=== PATIENT | female | born 2000 | race Caucasian/White ===

== ENCOUNTER 2022-09-08 14:34 | Outpatient (REF) | payer MEDICAID, SELFPAY ==
[2022-09-10 11:24] LABS: COVID-19 RT-PCR UVMMC Result Negative (Negative)
== END 2022-09-08 14:35 | disposition home or self-care (01) ==
LOC: LBN 14:34
PROVIDERS: PCP Physician Assistant Medical; Visit Provider Physician Assistant Medical
DX: Z20.822 Contact with and (suspected) exposure to COVID-19 (principal); B34.9 Viral infection, unspecified
CPT/HCPCS: U0003

== ENCOUNTER 2024-01-27 22:04 | Emergency (ER) | payer SELFPAY ==
[2024-01-27 22:20] VITALS: BP 118/60; PULSE 68; RESP 16; TEMP 36.6; O2SAT 98
[2024-01-27] MEDS: Fluorescein STRIPS 100/BOX 1 MG OP (22:34)
[2024-01-27] MEDS: Tetracaine 0.5% 4 ML BTL OP (22:34)
[2024-01-27] MEDS: Balanced Salt Solution 15 ML BTL OP (22:34)
--- NOTE | 2024-01-27 22:41 | ED.GENADUL_ITS ---
Discharge Plan Disposition Patient Disposition: Home Condition: Stable Discharge Details Clinical Impression: Acute conjunctivitis, right eye Primary Care Provider: None,None ED Provider: Sasha Stoner Home Meds and New Rx's Prescriptions: No Action naproxen sodium 550 MG tablet 550 mg PO Q12H PRN Discharge Instructions Instructions: Conjunctivitis (ED) Additional Instructions: Use the erythromycin ointment three times daily x 5-7 days. Wash your hands before touching your eye. You may use a warm clean wet wash rag as a compress. Try not to rub your eye or scratch it or itch it. Use the erythromycin ointment as directed. Follow up with primary care provider in 3-5 days. Return to ED sooner if any worsening or concerns. Please see [facility] care for follow-up if no better in the next 3 to 5 days. Referrals: [facility] [Outside] - Return if symptoms worsen Juan Jose Simental PA [NURSE PRACTITIONER] - 5 days HPI General Mode of arrival: ambulatory . Date/Time Provider Initiated Documentation: 01/27/24 22:06 . Limitations to Documentation: no limitations . Information obtained by: patient, RN notes reviewed and old records reviewed . HPI Narrative: 23 year old female presents to the ER with foreign body sensation to right eye which began last pm. She reports that she felt a bug fly into her eye and was trying to get it out with her fingers now her eye is red and irritated. She did have some swelling noted to the inner canthus of her right eye. No obvious corneal abrasion or foreign body visualized with Washburn lamp exam and fluorescein. EOMs are intact. She does report that she has had some drainage. No purulent discharge noted on my exam. Related Data Home Medications Medication Instructions Recorded Confirmed naproxen sodium 550 mg tablet 550 mg PO Q12H PRN 06/10/15 Allergies Allergy/AdvReac Type Severity Reaction Status Date / Time No Known Allergies Allergy Unverified 07/08/15 09:01 General Stated Complaint: EyeProblem BRENDON: 4 Review of Systems All systems reviewed & are unremarkable except as noted in HPI and below Eyes Eyes: Reports irritation and Reports itchy eyes Allergic/Immunologic Allergic/Immunologic: Reports itchy eyes Exam Eyes Periorbital: periorbital findings normal Conjunctivae: conjunctival abnormality right conjunctival injection diffuse Cornea: corneas abnormal on the right fluorescein used; Negative for abrasion, without opacification, no contact lens present, without diffuse punctate uptake, with no foreign body noted and without ulcerations Pupils: PERRL EOM: EOM intact bilaterally Course Vital Signs Vital signs: Vital Signs Temperature 36.6 C 01/27/24 22:20 Pulse 68 01/27/24 22:20 Respiratory Rate 16 01/27/24 22:20 Blood Pressure 118/60 01/27/24 22:20 Pulse Oximetry 98 01/27/24 22:20 Temperature 36.6 C 01/27/24 22:20 Temperature Source Tympanic 01/27/24 22:20 Pulse 68 01/27/24 22:20 Respiratory Rate 16 01/27/24 22:20 Blood Pressure 118/60 01/27/24 22:20 Pulse Oximetry 98 01/27/24 22:20 Pain Level 3 01/27/24 22:20 Medical Decision Making 23 year old female presents to the ER with foreign body sensation to right eye which began last pm. She reports that she felt a bug fly into her eye and was trying to get it out with her fingers now her eye is red and irritated. She did have some swelling noted to the inner canthus of her right eye. No obvious corneal abrasion or foreign body visualized with Washburn lamp exam and fluorescein. EOMs are intact. She does report that she has had some drainage. No purulent discharge noted on my exam. Washburn lamp performed with fluorescein saline and tetracaine. Patient tolerated with some difficulty. No corneal abrasion noted, she does have diffuse injection and some swelling noted to her inner canthus. Will treat with erythromycin ointment 3 times daily for the next 5 to 7 days to treat for empirical conjunctivitis.. Quality:SDOH Health Related Social Needs: No Data to Display PFSH All Active Problems (Updated 01/27/24 @ 22:47 by Sasha Stoner NP) Acute conjunctivitis, right eye (Acute) Surgical History ear tubes Tonsillectomy Social History Smoking risk assessment performed?: No Drug use: Never Substance use type: does not use Housing: apartment Do you feel safe at home: Yes Do you feel safe in your relationship?: Yes
[2024-01-27] MEDS: Erythromycin Ophth Oint 3.5 GM TUBE OD (22:49)
[2024-01-27 22:54] VITALS: BP 118/60; PULSE 68; RESP 16; TEMP 36.6
== END 2024-01-27 22:55 | disposition home or self-care (01) ==
LOC: ER 23:03
PROVIDERS: Emergency Provider Registered Nurse Emergency
DX: H10.31 Unspecified acute conjunctivitis, right eye (principal)
CPT/HCPCS: 99283

== ENCOUNTER 2024-03-31 10:41 | Emergency (ER) | payer SELFPAY ==
[2024-03-31 10:46] VITALS: BP 125/80; PULSE 100; RESP 18; TEMP 36.6; O2SAT 97
[2024-03-31 10:52] VITALS: BP 125/80; PULSE 100; RESP 18; TEMP 36.6; O2SAT 97
--- NOTE | 2024-03-31 11:06 | W.ED.GENAD ---
Discharge Plan Disposition Patient Disposition: Home Discharge Details Clinical Impression: Acute right otitis media Primary Care Provider: Unknown,Unknown ED Provider: Aaron Juares Home Meds and New Rx's Prescriptions: New amoxicillin 500 mg tablet 500 mg PO BID Qty: 14 0RF Discharge Instructions Instructions: Ear Infection ED Additional Instructions: You were seen in the emergency department for your right ear pain. You are found to have an ear infection. Please take these antibiotics as directed. Please return to the emergency thoracic discussed for any worsening ear pain any fevers nausea or vomiting. Discharge Data Discharge Date/Time-TO BE ENTERED AT DEPARTURE: 03/31/24 11:34 HPI General Date/Time Provider Initiated Documentation: 03/31/24 11:06. HPI Narrative: MDM This is an overall very well-appearing mildly tachycardic but normothermic 23-year-old female with right acute otitis media for which she will receive amoxicillin and empiric trial of expectant outpatient management. No conjunctivitis and no indication for amoxicillin clavulanic acid. No pain out of proportion to suggest necrotizing soft tissue infection. No mastoid tenderness to suggest mastoiditis. No signs of otitis externa to suggest benefit from earwax and ototic drops. Good range of motion in neck so I am not suspicious for retropharyngeal abscess. Nontoxic-appearing so doubt bacterial tracheitis. Handling secretions so doubt epiglottitis. No significant posterior oropharynx erythema to suggest strep pharyngitis so I did not swab for strep. Given no fevers my suspicion was low for COVID so I did not swab. Patient and I discussed return to the ED for any nausea vomiting fevers or chills or worsening ear pain. Patient's heart rate on repeat was 90. Patient has been seen in the past by ENT. I have asked health president of the [place] Ade[place] to have the patient seen in follow-up by the otolaryngology team. HPI Patient reports that she has had right ear pain since yesterday. She believes that it is infected. She has been swimming. No falls. She has a sore throat as well. With swallowing. Denies nausea or vomiting chest pain shortness of breath. Arrives with her fianc?. No dysuria. No frequency. Exam General: Well-appearing in no acute distress speaking in complete sentences. Head: Normocephalic, atraumatic. Eye: Extraocular eye movements intact. No conjunctival injection. No scleral icterus. Ear, nose, mouth, throat: Right acute bulging erythematous TM. No signs of otitis externa. No mastoid tenderness bilaterally. Left TM clear. No posterior oropharynx erythema. Neck: Trachea midline. Good range of motion in neck. Cardiovascular: Well-perfused distal extremities. Regular rate and rhythm Respiratory: Nonlabored respiration. Clear lungs bilaterally. Gastrointestinal: Nondistended abdomen. Musculoskeletal: No edema. Moving all 4 extremities spontaneously. Skin: Normal for age and race, grossly normal temperature and turgor. No acute rash. Neurologic: Alert and appropriate, no apparent acute deficits. Psychiatric: Mood and manner are appropriate. Grooming and personal hygiene are appropriate. Related Data Home Medications Medication Instructions Recorded Confirmed amoxicillin 500 mg tablet 500 mg PO BID #14 tabs 03/31/24 Previous Rx's Medication Instructions Recorded amoxicillin 500 mg tablet 500 mg PO BID #14 tabs 03/31/24 Allergies Allergy/AdvReac Type Severity Reaction Status Date / Time No Known Allergies Allergy Unverified 03/31/24 10:51 General Stated Complaint: EarProblem BRENDON: 4 Course Vital Signs Vital signs: Vital Signs Temperature 36.6 C 03/31/24 10:46 Pulse 100 H 03/31/24 10:46 Respiratory Rate 18 03/31/24 10:46 Blood Pressure 125/80 03/31/24 10:46 Pulse Oximetry 97 03/31/24 10:46 Temperature 36.6 C 03/31/24 10:52 Temperature Source Temporal Artery Scan 03/31/24 10:52 Pulse 100 H 03/31/24 10:52 Respiratory Rate 18 03/31/24 10:52 Respiratory Effort Normal, Non-Labored 03/31/24 10:52 Blood Pressure 125/80 03/31/24 10:52 Blood Pressure Position Sitting 03/31/24 10:52 Pulse Oximetry 97 03/31/24 10:52 Oxygen Delivery Method Room Air 03/31/24 10:52 Oxygen Flow Rate 0 03/31/24 10:52 Pain Level 6 03/31/24 10:52 Medical Decision Making Quality:SDOH Health Related Social Needs: No Data to Display PFSH All Active Problems (Updated 03/31/24 @ 11:23 by Aaron Juares MD) Acute right otitis media (Acute) Surgical History ear tubes Tonsillectomy Social History Smoking/Tobacco Use Status: Current every day Tobacco Type: e-cigarettes Smoking risk assessment performed?: Yes Alcohol Intake: current Alcohol Intake frequency: a few times a week Alcohol type: beer Drug use: Never Substance use type: does not use Housing: apartment Do you feel safe at home: Yes Do you feel safe in your relationship?: Yes PAWSS Have you Been Recently Intoxicated or Drunk Within the Last 30 days?: No Have you Ever Experienced Previous Episodes of Alcohol Withdrawal?: No Have you ever Experienced Withdrawal Seizures?: No Have you ever Experienced Delirium Tremens(DT)s?: No Have you ever undergone Alcohol Rehabilitation Treatment (i.e, inpt ot outpatient treatment programs)?: No Have you ever Experienced Blackouts?: No Have you ever Combined Alcohol with other Downers within the last 90 days?: No Have you ever Combined Alcohol with any other Substance of Abuse during the last 90 days?: No Positive Blood Alcohol level on Presentation? [PCS.BAL]: No Evidence of Increased Autonomic Activity (i.e. HR>120, tremor, sweating, agitation, nausea)?: No Result: 0
[2024-03-31 11:27] VITALS: BP 114/62; PULSE 90; RESP 18; O2SAT 97
[2024-03-31 11:32] VITALS: BP 114/62; PULSE 90; RESP 18; O2SAT 97
--- NOTE | 2024-03-31 14:47 | NUR.NOTE ---
REferral emailed to [facility] for right acute otitis to be seen within the week. Nursing Note:
== END 2024-03-31 11:34 | disposition home or self-care (01) ==
LOC: ER 11:44
PROVIDERS: Emergency Provider Emergency Medicine
DX: H92.01 Otalgia, right ear (principal); H66.91 Otitis media, unspecified, right ear
CPT/HCPCS: 99283

== ENCOUNTER 2024-08-25 01:03 | Emergency (ER) | payer SELFPAY ==
--- OUTSIDE RECORDS SUMMARY | 2024-08-25 01:07 | XMS_ITS | Encounter Summary ---
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 [place] [address] Encounter for removal of ureteral stent; Obstruction of right ureteropelvic junction (UPJ) Social History Tobacco Use Types Packs/Day Years Used Date Smoking Tobacco: Never Smokeless Tobacco: Never Comments:no one in the house hold smokes Alcohol Use Standard Drinks/Week Comments No 0 (1 standard drink = 0.6 oz pur e alcohol) Sex and Gender Information Value Date Recorded Sex Assigned at Not on file Gender Identity Not on file Sexual Orientation Not on file documented as of this encounter Patient Instructions * Patient Instructions* Leydi Moya RN - 12/23/2019 2:00 PM EDT Instructions following Cystoscopy Activity: As tolerated by your comfort level. Fluids: You should increase your water today. Avoid coffee, tea and cola. You do not need to [id number] ounces of water today. Urination: You will likely have a small amount of blood in your urine for the next several days. This is normal; however, if you are passing large amounts of blood clots or are unable to void please call our office at before 5PM or [phone] after hours. Please call if: * you have copious blood in your urine * fevers greater than 101.3 F * you are unable to void The number for questions is before 5 PM weekdays and [phone] after 5 PM and weekends. Follow-up: Follow up in [address] Gray with a renal ultrasound documented in this encounter Progress Notes * Naun Gray MD - 12/23/2019 2:00 PM EDT PEDIATRIC UROLOGY PROCEDURE NOTE Won Morales Date 12/23/2019 Surgeon: Naun Gray MD, Attending Generator Assembler: Leydi Moya RN Anesthesia: Topical Lidocaine jelly Preop Dx: H/O Right UPJ obstruction, S/P right robotic assisted laparoscopic pyeloplasty Postop Dx: H/O right UPJ obstruction, S/P right robotic assisted laparoscopic pyeloplasty Procedure: Cystoscopy with right double J ureteral stent removal Drains; None EBL: None Brief History: Won is a 19 y.o. female who had a right ureteral stent placed on 10/22/19 duringa right robotic assisted laparoscopic pyeloplasty. I discussed with her mother and she understood the absolute necessity that the stent be removed endoscopically. They accept the inherent risk of urethral and bladder damage with the need for surgical repair. They accept the possibility that the stent can not be removed due to encrustation and that multiple procedures may be needed to remove the stent. We discussed the inherent risk of bleeding and infection. We had written consent to proceed. Operative report: After an adequate level of general anesthesia, Alvin was placed in the dorsal lithotomy position. We then prepped the genitalia with Betadine and draped sterile. We placed a flexible cystoscope into the bladder and identified the right ureteral stent. There was mild urothelial edema but otherwise the bladder was normal. There was no encrustation on the distal end of the stent.We grasped the stent and removed it easily from the bladder. The bladder was irrigated and drained.Intraurethral Lidocaine was used. The legs were taken out of lithotomy position Complications: None. NAUN GRAY MD documented in this encounter Plan of Treatment Scheduled Orders Name Type Priority Associated Diagnoses Orde r Schedule Cysto, Stent Removal, clinic PROCEDURE Routine Encounter for removal of ureteral stent Ordered: 12/23/2019 POCT urine dipstick Point of Care Testing Routine Encounter for removal of ureteral stent Obstruction of right ureteropelvic junction (UPJ) Ordered: 12/23/2019 documented as of this encounter Procedures Procedure Name Priority Date/Time Associated Diagnosis Comments HC URINE CULTURE Routine 12/23/2019 2:00 PM EDT Encounter for removal of ureteral stent documented in this encounter Results * US Retroperitoneal Complete (09/02/2020 11:15 AM EST) Anatomical Region Laterality Modality Abdomen Ultrasound 09/02/2020 10:5 7 AM EST Impressions 09/02/2020 12:08 PM EST 1. ??Interval decrease in degree of right renal collecting system dilatation compared to preoperative ultrasound and CT following known interval pyeloplasty, residual dilatation, moderate to severe in degree, predominantly involving the central right kidney. Similar diffuse mild cortical thinning of the right kidney. 2. ??Morphologically normal left kidney. 3. ??Normal contour of the partially distended bladder. Thank you for letting us participate in the care of this patient. For questions regarding this report, please contact the number below. Prostate Exam Reason^ hydronephrosis ? Tamela Hamlin, Staff Physician Electronically Signed Final Report ?? 09/02/2020 12:07 pm Narrative 09/02/2020 12:08 PM EST Renal ? (Signed Final 09/02/2020 12:07 pm) PATIENT INFO: ID #: ? [id number] ?: ??[birth year] (20 yrs)(F) Name: ? WON Loli ? Visit Date: 09/02/2020 10:57 am ? GOEHRING PERFORMED BY: Performed By: ? Adeola Kennedy RDMS Attending: ?Tamela Hamlin MD Referred By: ?NAUN GRAY Location: ? [facility] SERVICE(S) PROVIDED: ??URETRO - Retroperitoneal Complete - [id number] ? [id number] INDICATIONS: ?? hydronephrosis, removal of ureteral stent, ??obstruction of right UPJ s/p pyeloplasty COMPARISON: Diuretic renal scintigraphy 10/04/19 Outside institution RUQ abdominal ultrasound 07/09/[address] abdomen/pelvis 07/23/19 RIGHT KIDNEY: Size (cm) ?L: ??10.5 Cortical Thickness: ?Mild cortical thinning Cortical Echogenicity: ?? Normal Hydronephrosis: ?Moderate-severe centrally Ureter: ?Not visualized Comment: ?AP pelvis renal diameter approximately 1.6 cm LEFT KIDNEY: Size (cm) ?L: ??11.8 Cortical Thickness: ?Normal Cortical Echogenicity: ?? Normal Hydronephrosis: ?No sonographic evidence URINARY BLADDER: Pre-void (cm) ? L: ??3.3 ? AP: ??2.3 ? TV: ??5.1 Vol (ml): ?20.3 Comment: ?Partially distended, normal contour. Procedure Note Tamela Hamlin MD - 09/02/2020 Renal (Signed Final 09/02/2020 12:07 pm) PATIENT INFO: ID #: [id number] : [birth year] (20 yrs)(F) Name: WON Ennis Visit Date: 09/02/2020 10:57 am GOEHRING PERFORMED BY: Performed By: Adeola Kennedy RDMS Attending: Tamela Hamlin MD Referred By: NAUN GRAY Location: [facility] SERVICE(S) PROVIDED: URETRO - Retroperitoneal Complete - [id number] INDICATIONS: hydronephrosis, removal of ureteral stent, obstruction of right UPJ s/p pyeloplasty COMPARISON: Diuretic renal scintigraphy 10/04/19 Outside institution RUQ abdominal ultrasound 07/09/[address] abdomen/pelvis 07/23/19 RIGHT KIDNEY: Size (cm) L: 10.5 Cortical Thickness: Mild cortical thinning Cortical Echogenicity: Normal Hydronephrosis: Moderate-severe centrally Ureter: Not visualized Comment: AP pelvis renal diameter approximately 1.6 cm LEFT KIDNEY: Size (cm) L: 11.8 Cortical Thickness: Normal Cortical Echogenicity: Normal Hydronephrosis: No sonographic evidence URINARY BLADDER: Pre-void (cm) L: 3.3 AP: 2.3 TV: 5.1 Vol (ml): 20.3 Comment: Partially distended, normal contour. IMPRESSION 1. Interval decrease in degree of right renal collecting system dilatation compared to preoperative ultrasound and CT following known interval pyeloplasty, residual dilatation, moderate to severe in degree, predominantly involving the central right kidney. Similar diffuse mild cortical thinning of the right kidney. 2. Morphologically normal left kidney. 3. Normal contour of the partially distended bladder. Thank you for letting us participate in the care of this patient. For questions regarding this report, please contact the number below. Prostate Exam Reason^ hydronephrosis Tamela Hamlin, Staff Physician Electronically Signed Final Report 09/02/2020 12:07 pm Naun Gray MD IM US GEN ORDERABLE S * Urine culture Clean Catch Urine (12/23/2019 2:00 PM EDT) Urine Culture No growth (Less than 1,000 cfu/ml). [facility] Urine specimen obtained by clean catch procedure (specimen) 12/23/2019 2:00 PM EDT 12/23/2019 4:14 PM EDT Narrative Resulting Agency Comment Spec In Lab Naun Gray MD MICROBIOLOGY - GENER AL ORDERABLES Performing Organization Address City/State/[facility] Co de Phone Number [facility] [place] [address] documented in this encounter Visit Diagnoses Diagnosis Encounter for removal of ureteral stent Obstruction of right ureteropelvic junction (UPJ) Encounter for removal of ureteral stent Obstruction of right ureteropelvic junction (UPJ) documented in this encounter Care Teams Dust Mill Operator Relationship Specialty Start Date End Date Naun Alvarez MD [address] [place] [phone] PCP - General Family Medicine 11/09/16 05/25/23 documented as of this encounter
--- OUTSIDE RECORDS SUMMARY | 2024-08-25 01:07 | XMS_ITS | Encounter Summary ---
Author Organization Formerly [facility] Address [facility] [address] Care Team Providers Care Gas Appliance Servicer Name Role Phone Naun Alvarez MD Primary Care Provider [phone] Encounter Details Date Type Department Care Team (Latest Contact Info) Description 10/04/2019 1:00 PM EST Office [place] [address] Naun Gray MD [facility] [place] [address] Hydronephrosis with ureteropelvic junction (UPJ) obstruction Social History Tobacco Use Types Packs/Day Years [...] on file documented as of this encounter Last Filed Vital Signs Vital Sign Reading Time Taken Comments Blood Pressure 122/70 10/04/2019 12:46 PM EST Pulse - - Temperature - - Respiratory Rate - - Oxygen Saturation - - Inhaled Oxygen Concentration - - Weight 68.7 kg (151 lb 6.4 oz) 10/04/19 20 12:46 PM EST Height 155.6 cm (5' 1.25) 10/04/2019 1 2:46 PM EST Body Mass Index 28.37 10/04/2019 12:46 PM EST Body Mass Index Percentile 93.17% 10/04 12:46 PM EST Growth Chart: [facility] (Girls, 2- 20 Years) documented in this encounter Patient Instructions * Patient Instructions* Naun Gray MD - 10/04/2019 1:00 PM EST Schedule a robotic assisted right laparoscopic dismembered pyeloplasty. NAUN GRAY MD documented in this encounter Progress Notes * Naun Gary MD - 10/04/2019 1:00 PM EST PEDIATRIC UROLOGY OUTPATIENT SPECIALTY CONSULTATION Place of Service: [facility] Visit Summary: Diagnosis: Right UPJ obstruction. Treatment/Plan: Right robotic dismembered pyeloplasty. Reason for Visit: I am seeing Won at the request of Naun Alvarez MD for the evaluation of her chronic abdominal pain. I have reviewed the available records, interviewed her mother grandfather, and examined Won in the presence of them today. History of Present Illness: Won is a 19 y.o. 2 m.o. female who presents for evaluation of her chronic abdominal and left side back pain. Won presents today for follow-up of her newly discovered hydronephrotic right kidney and her history of chronic abdominal pain and left-sided flank pain. A recent CT scan [facility] revealed a dilated right renal pelvis, but no UPJ stone orstone present in the ureter. She is never had a urinary tract infection, pyelonephritis. She is noton control. On questioning her mother Won does suffer from constipation. No Known Allergies Current Outpatient Medications on File Prior to Visit Medication Sig Dispense Refill ??? tretinoin (RETIN-A) 0.025 % Cream Apply topically to face at bedtime as tolerated. Start 3x/week working up to nightly as tolerated. 45 g 3 ??? doxycycline monohydrate (MONODOX) 100 mg Capsule Take 1 capsule by mouth 2 times daily. 60 capsule 3 Current Facility-Administered Medications on File Prior to Visit Medication Dose Route Frequency Provider Last Rate Last Dose ??? [COMPLETED] technetium (Tc-99m) emertiatide (MAG3) injection 10 mCi 10 mCi Intravenous Once PRNSMichael gonzalez MD 10 mCi at 10/04/19 0956 ??? furosemide (LASIX) injection 40 mg 40 mg Intravenous Once Michael Zee MD Patient Active Problem List Diagnosis Code ??? Chronic otitis media with effusion H65.499 ??? Otorrhea H92.10 ??? Hearing loss H91.90 ??? Eustachian tube dysfunction H69.80 ??? Conductive hearing loss H90.2 Review of Systems: General: No fever/chills/headaches Eyes/Vision Normal. No glasses/discharge/aniridia Neurological: Normal. No head injury/seizures/hydrocephalus Endocrine: Negative. No diabetes/dehydration/growth disturbance GI: Normal. No constipation/diarrhea/vomiting/abd pain Cardiac: Normal. No murmur/CHD Integumentary: Normal. No rash/eczema Musculoskeletal: Normal. No joint pain/swelling/deformity ENT: Normal. No AOM/sinus congestion/strep throat Respiratory: Normal. No asthma/RSV/Pneumonia Hematologic Normal. No anemia/bruising/bleeding disorder Psych Normal. No ADHD/ADD/Behavior disorder Hepatobiliary: Normal. No Jaundice/Hepatitis Renal Normal. No UTI/Renal failure/Hematuria Past Medical History: Status post bilateral myringotomy tubes. Born at 40 weeks GA. Family History: Non contributory for congenital genitourinary abnormalities. Social History: Lives at home with her mother and step-father. Has several other sibling(s). Physical Exam: 68.67 Kg. General: Healthy female in NAD. Well nourished Head: Normocephalic/Atraumatic. No lesions. Eyes: PERRLA. Conjunctiva and sclera clear. No discharge Nose/Throat: Passages clear. Mucous membranes pink no lesions Teeth/oral: Normal dentition for age and oral cavity Neck: Supple/soft. No masses. Thyroid not enlarged. Trachea midline. Chest: Symmetrical. No pectus excavatum. Lungs: Clear to auscultation bilaterally Heart: RRR No murmurs. S1 and S2 normal Abdomen: Soft. No masses palpable. Liver/spleen/kidneys non-tender. No OM No evidence of abdominal or inguinal hernia. No CVAT. Genitalia: not examined. Extremities: Full ROM. No deformity/edema Lymph nodes: Not enlarged. Nontender Back: No curvature. Shoulders/scapula/iliacs symmetrical Spine: Straight. Skin: Clear and warm. No significant lesions Neurological: Alert. No gross motor/sensory deficit. Normal gait and balance. Pertinent Radiology Studies Reviewed by me with Won flores (both films and report): MAG3 Lasix renogram (10/04/2019): Right kidney T1/2 greater than 30 minutes, split renal function right 63%, left 38%. CT scan Abd/pelvis (07/23/2019): Dilated right renal pelvis, but no UPJ stone or stone present in the ureter. Renal bladder ultrasound (07/09/2020): Massively dilated right renal pelvis, grade 4 hydronephrosis. Pertinent Laboratory Studies Reviewed by me: Results for WON HUNG ( ) Ref. Range 10/04/2019 13:34 WBC Latest Ref Range: 4.5 - 13.0 x10(3)/mcL 9.4 RBC Latest Ref Range: 4.10 - 5.10 x10(6)/mcL 4.99 Hemoglobin Latest Ref Range: 12.0 - 16.0 gm/dL 14.1 Hematocrit Latest Ref Range: 36.0 - 46.0 % 44.2 MCV Latest Ref Range: 76.0 - 98.0 fL 88.6 MCH Latest Ref Range: 25.0 - 35.0 pg 28.3 MCHC Latest Ref Range: 32.0 - 36.5 gm/dL 31.9 (L) RDWSD Latest Ref Range: 37.0 - 46.0 fL 39.8 RDWCV Latest Ref Range: 0.0 - 14.5 % 12.3 Platelets Latest Ref Range: 145 - 370 x10(3)/mcL 489 (H) MPV Latest Ref Range: 7.6 - 12.9 fL 8.7 nRBC % Auto Latest Units: % 0.0 nRBC Abs Auto Latest Ref Range: 0.000 - 0.000 x10(3)/mcL 0.000 Neutr Abs (ANC) Latest Ref Range: 1.50 - 8.00 x10(3)/mcL 5.28 Results for WON HUNG ( ) Ref. Range 10/04/2019 13:34 Sodium Latest Ref Range: 135 - 145 mmol/L 142 Potassium Latest Ref Range: 3.5 - 5.0 mmol/L 3.7 Chloride Latest Ref Range: 98 - 107 mmol/L 100 CO2 Latest Ref Range: 22 - 31 mmol/L 29 Anion Gap Latest Ref Range: 5 - 15 mmol/L 13 BUN Latest Ref Range: 10 - 20 mg/dL 12 Creatinine Latest Ref Range: 0.50 - 0.89 mg/dL 0.87 eGFR Latest Ref Range: >=60 mL/min/1.73 m?? See note eGFR Latest Ref Range: >=60 mL/min/1.73 m?? See note Glucose Lvl Latest Ref Range: 65 - 199 mg/dL 94 Calcium Latest Ref Range: 8.5 - 10.5 mg/dL 9.5 Results for WON HUNG ( ) Ref. Range 10/04/2019 13:10 Color UA Latest Ref Range: Yellow Yellow Appearance UA Latest Ref Range: Clear Clear Spec [place] UA Latest Ref Range: 1.002 - 1.030 1.008 pH UA Latest Ref Range: 5.0 - 8.0 7.0 Protein UA Latest Ref Range: Negative mg/dL Negative Glucose UA Latest Ref Range: Negative mg/dL Negative Ketones UA Latest Ref Range: Negative mg/dL Negative Bilirubin UA Latest Ref Range: Negative mg/dL Negative Urobilinogen UA Latest Ref Range: Normal mg/dL Normal Blood UA Latest Ref Range: Negative mg/dL Negative Leukocytes UA Latest Ref Range: Negative mcL Negative Nitrite UA Latest Ref Range: Negative Negative Assessment: Won is a 19 y.o. 2 m.o. 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 I have explained the diagnosis to his family and Mandy. I have recommended she undergo a right robotic assisted laparoscopic pyeloplasty. The potential risk of bleeding infection recurrent UPJ obstruction, urinary leak and injury to adjacent adjacent structures were discussed. Informed consent was obtained from Mrs. Hung. Plan of Management: Schedule robotic assisted right laparoscopic dismembered pyeloplasty. Will needa cystoscopy stent removal 6 weeks postop. NAUN GRAY MD documented in this encounter Plan of Treatment Not on file documented as of this encounter Procedures Procedure Name Priority Date/Time Associated Diagnosis Comments LAPAROSCOPY,PYELOPL ASTY,ROBOTIC ASSIST Routine 10/08/2019 5:35 PM EST Hydronephrosis with ureteropelvic junction (UPJ) obstruction CYSTO, REMOVAL\STENT\FOREI GN BODY\CALCULUS\SIMPL E Routine 10/08/2019 5:35 PM EST Hydronephrosis with ureteropelvic junction (UPJ) obstruction CYSTO,RETROGRADE,UR ETEROPYELOGRAPHY Routine 10/08/2019 5:35 PM EST Hydronephrosis with ureteropelvic junction (UPJ) obstruction HEMOGRAM Routine 10/04/2019 1:34 PM EST Hydronephrosis with ureteropelvic junction (UPJ) obstruction DIFFERENTIAL, AUTOMATED Routine 10/04/2019 1:34 PM EST Hydronephrosis with ureteropelvic junction (UPJ) obstruction HC CBC,PLT & AUTO DIFF Routine 10/04/2019 1:34 PM EST Hydronephrosis with ureteropelvic junction (UPJ) obstruction BASIC METABOLIC PANEL Routine 10/04/2019 1:34 PM EST Hydronephrosis with ureteropelvic junction (UPJ) obstruction URINALYSIS WITH REFLEX CULTURE Routine 10/04/2019 1:10 PM EST Hydronephrosis with ureteropelvic junction (UPJ) obstruction POCT URINE DIPSTICK Routine 10/04/2019 1 :12 AM EST Hydronephrosis with ureteropelvic junction (UPJ) obstruction documented in this encounter Results * Differential, Automated (10/04/2019 1:34 PM EST) Neutrophil % 56.0 % [facility] Neutrophil Absolute 5.28 1.50 - 8.00 x10(3)/[facility] Lymph % 35.9 % [facility] Lymphocytes Abs 3.4 1.2 - 5.2 x10(3)/[facility] Monocyte % 6.7 % [facility] Monocyte Abs 0.6 0.2 - 1.0 x10(3)/[facility] Eos % 0.5 % [facility] Eosinophils Abs 0.0 0.0 - 0.4 x10(3)/[facility] Basophil % 0.7 % [facility] Baso Absolute 0.1 0.0 - 0.1 x10(3)/[facility] Immature Gran % 0.20 % [facility] Comment: Immature granulocytes(IG's)percentage and absolute count will include metamyelocytes, myelocytes, and promyelocytes. Blood smears from CBCs yielding IG's will be scanned manually for concordance. If this scan disagrees with the automated IG or if promyelocytes are noted, a manual differential will be performed. Immature Gran Absolute 0.02 0.00 - 0.04 x10(3)/[facility] Blood specimen (specimen) 10/04/2019 1:34 PM EST 10/04/2019 1:41 PM EST Narrative Resulting Agency Comment Spec In Lab Naun Gray MD HEMATOLOGY ORDERABLE S [facility] [place] [address] * (ABNORMAL) Hemogram (10/04/2019 1:34 PM EST) White Blood Cell 9.4 4.5 - 13.0 x10(3)/mc L [facility] Red Blood Cell 4.99 4.10 - 5.10 x10(6)/mc L [facility] Hemoglobin 14.1 12.0 - 16.0 gm/dL [facility] Hematocrit 44.2 36.0 - 46.0 % [facility] Mean Cell Volume 88.6 76.0 - 98.0 fL [facility] Mean Cell Hemoglobin 28.3 25.0 - 35.0 pg [facility] Mean Cell Hemoglobin Concentration 31.9(L) 32.0 - 36.5 gm/dL [facility] Platelet 489(H) 145 - 370 x10(3)/mc L [facility] RDW Standard Deviation 39.8 37.0 - 46.0 fL [facility] RDW coefficient of variation 12.3 0.0 - 14.5 % [facility] Mean Platelet Volume 8.7 7.6 - 12.9 fL [facility] NRBC% auto 0.0 % [facility] NRBC Absolute 0.000 0.000 - 0.000 x10(3)/mc L [facility] Blood specimen (specimen) 10/04/2019 1:34 PM EST 10/04/2019 1:41 PM EST Narrative Resulting Agency Comment Spec In Lab Naun Gray MD HEMATOLOGY ORDERABLE S Performing Organization Address City/State[facility] Co de Phone Number [facility] [place] [address] * Basic Metabolic Panel (non-fasting) (10/04/2019 1:34 PM EST) Glucose 94 65 - 199 mg/dL [facility] Comment:Diabetes: >=200 mg/d L plus symptoms Blood Urea Nitrogen 12 10 - 20 mg/dL [facility] Creatinine 0.87 0.50 - 0.89 mg/dL [facility] Sodium 142 135 - 145 mmol/L [facility] Potassium 3.7 3.5 - 5.0 mmol/L [facility] Comment: Please note: ??Patients with WBC >100,000 may have falsely elevated Potassium levels. ??For accurate Potassium quantification in these patients send serum separator tube (gold top) for subsequent determinations. ??Contact the Clinical Chemistry Laboratory if there are any questions. Chloride 100 98 - 107 mmol/L [facility] Carbon Dioxide 29 22 - 31 mmol/L [facility] Anion Gap 13 5 - 15 mmol/L [facility] Calcium 9.5 8.5 - 10.5 mg/dL [facility] Est Glomerular Filtration Rate See note >=60 mL/min/1. 73 m?? [facility] Comment: The eGFR for patients less than 18 years of age should be calculated using the Sesay formula. GFR = (0.413 x Height in cm)/serum creatinine. The eGFR was calculated using the CKD-EPI equation. As with all creatinine based estimates of kidney function, eGFR values calculated with the CKD-EPI equation are not accurate in patients with acute kidney failure, extremes of body mass or the acutely ill. [email or web address] eGFR See note >=60 mL/min/1. 73 m?? [facility] Comment: The eGFR for patients less than 18 years of age should be calculated using the Sesay formula. GFR = (0.413 x Height in cm)/serum creatinine. The eGFR was calculated using the CKD-EPI equation. As with all creatinine based estimates of kidney function, eGFR values calculated with the CKD-EPI equation are not accurate in patients with acute kidney failure, extremes of body mass or the acutely ill. [email or web address] Blood specimen (specimen) 10/04/2019 1:34 PM EST 10/04/2019 1:41 PM EST Narrative Resulting Agency Comment Spec In Lab Naun Gray MD CHEMISTRY ORDERABLES [facility] [place] [address] * Urinalysis with reflex Culture (10/04/2019 1:10 PM EST) Glucose, Urine Dipstick Negative Negative mg/dL [facility] Protein, Urine Dipstick Negative Negative mg/dL [facility] Bilirubin, Urine Dipstick Negative Negative mg/dL [facility] Comment: Clinical correlation required for positive Urine Bilirubin results as false positive may occur with some drugs and drug related products. If a false positive is suspected a serum total bilirubin should be considered if clinically indicated. Urobilinogen, Urine Dipstick Normal Normal mg/dL [facility] pH, Urn (dipstick) 7.0 5.0 - 8.0 [facility] Blood, Urine Dipstick Negative Negative mg/dL [facility] Ketone, Urine Dipstick Negative Negative mg/dL [facility] Nitrite, Urine Dipstick Negative Negative [facility] Leukocytes, Urine Dipstick Negative Negative [facility] Appearance, Urine Dipstick Clear Clear [facility] Specific [place] Urine Automated 1.008 1.002 - 1.030 [facility] Color, Urine Dipstick Yellow Yellow [facility] Reflex to Culture No [facility] Urine specimen (specimen) 10/04/2019 1:10 PM EST 10/04/2019 1:21 PM EST Narrative Resulting Agency Comment Spec In Lab Naun Gray MD URINE ORDERABLES Performing Organization Address City/State/[facility] Co de Phone Number [facility] [place] [phone] * (ABNORMAL) POCT urine dipstick (10/04/2019 1:12 AM EST) POC Sp [place] 1.000(A) 1.002 - 1.030 POC pH, UA 6 5.0 - 8.5 POC Leuk, UA neg Negative - Negative POC Nitrite, UA neg Negative - Negative POC Protein, UA neg Negative - Negative mg/dL POC Glucose, UA norm Normal - Normal mg/dL POC Ketone, UA neg Negative - Negative POC Urobil, UA norm 0.2 - 1.0 mg/dL POC Bili, UA neg Negative - Negative POC Blood, UA neg Negative - Negative david/uL 10/04/2019 1:12 AM EST Naun Gray MD POINT OF CARE TEST O RDERABLES documented in this encounter Visit Diagnoses Diagnosis Hydronephrosis with ureteropelvic junction (UPJ) obstruction documented in this encounter Care Teams Gas Appliance Servicer Relationship Specialty Start Date End Date Naun Alvarez MD [address] [place] [phone] PCP - General Family Medicine 11/09/16 05/25/23 documented as of this encounter
--- OUTSIDE RECORDS SUMMARY | 2024-08-25 01:07 | XMS_ITS | Encounter Summary ---
Author Organization [facility] [place] [address] Care Team Providers Care Bi Report Developer Name Role Phone Dillon Alvarez MD Primary Care Provider [phone] Reason for Referral * Diagnostic Test (Routine) - Closed Specialty Diagnoses / Procedures Referred By Contac t Referred To Contact Radiology Diagnoses Chronic abdominal pain Hydronephrosis with ureteropelvic junction (UPJ) obstruction Procedures NM Renal Scan Dillon Fernandez MD [facility] [place] [address] [place] [address] Referral ID Status Reason Start Date Expiration Date V isits Requested Visits Authorized [id number] Closed Specialty Service Requested 09/05/2019 09/04/2020 1 1 Reason for Visit * Diagnostic Test (Routine) - Closed Specialty Diagnoses / Procedures Referred By Contac t Referred To Contact Radiology Diagnoses Chronic abdominal pain Hydronephrosis with ureteropelvic junction (UPJ) obstruction Procedures NM Renal Scan Diuretic Dillon Gray MD [facility] [place] [address] [place] [address] Referral ID Status Reason Start Date Expiration Date V isits Requested Visits Authorized [id number] Closed Specialty Service Requested 09/05/2019 09/04/2020 1 1 Encounter Details Date Type Department Care Team (Latest Contact Info) Description 10/04/2019 9:38 AM EST - 10/04/2019 11:59 PM EST Hospital Encounter [place] [address] Dillon Gray MD [facility] [place] [address] Chronic abdominal pain; Hydronephrosis with ureteropelvic junction (UPJ) obstruction Discharge Disposition: Home Social History Tobacco Use Types Packs/Day Years [...] on file documented as of this encounter Medications at Time of Discharge Medication Sig Dispensed Refills Start Date End Date tretinoin (RETIN-A) 0.025 % CreamIndications:Acne vulgaris Apply topically to face at bedtime as tolerated. Start 3x/week working up to nightly as tolerated. 45 g 3 05/16/2017 doxycycline monohydrate (MONODOX) 100 mg CapsuleIndications:Acne vulgaris Take 1 capsule by mouth 2 times daily. 60 capsule 3 05/16/2017 documented as of this encounter Plan of Treatment Not on file documented as of this encounter Procedures Procedure Name Priority Date/Time Associated Diagnosis Comments NM RENAL SCAN DIURETIC(MAG3) Routine 10/04/2019 11:16 AM EST Chronic abdominal pain Hydronephrosis with ureteropelvic junction (UPJ) obstruction documented in this encounter Results * NM Renal Scan Diuretic (10/04/2019 11:16 AM EST) Anatomical Region Laterality Modality Nuclear Medicine Impressions 10/04/2019 1:48 PM EST 1. Moderate to high-grade right UPJ obstruction. 2. Differential function is 63% from the left kidney and 37% from the right kidney. Thank you for letting us participate in the care of this patient. For questions regarding this report, please contact the number below. ? Narrative 10/04/2019 1:48 PM EST EXAMINATION: NM RENAL SCAN DIURETIC CLINICAL HISTORY: Right hydronephrosis. Chronic abdominal pain. TECHNIQUE: Technetium-99m MAG3 was administered intravenously in a dose of 10 mCi. Images of the kidneys were obtained in the posterior projection at 2 second intervals for 1 minute and then 1 minute intervals for 30 minutes. Furosemide was administered intravenously in a dose of 40 mg and imaging continued for an additional 30 minutes. COMPARISON: None FINDINGS: Left Kidney: Normal perfusion, extraction, excretion, and clearance prior to furosemide. Right Kidney: Right kidney appears slightly smaller than left kidney. Normal perfusion, extraction, excretion, and markedly clearance from a dilated appearing right pelvicalyceal system prior to furosemide. Post-Furosemide: Moderate to severely delayed clearance of activity from the right pelvicalyceal system with a T half clearance of greater than 30 minutes. Differential Function: Left kidney 63%, Right kidney 37% Procedure Note Michael Zee MD - 10/04/2019 EXAMINATION: NM RENAL SCAN DIURETIC CLINICAL HISTORY: Right hydronephrosis. Chronic abdominal pain. TECHNIQUE: Technetium-99m MAG3 was administered intravenously in a dose of10 mCi. Images of the kidneys were obtained in the posterior projection at 2second intervals for 1 minute and then 1 minute intervals for 30 minutes. Furosemide was administered intravenously in a dose of 40 mg and imaging continued for an additional 30 minutes. COMPARISON: None FINDINGS: Left Kidney: Normal perfusion, extraction, excretion, and clearance priorto furosemide. Right Kidney: Right kidney appears slightly smaller than left kidney.Normal perfusion, extraction, excretion, and markedly clearance from a dilated appearing right pelvicalyceal system prior to furosemide. Post-Furosemide: Moderate to severely delayed clearance of activity fromthe right pelvicalyceal system with a T half clearance of greater than 30minutes. Differential Function: Left kidney 63%, Right kidney 37% IMPRESSION 1. Moderate to high-grade right UPJ obstruction. 2. Differential function is 63% from the left kidney and 37% from theright kidney. Thank you for letting us participate in the care of this patient. Forquestions regarding this report, please contact the number below. Dillon Gray MD [facility] [place] ORDERABLES documented in this encounter Visit Diagnoses Diagnosis Chronic abdominal pain Abdominal pain, unspecified site Hydronephrosis with ureteropelvic junction (UPJ) obstruction documented in this encounter Administered Medications Inactive Administered Medications - up to 3 most recent administrations Medication Order MAR Action Action Date Dose Rate Site technetium (Tc-99m) emertiatide (MAG3) injection 10 mCi 10 mCi, Intravenous, ONCE PRN, 1 dose, Starting on Mon10/04/19 at 0956, Until Mon10/04/19 at 0956, Per Protocol, Routine Given 10/04/2019 9:56 AM EST 10 mCi Right Arm documented in this encounter Care Teams Bi Report Developer Relationship Specialty Start Date End Date Dillon Alvarez MD [address] [place] [phone] PCP - General Family Medicine 11/09/16 05/25/23 documented as of this encounter
--- OUTSIDE RECORDS SUMMARY | 2024-08-25 01:07 | XMS_ITS | Encounter Summary ---
Author Organization [facility] [place] [address] Care Team Providers Care Production Proofreader Name Role Phone Dillon Alvarez MD Primary Care Provider [phone] Reason for Visit * Reason Comments Medication Refill Encounter Details Date Type Department Care Team (Late st Contact Info) Description 11/20/2019 Refill Pediatrics at [facility] [place] [place] [address] Skylar Carrington PA [facility] [place] [address] Social History Tobacco Use Types Packs/Day Years [...] on file documented as of this encounter Plan of Treatment Not on file documented as of this encounter Visit Diagnoses Not on filedocumented in this encounter Care Teams Production Proofreader Relationship Specialty Start Date End Date Dillon Alvarez MD [address] [place] [phone] PCP - General Family Medicine 11/09/16 05/25/23 documented as of this encounter
--- OUTSIDE RECORDS SUMMARY | 2024-08-25 01:07 | XMS_ITS | Encounter Summary ---
Author Organization [facility] Address [facility] [place] [address] Care Team Providers Care Instruction Librarian Name Role Phone Naun Alvarez MD Primary Care Provider [phone] Encounter Details Date Type Department Care Team (Late st Contact Info) Description 09/02/2020 1:00 PM EST Office [place] [address] Naun Gray MD [facility] [place] [address] UPJ (ureteropelvic junction) obstruction Social History Tobacco Use Types Packs/Day [...] Sign Reading Time Taken Comments Blood Pressure 130/82 09/02/2020 11:38 AM EST Pulse 108 09/02/2020 11:38 AM EST Temperature - - Respiratory Rate - - Oxygen Saturation - - Inhaled Oxygen Concentration - - Weight 73.8 kg (162 lb 12.8 oz) 020 11:38 AM EST Height 156 cm (5' 1.4) 09/02/2020 11:3 8 AM EST Body Mass Index 30.36 09/02/2020 11:38 AM EST Body Mass Index Percentile 94.97% 09/02 11:38 AM EST Growth Chart: [facility] (Girls, 2- 20 Years) documented in this encounter Patient Instructions * Patient Instructions* Naun Gray MD - 09/02/2020 1:00 PM EST Needs a RBUS, POC UA and BP check in 2 years. NAUN GRAY MD documented in this encounter Progress Notes * Naun Gray MD - 09/02/2020 1:00 PM EST Pediatric Urology Progress Note Diagnosis: S/P right robotic pyeloplasty on 10/22/19.. S: Feeling well, no fever or signs of UTI. No episodes of renal colic since her pyelpplasty. No Known Allergies Current Outpatient Medications on File Prior to Visit Medication Sig Dispense Refill ??? sulfamethoxazole-trimethoprim (Bactrim;Septra) 400-80 mg Tablet Take 1 tablet by mouth daily. Take until stent removal. (Patient not taking: Reported on 09/02/2020) 10 tablet 0 ??? ibuprofen (Advil;Motrin) 200 mg Tablet Take 2 tablets by mouth every 6 hours as needed for Pain. (Patient not taking: Reported on 09/02/2020) 60 tablet 0 ??? acetaminophen (Tylenol) 325 mg Tablet Take 2 tablets by mouth every 4 hours as needed for Pain.(Patient not taking: Reported on 09/02/2020) 60 tablet 0 ??? docusate sodium (Colace) 100 mg Capsule Take 1 capsule by mouth 2 times daily as needed for Constipation. (Patient not taking: Reported on 09/02/2020) 30 capsule 0 ??? tretinoin (RETIN-A) 0.025 % Cream Apply topically to face at bedtime as tolerated. Start 3x/week working up to nightly as tolerated. (Patient not taking: Reported on 09/02/2020) 45 g 3 ??? doxycycline monohydrate (MONODOX) 100 mg Capsule Take 1 capsule by mouth 2 times daily. (Patient not taking: Reported on 09/02/2020) 60 capsule 3 No current facility-administered medications on file prior to visit. No change in her PMHx, FMHx or Social hX since her last visit. O: BP 130/82 Pulse 108 Ht 156 cm (5' 1.4) Wt 73.8 kg (162 lb 12.8 oz) BMI 30.36 kg/m?? Portsites are well healed and no signs of hernias. RBUS(09/02/20): Improved right hydronephrosis. A: Stable postop course, no signs of worsening hydronephrosis of recurrent episode of renal colic.. P: FU in 2 years with RBUS, POC UA and BP check. NAUN GRAY MD documented in this encounter Plan of Treatment Not on file documented as of this encounter Visit Diagnoses Diagnosis UPJ (ureteropelvic junction) obstruction Other ureteric obstruction documented in this encounter Care Teams Instruction Librarian Relationship Specialty Start Date End Date Naun Alvarez MD [address] [place] [phone] PCP - General Family Medicine 11/09/16 05/25/23 documented as of this encounter
--- OUTSIDE RECORDS SUMMARY | 2024-08-25 01:07 | XMS_ITS | Encounter Summary ---
Author Organization [facility] Address [facility] [place] [address] Care Team Providers Care Warp Coiler Name Role Phone Dillon Alvarez MD Primary Care Provider [phone] Encounter Details Date Type Department Care Team (Late st Contact Info) Description 09/02/2022 Orders Only [place] [address] Dillon Gray MD [facility] [address] [place] [address] UPJ (ureteropelvic junction) obstruction Social History Tobacco [...] obstruction documented in this encounter Care Teams Warp Coiler Relationship Specialty Start Date End Date Dillon Alvarez MD [address] [place] [phone] PCP - General Family Medicine 11/09/16 05/25/23 documented as of this encounter
--- OUTSIDE RECORDS SUMMARY | 2024-08-25 01:07 | XMS_ITS | Referral Summary ---
Author Organization [facility] Address [address] [place] [address] Care Team Providers Care Credit Collection Specialist Name Role Phone Sampson Yang MD Primary Care Provider Willy allen Social History Tobacco Use Types Packs/Day Years Used Date Smoking Tobacco: Never Assessed Comments Unknown Sex and Gender Information Value Date Recorded Sex Assigned at Not on file Legal Sex Female 18:34 EST Gender Identity Not on file Sexual Orientation Not on file Plan of Treatment Not on file Care Teams Credit Collection Specialist Relationship Specialty Start Date End Date Sampson Yang MD PCP - General 08/06/15
--- OUTSIDE RECORDS SUMMARY | 2024-08-25 01:07 | XMS_ITS | Encounter Summary ---
Author Organization [facility] Address [address] [place] [id number] Care Team Providers Care Commercial Truck Driver Name Role Phone Sampson Yang MD Primary Care Provider Willy allen Encounter Details Date Type Department Care Team (Late st Contact Info) Description 09/09/2022 Lab Requisition [facility] Pathology & Laboratory Medicine - [address] [address] Outr Resulting Lab, Provider Social History Tobacco Use Types Packs/Day Years [...] Procedure Name Priority Date/Time Associated Diagnosis Comments ZZCOVID-19 TEST [facility] PCR Today 09/08/2022 10:15 EST COVID-19 TESTING Routine 09/08/2022 10:1 5 EST documented in this encounter Results * COVID-19 TEST [facility] PCR (09/08/2022 10:15 EST) Swab 09/08/2022 10:1 5 EST 09/09/2022 19:54 EST us Provider Outr Resulting Lab MICROBIOLOGY - GENER AL ORDERABLES Final Result [facility] [address] [place] [address] * COVID-19 TESTING (09/08/2022 10:15 EST) COVID-19 rt-PCR Result Negative Negative 09/10/2022 11:19 EST [facility] Comment: This test has not been FDA cleared or approved. This test has been authorized by FDA under an EUA for use by authorized laboratories. This test has been authorized only for detection of nucleic acid from 2019-nCoV, not for any other viruses or pathogens. This test is only authorized for the duration of the declaration that circumstances exist justifying the authorization of emergency use of in vitro diagnostic tests for detection and/or diagnosis of 2019-nCoV under section 564(b)(1) of Act, 21 U.S.C ?? 360bbb-3(b) (1), unless the authorization is terminated or revoked sooner. Negative results do not preclude 2019-nCoV infection and should not be used as the sole basis for treatment or other patient management decisions. Negative results must be combined with clinical observations, patient history, and epidemiological information. Testing was performed using the meir SARS-CoV-2 assay ([employer] on the Meir 6800 System Performing Lab Meir [address] [facility] Lab 09/10/2022 11:19 EST [facility] Swab 09/08/2022 10:1 5 EST 09/09/2022 19:54 EST us Provider Outr Resulting Lab MICROBIOLOGY - GENER AL ORDERABLES Final Result [facility] [address] [place] [address] documented in this encounter Visit Diagnoses Not on filedocumented in this encounter Care Teams Commercial Truck Driver Relationship Specialty Start Date End Date Sampson Yang MD PCP - General 08/06/15 documented as of this encounter
--- OUTSIDE RECORDS SUMMARY | 2024-08-25 01:07 | XMS_ITS | Encounter Summary ---
Author Organization Formerly [facility] [address] Care Team Providers Care Roller Shop Supervisor Name Role Phone Naun Alvarez MD Primary Care Provider [phone] Reason for Visit * Auth/Cert Specialty Diagnoses / Procedures Referred By Shahid t Referred To Contact Diagnoses Right UPJO. Procedures PRO LAP, PYELOPLASTY PRO CYSTOURETHROSCOPY, URETER CATHETER PRO CYSTOSCOPY, REMV CALCULUS, SIMPLE LAPAROSCOPY, PYELOPLASTY, ROBOTIC ASSIST (WRVU 23.37) CYSTO, RETROGRADE, URETEROPYELOGRAPHY (WRVU 2.37) CYSTO, REMOVAL OF STENT, FOREIGN BODY OR CALCULUS, SIMPLE (WRVU 2.81) Referral ID Status Reason Start Date Expiration Date Visits Re quested Visits Authorized [id number] 1 1 Encounter Details Date Type Department Care Team (Late st Contact Info) Description 10/22/2019 11:58 AM EST - 10/22/2019 7:56 PM EST Surgery [place] [address] Naun Gray MD [facility] DR P[place]IATRIC [place] [address] ROBOTIC ASSIST PYELOPLASTY (WRVU 23.37) Social History Tobacco Use Types Packs/Day Years [...] Sign Reading Time Taken Comments Blood Pressure 105/59 10/22/2019 7:15 PM EST Pulse 78 10/22/2019 7:15 PM EST Temperature 37.5 ??C (99.5 ??F) 10/22/2019 7:00 PM ES T Respiratory Rate 15 10/22/2019 7:15 PM EST Oxygen Saturation 96% 10/22/2019 7:15 PM EST Inhaled Oxygen Concentration - - Weight 69 kg (152 lb 1.9 oz) 10/22/2019 10:54 AM EST Height 155.6 cm (5' 1.26) 10/22/2019 10:[address] Body Mass Index 28.5 10/22/2019 10:54 AM EST Body Mass Index Percentile 93.33% 10/22/2019 10: 54 AM EST Growth Chart: [facility] (Girls, 2- 20 Years) documented in this encounter Discharge Summaries * Naun Gray MD - 10/24/2019 10:49 AM EST UROLOGY SERVICE Inpatient - Discharge Summary Patient Name: Raisa Morales Patient Age: 19 y.o. : 2000 Attending Physician: Naun Gray MD Date of Admission: 10/22/2019 Date of Discharge: 10/24/2019 Diagnosis: Active Hospital Problems Diagnosis ??? Obstruction of right ureteropelvic junction (UPJ) Resolved Hospital Problems No resolved problems to display. Operations/Major Procedures: Operations: 10/22/2019 Surgeon(s) and Role: * Naun Gray MD - Primary * Wenceslao Caballero MD - Resident * Adrianna Ríos MD - Resident: Procedure(s): LAPAROSCOPY, PYELOPLASTY, ROBOTIC ASSIST (WRVU 23.37) CYSTO, RETROGRADE, URETEROPYELOGRAPHY (WRVU 2.37) CYSTO, REMOVAL OF STENT, FOREIGN BODY OR CALCULUS, SIMPLE (WRVU 2.81) MODIFIER ROBOT,TJI XI HPI (from Dr. Gray's note 10/04/2019): Raisa??is a 19 ??y.o. 2 ??m.o.??female??who presents for evaluation of her chronic abdominal andleft side back pain.?Raisa presents today for follow- up of her newly discovered hydronephrotic right kidney and her history of chronic abdominal pain and left-sided flank pain.?A recent CT scan ??[facility] revealed a dilated right renal pelvis, but no UPJ stone or stone present in the ureter. ??She is never had a urinary tract infection, pyelonephritis. ??She is not on birthcontrol. ??On questioning her mother Raisa does suffer from constipation. ?? Pertinent imaging:?? MAG3 Lasix renogram (10/04/2019): Right kidney T1/2??greater than 30 minutes, split renal function left 63%, right 38%. ?? CT scan Abd/pelvis??(07/23/2019): Dilated right renal pelvis, but no UPJ stone or stone present in the ureter. ?? Renal bladder ultrasound (07/09/2020):??Massively dilated right renal pelvis, grade 4 hydronephrosis. ?? No recent fevers, illnesses or new medications. No major changes to medical history since last clinic visit on 10/04/[address] Gray. ?? Gen: NAD CV: RRR P: CTAB, normal inspiratory effort Abd: soft, non-tender ?? All risks, benefits and alternatives have been reviewed with patient and her mother and father which are here with her, will proceed with right robotic dismembered pyeloplasty. Hospital Course: Raisa Morales was admitted to [facility] on 10/22/2019 through the Same Day Surgery program after undergoing the procedure noted above. The intra-operative findings were: Right retrograde with filling defect at UPJ. Right high ureteral insertion, dismembered repair performed, right ureteral stent placed. 5 ports placed. After adequate recovery from anesthesia in the PACU, the patient was transferred to the floor for recovery. Her padgett catheter was removed on POD1. She was voiding with PVR of up to 250 ml so Flomax was started on POD2. PVRs improved on POD2. Raisa Morales's pain was adequately controlled, she was maintaining adequate oxygen saturation on room air, and was hemodynamically stable. She was tolerating a diet without abdominal complaints and voiding adequately. WBC and Hgb were stable. She was ambulating independently. Raisa Morales was evaluated by the Urology team and deemed medically stable for discharge on 10/24/2019 with plans for stent removal in 6 weeks. Updated Allergies/ADRs: No Known Allergies Pending Lab Data at Discharge: Surgical pathology pending Condition at Discharge: Stable Important Studies and Lab Data: Labs: Recent Labs 10/23/19 014 WBC 12.6 HGB 12.9 HCT 39.5 PLATELET 389* Recent Labs 10/23/198 NA 142 K 3.8 CL 106 CO2 24 BUN 8* CREATININE 0.72 CALCIUM 8.9 Studies: No imaging other than intraoperative fluoroscopy this admission. Discharge Examination: Last value Range last 12 hrs Temperature Temp: 36.6 ??C (97.9 ??F) Temp: [36.6 ??C (97.9 ??F)-36.9 ??C (98.4 ??F)] Heart Rate Heart Rate: 78 Heart Rate: -- Blood Pressure BP: 118/79 BP: (118-130)/(75-79) Respiratory Rate Resp: 17 Resp: [15-17] SpO2 SpO2: 97 % SpO2: [96 %-97 %] I/Os: I/O last 3 completed shifts: In: 4039 [P.O.:2480; I.V.:1439; Other:120] Out: 2590 [Urine:2590] No intake/output data recorded. Physical Exam: Gen: NAD CV: RRR Pulm: CTAB Abd: soft, appropriately tender in right flank and RLQ, nondistended Incisions: dressings c/d/i Ext: warm, well perfused, no edema Discharge to: Home Discharge Conditions/Prognosis: Stable Discharge Medications: The following medications have been prescribed for you. If you notice any adverse reactions to your medications, please contact your primary care physician immediately or go tothe nearest Emergency Department. Your Medications New Medications Dose Details acetaminophen 325 mg Tab Commonly known as: Tylenol Take 2 tablets by mouth every 4 hours as needed for Pain. 650 mg Quantity: 60 tablet Refills: 0 docusate sodium 100 mg Cap Commonly known as: Colace Take 1 capsule by mouth 2 times daily as needed for Constipation. 100 mg Quantity: 30 capsule Refills: 0 ibuprofen 200 mg Tab Commonly known as: Advil;Motrin Take 2 tablets by mouth every 6 hours as needed for Pain. 400 mg Quantity: 60 tablet Refills: 0 sulfamethoxazole-trimethoprim 400-80 mg Tab Commonly known as: Bactrim;Septra Take 1 tablet by mouth daily. 1 tablet Quantity: 50 tablet Refills: 0 tamsulosin 0.4 mg Cap Commonly known as: Flomax Take 1 capsule by mouth daily for 60 days. 0.4 mg Quantity: 30 capsule Refills: 1 Continued medications, unchanged Dose Details doxycycline monohydrate 100 mg Cap Commonly known as: Monodox Take 1 capsule by mouth 2 times daily. 100 mg Quantity: 60 capsule Refills: 3 tretinoin 0.025 % Crea Commonly known as: RETIN-A Apply topically to face at bedtime as tolerated. Start 3x/week working up to nightly as tolerated. Quantity: 45 g Refills: 3 Follow-up Care & Plans: For questions, orders or appointments related to your continuing care after your discharge, you or your provider should contact the physician that managed that part of your care. Urology Clinic: [phone] PCP: Naun Alvarez MD, . Please follow-up with your PCP in 1-2 weeks or sooner as needed. Scheduled Appointments: The following appointments have been scheduled on your behalf: Instructions Given to Patient at Discharge: Patient Instructions DISCHARGE INSTRUCTIONS CALL YOUR PHYSICIAN IF: ?? You have a fever greater than 101 degrees F within one month of your surgery. ?? You have diarrhea or vomiting for more than 24 hours, or stop having bowel movements or passing gas. ?? You have worsening pain, not controlled with your pain medication. ?? You develop redness, swelling, or new drainage from your wound. ?? You have any other acute change in your health status. MEDICATIONS You may take acetaminophen (Tylenol) and NSAIDs (I.e. ibuprofen, advil) for pain control. You have been prescribed an antibiotic (Bactrim) to prevent infection. You will take this medication once daily until your ureteral stent is removed. Your stent will be removed approximately 6 weeks after discharge. Please complete the entire course as prescribed. You have been prescribed Flomax (tamsulosin). Take this daily as long as your stent is in place. DRIVING RESTRICTIONS Do not operate a vehicle if you are too sore from surgery to enter or exit your vehicle comfortably, or if you are too sore to easily check your blind spot. No driving while using prescription pain medications. ACTIVITIES No heavy lifting. You may lift what is comfortable to lift with one arm. Nothing greater than 10 pounds (e.g., a full gallon jug) until re-evaluated by your physician. Discuss return to work or school with your physician. Take several slow, short walks each day for the first two weeks, and gradually increase your distance. Exercise will assist in your recovery. DIET Eat a well-balanced diet. Fresh fruits, vegetables and fiber-containing foods are recommended. Thiswill assist in wound healing. WOUND CARE You can shower as usual and wash the incisions gently. Pat the incision dry with a clean, dry towel. Do not soak the wound (avoid spas, pools, and bathtubs) until it is fully healed. Do not use creams, oils, or ointments on the wound. Keep the wound open to air if it is not draining. Do not remove sutures or dottie. COMFORT Some incision soreness can be expected. Take your pain medication as needed and prescribed. Slowly decrease your use of pain medication as pain lessens. Stent Discomfort: Most patients experience some degree of discomfort related to this procedure. Common symptoms include flank pain (increased during urination), frequency and urgency of urination, burning or pain in the bladder or urethral with urination, pelvic discomfort, and blood in the urine. Your symptoms may be exacerbated by activity. To manage your symptoms, try the following: - Drink at least 2 liters of water per day or enough to make urine clear or pale yellow - Take ibuprofen (Motrin, Advil, or generic), up to 600-800mg every 8 hours - Take acetaminophen (Tylenol), up to 650mg every 4 hours (regular strength) or 1000mg every 6 hours (extra strength) - Take tamsulosin daily. - Take stool softeners and fiber as needed to avoid constipation; constipation often exacerbates urinary symptoms CONTACT INFORMATION To contact your provider or change your appointment, please call pediatric urology in [place] at or in [place] at from 8:00am to 5:00pm Monday through Monday. On the weekends or after 5:00pm, you should call [facility] at and ask to speak to the Urology Resident director construction services FOLLOW-UP APPOINTMENT A follow up appointment has been requested with Dr. Gray for 6 weeks for cystoscopy and ureteral stent removal. General Instructions None Call your doctor if: Please call your doctor immediately or go to an Emergency Department if you notice worsening pain not controlled by pain medications, uncontrolled headache, vision changes, chest pain, difficulty breathing, persistent nausea and vomiting, new redness or swelling in any extremities, new onset weakness or changes in sensation, or for any fevers greater than 101.3 F. Your care was managed by the Urologic Surgery Team at [facility]. If you have any questions or concerns, please feel free to contact us. Provider Contact Information: Urology Clinic: [phone] [facility] (after business hours): CC: Naun Alvarez MD Signed: JAYLIN DAVIS 10/24/2019 Urology Attending: I saw and evaluated the patient. I agree with the findings and the plan of care as documented in PA. Carrington's, note. Naun Gray MD, FACS documented in this encounter Discharge Instructions * Patient Instructions* Skylar Carrington PA - 10/22/2019 6:05 PM EST DISCHARGE INSTRUCTIONS CALL YOUR PHYSICIAN IF: ?? You have a fever greater than 101 degrees F within one month of your surgery. ?? You have diarrhea or vomiting for more than 24 hours, or stop having bowel movements or passing gas. ?? You have worsening pain, not controlled with your pain medication. ?? You develop redness, swelling, or new drainage from your wound. ?? You have any other acute change in your health status. MEDICATIONS You may take acetaminophen (Tylenol) and NSAIDs (I.e. ibuprofen, advil) for pain control. You have been prescribed an antibiotic (Bactrim) to prevent infection. You will take this medication once daily until your ureteral stent is removed. Your stent will be removed approximately 6 weeks after discharge. Please complete the entire course as prescribed. You have been prescribed Flomax (tamsulosin). Take this daily as long as your stent is in place. DRIVING RESTRICTIONS Do not operate a vehicle if you are too sore from surgery to enter or exit your vehicle comfortably, or if you are too sore to easily check your blind spot. No driving while using prescription pain medications. ACTIVITIES No heavy lifting. You may lift what is comfortable to lift with one arm. Nothing greater than 10 pounds (e.g., a full gallon jug) until re-evaluated by your physician. Discuss return to work or school with your physician. Take several slow, short walks each day for the first two weeks, and gradually increase your distance. Exercise will assist in your recovery. DIET Eat a well-balanced diet. Fresh fruits, vegetables and fiber-containing foods are recommended. Thiswill assist in wound healing. WOUND CARE You can shower as usual and wash the incisions gently. Pat the incision dry with a clean, dry towel. Do not soak the wound (avoid spas, pools, and bathtubs) until it is fully healed. Do not use creams, oils, or ointments on the wound. Keep the wound open to air if it is not draining. Do not remove sutures or dottie. COMFORT Some incision soreness can be expected. Take your pain medication as needed and prescribed. Slowly decrease your use of pain medication as pain lessens. Stent Discomfort: Most patients experience some degree of discomfort related to this procedure. Common symptoms include flank pain (increased during urination), frequency and urgency of urination, burning or pain in the bladder or urethral with urination, pelvic discomfort, and blood in the urine. Your symptoms may be exacerbated by activity. To manage your symptoms, try the following: - Drink at least 2 liters of water per day or enough to make urine clear or pale yellow - Take ibuprofen (Motrin, Advil, or generic), up to 600-800mg every 8 hours - Take acetaminophen (Tylenol), up to 650mg every 4 hours (regular strength) or 1000mg every 6 hours (extra strength) - Take tamsulosin daily. - Take stool softeners and fiber as needed to avoid constipation; constipation often exacerbates urinary symptoms CONTACT INFORMATION To contact your provider or change your appointment, please call pediatric urology in [place] at or in [place] at from 8:00am to 5:00pm Monday through Monday. On the weekends or after 5:00pm, you should call [facility] at and ask to speak to the Urology Resident director construction services FOLLOW-UP APPOINTMENT A follow up appointment has been requested with Dr. Gray for 6 weeks for cystoscopy and ureteral stent removal. documented in this encounter Medications at Time of Discharge Medication Sig Dispensed Refills Start Date End Date ibuprofen (Advil;Motrin) 200 mg Tablet Take 2 tablets by mouth every 6 hours as needed for Pain. 60 tablet 10/24/2019 acetaminophen (Tylenol) 325 mg Tablet Take 2 tablets by mouth every 4 hours as needed for Pain. 60 tablet 10/23/2019 docusate sodium (Colace) 100 mg Capsule Take 1 capsule by mouth 2 times daily as needed for Constipation. 30 capsule 10/23/2019 tretinoin (RETIN-A) 0.025 % CreamIndications:Acne vulgaris Apply topically to face at bedtime as tolerated. Start 3x/week working up to nightly as tolerated. 45 g 3 05/16/2017 doxycycline monohydrate (MONODOX) 100 mg CapsuleIndications:Acn e vulgaris Take 1 capsule by mouth 2 times daily. 60 capsule 3 05/16/2017 tamsulosin (Flomax) 0.4 mg Capsule Take 1 capsule by mouth daily for 60 days. 30 capsule 1 10/23/2019 12/22/2019 sulfamethoxazole-trime thoprim (Bactrim;Septra) 400-80 mg Tablet Take 1 tablet by mouth daily. 50 tablet 10/23/2019 11/21/2019 documented as of this encounter Progress Notes * Gilma Pearson RN - 10/24/2019 12:02 PM EST Pt tolerating regular diet well, no reports of nausea, pt passing flatus. PIV's removed prior to d/c. Insured patient had paper prescriptions prior to discharge. Pt and family gathered own home belonings. AVS provided to and reviewed with pt and guardian prior to discharge, pt and guardian verbalized understanding, all questions answered. Pt discharged home around 1200, accompanied off floor by [facility] staff. * Naun Gray MD - 10/23/2019 9:31 AM EST Urology Inpatient Progress Note ID: Raisa Morales is a 19 y.o. female with hx of Right UPJ obstruction s/p right RAL pyeloplasty POD #1 Events over the last 24 hrs: Patient slow to mobilize Complains of pain Tolerating PO but taking very limited food Padgett removed, PVR >250 in pm Objective: Temp: [36.5 ??C (97.7 ??F)-37.2 ??C (99 ??F)] Heart Rate: -- Resp: [15-17] BP: (100-130)/(62-79) SpO2: [94 %-97 %] Heart Rate from SpO2: [59 bpm-95 bpm] I/O last 3 completed shifts: In: 4039 [P.O.:2480; I.V.:1439; Other:120] Out: 2590 [Urine:2590] Physical Exam Gen- NAD, resting comfortably CV-- RRR Resp- CTAB Abd- soft, TTP in RLQ and flank, nondistended Incisions - bandaids c/d/i Ext- warm and well perfused, no edema Labs Recent Labs 10/23/19 0148 WBC 12.6 HGB 12.9 HCT 39.5 PLATELET 389* NA 142 K 3.8 CL 106 CO2 24 BUN 8* CREATININE 0.72 Assessment/Management/Plan: Raisa Morales is a 19 y.o. female who presented with hx of Right UPJ obstruction s/p right RAL pyeloplasty POD #1. Patient is not adequately emptying bladder. Will try to optimize pain control without narcotics if possible. Encourage ambulation. Stop anti-cholinergics. Neuro: PO Tylenol, ibuprofen. Stopped oxycodone. CV: currently stable Resp: stable on room air, encourage IS GI: Colace. Zofran prn. : continue monitoring UOP, Padgett removed today. Continue to monitor PVRs FEN: replace lytes prn, HLIV, regular diet Endo: TALYA Heme: Hgb 12.9 ID: afebrile, Bactrim SS for ppx while stent in place Prophylaxis: SCDs, encourage ambulation Dispo: stable on floor status, will discuss discharge planning with rn care manager. Code status: Full code JAYLIN Moser Urology Attending: I saw and evaluated the patient. I agree with the findings and the plan of care as documented in JAYLIN. Charissa's, note. Naun Gray MD, FACS * Theodore Hodge MD - 10/22/2019 10:59 PM EST UROLOGY POST-OP NOTE Raisa Morales is a 19 y.o. female s/p Procedure(s) (LRB): LAPAROSCOPY, PYELOPLASTY, ROBOTIC ASSIST (WRVU 23.37) (Right) CYSTO, RETROGRADE, URETEROPYELOGRAPHY (WRVU 2.37) (Right) CYSTO, REMOVAL OF STENT, FOREIGN BODY OR CALCULUS, SIMPLE (WRVU 2.81) (Right) MODIFIER ROBOT,DAVINCI XI (N/A) ?? Subjective Pain well-controlled. Denies nausea/vomiting, chest pain, SOB. Objective Temp: [36.4 ??C (97.5 ??F)-37.5 ??C (99.5 ??F)] Heart Rate: [60-100] Resp: [15-27] BP: (100-124)/(56-81) SpO2: [95 %-100 %] Heart Rate from SpO2: [69 bpm-81 bpm] I/O this shift: In: - Out: 500 [Urine:500] Physical Exam GEN: NAD. Resting comfortably. CV: RRR, normal S1 S2 sounds. CHEST: CTAB. ABD: Soft, nontender to light palpation, non-distended. EXTR: Moving spontaneously, warm. SCDs in place. Assessment/Plan Raisa Morales is a 19 y.o. female s/p robotic assisted pyeloplasty. Stable post-op. - Pain well-controlled on current regimen. - Hemodynamically stable. - UOP adequate, continue to monitor. - SCDs in place. - Continue post-op plan per primary team. Theodore Hodge MD * Yu Jensen RN - 10/22/2019 6:24 PM EST Patient admitted to PACU. Hand off received from Danielito Lemus CRNA. care assumed. Assessments as documented. Monitors on, alarms audible and individualized to patient. 1914 PACU D/C criteria met. Hand off to ANGELITO Perez 2 dwight CAMPBELL documented in this encounter H&P Notes * Naun Gray MD - 10/22/2019 11:28 AM EST Patient Name: Raisa Morales Patient Age: 19 y.o. Birthdate: 2000 Admit date: 10/22/2019 Attending Physician: Naun Gray MD Patient reports with family for scheduled right pyeloplasty. HPI copied for reference: Raisa is a 19 y.o. 2 m.o. female who presents for evaluation of her chronic abdominal and left side back pain. Raisa presents today for follow-up of her newly discovered hydronephrotic right kidney and her history of chronic abdominal pain and left-sided flank pain. A recent CT scan [facility] revealed a dilated right renal pelvis, but no UPJ stone or stone present in the ureter. She is never had a urinary tract infection, pyelonephritis. She is not on control. On questioning her mother Raisa does suffer from constipation. Pertinent imaging:?? MAG3 Lasix renogram (10/04/2019): Right kidney T1/2 greater than 30 minutes, split renal function left 63%, right 38%. ?? CT scan Abd/pelvis (07/23/2019): Dilated right renal pelvis, but no UPJ stone or stone present in the ureter. ?? Renal bladder ultrasound (07/09/2020): Massively dilated right renal pelvis, grade 4 hydronephrosis. No recent fevers, illnesses or new medications. No major changes to medical history since last clinic visit on 10/04/[address] Gray. Gen: NAD CV: RRR P: CTAB, normal inspiratory effort Abd: soft, non-tender All risks, benefits and alternatives have been reviewed with patient and her mother and father which are here with her, will proceed with right robotic dismembered pyeloplasty. Consent has been signed. Site is marked on right abdomen, 2gm cefazolin ordered. Wenceslao Caballero MD Pediatric Urology Attending: I saw and evaluated the patient. I agree with the findings and the plan of care as documented in Dr. Caballero's note. A right retrograde pyelography will proceed her right RALPyeloplasty to determine the level of obstruction. Naun Gray MD, FACS documented in this encounter Miscellaneous Notes * Plan of Care - Nael Caicedo RN - 10/24/2019 3:11 AM EST Problem: Patient Care Overview Goal: Plan of Care Review Outcome: Ongoing (Interventions Implemented as Appropriate) 10/23/19 1942 10/24/19 0305 Coping/Psychosocial Plan Of Care Reviewed With patient;mother;father -- Plan of Care Review Progress -- progress toward functional goals as expected OUTCOME EVALUATION NOTE: OUTCOME SUMMARY: Patient A&Ox4, VSS, resting between care. Minimal pain, controlled with scheduled tylenol. Denies nausea. Adequate UOP with moderate PVRs. No BM this shift. Ambulating to the bathroom with SBA. Patient looking forward to possible discharge in the morning. Will continue to monitor. PLAN MOVING FORWARD: Discharge planning INDIVIDUALIZED FALL PREVENTION INTERVENTIONS: High fall risk Patient-specific fall risk factors per assessment: [current deficits]: Recent surgery, acute pain, PIV, Assistance [level of assistance required for transfers and ambulation]: SBA Supervision [direct monitoring required during toileting and ADLs]: Eyes on Surveillance [continuous indirect monitoring]: Bed/chair alarm, masimo, hourly rounding, room near unit station, NKE at bedside, yellow fall band on, environmental modifications (clutter-free environment, tubing secured, bed low, lighting adjusted, nonskid socks when OOB, bed wheels locked, call light with in reach, upper side rails x2, ID bands on) Patient-specific fall prevention interventions for sensory deficits provided, if applicable: [X] N/A CPG GOAL OUTCOME EVALUATION: Goal: Interdisciplinary Rounds/Family Conf Outcome: Ongoing (Interventions Implemented as Appropriate) 10/24/19 0305 Interdisciplinary Rounds/Family Conf Participants nursing;patient;family;physician Goal: Individualization & Mutuality Outcome: Ongoing (Interventions Implemented as Appropriate) 10/23/19 022 Mutuality/Individual Preferences What Questions/Concerns Do You/Child Have About You/Your Child's Health or Care? no What Information Would Help Us to Give Your Child/Family More Personalized Care? no Goal: Fall Prevention-Safe Patient Handling Outcome: Ongoing (Interventions Implemented as Appropriate) 10/22/19209910/23/191941 Restraint Interventions Safety Promotion/Fall Prevention -- activity supervised;fall prevention program maintained;muscle strengthening facilitated;safety round/check completed;nonskid shoes/slippers when out of bed Positioning Body Position -- independent Daily Care Interventions Self-Care Promotion -- independence encouraged;BADL personal objects within reach;BADL personal routines maintained Álvarez Fall Scale History of Falls -- 0-->no Physical Alterations/Impairment -- 0-->no Functional Status -- 0-->none Equipment -- 2-->yes Cognitive/Psychological -- 0-->oriented to own ability Medications that Alter Equilibrium -- 0-->no Álvarez Pediatric Fall Scale Score -- 2 Activity Activity Type -- activity adjusted per tolerance Activity Assistance Provided (has not been OOB) -- Goal: Infection Control Outcome: Ongoing (Interventions Implemented as Appropriate) 10/23/191941 Safety Interventions Isolation Precautions standard precautions maintained Infection Prevention barrier precautions utilized;environmental surveillance performed;single patient room provided;rest/sleep promoted Coping Strategies Supportive Measures active listening utilized;decision-making supported;goal setting facilitated;positive reinforcement provided;problem solving facilitated;relaxation techniques promoted;self-care encouraged;self-reflection promoted;verbalization of feelings encouraged;self-responsibility promoted Goal: Discharge Needs Assessment Outcome: Ongoing (Interventions Implemented as Appropriate) 10/24/19 0305 Discharge Needs Assessment Concerns To Be Addressed denies needs/concerns at this time Readmission Within The Last 30 Days no previous admission in last 30 days Equipment Needed After Discharge none Discharge Disposition still a patient Current Health Anticipated Changes Related to Illness none Activity/Self Care Review of Systems Equipment Currently Used at Home none Living Environment Transportation Available family or friend will provide;car * Plan of Care - Barber Aranda RN - 10/23/2019 6:32 PM EST Problem: Patient Care Overview Goal: Plan of Care Review Outcome: Ongoing (Interventions Implemented as Appropriate) 10/23/19225 Coping/Psychosocial Plan Of Care Reviewed With patient;mother OUTCOME EVALUATION NOTE: OUTCOME SUMMARY: Patient rested between care. Pain managed with PRN and scheduled medication. Padgett removed. Patientvoiding adequate amounts with moderate PVR's. Able to ambulate in hallway well. Tolerating diet. Otherwise, uneventful shift. All needs met. PLAN MOVING FORWARD: Continue current plan, encourage mobilization, encourage PO intake, monitor for pain and nausea, monitor UOP, monitor PVR, INDIVIDUALIZED FALL PREVENTION INTERVENTIONS: High fall risk, Patient-specific fall risk factors per assessment: [current deficits]: IV catheter, SCD's, 2 or more medical diagnosis, unsteady with mobiliization, Assistance [level of assistance required for transfers and ambulation]: SBA, Supervision [direct monitoring required during toileting and ADLs]: Eyes on, Surveillance [continuous indirect monitoring]: Purposeful rounding, bed alarm, chair alarm, NKE at bedside, bed in low position, nonskid shoes when OOB, personal items within reach, family to remain at bedside, Patient-specific fall prevention interventions for sensory deficits provided, if applicable: [X] No CPG GOAL OUTCOME EVALUATION: Goal: Individualization & Mutuality Outcome: Ongoing (Interventions Implemented as Appropriate) 10/23/19222 Mutuality/Individual Preferences What Questions/Concerns Do You/Child Have About You/Your Child's Health or Care? no What Information Would Help Us to Give Your Child/Family More Personalized Care? no Goal: Fall Prevention-Safe Patient Handling Outcome: Ongoing (Interventions Implemented as Appropriate) 10/22/19 2100 10/22/19211710/23/19 0959 Restraint Interventions Safety Promotion/Fall Prevention -- -- activity supervised;fall prevention program maintained;nonskid shoes/slippers when out of bed;safety round/check completed Positioning Body Position -- -- independent Álvarez Fall Scale History of Falls -- 0-->no -- Physical Alterations/Impairment -- 0-->no -- Functional Status -- 0-->none -- Equipment -- 0-->no -- Cognitive/Psychological -- 0-->oriented to own ability -- Medications that Alter Equilibrium -- 0-->no -- Álvarez Pediatric Fall Scale Score -- 0 -- Activity Activity Type activity adjusted per tolerance -- -- Activity Assistance Provided (has not been OOB) -- -- Goal: Infection Control Outcome: Ongoing (Interventions Implemented as Appropriate) 10/23/19 0959 Safety Interventions Isolation Precautions standard precautions maintained Infection Prevention environmental surveillance performed;personal protective equipment utilized;rest/sleep promoted;single patient room provided Coping Strategies Supportive Measures active listening utilized;counseling provided;decision- making supported;goal setting facilitated;positive reinforcement provided;problem solving facilitated;relaxation techniques promoted;self-care encouraged;verbalization of feelings encouraged * Initial Assessments - Candi Franz MSW - 10/23/2019 12:00 PM EST Office of Care Management Pediatric Assessment Medical record reviewed. Plan of care and patient status discussed with direct care RN and/or Care Team in multidisciplinary rounds. Screen[age] y.o. female here for Present on Admission: ??? Obstruction of right ureteropelvic junction (UPJ) Patient has not been admitted to a hospital within the last 30 days. This is a planned admission. Patient has the following agency supports at home which will need to be resumed at discharge: None Patient receiving hospital care under Observation status. Admission order reviewed. Primary Insurance on file: MEDICAID [place] Secondary Insurance on file: N/A Primary care provider on file: Naun Alvarez MD [phone] Medical Decision Maker: Mother Code Status: Full Code Patient???s Functional Status: Stable Living Situation: Per chart review, patient lives at home with her mother and step-father and siblings [address] [place] [address] Supports: Patient is supported by her mother and grandfather during this admission. Assessment: Patient with no apparent RNCM/SW needs at this time. No housing, transportation, insurance, or resource concerns identified at this time. Supports in place to achieve a safe post-hospitaltransition. No identified barriers to accessing necessary care and/or follow-up after discharge. Plan: Patient to d/c to home via private vehicle when medically ready. archives technician/Drier will continue to follow patient???s progress and remain available if situation changes for coordination of care, psychosocial support and/or discharge planning. NICHOLAS Zaidi Pager [phone] Extension [phone] * Plan of Care - Washington Fish RN - 10/23/2019 3:03 AM EST Problem: Patient Care Overview Goal: Plan of Care Review Outcome: Ongoing (Interventions Implemented as Appropriate) 10/23/196 Coping/Psychosocial Plan Of Care Reviewed With patient;mother OUTCOME EVALUATION NOTE: OUTCOME SUMMARY: Pt arrived to floor from PACA approx 2100, alert and oriented, pain level 4/10 generalized abdomin.5 Lap sites with bandaids, no drainage, no redness, no swelling. Padgett draining tea colored urine. Pt given 5 mg oxycodone with good effect. Abx given as ordered, maintenance fluids running, pt tolerating clear liquid diet. Pt reported she was hungry, ate a pudding and some crackers, tolerated well, no nausea or vomiting. Bowels sounds hypo active. Mom at the bedside, spending the night, attentive to patient. PLAN MOVING FORWARD: Ambulate Continue to advance diet INDIVIDUALIZED FALL PREVENTION INTERVENTIONS: Patient-specific fall risk factors per assessment: POD 1, narcotic pain meds on board Assistance: 1-2 assist, Supervision: Hands on Surveillance: Bed locked in low position, call floyd within reach, purposeful hourly rounding, clutter free environment, bed/chair alarm on, family at bedside Patient-specific fall prevention interventions for sensory deficits provided: na CPG GOAL OUTCOME EVALUATION: Continue care plan as documented. * Op Note - Naun Gray MD - 10/22/2019 8:01 PM EST [facility] [place] Patient Name: Raisa Morales : [id number] MR#: [id number] Case Date: 10/22/2019 Surgeon: Surgeon(s) and Role: * Naun Gray MD - Primary * Wenceslao Caballero MD - Resident * Adrianna Ríos MD - Resident Preoperative diagnosis: Right UPJO. Postoperative diagnosis: Right UPJO. Procedure(s) (LRB): LAPAROSCOPY, PYELOPLASTY, ROBOTIC ASSIST (WRVU 23.37) (Right) CYSTO, RETROGRADE, URETEROPYELOGRAPHY (WRVU 2.37) (Right) CYSTO, REMOVAL OF STENT, FOREIGN BODY OR CALCULUS, SIMPLE (WRVU 2.81) (Right) MODIFIER ROBOT,DAVINCI XI (N/A) Anesthesia: General Estimated Blood Loss: 10 mL Specimens removed during surgery: Order Name Source Comment Collection Info Order Time SPECIMEN TO PATHOLOGY OR 11 ; 8-3111 Right UPJO. Right UPJ excision No 10/22/2019 4:24 PM Time specimen removed from patient: 4:24 PM Number of tissue samples (in container) 1 Biospecimen to store? No Drains: * 26 cm x 6 Fr. * Surgical Closure: Sutures. Disposition: awakened from anesthesia, extubated and taken to the recovery room in a stable condition, having suffered no apparent untoward event. Condition: doing well without problems (Please see the Surgical Encounter Summary for any Implant and Specimen details pertinent to this patient.) HPI/Surgical Indications: Raisa is a 19 y.o. female with history of right hydronephrosis discovered on MATT then CT scan of the Abd/pelvi after she present to the [facility] ED for abdominal pain. She then had a MAG3 renal scan demonstrating delayed drainage with T 1/2 of > 30 minutes. Today she will undergo the correction of her right UPJ obstruction. Procedure Description: The patient was identified and greeted in the preoperative holding area. Shewas marked and consent was verified. She was taken to the operating room and placed supine on the table. General anesthesia was achieved with mask induction. Peripheral IV access was obtained. She was then moved to a frog-leg position and prepped and draped for the cystoscopy portion of the procedure. Timeout was performed. The 22F cystoscope was inserted and advanced. The bladder was normal withthe right ureteral orifice in orthotopic position. A urine specimen was sent for culture. The rightorifice was cannulated with a 5 Fr. Lockwood catheter. Omnipaque contrast was instilled and the retro grade pyelogram performed. The ureter was normal until the UPJ where the ureter appeared stenotic with a high insertion. There was severe hydronephrosis beyond this point. The Lockwood was advanced and the ureter was measured at 26 cm to the level of obstruction. The 5 Fr Lockwood was left in place and attached to a 16 fr. Padgett catheter with silk sutures. The patient was moved to a left lateral decubitus position on a asencio bag, axillary roll, then padded and secured to the table. She was re-prepped and draped. 2-0 Silk holding sutures were placed in the abdominal wall on eitherside of the umbilicus. A 8 mm incision was made down the midline of the umbilicus using a knife. The fascia was opened sharply and grasped. It was opened further to accommodate the trocar passed using the Miranda technique.. The 5 mm lens was advanced into the abdomen and pneumoperitoneum was established. Two additional 8mm robotic ports were placed at the upper midline and in the right lower quadrant. An 5 mm assitant port was placed in the left upper quadrant. The final 11 mm trocar was placedin the left lower quadrant about 9 cmm away from the umbilical trocar. The robot was docked. With aBipolar graspers grasper in the left hand and a hot scissors in the right hand, the White line of Toldt of the ascending colon was incised overlying the area of the right kidney which revealed the dilated renal pelvis and a high inserted UPJ. The renal pelvis was mobilized and the proximal ureter exposed by incising the overlying peritoneum. No vessels were taken. The proximal end of the ureteralstent was readily visible in the proximal ureter. This was removed once the position of the ureter was verified. The ureter was exposed and retracted anteriorly. The tissue overlying the renal pelviswas opened and swept off to clear the renal pelvis entirely. A scissors was used to sharply take down tissue off the ureter. A 4-0 Monocryl holding suture was placed longitudinally in the medial aspect of the ureter. A straight needle was used to pass a 2-0 Nylon suture through the anterior abdominal wall. This was placed through the medial aspect of the renal pelvis as a stabilizing suture, and then back out through the anterior abdominal wall. This was secured with a snap externally. The renal pelvis was divided sharply just above the UPJ using a scissors. The tissue appeared healthy. The ureter was spatulated using eSpace robotic scissors laterally. This tissue also appeared healthy. A 4-0 Monocryl was placed in the apex of the spatulated ureter and the inferior aspect of the renal pelvic opening. This was tied down and run up the anterior/back wall of the ureter and anterior aspect of the renal pelvic opening. An additional 4-0 Monocryl was placed at the apex. A 26 cm by 6 Fr. Double J stent was placed antegrade over the 0.038 glidewire that had been passed into the abdomen through a 14 gauge angiocatheter. When the anastomosis was nearly complete, some distal ureteral tissue was sharply excised. When the suture was tied down, gravity was used to fill the bladder with urine and the renal pelvis was seen to visibly distend. There was no leak. The peritoneum defect wasclosed with running 4-0 Monocryl. The instruments were removed and the robot undocked. The ports were removed. All of the 8 mm or larger port sites were closed with the Carte-Morales device with 2.0Vicryl sutures. The periumbilical fascia was closed with a 2-0 Vicryl. The skin was closed with runn ing subcuticular 4-0 Monocryl and the wounds were dressed with Dermabond and Bandaids. The drapes were taken down. The instruments were removed and the final time out was performed and this was complete. The operative area in the patient's body was clean and the iodine prep was washed off. There were no complications. The patient was extubated and transported to the post operative care unit in a satisfactory condition. Infection Bundle used? No Attestation: Case Date: 10/22/2019 I was present and I participated during the entire procedure. NAUN GRAY MD 10/22/2019 * Brief Op Note - Naun Gray MD - 10/22/2019 5:58 PM EST Brief Operative Note Patient Name: Raisa Morales : [id number] MR#: [id number] Case Date: 10/22/2019 Surgeon: Surgeon(s) and Role: * Naun Gray MD - Primary * Wenceslao Caballero MD - Resident * Adrianna Ríos MD - Resident Preoperative diagnosis: Right UPJO. Postoperative diagnosis: Right UPJO. Procedure(s) (LRB): LAPAROSCOPY, PYELOPLASTY, ROBOTIC ASSIST (WRVU 23.37) (Right) CYSTO, RETROGRADE, URETEROPYELOGRAPHY (WRVU 2.37) (Right) CYSTO, REMOVAL OF STENT, FOREIGN BODY OR CALCULUS, SIMPLE (WRVU 2.81) (Right) MODIFIER ROBOT,DAVINCI XI (N/A) Anesthesia: General Findings: Right retrograde with filling defect at UPJ. Right high ureteral insertion, dismembered repair performed, right 26 x 6 Fr. ureteral stent placed. 5 ports placed. Complications: None Estimated Blood Loss: 10cc Specimens removed during surgery: Order Name Source Comment Collection Info Order Time SPECIMEN TO PATHOLOGY OR 11 ; 33111 Right UPJO. Right UPJ excision No 10/22/2019 4:24 PM Time specimen removed from patient: 4:24 PM Number of tissue samples (in container) 1 Biospecimen to store? No Fluids: Intraprocedure Crystalloid Total Anesthesia Output Urine Output 200 mL Lactated Ringers Volume (mL) 700 mL lactated ringers infusion Volume (mL) 700 mL PRBCs: none (See Anesthesia Record/Report for Other Blood Products) Urine Output: 200 mL Drains: Right side double J ureteral stent; Padgett catheter Disposition: awakened from anesthesia, extubated and taken to the recovery room in a stable condition, having suffered no apparent untoward event. Condition: doing well without problems (Please see the Surgical Encounter Summary for any Implant and Specimen details pertinent to this patient.) Infection Bundle used? N/A Plan: - cystoscopy stent removal 6 weeks postop. NAUN GRAY MD documented in this encounter Plan of Treatment Not on file documented as of this encounter Procedures Procedure Name Priority Date/Time Associated Diagnosis Comments BMP W/FASTING GLUCOSE Routine 10/23/2019 1:48 AM EST HEMOGRAM Routine 10/23/2019 1:48 AM EST DIFFERENTIAL, AUTOMATED Routine 10/23/2019 1:48 AM EST HC CBC,PLT & AUTO DIFF Routine 10/23/2019 1:48 AM EST XR ABDOMEN 1 VIEW STAT 10/22/2019 7:0 0 PM EST SURGICAL PATHOLOGY REPORT Routine 10/22/2019 4:24 PM EST SPECIMEN TO PATHOLOGY Routine 10/22/2019 4:24 PM EST XR FLUORO NO RAD <1HR - OR USE Routine 10/22/2019 2:20 PM EST HC URINE CULTURE Routine 10/22/2019 2:12 PM EST MODIFIER ROBOT,DAVINCI XI Yes 10/22/2019 1:28 PM EST Hydronephrosis with ureteropelvic junction (UPJ) obstruction Cystoscopy, Remv Calculus, Simple ([id number]) Yes 10/22/2019 1:28 PM EST Hydronephrosis with ureteropelvic junction (UPJ) obstruction Cystourethroscopy, Ureter Catheter ([id number]) Yes 10/22/2019 1:28 PM EST Hydronephrosis with ureteropelvic junction (UPJ) obstruction Lap, Pyeloplasty ([id number]) Yes 10/22/2019 1:28 PM EST Hydronephrosis with ureteropelvic junction (UPJ) obstruction documented in this encounter Results * (ABNORMAL) Differential, Automated (10/23/2019 1:48 AM EST) Neutrophil % 79.6 % [facility] Neutrophil Absolute 10.02(H) 1.50 - 8.00 x10(3)/[facility] Lymph % 13.6 % [facility] Lymphocytes Abs 1.7 1.2 - 5.2 x10(3)/[facility] Monocyte % 6.4 % [facility] Monocyte Abs 0.8 0.2 - 1.0 x10(3)/[facility] Eos % 0.0 % [facility] Eosinophils Abs 0.0 0.0 - 0.4 x10(3)/[facility] Basophil % 0.2 % [facility] Baso Absolute 0.0 0.0 - 0.1 x10(3)/[facility] Immature Gran % 0.20 % [facility] Comment: Immature granulocytes(IG's)percentage and absolute count will include metamyelocytes, myelocytes, and promyelocytes. Blood smears from CBCs yielding IG's will be scanned manually for concordance. If this scan disagrees with the automated IG or if promyelocytes are noted, a manual differential will be performed. Immature Gran Absolute 0.03 0.00 - 0.04 x10(3)/[facility] Blood specimen (specimen) 10/23/2019 1:48 AM EST 10/23/2019 1:56 AM EST Narrative Resulting Agency Comment Spec In Lab Wenceslao Caballero MD HEMATOLOGY ORDERABLE S [facility] [place] [address] * (ABNORMAL) Hemogram (10/23/2019 1:48 AM EST) White Blood Cell 12.6 4.5 - 13.0 x10(3)/[facility] Red Blood Cell 4.51 4.10 - 5.10 x10(6)/[facility] Hemoglobin 12.9 12.0 - 16.0 gm/dL [facility] Hematocrit 39.5 36.0 - 46.0 % [facility] Mean Cell Volume 87.6 76.0 - 98.0 fL [facility] Mean Cell Hemoglobin 28.6 25.0 - 35.0 pg [facility] Mean Cell Hemoglobin Concentration 32.7 32.0 - 36.5 gm/dL [facility] Platelet 389(H) 145 - 370 x10(3)/mc L [facility] RDW Standard Deviation 38.9 37.0 - 46.0 fL [facility] RDW coefficient of variation 12.1 0.0 - 14.5 % [facility] Mean Platelet Volume 8.9 7.6 - 12.9 [facility] NRBC% auto 0.0 % [facility] NRBC Absolute 0.000 0.000 - 0.000 x10(3)/mc L [facility] Blood specimen (specimen) 10/23/2019 1:48 AM EST 10/23/2019 1:56 AM EST Narrative Resulting Agency Comment Spec In Lab Wenceslao Caballero MD HEMATOLOGY ORDERABLE S [facility] [place] [id number] * (ABNORMAL) BMP w/fasting Glucose (10/23/2019 1:48 AM EST) Glucose Fasting 124(H) 65 - 99 mg/dL [facility] Comment: ?Fasting* Glucose Interpretive Criteria Normal ?65-99 mg/dL Impaired Fasting glucose ?100-125 mg/dL Consistent with Diabetes Mellitus ? >or= 126 mg/dL *Fasting is defined as no caloric intake for at least 8 hours In the absence of unequivocal hyperglycemia a plasma glucose value of >or= 126 mg/dL should be repeated on a subsequent day. Diagnosis and Classification of Diabetes Mellitus, Position Statement from the [place] [employer]. ??Diabetes Care, Volume 33, Supplement 1, Sep 2009 Blood Urea Nitrogen 8(L) 10 - 20 mg/dL [facility] Creatinine 0.72 0.50 - 0.89 mg/dL [facility] Sodium 142 135 - 145 mmol/L [facility] Potassium 3.8 3.5 - 5.0 mmol/L [facility] Comment: Please note: ??Patients with WBC >100,000 may have falsely elevated Potassium levels. ??For accurate Potassium quantification in these patients send serum separator tube (gold top) for subsequent determinations. ??Contact the Clinical Chemistry Laboratory if there are any questions. Chloride 106 98 - 107 mmol/L [facility] Carbon Dioxide 24 22 - 31 mmol/L [facility] Anion Gap 12 5 - 15 mmol/L [facility] Calcium 8.9 8.5 - 10.5 mg/dL [facility] Est Glomerular Filtration Rate See note >=60 mL/min/1. 73 m?? [facility] Comment: The eGFR for patients [...] of body mass or the acutely ill. [email or web address]-[email or web address] eGFR See note >=60 mL/min/1. 73 m?? [facility] Comment: The eGFR for patients [...] of body mass or the acutely ill. [email or web address]-[email or web address] Blood specimen (specimen) 10/23/2019 1:48 AM EST 10/23/2019 1:56 AM EST Narrative Resulting Agency Comment Spec In Lab Naun Gray MD CHEMISTRY ORDERABLES [facility] [place] [address] * XR Abdomen 1 view (Generic) (10/22/2019 7:00 PM EST) Anatomical Region Laterality Modality Abdomen N/A Digital Radiogra phy Impressions 10/22/2019 7:17 PM EST 1. ??Nonobstructive bowel gas pattern. 2. ??Double J stent projecting over the presumed RIGHT renal pelvis and extending to the region of the bladder. Preliminary report signed by: Norbert Martinez at 10/22/2019 7:13 PM I have personally reviewed the image(s) and the resident's interpretation and agree with the findings, Reina Hoover at 10/22/2019 7:17 PM Thank you for letting us participate in the care of this patient. For questions regarding this report, please contact the number below. ? Narrative 10/22/2019 7:17 PM EST EXAMINATION: XR ABDOMEN 1 VIEW (GENERIC) CLINICAL HISTORY: s/p right pyeloplasty, assess stent position TECHNIQUE: Supine views of the abdomen and pelvis COMPARISON: None FINDINGS: No dilated large or small bowel loops. No wall thickening or pneumatosis. No large intra-abdominal mass effect. A right double-J stent projects over the course of the right ureter with superior aspect projecting over the presumed renal pelvis and inferior aspect projecting over the bladder. No osseous abnormality or abnormal abdominal calcifications. Procedure Note Reina Hoover MD - 10/22/2019 EXAMINATION: XR ABDOMEN 1 VIEW (GENERIC) CLINICAL HISTORY: s/p right pyeloplasty, assess stent position TECHNIQUE: Supine views of the abdomen and pelvis COMPARISON: None FINDINGS: No dilated large or small bowel loops. No wall thickening or pneumatosis.No large intra-abdominal mass effect. A right double-J stent projects over the course of the right ureter with superior aspect projecting over the presumed renal pelvis and inferioraspect projecting over the bladder. No osseous abnormality or abnormal abdominal calcifications. IMPRESSION 1. Nonobstructive bowel gas pattern. 2. Double J stent projecting over the presumed RIGHT renal pelvis andextending to the region of the bladder. Preliminary report signed by: Norbert Martinez at 10/22/2019 7:13 PM I have personally reviewed the image(s) and the resident's interpretationand agree with the findings, Reina Hoover at 10/22/2019 7:17 PM Thank you for letting us participate in the care of this patient. Forquestions regarding this report, please contact the number below. Naun Gray MD IMG DX ORDERABLES * Surgical Pathology Report (10/22/2019 4:24 PM EST) Final Diagnosis [id number] ? Location: [facility]; P212; A The signing pathologist has (i) examined the relevant preparation(s) for the specimen(s) and (ii) rendered or confirmed the diagnosis(es). . ?Surgical Pathology DIAGNOSIS A - Right uretero-pelvic junction, excision: ?Benign urothelial mucosa with prominent fibromuscular tissue. Electronically signed by: ??Chrissy MARTINS, Roe Ennis Verified: ??10/29/2019 ?Pathologist Performed at: ??-[facility] [place] [facility]. of [place], [place], [place] CLINICAL INFORMATION Specimen Submitted: A - Right ureter Clinical History and Diagnosis: Right UPJO SPECIMEN PROCESSING A - Labeled/Fixative: Right UPJ, fresh. Quantity/Size: Single, 1 x 0.7 x 0.3 cm, 1 g. Tissue Description: [place] soft tissue with a transparent stitch on one side. Sections/Processi ng: Entirely submitted in 1 cassettes as follows: ?A1: ??Stitch side is submitted en face ??aemr 10/29/2019 3:01 PM EST [facility] URETERIC STRUCTURE / Unknown 10/22/2019 4:24 PM EST 10/22/2019 4:24 PM EST Naun Gray MD PATHOLOGY/CYTOLOGY O BRENDAN Performing Organization Address [facility] de Phone Number [facility] [place] [address] * Specimen to Pathology (10/22/2019 4:24 PM EST) AP Specimen 10/22/2019 4:24 PM EST 10/22/2019 4:24 PM EST Narrative [facility] - 10/22/2019 4:24 PM EST Specimen requisition ordered. ??Separate Pathology report to follow Naun Gray MD PATHOLOGY/CYTOLOGY O BRENDAN Performing Organization Address [facility] Co de Phone Number [facility] [place] [address] * XR Fluoro No Rad <1Hr - OR Use (10/22/2019 2:20 PM EST) Narrative RAD - 10/22/2019 3:21 PM EST This exam is auto-finalizing. No interpretation was done. Naun Gray MD IMG FLUORO ORDERABLE S Performing Organization Address [facility] Co de Phone Number [place], [place] * Urine culture Urine (10/22/2019 2:12 PM EST) Urine Culture No growth (Less than 1,000 cfu/ml). [facility] Urine specimen (specimen) 10/22/2019 2:12 PM EST 10/22/2019 3:57 PM EST Comment:BLADDER URINE Narrative Resulting Agency Comment Spec In Lab Naun Gray MD MICROBIOLOGY - GENER AL ORDERABLES [facility] [place] [address] documented in this encounter Visit Diagnoses Diagnosis Obstruction of right ureteropelvic junction (UPJ) Hydronephrosis with ureteropelvic junction (UPJ) obstruction documented in this encounter Admitting Diagnoses Diagnosis Obstruction of right ureteropelvic junction (UPJ) documented in this encounter Administered Medications Inactive Administered Medications - up to 3 most recent administrations Medication Order MAR Action Action Date Dose Rate Site acetaminophen (Tylenol) tablet 1,000 mg 1,000 mg, Oral, ONCE, 1 dose, On Mon10/22/19 at 1115, Maximum dose of acetaminophen is 4000 mg from all sources in 24 hours., Day of Surgery (Day of Procedure), Routine Given 10/22/2019 11:14 AM EST 1,000 mg acetaminophen (Tylenol) tablet 650 mg 650 mg (9.42 mg/kg/dose), Oral, EVERY 4 HOURS, First dose on Mon10/22/19 at 1900, Until Discontinued, Administer for temperature greater than or equal to 38.2 degrees celsius. Maximum daily dose of acetaminophen from all sources not to exceed 4,000 mg., Routine Given 10/24/2019 10:25 AM EST 650 mg Given 10/24/2019 7:01 AM EST 650 mg Given 10/23/2019 11:26 PM EST 650 mg BUpivacaine (PF) (MARCAINE) 0.25 % (2.5 mg/mL) injection ONCE PRN, Starting on Mon10/22/19 at 1533, Until Natali 10/24/19 at 1417, Intra-Operative (Intra-Procedure), Routine Given 10/22/2019 3:33 PM EST 20 mLs 19- Surgical Site ceFAZolin (ANCEF) 1g in dextrose 5% 50mL 1 g (0.0145 g/kg), Intravenous, EVERY 8 HOURS SCHEDULED, 2 doses, First dose on Mon10/22/19 at 2200, Last dose on Mon10/23/19 at 0600, Administer over 30 Minutes, Indication for (Active or Suspected): Prophylaxis New Bag 10/23/2019 6:29 AM EST 1 g 100 mL/hr New Bag 10/22/2019 9:40 PM EST 1 g 100 mL/hr docusate sodium (Colace) capsule 100 mg 100 mg (1.45 mg/kg/dose), Oral, 2 TIMES DAILY, First dose on Mon10/22/19 at 2130, Until Discontinued, Routine Given 10/24/2019 10:01 AM EST 100 mg Given 10/23/2019 8:52 PM EST 100 mg Given 10/23/2019 9:59 AM EST 100 mg fentaNYL (PF) 50mcg/mL injection 25 mcg (0.362 mcg/kg), Intravenous, EVERY 5 MIN PRN, 4 doses, Starting on Mon10/22/19 at 1727, Until Mon10/22/19 at 1921, Pain, for breakthrough pain, Hold for respiratory rate less than 12. Maximum dose = 100 mcg per hour., PACU Recovery, Routine Given 10/22/2019 6:55 PM EST 25 mcg Given 10/22/2019 6:49 PM EST 25 mcg ibuprofen (Advil;Motrin) tablet 400 mg 400 mg (5.8 mg/kg/dose), Oral, EVERY 8 HOURS PRN, Starting on Mon10/23/19 at 1209, Until Mon10/23/19 at 1725, Pain, Administer orally with milk or food to minimize GI irritation, Routine Given 10/23/2019 12:43 PM EST 400 mg iohexol (OMNIPAQUE) 300 mg/mL solution ONCE PRN, Starting on Mon10/22/19 at 1533, Until Natali 10/24/19 at 1417, Intra-Operative (Intra-Procedure), Routine Given 10/22/2019 3:33 PM EST 1 vial 19- Surgical Site ketorolac (TORADOL) injection 15 mg 15 mg (0.217 mg/kg/dose), Intravenous, EVERY 6 HOURS PRN, Starting on Mon10/23/19 at 1900, Until Mon10/24/19 at 1417, Pain, Routine Given 10/23/2019 6:58 PM EST 15 mg lactated ringers infusion 1,000 mL, at 100 mL/hr, Intravenous, CONTINUOUS, Starting on Mon10/22/19 at 1115, Until Mon10/22/19 at 1921, Day of Surgery (Day of Procedure) New Bag 10/22/2019 1:28 PM EST New Bag 10/22/2019 11:14 AM EST 1,000 mLs 100 mL/hr lidocaine (XYLOCAINE) 10 mg/mL (1 %) injection 3 mg 3 mg (0.3 mL), Subcutaneous, ONCE PRN, 1 dose, Starting on Mon10/22/19 at 1058, Until Mon10/22/19 at 1114, for discomfort with PIV insertion, Day of Surgery (Day of Procedure), Routine Given 10/22/2019 11:14 AM EST 3 mg ondansetron (ZOFRAN) injection 4-8 mg 4-8 mg (0.058-0.1159 mg/kg/dose), Intravenous, EVERY 8 HOURS PRN, Starting on Mon10/22/19 at 2103, Until Mon10/24/19 at 1417, Nausea, Start with 4mg and if ineffective in 30 minutes, give an additional 4mg If multiple antiemetics are ordered, give ondansetron first. ondansetron (Zofran) tablet 4-8 mg 4-8 mg (0.058-0.1159 mg/kg/dose), Oral, EVERY 8 HOURS PRN, Starting on Mon10/22/19 at 2103, Until Mon10/24/19 at 1417, Nausea, Vomiting, If multiple antiemetics are ordered, use ondansetron first. PO Preferred. If patient unable to take PO, may give IV if ordered. Start with 4mg and if ineffective in 45 minutes, give an additional 4mg. If unable to take PO, may give IV., Routine oxyCODONE (Roxicodone) tablet 5-10 mg 5-10 mg (0.0725-0.1449 mg/kg/dose), Oral, EVERY 4 HOURS PRN, Starting on Mon10/22/19 at 1840, Until Mon10/23/19 at 1258, Pain, moderate pain (4-6), Initial dose 5mg. If pain control not adequate in 60 minutes, give additional 5mg, Routine Given 10/22/2019 11:09 PM EST 5 mg Given 10/22/2019 7:01 PM EST 5 mg sodium chloride 0.9 % (flush) flush 5 mL 5 mL, Intravenous, 2 TIMES DAILY, First dose on Mon10/22/19 at 2130, Until Discontinued, Routine Given 10/24/2019 10:02 AM EST 5 mLs Given 10/23/2019 8:52 PM EST 5 mLs Given 10/23/2019 10:00 AM EST 5 mLs sodium chloride 0.9% infusion 1,000 mL, at 100 mL/hr, Intravenous, CONTINUOUS, Starting on Mon10/22/19 at 1900, Until Mon10/23/19 at 0728 New Bag 10/23/2019 6:07 AM EST 1,000 mLs 100 m L/hr New Bag 10/22/2019 7:25 PM EST 1,000 mLs 100 mL/hr sulfamethoxazole-trimethoprim (Bactrim;Septra) 400-80 mg per tablet 1 tablet 1 tablet (80 mg), Oral, DAILY, 42 doses, First dose on Mon10/23/19 at 0900, Last dose on Mon12/03/19 at 0900, Routine, Indication for (Active or Suspected): Prophylaxis Given 10/24/2019 10:01 AM EST 1 tablet Given 10/23/2019 9:59 AM EST 1 tablet tamsulosin (Flomax) capsule 0.4 mg 0.4 mg (0.0058 mg/kg/dose), Oral, DAILY, First dose on Mon10/24/19 at 0900, Until Discontinued, DO NOT CRUSH OR OPEN, Routine Given 10/24/2019 10:01 AM EST 0.4 mg documented in this encounter Active and Recently Administered Medications Times are shown in EST. Scheduled Medication Order 10/22/2019 10/23/2019 10/24/2019 acetaminophen (Tylenol) tablet 1,000 mg (COMPLETED) 1,000 mg, Oral, ONCE, 1 dose, On Mon10/22/19 at 1115, Maximum dose of acetaminophen is 4000 mg from all sources in 24 hours., Day of Surgery (Day of Procedure), Routine 1114 (Given - Provider: Zarina Robledo, ANGELITO) acetaminophen (Tylenol) tablet 650 mg 650 mg (9.42 mg/kg/dose), Oral, EVERY 4 HOURS, First dose on Mon10/22/19 at 1900, Until Discontinued, Administer for temperature greater than or equal to 38.2 degrees celsius. Maximum daily dose of acetaminophen from all sources not to exceed 4,000 mg., Routine 1935 (Given - Provider: Yu Jensen RN)2226 (Given - Provider: Washington Fish, ANGELITO) 0354 (Given - Provider: Washington Fish, ANGELITO)0628 (Given - Provider: Washington Fish RN)1210 (Given - Provider: Barber Aranda, RN)1550 (Given - Provider: Barber Aranda, RN)1857 (Given - Provider: Barber Aranda, RN)2326 (Given - Provider: Nael Caicedo RN) 0300 (Not Given - Provider: Nael Caicedo RN - Reason: Patient/family refused)0701 (Given - Provider: Nael Caicedo, ANGELITO)1025 (Given - Provider: Gilma Pearson RN) ceFAZolin (ANCEF) 1g in dextrose 5% 50mL (COMPLETED) 1 g (0.0145 g/kg), Intravenous, EVERY 8 HOURS SCHEDULED, 2 doses, First dose on Mon10/22/19 at 2200, Last dose on Mon10/23/19 at 0600, Administer over 30 Minutes, Indication for (Active or Suspected): Prophylaxis 2140 (New Bag - Provider: Washington Fish, ANGELITO)2210 (Stopped - Provider: Washington Fish, ANGELITO) 0629 (New Bag - Provider: Washington Fish RN)0659 (Stopped - Provider: Barber Aranda RN) ceFAZolin (ANCEF) 2g in dextrose 5% 100 mL (COMPLETED) 2 g, Intravenous, MECHANICAL MANUFACTURING ENGINEER TO O.R., 1 dose, On Mon10/22/19 at 1015, Administer over 30 Minutes, Indication for (Active or Suspected): Prophylaxis 1348 (Given - Provider: Danielito Lemus Jr., CRNA)1648 (Given - Provider: Danielito Lemus Jr., CRNA) docusate sodium (Colace) capsule 100 mg 100 mg (1.45 mg/kg/dose), Oral, 2 TIMES DAILY, First dose on Mon10/22/19 at 2130, Until Discontinued, Routine 2139 (Given - Provider: Washington Fish RN) 0959 (Given - Provider: Barber Aranda RN)2051 (Given - Provider: Nael Caicedo RN) 100 (Given - Provider: Gilma Pearson RN) sodium chloride 0.9 % (flush) flush 5 mL 5 mL, Intravenous, 2 TIMES DAILY, First dose on Mon10/22/19 at 2130, Until Discontinued, Routine 2139 (Given - Provider: Washington Fish RN) 1000 (Given - Provider: Barber Aranda RN)2051 (Given - Provider: Nael Caicedo RN) 1002 (Given - Provider: Gilma Pearson RN) sulfamethoxazole-trimeth oprim (Bactrim;Septra) 400-80 mg per tablet 1 tablet 1 tablet (80 mg), Oral, DAILY, 42 doses, First dose on Mon10/23/19 at 0900, Last dose on Mon12/03/19 at 0900, Routine, Indication for (Active or Suspected): Prophylaxis 0959 (Given - Provider: Barber Aranda RN) 1001 (Given - Provider: Gilma Pearson, ANGELITO) tamsulosin (Flomax) capsule 0.4 mg 0.4 mg (0.0058 mg/kg/dose), Oral, DAILY, First dose on Mon10/24/19 at 0900, Until Discontinued, DO NOT CRUSH OR OPEN, Routine 1001 (Given - Provider: Gilma Pearson RN) Continuous Medication Order 10/22/2019 10/23/2019 10/24/2019 lactated ringers infusion (CANCELED) 1,000 mL, at 100 mL/hr, Intravenous, CONTINUOUS, Starting on Mon10/22/19 at 1115, Until Mon10/22/19 at 1921, Day of Surgery (Day of Procedure) 1114 (New Bag - Provider: Zarina Robledo RN)1328 (New Bag - Provider: Danielito Lemus Jr., CRNA)1631 (Anesthesia Volume Adjustment - Provider: Danielito Lemus Jr., CRNA) sodium chloride 0.9% infusion (CANCELED) 1,000 mL, at 100 mL/hr, Intravenous, CONTINUOUS, Starting on Mon10/22/19 at 1900, Until Mon10/23/19 at 0728 1925 (New Bag - Provider: Yu Jensen RN) 0607 (New Bag - Provider: Washington Fish, ANGELITO)1004 (Stopped - Provider: Barber Aranda RN) PRN Medication Order 10/22/2019 10/23/2019 10/24/2019 BUpivacaine (PF) (MARCAINE) 0.25 % (2.5 mg/mL) injection (CANCELED) ONCE PRN, Starting on Mon10/22/19 at 1533, Until Natali 10/24/19 at 1417, Intra-Operative (Intra-Procedure), Routine 1533 (Given - Provider: Naun Gray MD) fentaNYL (PF) 50mcg/mL injection (CANCELED) 25 mcg (0.362 mcg/kg), Intravenous, EVERY 5 MIN PRN, 4 doses, Starting on Mon10/22/19 at 1727, Until Mon10/22/19 at 1921, Pain, for breakthrough pain, Hold for respiratory rate less than 12. Maximum dose = 100 mcg per hour., PACU Recovery, Routine 1849 (Given - Provider: Yu Jensen RN)1855 (Given - Provider: Yu Jensen RN) HYDROmorphone (DILAUDID) injection 0.2 mg 0.2 mg (0.0029 mg/kg/dose), Intravenous, EVERY 4 HOURS PRN, Starting on Mon10/22/19 at 2024, Until Natali 10/24/19 at 1417, Pain, for pain not controlled by oral agents, Routine ibuprofen (Advil;Motrin) tablet 400 mg (CANCELED) 400 mg (5.8 mg/kg/dose), Oral, EVERY 8 HOURS PRN, Starting on Mon10/23/19 at 1209, Until Mon10/23/19 at 1725, Pain, Administer orally with milk or food to minimize GI irritation, Routine 1243 (Given - Provider: Cassy Ramachandran, ANGELITO) iohexol (OMNIPAQUE) 300 mg/mL solution (CANCELED) ONCE PRN, Starting on Mon10/22/19 at 1533, Until Natali 10/24/19 at 1417, Intra-Operative (Intra-Procedure), Routine 1533 (Given - Provider: Naun Gray MD - Comment: Mixed with sterile water, used as needed.) ketorolac (TORADOL) injection 15 mg 15 mg (0.217 mg/kg/dose), Intravenous, EVERY 6 HOURS PRN, Starting on Mon10/23/19 at 1900, Until Natali 10/24/19 at 1417, Pain, Routine 1858 (Given - Provider: Barber Aranda RN) lidocaine (XYLOCAINE) 10 mg/mL (1 %) injection 3 mg (COMPLETED) 3 mg (0.3 mL), Subcutaneous, ONCE PRN, 1 dose, Starting on Mon10/22/19 at 1058, Until Mon10/22/19 at 1114, for discomfort with PIV insertion, Day of Surgery (Day of Procedure), Routine 1114 (Given - Provider: Zarina Robledo RN) lidocaine (XYLOCAINE) 10 mg/mL (1 %) injection 3 mg 3 mg (0.0435 mg/kg/dose = 0.3 mL), Subcutaneous, ONCE PRN, 1 dose, Starting on Mon10/22/19 at 2103, Until Mon10/24/19 at 1417, for discomfort with PIV insertion, Routine melatonin tablet 3 mg 3 mg (0.0435 mg/kg/dose), Oral, NIGHTLY PRN, Starting on Mon10/22/19 at 2103, Until Natali 10/24/19 at 1417, Sleep, Routine ondansetron (ZOFRAN) injection 4-8 mg(Linked Group 1) 4-8 mg (0.058-0.1159 mg/kg/dose), Intravenous, EVERY 8 HOURS PRN, Starting on Mon10/22/19 at 2103, Until Mon10/24/19 at 1417, Nausea, Start with 4mg and if ineffective in 30 minutes, give an additional 4mg If multiple antiemetics are ordered, give ondansetron first. ondansetron (Zofran) tablet 4-8 mg(Linked Group 1) 4-8 mg (0.058-0.1159 mg/kg/dose), Oral, EVERY 8 HOURS PRN, Starting on Mon10/22/19 at 2103, Until Natali 10/24/19 at 1417, Nausea, Vomiting, If multiple antiemetics are ordered, use ondansetron first. PO Preferred. If patient unable to take PO, may give IV if ordered. Start with 4mg and if ineffective in 45 minutes, give an additional 4mg. If unable to take PO, may give IV., Routine oxyCODONE (Roxicodone) tablet 5-10 mg (CANCELED)(Linked Group 2) 5-10 mg (0.0725-0.1449 mg/kg/dose), Oral, EVERY 4 HOURS PRN, Starting on Mon10/22/19 at 1840, Until Mon10/23/19 at 1258, Pain, moderate pain (4-6), Initial dose 5mg. If pain control not adequate in 60 minutes, give additional 5mg, Routine 190 (Given - Provider: Yu Jensen RN)2309 (Given - Provider: Washington Fish RN) sodium chloride 0.9 % (flush) flush 1-20 mL 1-20 mL, Intravenous, EVERY 1 MIN PRN, Starting on Mon10/22/19 at 2103, Until Natali 10/24/19 at 1417, flush, Flush pertains to all indwelling lines. Flush per protocol found in the job aid using the link provided on this medication record., Routine Linked Groups Order Group 1: ondansetron (Zofran) tablet 4-8 mgJump to med 4-8 mg (0.058-0.1159 mg/kg/dose), Oral, EVERY 8 HOURS PRN, Starting on Mon10/22/19 at 2103, Until Natali 10/24/19 at 1417, Nausea, Vomiting, If multiple antiemetics are ordered, use ondansetron first. PO Preferred. If patient unable to take PO, may give IV if ordered. Start with 4mg and if ineffective in 45 minutes, give an additional 4mg. If unable to take PO, may give IV., Routine Or ondansetron (ZOFRAN) injection 4-8 mgJump to med 4-8 mg (0.058-0.1159 mg/kg/dose), Intravenous, EVERY 8 HOURS PRN, Starting on Mon10/22/19 at 2103, Until Natali 10/24/19 at 1417, Nausea, Start with 4mg and if ineffective in 30 minutes, give an additional 4mg If multiple antiemetics are ordered, give ondansetron first. Group 2: oxyCODONE (Roxicodone) tablet 5-10 mg (CANCELED)Jump to med 5-10 mg (0.0725-0.1449 mg/kg/dose), Oral, EVERY 4 HOURS PRN, Starting on Mon10/22/19 at 1840, Until Mon10/23/19 at 1258, Pain, moderate pain (4-6), Initial dose 5mg. If pain control not adequate in 60 minutes, give additional 5mg, Routine Or oxyCODONE (Roxicodone) tablet 10-15 mg (CANCELED) 10-15 mg (0.145-0.217 mg/kg/dose), Oral, EVERY 4 HOURS PRN, Starting on Mon10/22/19 at 1840, Until 10/23/19 at 1258, Pain, severe pain (7-10), Initial dose 10mg. If pain control not adequate in 60 minutes, give additional 5mg, Routine documented in this encounter Care Teams Roller Shop Supervisor Relationship Specialty Start Date End Date Naun Alvarez MD [address] [place] [address] [phone] PCP - General Family Medicine 11/09/16 05/25/23 documented as of this encounter
--- OUTSIDE RECORDS SUMMARY | 2024-08-25 01:07 | XMS_ITS | Encounter Summary ---
Author Organization [facility] Address [facility] [place] [address] Care Team Providers Care Pyrotechnic Mixer Name Role Phone Naun Alvarez MD Primary Care Provider Encounter Details Date Type Department Care Team (Latest Contact Info) Description 09/02/2020 10:46 AM EST - 09/02/2020 11:59 PM [facility] Hospital [place] [address] Naun Gray MD [facility] [place] [address] Encounter for removal of ureteral stent; Obstruction of right ureteropelvic junction (UPJ) Discharge Disposition: Home Social History Tobacco Use [...] Sig Dispensed Refills Start Date End Date sulfamethoxazole-trimet hoprim (Bactrim;Septra) 400-80 mg Tablet Take 1 tablet by mouth daily. Take until stent removal. 10 tablet 11/21/2019 ibuprofen (Advil;Motrin) 200 mg Tablet Take 2 [...] Procedure Name Priority Date/Time Associated Diagnosis Comments US RETROPERITONEAL COMPLETE Routine 09/02/2020 11:15 AM EST Encounter for removal of ureteral stent Obstruction of right ureteropelvic junction (UPJ) documented in this encounter Results * US [...] 12:07 pm) PATIENT INFO: ID #: ? [id number] ?: ??[birth year] (20 yrs)(F) Name: ? WON Loli ? Visit Date: 09/02/2020 10:57 am ? GOEHRING PERFORMED BY: Performed By: ? Adeola Kennedy RDMS Attending: ?Tamela Hamlin MD Referred By: ?NAUN GRAY Location: ? [place] SERVICE(S) PROVIDED: ??URETRO - Retroperitoneal Complete - [id number] ? [id number] INDICATIONS: ?? hydronephrosis, removal of ureteral stent, [...] 09/02/2020 12:07 pm) PATIENT INFO: ID #: [id number] : [birth year] (20 yrs)(F) Name: WON Ennis Visit Date: 09/02/2020 10:57 am GOEHRING PERFORMED BY: Performed By: Adeola Kennedy RDMS Attending: Tamela Hamlin MD Referred By: NAUN GRAY Location: [place] SERVICE(S) PROVIDED: URETRO - Retroperitoneal Complete - [id number] INDICATIONS: hydronephrosis, removal of ureteral stent, obstruction [...] Report 09/02/2020 12:07 pm Naun Gray MD [facility] GEN ORDERABLE S documented in this encounter Visit Diagnoses Diagnosis Encounter for removal of ureteral stent Obstruction of right ureteropelvic junction (UPJ) documented in this encounter Care Teams Pyrotechnic Mixer Relationship Specialty Start Date End Date Naun Alvarez MD [address] [place] [phone] PCP - General Family Medicine 11/09/16 05/25/23 documented as of this encounter
--- OUTSIDE RECORDS SUMMARY | 2024-08-25 01:07 | XMS_ITS | Encounter Summary ---
Author Organization [facility]ly [facility] [place] [address] Care Team Providers Care Business Unit Leader Name Role Phone Dillon Alvarez MD Primary Care Provider [phone] Reason for Visit * Auth/Cert Specialty Diagnoses / Procedures Referred By Shahid patel Referred To Contact Diagnoses Right UPJO. Procedures PRO LAP, PYELOPLASTY PRO CYSTOURETHROSCOPY, URETER CATHETER PRO CYSTOSCOPY, REMV CALCULUS, SIMPLE LAPAROSCOPY, PYELOPLASTY, ROBOTIC ASSIST (WRVU 23.37) CYSTO, RETROGRADE, URETEROPYELOGRAPHY (WRVU 2.37) CYSTO, REMOVAL OF STENT, FOREIGN BODY OR CALCULUS, SIMPLE (WRVU 2.81) Referral ID Status Reason Start Date Expiration Date Visits Re quested Visits Authorized [id number] 1 1 Encounter Details Date Type Department Care Team (Late st Contact Info) Description 10/22/2019 1:28 PM EST Anesthesia Event [place] [id number] Cordell Bueno MD [facility] [place] [address] Danielito Lemus Jr. [facility] [place] [address] Anesthesia Record Procedure Summary Procedure Name Responsible Anesthesiologist Anesthesia Start Time Anesthesia Stop Time ROBOTIC ASSIST PYELOPLASTY (WRVU 23.37) (Right: Abdomen) Cordell Bueno MD 10/22/19 1328 10/22/19 1812 Events Date Time Event Comment 10/22/2019 1110 1328 AN Verify 1328 Start 1328 An Start Data 1339 An Induction 1340 An Intubation 1343 Anesthesia Ready 1429 Quick Note Out of lithotom y, into left lateral decubitus 1440 Break/Relief In I assumed ca re for Break Relief before which we: 1. Identified the patient 2. Identified the responsible provider(s) 3. Reviewed the pertinent medical history 4. Discussed the surgical plan and course 5. Reviewed intra-op anesthesia management and issues during anesthesia 6. Set expectations for the relief (and/or post-procedure) period 7. Allowed opportunity for questions and acknowledgement of understanding Macey Starkey CRNA 1451 Procedure Start 1451 Quick Note Local injected per surgeon. 1455 Break/Relief Out 1800 Extubation/LMA Out 1812 an stop data 181 Recovery or ICU Handoff Geraldine ent care was transferred to the destination unit staff after review of the patient's medical history, current anesthetic/surgical status and plan, according to the Provider Handoff Checklist. 1811 Stop Pt met extubati on criteria. Placed # 9 OPA. Suctioned OP. Extubated to 6L SFM. No resp distress. Transported to pacu. Report given to RN. VSS, denies nausea/pain. Meds Name Total Midazolam 2 mg fentaNYL 250 mcg IV Lidocaine 60 mg Propofol 240 mg Rocuronium 80 mg PHENYLephrine 160 mcg Ondansetron 4 mg Dexamethasone 4 mg Neostigmine 3.5 mg Glycopyrrolate 0.4 mg ceFAZolin (ANCEF) 2g in dextrose 5% 100 mL 4 g Dexmedetomidine 16 mcg Propofol INF 461.61 mg HYDROmorphone 0.4 mg PHENYLephrine INF 3,950 mcg lactated ringers infusion 700 mL Lactated Ringers 700 mL * Agents Name O2 Air N2O Sevoflurane (et) * Blood No blood administrations on file. Lines, Drains, and Airways Type Details Placement Removal Ureteral Catheter 10/22/19; 1559; righ t ureter 10/22/19 1559 by Dary Knott RN Incision 04/29/13; ear; LDA n ot present upon assessment; 10/22/19; 1526 04/29/13 0000 by Chrissie Carpio RN 10/22/19 1526 by Dary Knott RN Incision 10/23/13; ear; LDA n ot present upon assessment; 10/22/19; 1526 07/17/13 0000 by Deepali Ramirez RN 10/22/19 1526 by Dary Knott RN Incision 07/17/13; other (see comments) (Oral/throat); LDA not present upon assessment; 10/22/19; 1526 07/17/13 0000 by Deepali Ramirez RN 10/22/19 1526 by Dary Knott RN (RETIRED) Peripheral IV Line - Single Lumen 10/22/19; 1113; metacarpal vein (top of hand), right; obzj-lux-bakplu catheter system; 22 gauge; Meena RN; distraction, intradermal injection, tolerated well; 0; 06/30/21 (LDA Cleanup utility RA#[id number]); 1649 (LDA Cleanup utility RA#2611) 10/22/19 1113 by Zarina Robledo RN 06/30/21 1650 by Washington Goncalves ETT Mask Ventilation: Ea sy (1); ETT Type: Cuffed, Oral; ETT Size: 7 mm; Mac Blade: 3; Notes: Asleep, Pre-O2; Attempts: 1; Laryngoscopy Grade: 1; ETT Placement Verified By: Auscultation, Capnometry; Secured at Teeth: 21 cm; Inserted by: marcia; Removal Date: 10/22/19; Removal Time: 1800 10/22/19 1339 by Danielito Lemus Jr., CRNA 10/22/19 1800 by Danielito Lemus Jr., SANDY (RETIRED) Peripheral IV Line - Single Lumen 10/22/19; 1343; metacarpal vein (top of hand), left; tzcf-wkh-jhaumk catheter system; 18 gauge; 06/30/21 (LDA Cleanup utility RA#2611); 1649 (LDA Cleanup utility RA#2611) 10/22/19 1343 by Danielito Lemus Jr., SUSPENDER MAKER 06/30/21 1650 by Washington Goncalves Urethral Catheter 10/22/19; 1410; Genitourinary surgery, Surgery longer than 2 hours, Physician order; indwelling double lumen catheter; latex; 16; inserted at this facility; 1; 10; 10; drainage bag to dependent drainage; urethral catheter removed, tubing intact, per protocol/policy; 10/23/19; 1008 10/22/19 1410 by Dary Knott RN 10/23/19 1008 by Barber Aranda RN Ureteral Catheter 10/22/19; 1410; left ureter; drainage bag to dependent drainage; ureteral catheter removed, catheter intact; 10/22/19; 1543 10/22/19 1410 by Dary Knott RN 10/22/19 1543 by Dary Knott RN Incision 10/22/19; 1500; abdo men; laparoscopic punctures (specify); multiple trocars placed; 05/23/22 (LDA cleanup utility RA#[id number]); 1715 (LDA cleanup utility RA#2746) 10/22/19 1500 by Dary Knott RN 05/23/22 1715 by Mary Jo Kingsley documented in this encounter Social History Tobacco Use Types Packs/Day Years [...] on file documented as of this encounter OR Notes * Anesthesia Postprocedure Evaluation - Cordell Bueno MD - 10/23/2019 1:21 AM EST Department of Anesthesiology Post-procedure Note Patient: Raisa Morales Procedure Summary Date: 10/22/19 Room / Location: [facility] OR [address] [place] [address] MAIN OR Anesthesia Start: 1328 Anesthesia Stop: 1811 Procedures: LAPAROSCOPY, PYELOPLASTY, ROBOTIC ASSIST (WRVU 23.37) (Right Abdomen) CYSTO, RETROGRADE, URETEROPYELOGRAPHY (WRVU 2.37) (Right Ureter) CYSTO, REMOVAL OF STENT, FOREIGN BODY OR CALCULUS, SIMPLE (WRVU 2.81) (Right Bladder) MODIFIER ROBOT,MICHAEL XI (N/A ) Diagnosis: Hydronephrosis with ureteropelvic junction (UPJ) obstruction (Right UPJO.) Surgeon: Dillon Gray MD Responsible Provider: Cordell Bueno MD Anesthesia Type: general ASA Status: 2 All Anesthesia Providers: Anesthesiologist: Cordell Bueno MD; Carlos Robins MD; Angie Quinones MD SUSPENDER MAKER: Danielito Lemus Jr., CRNA Vitals Value Taken Time BP 100/56 10/22/2019 8:00 PM Temp 37.5 ??C (99.5 ??F) 10/22/2019 7:00 PM Pulse 60 10/22/2019 8:00 PM Resp 16 10/22/2019 8:00 PM SpO2 97 % 10/22/2019 8:35 PM Pain Level 5 10/22/2019 7:15 PM Vitals shown include unvalidated device data. Patient Location: PACU/[facility] Level of Consciousness: Conscious but Sleepy Pain Management: Satisfactory Analgesia PONV: None Cardiovascular Status: Hemodynamically Stable Respiratory Status: Stable Respiratory Status Postoperative Fluid Status: Intravascular EUvolemia Possible Anesthetic Complications: NONE apparent at time of evaluation Final Primary Anesthesia Type: General (The anesthetic type performed was the same as planned.) Comments: * Anesthesia Preprocedure Evaluation - Angie Quinones MD - 10/22/2019 11:07 AM EST Pre-Anesthesia Evaluation for: Raisa Morales a 19 y.o. female. Procedure(s): LAPAROSCOPY, PYELOPLASTY, ROBOTIC ASSIST (WRVU 23.37) CYSTO, RETROGRADE, URETEROPYELOGRAPHY (WRVU 2.37) CYSTO, REMOVAL OF STENT, FOREIGN BODY OR CALCULUS, SIMPLE (WRVU 2.81) MODIFIER ROBOT,MICHAEL XI Patient Active Problem List Diagnosis ??? Conductive hearing loss ??? Eustachian tube dysfunction The patient was first seen in pediatric otolaryngology clinic on 04/23/2013 for evaluation of fluidin her ears and a hole in her ear drum. Raisa started having ear infections as an and would get monthly ear infections. Mom noticed that she had speech impediments (slurring) and seemed to have difficulty hearing. She had an audiology evaluation which was abnormal, per mom. Bilateral ear tubes first placed by Dr. Olmedo in 2003.Mom noticed that she did have some hearing improvement and recalls that a hearing test was performed but does not remember results. She has had many fewer infections since those tubes were placed. They fell out two years later and then were replaced, with tonsillectomy and adenoidectomy because ofsnoring and because Dr. Olmeod thought the ear infections were related to the tonsils. After the ear tubes were replaced, mom and Raisa do not remember additional ear infections, but do recall fluid in the ears and bilateral drainage. No bloody drainage The drainage was not controlled with ofloxacin drops. Mom is worried about Raisa's hearing. Raisa says what frequently and seems to have occasional difficulty listening to mom. Teachers have called mom to let her know that they think Raisa is ignoring them in class. Raisa has noticed during the spring time that she has trouble hearing them. She notices she hears better with her left ear. She uses her left ear when talking on the telephone. No concerns about her speech. She has no known allergies, with occasional rhinorrhea. The patient underwent removal of ear retained T tubes on 04/29/2013. Intraop findings include retained T tubes and left middle ear effusion. On postop on 06/17/2013, the patient had left ear pain intermittently. The patient complained about not being able to hear well from her left ear. She was found to have CHL. She underwent replacement of ear tubes and revision adenoidectomy on 07/17/2013. Intraop findings include August modified T tubes, L mucoid SCOTTIE, 2+ adenoid regrowth. Postop visit on 10/08/2013 revealed functional T tubes and normal hearing. Follow up on 06/09/2014 revealed that the patient had a couple weeks of drainage. She did not use ear drops. She had earaches on both sides. She had her hearing tested at school and said that she cannot hear. She has had cold symptoms with herear drainage and pain. She was noted to have L T tube otorrhea and functional R T tube. Follow up on 08/18/2014 revealed functional T tubes and mild CHL. Follow up on 12/10/2014 revealed L tube otorrhea and R possibly clogged tube with HF mild CHL. ??? Chronic otitis media with effusion ??? Otorrhea ??? Hearing loss No past medical history on file. Past Surgical History: Procedure Laterality Date ??? PRO CREATE EARDRUM OPENING, GEN ANESTH N/A 07/17/2013 MYRINGOTOMY, INSERTION OF TUBE CASIE performed by Sylvia Ramirez MD at [facility] MAIN OR ? ? PRO REMOVAL ADENOIDS, SECOND, <12 Y/O N/A 07/17/2013 ADENOIDECTOMY, SECONDARY, UNDER AGE 12 performed by Sylvia Ramirez MD at [facility] MAIN OR ??? PRO VENT TUBE REMVL REQ GEN ANESTHESIA 04/29/2013 MYRINGOTOMY, REMOVAL P. E. TUBE performed by Sylvia Ramirez MD at [facility] Social History Tobacco Use ??? Smoking status: Never Smoker ??? Smokeless tobacco: Never Used ??? Tobacco comment: no one in the household smokes Substance Use Topics ??? Alcohol use: No Social History Substance and Sexual Activity Drug Use Not on file No Known Allergies Medications: MAR and/or home medications have been reviewed. Physical Exam: Most Recent Vitals: 10/22/19 1054 BP: 129/75 Pulse: 97 Resp: 16 Temp: 37.2 ??C (99 ??F) SpO2: 100% Body mass index is 28.5 kg/m??. Height: 155.6 cm (5' 1.26) Weight - Scale: 69 kg (152 lb 1.9 oz) Airway Assessment: Mallampati: II TM distance: >3 FB Neck ROM: full Cardiovascular Assessment: cardiovascular exam normal Pulmonary Assessment: pulmonary exam normal Dental Assessment: - normal exam Misc Assessment: Patient is wearing No contact(s). IV access: Peripheral line Anesthesia Plan: ASA 2 general, with a(n) intravenous induction Otherwise healthy 19 year old female presents for reimplantation of ureter Recently diagnosed with hydronephrosis NPO confirmed with patient No medications on a regular basis History of hearing loss with ear tube in the past No problems with previous anesthetics Denies smoking, asthma, cardiac issues, hepatitis, GERD, ELI, thyroid disease Plan [facility] Region - Other Informed Consent: Anesthetic plan and risks discussed with patient. Plan discussed with SUSPENDER MAKER. PAT Clinic Note documented in this encounter Plan of Treatment Not on file documented as of this encounter Visit Diagnoses Not on filedocumented in this encounter Administered Medications Inactive Administered Medications - up to 3 most recent administrations Medication Order MAR Action Action Date Dose Rate Site ceFAZolin (ANCEF) 2g in dextrose 5% 100 mL 2 g, Intravenous, MANAGER POWER TO O.R., 1 dose, On Mon10/22/19 at 1015, Administer over 30 Minutes, Indication for (Active or Suspected): Prophylaxis Given 10/22/2019 4:48 PM EST 2 g Given 10/22/2019 1:48 PM EST 2 g dexamethasone (DECADRON) injection PRN, Starting on Mon10/22/19 at 1339, Until Mon10/22/19 at 181, Anesthesia Intra-op, Routine Given 10/22/2019 1:39 PM EST 4 mg dexmedetomidine (PRECEDEX) injection PRN, Starting on Mon10/22/19 at 1732, Until Mon10/22/19 at 1812, Anesthesia Intra-op, Routine Given 10/22/2019 5:50 PM EST 8 mcg Given 10/22/2019 5:37 PM EST 4 mcg Given 10/22/2019 5:32 PM EST 4 mcg fentaNYL 50 mcg/mL multi-dose injection Administer over 10 Minutes, PRN, Starting on Mon10/22/19 at 1340, Until Mon10/22/19 at 1812, Anesthesia Intra-op, Routine Given 10/22/2019 3:19 PM EST 50 mcg Given 10/22/2019 3:01 PM EST 50 mcg Given 10/22/2019 2:56 PM EST 50 mcg glycopyrrolate (ROBINUL) multi-dose injection PRN, Starting on Mon10/22/19 at 1733, Until Mon10/22/19 at 1812, Anesthesia Intra-op, Routine Given 10/22/2019 5:33 PM EST 0.4 mg HYDROmorphone (DILAUDID) injection PRN, Starting on Mon10/22/19 at 1713, Until Mon10/22/19 at 1812, Anesthesia Intra-op, Routine Given 10/22/2019 5:13 PM EST 0.4 mg lactated ringers infusion 1,000 mL, at 100 mL/hr, Intravenous, CONTINUOUS, Starting on Mon10/22/19 at 1115, Until Mon10/22/19 at 1921, Day of Surgery (Day of Procedure) New Bag 10/22/2019 1:28 PM EST New Bag 10/22/2019 11:14 AM EST 1,000 mLs 100 mL/hr lactated ringers infusion CONTINUOUS PRN, Starting on Mon10/22/19 at 1343, Until Mon10/22/19 at 1812, Anesthesia Intra-op New Bag 10/22/2019 1:43 PM EST lidocaine (PF) (XYLOCAINE) 100 mg/5 mL (2 %) injection PRN, Starting on Mon10/22/19 at 1339, Until Mon10/22/19 at 1812, Anesthesia Intra-op, Routine Given 10/22/2019 1:39 PM EST 60 mg midazolam (PF) (VERSED) multi-dose injection PRN, Starting on Mon10/22/19 at 1328, Until Mon10/22/19 at 1812, Anesthesia Intra-op, Routine Given 10/22/2019 1:31 PM EST 1 mg Given 10/22/2019 1:28 PM EST 1 mg neostigmine (BLOXIVERZ) injection PRN, Starting on Mon10/22/19 at 1733, Until Mon10/22/19 at 1812, Anesthesia Intra-op, Routine Given 10/22/2019 5:33 PM EST 3.5 mg ondansetron (ZOFRAN) injection PRN, Starting on Mon10/22/19 at 1724, Until Mon10/22/19 at 1812, Anesthesia Intra-op, Routine Given 10/22/2019 5:24 PM EST 4 mg PHENYLephrine (VLAD-SYNEPHRINE) 20 mg in sodium chloride 250 mL (standard ADULT & Pedi greater than 20kg) infusion CONTINUOUS PRN, Starting on Mon10/22/19 at 1415, Until Mon10/22/19 at 1812, Anesthesia Intra-op, Routine Rate/Dose Change 10/22/2019 4:08 PM EST 30 mcg/min 22.5 mL/hr Restarted 10/22/2019 4:01 PM EST 20 mcg/min 15 mL/hr New Bag 10/22/2019 2:15 PM EST 30 mcg/min 22.5 mL/hr PHENYLephrine in NS (PF) (VLAD-SYNEPHRINE) 0.8 mg/10 mL (80 mcg/mL) multi-dose injection Syrg PRN, Starting on Mon10/22/19 at 1353, Until Mon10/22/19 at 1812, Anesthesia Intra-op, Routine Given 10/22/2019 1:53 PM EST 160 mcg propofol (DIPRIVAN) 10 mg/mL bolus injection (Anesthesia) PRN, Starting on Mon10/22/19 at 1339, Until Mon10/22/19 at 1812, Anesthesia Intra-op Given 10/22/2019 1:41 PM EST 40 mg Given 10/22/2019 1:39 PM EST 200 mg propofol (DIPRIVAN) infusion CONTINUOUS PRN, Starting on Mon10/22/19 at 1348, Until Mon10/22/19 at 181, Anesthesia Intra-op, Routine New Bag 10/22/2019 1:48 PM EST 30 mcg/kg/min 12.4 mL/hr rocuronium (ZEMURON) multi-dose injection PRN, Starting on Mon10/22/19 at 1339, Until Mon10/22/19 at 181, Anesthesia Intra-op, Routine Given 10/22/2019 4:45 PM EST 10 mg Given 10/22/2019 3:10 PM EST 20 mg Given 10/22/2019 1:39 PM EST 50 mg documented in this encounter Care Teams Business Unit Leader Relationship Specialty Start Date End Date Dillon Alvarez MD [address] [place] [phone] PCP - General Family Medicine 11/09/16 05/25/23 documented as of this encounter
--- OUTSIDE RECORDS SUMMARY | 2024-08-25 01:07 | XMS_ITS | Clinical Summary ---
Author Organization [facility] Address [address] [place] [id number] Care Team Providers Care Jig Filler Name Role Phone Sampson Yang MD Primary Care Provider Willy allen Social History Tobacco Use Types Packs/Day Years Used Date Smoking Tobacco: Never Assessed Comments Unknown Sex and Gender Information Value Date Recorded Sex Assigned at Not on file Legal Sex Female 18:34 EST Gender Identity Not on file Sexual Orientation Not on file Plan of Treatment Health Maintenance Due Date Last Done Comments Hepatitis C Screen 2002 Hepatitis B Vaccine (1 of 3 - 19+ 3-dose series) 07/16 COVID-19 Vaccine (2023- season) 2024 Care Teams Jig Filler Relationship Specialty Start Date End Date Sampson Yang MD PCP - General 08/06/15
--- OUTSIDE RECORDS SUMMARY | 2024-08-25 01:07 | XMS_ITS | Encounter Summary ---
Author Organization [facility] [place] [address] Care Team Providers Care Community Relations Representative Name Role Phone Naun Alvarez MD Primary Care Provider [phone] Reason for Visit * Auth/Cert Specialty Diagnoses [...] Expiration Date Visits Re quested Visits Authorized [id number] 1 1 Encounter Details Date Type Department Care Team (Latest Contact Info) Description 10/22/2019 10:21 AM EST - 10/24/2019 12:[address] [facility] Hospital [place] [address] Naun Gray MD [facility] [address] [place] [address] Discharge Disposition: Home Social History Tobacco Use [...] Sign Reading Time Taken Comments Blood Pressure 118/79 10/24/2019 7:39 AM EST Pulse 78 10/22/2019 8:51 PM EST Temperature 36.6 ??C (97.9 ??F) 10/24/2019 7:39 AM ES T Respiratory Rate 17 10/24/2019 7:39 AM EST Oxygen Saturation 97% 10/24/2019 7:39 AM EST Inhaled Oxygen Concentration - - Weight 69 kg (152 lb 1.9 oz) 10/22/2019 10:54 AM EST Height 155.6 cm (5' 1.26) 10/22/2019 10:[address] Body Mass Index 28.5 10/22/2019 10:54 AM EST Body Mass Index Percentile 93.33% 10/22/2019 10: 54 AM EST Growth Chart: [facility] (Girls, 2- 20 Years) documented in this [...] and left-sided flank pain.?A recent CT scan ??[facility] revealed a dilated right renal pelvis, [...] Hospital Course: Raisa Morales was admitted to [facility] on 10/22/2019 through the Same Day Surgery [...] 12.9 HCT 39.5 PLATELET 389* Recent Labs 10/23/19147 NA 142 K 3.8 CL 106 CO2 [...] that part of your care. Urology Clinic: [phone] PCP: Naun Alvarez MD, . Please follow-up [...] your appointment, please call pediatric urology in [place] at or in [place] at from 8:00am to 5:00pm Monday through Monday. On the weekends or after 5:00pm, you should call [facility] at and ask to speak to the Urology Resident iron carrier FOLLOW-UP APPOINTMENT A follow up appointment has [...] managed by the Urologic Surgery Team at [facility]. If you have any questions or concerns, please feel free to contact us. Provider Contact Information: Urology Clinic: [phone] [facility] (after business hours): CC: Naun Alvarez MD [...] your appointment, please call pediatric urology in [place] at or in [place] at from 8:00am to 5:00pm Monday through Monday. On the weekends or after 5:00pm, you should call [facility] at and ask to speak to the Urology Resident iron carrier FOLLOW-UP APPOINTMENT A follow up appointment has [...] floor status, will discuss discharge planning with child care center administrator. Code status: Full code JAYLIN Moser Urology [...] left-sided flank pain. A recent CT scan [facility] revealed a dilated right renal pelvis, [...] Ongoing (Interventions Implemented as Appropriate) 10/22/19 2100 10/22/198 10/23/19 0959 Restraint Interventions Safety Promotion/Fall Prevention -- [...] care provider on file: Naun Alvarez MD [phone] Medical Decision Maker: Mother Code Status: Full Code Patient???s Functional Status: Stable Living Situation: Per chart review, patient lives at home with her mother and step-father and siblings [address] [place] [address] Supports: Patient is supported by her mother [...] home via private vehicle when medically ready. dock attendant/[employer] Installation Helper will continue to follow patient???s progress and remain available if situation changes for coordination of care, psychosocial support and/or discharge planning. NICHOLAS Zaidi Pager [phone] Extension [phone] * Plan of Care - Washington Fish RN - 10/23/2019 3:03 AM EST Problem: Patient Care Overview Goal: Plan of Care Review Outcome: Ongoing (Interventions Implemented as Appropriate) 10/23/19 0226 Coping/Psychosocial Plan Of Care Reviewed With patient;mother [...] Gray MD - 10/22/2019 8:[address] [facility] Operative Note Patient Name: Raisa Morales : [id number] MR#: [id number] Case Date: 10/22/2019 Surgeon: Surgeon(s) and Role: [...] Time SPECIMEN TO PATHOLOGY OR 11 ; 1-3111 Right UPJO. Right UPJ excision No 10/22/2019 [...] the Abd/pelvi after she present to the [facility] ED for abdominal pain. She then had [...] rightorifice was cannulated with a 5 Fr. Sun catheter. Omnipaque contrast was instilled and the retro grade pyelogram performed. The ureter was normal until the UPJ where the ureter appeared stenotic with a high insertion. There was severe hydronephrosis beyond this point. The Sun was advanced and the ureter was measured at 26 cm to the level of obstruction. The 5 Fr Sun was left in place and attached to [...] appeared healthy. The ureter was spatulated using [employer] robotic scissors laterally. This tissue also appeared [...] Operative Note Patient Name: Raisa Morales : [id number] MR#: [id number] Case Date: 10/22/2019 Surgeon: Surgeon(s) and Role: * Naun Gray MD - Primary * Wenceslao Caballero MD - Resident * Adrianna Ríos MD - Resident Preoperative diagnosis: Right UPJO. Postoperative diagnosis: Right UPJO. Procedure(s) (LRB): LAPAROSCOPY, PYELOPLASTY, ROBOTIC ASSIST (WRVU 23.37) (Right) CYSTO, RETROGRADE, URETEROPYELOGRAPHY (WRVU 2.37) (Right) CYSTO, REMOVAL OF STENT, FOREIGN BODY OR CALCULUS, SIMPLE (WRVU 2.81) (Right) MODIFIER ROBOT,TJI XI (N/A) Anesthesia: General Findings: Right retrograde with filling defect at UPJ. Right high ureteral insertion, dismembered repair performed, right 26 x 6 Fr. ureteral stent placed. 5 ports placed. Complications: None Estimated Blood Loss: 10cc Specimens removed during surgery: Order Name Source Comment Collection Info Order Time SPECIMEN TO PATHOLOGY OR 11 ; 5-3111 Right UPJO. Right UPJ excision No 10/22/2019 [...] junction (UPJ) obstruction Cystoscopy, Remv Calculus, Simple (54876) Yes 10/22/2019 1:28 PM EST Hydronephrosis with ureteropelvic junction (UPJ) obstruction Cystourethroscopy, Ureter Catheter ([id number]) Yes 10/22/2019 1:28 PM EST Hydronephrosis with ureteropelvic junction (UPJ) obstruction Lap, Pyeloplasty ([id number]) Yes 10/22/2019 1:28 PM EST Hydronephrosis with ureteropelvic junction (UPJ) obstruction documented in this encounter Results * (ABNORMAL) Differential, Automated (10/23/2019 1:48 AM EST) Neutrophil % 79.6 % [facility] Neutrophil Absolute 10.02(H) 1.50 - 8.00 x10(3)/[facility] Lymph % 13.6 % [facility] Lymphocytes Abs 1.7 1.2 - 5.2 x10(3)/[facility] Monocyte % 6.4 % [facility] Monocyte Abs 0.8 0.2 - 1.0 x10(3)/[facility] Eos % 0.0 % [facility] Eosinophils Abs 0.0 0.0 - 0.4 x10(3)/[facility] Basophil % 0.2 % [facility] Baso Absolute 0.0 0.0 - 0.1 x10(3)/[facility] Immature Gran % 0.20 % [facility] Comment: Immature granulocytes(IG's)percentage and absolute count will include metamyelocytes, myelocytes, and promyelocytes. Blood smears from CBCs yielding IG's will be scanned manually for concordance. If this scan disagrees with the automated IG or if promyelocytes are noted, a manual differential will be performed. Immature Gran Absolute 0.03 0.00 - 0.04 x10(3)/[facility] Blood specimen (specimen) 10/23/2019 1:48 AM EST 10/23/2019 1:56 AM EST Narrative Resulting Agency Comment Spec In Lab Wenceslao Caballero MD HEMATOLOGY ORDERABLE S [facility] [place] [address] * (ABNORMAL) Hemogram (10/23/2019 1:48 AM EST) White Blood Cell 12.6 4.5 - 13.0 x10(3)/[facility] Red Blood Cell 4.51 4.10 - 5.10 x10(6)/[facility] Hemoglobin 12.9 12.0 - 16.0 gm/dL [facility] Hematocrit 39.5 36.0 - 46.0 % [facility] Mean Cell Volume 87.6 76.0 - 98.0 fL [facility] Mean Cell Hemoglobin 28.6 25.0 - 35.0 pg [facility] Mean Cell Hemoglobin Concentration 32.7 32.0 - 36.5 gm/dL [facility] Platelet 389(H) 145 - 370 x10(3)/mc L [facility] RDW Standard Deviation 38.9 37.0 - 46.0 fL [facility] RDW coefficient of variation 12.1 0.0 - 14.5 % [facility] Mean Platelet Volume 8.9 7.6 - 12.9 fL [facility] NRBC% auto 0.0 % [facility] NRBC Absolute 0.000 0.000 - 0.000 x10(3)/mc L [facility] Blood specimen (specimen) 10/23/2019 1:48 AM EST 10/23/2019 1:56 AM EST Narrative Resulting Agency Comment Spec In Lab Wenceslao Caballero MD HEMATOLOGY ORDERABLE S [facility] [place] [address] * (ABNORMAL) BMP w/fasting Glucose (10/23/2019 1:48 AM EST) Glucose Fasting 124(H) 65 - 99 mg/dL [facility] Comment: ?Fasting* Glucose Interpretive Criteria Normal [...] of Diabetes Mellitus, Position Statement from the [place] [employer]. ??Diabetes Care, Volume 33, Supplement 1, Sep 2009 Blood Urea Nitrogen 8(L) 10 - 20 mg/dL [facility] Creatinine 0.72 0.50 - 0.89 mg/dL [facility] Sodium 142 135 - 145 mmol/L [facility] Potassium 3.8 3.5 - 5.0 mmol/L [facility] Comment: Please note: ??Patients with WBC >100,000 may have falsely elevated Potassium levels. ??For accurate Potassium quantification in these patients send serum separator tube (gold top) for subsequent determinations. ??Contact the Clinical Chemistry Laboratory if there are any questions. Chloride 106 98 - 107 mmol/L [facility] Carbon Dioxide 24 22 - 31 mmol/L [facility] Anion Gap 12 5 - 15 mmol/L [facility] Calcium 8.9 8.5 - 10.5 mg/dL [facility] Est Glomerular Filtration Rate See note >=60 mL/min/1. 73 m?? [facility] Comment: The eGFR for patients less [...] of body mass or the acutely ill. http://SIPX/[facility] eGFR See note >=60 mL/min/1. 73 m?? [facility] Comment: The eGFR for patients less [...] of body mass or the acutely ill. http://[facility]IPX/[facility] Blood specimen (specimen) 10/23/2019 1:48 AM EST 10/23/2019 1:56 AM EST Narrative Resulting Agency Comment Spec In Lab Naun Gray MD CHEMISTRY ORDERABLES [facility] [place] [address] * XR Abdomen 1 view (Generic) (10/22/2019 [...] report, please contact the number below. ? Electronically signed by: Reina Hoover [facility] ([phone]), at 10/22/2019 7:17 PM Narrative 10/22/2019 7:17 PM EST EXAMINATION: XR [...] abnormality or abnormal abdominal calcifications. Procedure Note Reian Hoover MD - 10/22/2019 EXAMINATION: XR ABDOMEN [...] this report, please contact the number below. Electronically signed by: Reina Hoover [facility]([phone]), at 10/22/2019 7:17 PM Naun Gray MD IMG DX ORDERABLES * Surgical Pathology Report (10/22/2019 4:24 PM EST) Final Diagnosis [id number] ? Location: 2WST; P212; A The signing pathologist has (i) examined the relevant preparation(s) for the specimen(s) and (ii) rendered or confirmed the diagnosis(es). . ?Surgical Pathology DIAGNOSIS A - Right uretero-pelvic junction, excision: ?Benign urothelial mucosa with prominent fibromuscular tissue. Electronically signed by: ??Chrissy MARTINS, Roe Ennis Verified: ??10/29/2019 ?Pathologist Performed at: ??-[facility] Dept. of Pathology, [place], [place] CLINICAL INFORMATION Specimen Submitted: A - Right ureter Clinical History and Diagnosis: Right UPJO SPECIMEN PROCESSING A - Labeled/Fixative: Right UPJ, fresh. Quantity/Size: Single, 1 x 0.7 x 0.3 cm, 1 g. Tissue Description: [place] soft tissue with a transparent stitch on one side. Sections/Processi ng: Entirely submitted in 1 cassettes as follows: ?A1: ??Stitch side is submitted en face ??aemr 10/29/2019 3:01 PM EST [facility] URETERIC STRUCTURE / Unknown 10/22/2019 4:24 PM EST 10/22/2019 4:24 PM EST Naun Gray MD PATHOLOGY/CYTOLOGY O BRENDAN Performing Organization Address [facility] de Phone Number [facility] [place] [address] * Specimen to Pathology (10/22/2019 4:24 PM EST) AP Specimen 10/22/2019 4:24 PM EST 10/22/2019 4:24 PM EST Narrative [facility] - 10/22/2019 4:24 PM EST Specimen requisition ordered. ??Separate Pathology report to follow Naun Gray MD PATHOLOGY/CYTOLOGY O BRENDAN Performing Organization Address [facility] Co de Phone Number [facility] [place] [address] * XR Fluoro No Rad <1Hr - OR Use (10/22/2019 2:20 PM EST) Narrative RAD - 10/22/2019 3:21 PM EST This exam is auto-finalizing. No interpretation was done. Naun Gray MD IMG FLUORO ORDERABLE S Performing Organization Address [facility] Co de Phone Number [facility] [place], [place] * Urine culture Urine (10/22/2019 2:12 PM EST) Urine Culture No growth (Less than 1,000 cfu/ml). [facility] Urine specimen (specimen) 10/22/2019 2:12 PM EST 10/22/2019 3:57 PM EST Comment:BLADDER URINE Narrative Resulting Agency Comment Spec In Lab Naun Gray MD MICROBIOLOGY - GENER AL ORDERABLES [facility] [place] [address] documented in this encounter Visit Diagnoses Diagnosis Obstruction of right ureteropelvic junction (UPJ) documented in this encounter Admitting Diagnoses Diagnosis [...] Given 10/23/2019 11:26 PM EST 650 mg ceFAZolin (ANCEF) 1g in dextrose 5% 50mL 1 g (0.0145 g/kg), Intravenous, EVERY 8 HOURS SCHEDULED, 2 doses, First dose on Mon10/22/19 at 2200, Last dose on Mon10/23/19 at 0600, Administer over 30 Minutes, Indication for (Active or Suspected): Prophylaxis New Bag 10/23/2019 6:29 AM EST 1 g 100 mL/ hr New Bag 10/22/2019 9:40 PM EST 1 [...] Given 10/23/2019 12:43 PM EST 400 mg ketorolac (TORADOL) injection 15 mg 15 mg (0.217 mg/kg/dose), Intravenous, EVERY 6 HOURS PRN, Starting on Mon10/23/19 at 1900, Until Natali 10/24/19 at 1417, Pain, Routine Given 10/23/2019 6:58 [...] 1114 (Given - Provider: Zarina Robledo RN) acetaminophen (Tylenol) tablet 650 mg 650 mg (9.42 mg/kg/dose), Oral, EVERY 4 HOURS, First dose on Mon10/22/19 at 1900, Until Discontinued, Administer for temperature greater than or equal to 38.2 degrees celsius. Maximum daily dose of acetaminophen from all sources not to exceed 4,000 mg., Routine 1935 (Given - Provider: Yu Jensen RN)2226 (Given - Provider: Washington Fish RN) 0354 (Given - Provider: Washington Fish RN)0628 (Given - Provider: Washington Fish RN)1210 (Given - Provider: Barber Aranda RN)1550 (Given - Provider: Barber Aranda RN)1857 (Given - Provider: Barber Aranda RN)2326 (Given - Provider: Nael Caicedo, ANGELITO) 0300 (Not Given - Provider: Nael Caicedo RN - Reason: Patient/family refused)0701 (Given - Provider: Nael Caicedo RN)1025 (Given - Provider: Gilma Pearson RN) ceFAZolin (ANCEF) 1g in dextrose 5% 50mL (COMPLETED) 1 g (0.0145 g/kg), Intravenous, EVERY 8 HOURS SCHEDULED, 2 doses, First dose on Mon10/22/19 at 2200, Last dose on Mon10/23/19 at 0600, Administer over 30 Minutes, Indication for (Active or Suspected): Prophylaxis 214 (New Bag - Provider: Washington Fish RN)2210 (Stopped - Provider: Washington Fish RN) 0629 (New Bag - Provider: Washington Fish RN)0659 (Stopped - Provider: Barber Aranda RN) ceFAZolin (ANCEF) 2g in dextrose 5% 100 mL (COMPLETED) 2 g, Intravenous, HAND SANDER TO O.R., 1 dose, On Mon10/22/19 at [...] RN) 0959 (Given - Provider: Barber Aranda RN)205 (Given - Provider: Nael Caicedo RN) 1001 (Given - Provider: Gilma Pearson RN) sodium chloride 0.9 % (flush) flush 5 mL 5 mL, Intravenous, 2 TIMES DAILY, First dose on Mon10/22/19 at 2130, Until Discontinued, Routine 2139 (Given - Provider: Washington Fish, RN) 1000 (Given - Provider: Barber Aranda, RN)2051 (Given - Provider: Nael Caicedo RN) 1002 (Given - Provider: Gilma Pearson, ANGELITO) sulfamethoxazole-trimeth oprim (Bactrim;Septra) 400-80 mg per tablet 1 tablet 1 tablet (80 mg), Oral, DAILY, 42 doses, First dose on Mon10/23/19 at 0900, Last dose on Mon12/03/19 at 0900, Routine, Indication for (Active or Suspected): Prophylaxis 958 (Given - Provider: Barber Aranda RN) 1001 [...] RN) 0607 (New Bag - Provider: Washington Fish RN)1004 (Stopped - Provider: Barber Aranda RN) PRN Medication Order 10/22/2019 10/23/2019 10/24/2019 BUpivacaine (PF) (MARCAINE) 0.25 % (2.5 mg/mL) injection (CANCELED) ONCE PRN, Starting on Mon10/22/19 at 1533, Until Mon10/24/19 at 1417, Intra-Operative (Intra-Procedure), Routine 1533 (Given - Provider: Naun Gray MD) fentaNYL (PF) 50mcg/mL injection (CANCELED) 25 mcg (0.362 mcg/kg), Intravenous, EVERY 5 MIN PRN, 4 doses, Starting on Mon10/22/19 at 1727, Until Mon10/22/19 at 1921, Pain, for breakthrough pain, Hold for respiratory rate less than 12. Maximum dose = 100 mcg per hour., PACU Recovery, Routine 184 (Given - Provider: Yu Jensen RN)1855 (Given - Provider: Yu Jensen RN) HYDROmorphone (DILAUDID) injection 0.2 mg 0.2 mg (0.0029 mg/kg/dose), Intravenous, EVERY 4 HOURS PRN, Starting on Mon10/22/19 at 2024, Until Mon10/24/19 at 1417, Pain, for pain not controlled by oral agents, Routine ibuprofen (Advil;Motrin) tablet 400 mg (CANCELED) 400 mg (5.8 mg/kg/dose), Oral, EVERY 8 HOURS PRN, Starting on Mon10/23/19 at 1209, Until Mon10/23/19 at 1725, Pain, Administer orally with milk or food to minimize GI irritation, Routine 1243 (Given - Provider: Cassy Ramachandran RN) iohexol (OMNIPAQUE) 300 mg/mL solution (CANCELED) ONCE PRN, Starting on Mon10/22/19 at 1533, Until Mon10/24/19 at 1417, Intra-Operative (Intra-Procedure), Routine 1533 (Given - Provider: Naun Gray MD - Comment: Mixed with sterile water, used as needed.) ketorolac (TORADOL) injection 15 mg 15 mg (0.217 mg/kg/dose), Intravenous, EVERY 6 HOURS PRN, Starting on Mon10/23/19 at 1900, Until Natali 10/24/19 at 1417, Pain, Routine 1858 (Given - Provider: Barber Aranda, ANGELITO) lidocaine (XYLOCAINE) 10 mg/mL (1 %) injection [...] dose, Starting on Mon10/22/19 at 2103, Until Natali 10/24/19 at 1417, for discomfort with PIV insertion, [...] in 60 minutes, give additional 5mg, Routine 1901 (Given - Provider: Yu Jensen, ANGELITO)2309 (Given - Provider: Washington Fish RN) sodium [...] at 1840, Until Mon10/23/19 at 1258, Pain, severe pain (7-10), Initial dose 10mg. If pain control not adequate in 60 minutes, give additional 5mg, Routine documented in this encounter Care Teams Community Relations Representative Relationship Specialty Start Date End Date Naun Alvarez MD [address] [place] [address] [phone] PCP - General Family Medicine 11/09/16 05/25/23 documented as of this encounter
--- OUTSIDE RECORDS SUMMARY | 2024-08-25 01:07 | XMS_ITS | Clinical Summary ---
Author Organization [facility] [place] [address] Care Team Providers Care Extract Puller Name Role Phone Unknown Primary Care Provider Unavailabl e Allergies No known active allergies Medications Medication Sig Dispensed Refills Start Date End Date Status tretinoin (RETIN-A) 0.025 % CreamIndications:Ac ne vulgaris Apply topically to face at bedtime as tolerated. Start 3x/week working up to nightly as tolerated. 45 g 3 05/16/2017 Active Additional Information Patient not taking.Reported on 09/02/2020 doxycycline monohydrate (MONODOX) 100 mg CapsuleIndications: Acne vulgaris Take 1 capsule by mouth 2 times daily. 60 capsule 3 05/16/2017 Active Additional Information Patient not taking.Reported on 09/02/2020 acetaminophen (Tylenol) 325 mg Tablet Take 2 tablets by mouth every 4 hours as needed for Pain. 60 tablet 10/23/2019 Active Additional Information Patient not taking.Reported on 09/02/2020 docusate sodium (Colace) 100 mg Capsule Take 1 capsule by mouth 2 times daily as needed for Constipation. 30 capsule 10/23/2019 Active Additional Information Patient not taking.Reported on 09/02/2020 ibuprofen (Advil;Motrin) 200 mg Tablet Take 2 tablets by mouth every 6 hours as needed for Pain. 60 tablet 10/24/2019 Active Additional Information Patient not taking.Reported on 09/02/2020 sulfamethoxazole-tr imethoprim (Bactrim;Septra) 400-80 mg Tablet Take 1 tablet by mouth daily. Take until stent removal. 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 Raisa started having ear infections as an infant and would get monthly ear infections. Mom noticed that she had speech impediments (slurring) and seemed to have difficulty hearing. She had an audiology evaluation which was abnormal, per mom. Bilateral ear tubes first placed by Dr. Olmedo in 2003. Mom noticed that she did have some hearing improvement and recalls that a hearing test was performed but does not remember results. She has had many fewer infections since those tubes were placed. They fell out two years later and then were replaced, with tonsillectomy and adenoidectomy because of snoring and because Dr. Olmedo thought the ear infections were related to [...] hear. She has had cold symptoms with her ear drainage and pain. She was noted to have L T tube otorrhea and functional R T tube. Follow up on 08/18/2014 revealed functional T tubes and mild CHL. Follow up on 12/10/2014 revealed L tube otorrhea and R possibly clogged tube with HF mild CHL. Chronic otitis media with effusion 04/23/2013 Otorrhea 04/23/2013 Overview (10/08/2013): Hearing loss 04/23/2013 Family History Medical History Relation Comments Anxiety Disorder Maternal Grandfather Asthma Maternal Grandfather aunt tooo Cerebrovascular Accident Maternal Grandfather Depression Maternal Grandfather Hypertension Maternal Grandfather Prostate Cancer Maternal Grandfather Hypertension Maternal Grandmother Depression Mother Hypertension Mother Hypertension Other aunt Relation Status Comments Maternal Grandfather Maternal Grandmother Mother Other Social History Tobacco Use Types Packs/Day Years Used Date Smoking Tobacco: Never Smokeless Tobacco: Never Comments:no one in the house hold smokes Alcohol Use Standard Drinks/Week Comments No 0 (1 standard drink = 0.6 oz pur e alcohol) Sex and Gender Information Value Date Recorded Sex Assigned at Not on file Gender Identity Not on file Sexual Orientation Not on file Last Filed Vital Signs Vital Sign Reading Time Taken Comments Blood Pressure 130/82 09/02/2020 11:38 AM EST Pulse 108 09/02/2020 11:38 AM EST Temperature 36.6 ??C (97.9 ??F) 10/24/2019 7:39 AM ES T Respiratory Rate 17 10/24/2019 7:39 AM EST Oxygen Saturation 97% 10/24/2019 7:39 AM EST Inhaled Oxygen Concentration - - Weight 73.8 kg (162 lb 12.8 oz) 020 11:38 AM EST Height 156 cm (5' 1.4) 09/02/2020 11:3 8 AM EST Body Mass Index 30.36 09/02/2020 11:38 AM EST Plan of Treatment Health Maintenance Due Date Last Done Comments Chlamydia Screening 2017 HPV vaccine (1 - 3-dose series) 2017 HIV screen 2020 Hepatitis C Screening 2020 Hepatitis B vaccine (0-59 yrs) (1) 2021 Tetanus/Diphtheria/Pertussis Vaccines (1 - Tdap) 07/16 PAP Smear 2023 Covid-19 Vaccine (1 - 2023- season) 2024 Influenza (Flu) vaccine (1 o f 1 - Influenza standard series) 05/26/2024 Lipid Screening Discontinued 01/11/2017 Medical Devices Implanted Type Area Restaurant Manager Device Identifier Shelf Expiration Date Model / Serial / Lot Tube,Vent,T,U ltrasil,Modif ied ([id number]) - [id number] Implanted:Qty : 2 on 07/17/2013 by Lazara Mcleod MD at [facility] IMPLANTS N/A: Ear DO NOT USE Olympus Allie - Surgical Pro - [id number] 03/17/2023 [id number] / / [id number] Explanted Type Area Restaurant Manager Device Identifier Shelf Expiration Date Model / Serial / Lot Stent,Contour ,[id number] ([id number]) - [id number] Implanted:Qty : 1 on 10/22/2019 by Dillon Gray MD at [facility] Explanted:Qty : 1 on 12/23/2019 by Dillon Gray MD IMPLANTS Right: [employer] 04/10/2022 [id number] / / [id number] Procedures Procedure Name Priority Date/Time Associated Diagnosis Comments LIPID PANEL (REFLEX DIRECT LDL) Routine 01/11/2017 9:47 AM EDT High risk medication use from Last 3 Months or Most Recently Relevant to Health Maintenance Results * (ABNORMAL) Lipid Panel (01/11/2017 9:47 AM EDT) Cholesterol, Total 251(H) <=239 mg/dL [facility] Triglyceride 173 <=199 mg/dL [facility] HDL Cholesterol 59 >=40 mg/dL [facility] LDL Cholesterol 157 <=190 mg/dL [facility] Cholesterol/HDL Ratio 4.[address] [facility] Lipid Interpretation See Note [facility] Comment: Lipid management should be guided by a patient? s ASCVD risk, goals and preferences. ACC/AHA Guidelines recommend high intensity statin if clinical ASCVD or LDL greater than or equal to 190 mg/dL. http://circ.ahajournals.org/content/early/.cir.2183019290.90525.7a Adults aged 40-75 with LDL 70-189 mg/dL should have their 10 year ASCVD risk estimated with the ACC/AHA ASCVD risk rn concurrent review http://tools.acc.org/GTEZF-Fibf-Ltkkynsgu/ Statin should be discussed if risk greater than or equal to 7.5% in non-diabetics. With diabetes, moderate intensity statin is recommended if risk less than 7.5%, high intensity if risk greater than or equal to 7.5%. Annual lipid monitoring on statins is not necessary. Evaluate secondary causes of Triglycerides greater than 500 mg/dL or LDL greater than 190 mg/dL: See table 6 of ACC/AHA Guideline. Lifestyle modification is a critical component of ASCVD risk reduction. Blood specimen (specimen) 01/11/2017 9:47 AM EDT 01/11/2017 1:01 PM EDT Narrative Resulting Agency Comment Spec In Lab Maryanne Leo MD CHEMISTRY ORDERABLES [facility] [place] [address] from Last 3 Months or Most Recently Relevant to Health Maintenance Advance Directives * Full Code (Latest Code Status on File) Date Activated Date Inactivated Comments 10/22/2019 5:58 PM 10/24/2019 2:17 PM Question Answer Comments Does patient have capacity to make decision: No Code Status decision being made per: Parents wis hes Care Teams Extract Puller Relationship Specialty Start Date End Date Unknown None PCP - General 05/26/23
--- OUTSIDE RECORDS SUMMARY | 2024-08-25 01:08 | XMS_ITS | Encounter Summary ---
Author Organization [facility] [place] [address] Care Team Providers Care Fast Food Shift Lead Name Role Phone Dillon Alvarez MD Primary Care Provider [phone] Encounter Details Date Type Department Care Team (Late st Contact Info) Description 01/12/2017 Telephone Dermatology at [facility] [address] [place] [address] Barber Villanueva MD [facility] [address] [address] Social History Tobacco Use Types Packs/Day Years Used Date Smoking Tobacco: Never Comments:no one in the house hold smokes Alcohol Use Standard Drinks/Week Comments No 0 (1 standard drink = 0.6 oz pur e alcohol) Sex and Gender Information Value Date Recorded Sex Assigned at Not on file Gender Identity Not on file Sexual Orientation Not on file documented as of this encounter Miscellaneous Notes * Telephone Encounter - Barber Villanueva - 01/20/2017 4:30 PM EDT Attempted to call Ms. Morales at 4:30 PM on 01/20/17. No answer. Left message stating that I was following-up on the test so that we can start treatment with isotretinoin. Will await response. Barber Villanueva MD Resident in Dermatology [facility] * Telephone Encounter - Nicole Ghosh LPN - 01/18/2017 4:25 PM EDT Reached out to the [facility] for the results of the urine test Raisa was to do today per her mom Shaina. The lab states they have no results since the patient never arrivedto have the test done. * Telephone Encounter - Nicole Ghosh LPN - 01/17/2017 8:59 AM EDT Shaina mom of Raisa RTC. This entry writer spoke to her and let her know she needs to do another Urine test for . Shaina said she will bring Raisa tomorrow morning and have it done at the [facility]. Lab slip sent via fax the # is . I explained this needs to be done in order for this office to confirm her in the Enabled Employmentedge. This office will confirm as soon as results area back and Shaina needs to be called so Raisa can do her part and then she will be able to medicinal plant picker her script so long as it's within the time frame window. Shaina verbalized understanding. * Telephone Encounter - Nicole Ghosh LPN - 01/16/2017 9:14 AM EDT Reached out to Raisa Merritt's mother this morning to have her RTC to discuss another urine test and we need to send in an order for her to get it done. She will not be able to do her part until we confirm her in IPledge. Waiting on a RTC. * Telephone Encounter - Nicole Ghosh LPN - 01/12/2017 4:07 PM EDT Message below from Dr. Villanueva. This entry writer attempted to contact Raisa's mother Shaina to update her with the information about not being able to confirm her in IPledge because she was not over the 30 day wait time. She can have a urine sample done at the local certified lab and have the results faxed to this office. She will not be able to do her part in I Pledge until we can confirm her. Message was left for a return call. I tried calling and left a message. It would be great if you could try as well (today or tomorrow).My preference would be for her to go to a lab on Monday (or later). Barber Temple * Telephone Encounter - Barber Villanueva - 01/12/2017 1:39 PM EDT Attempted to call Raisa about her isotretinoin prescription. No answer. Left message for her to call back. Unfortunately, due to the constraints of the [employer] program rules, her test was 4 days too early (required to be >/= 31 days since prior test), and therefore cannot be used. We will need to repeat her test on or after 01/15. She could have the test done at [facility] or [facility] (the closest CLIA-certified labs). Test should be done at her convenience, with results faxed to [facility]. Barber Villanueva MD, PGY-3 Resident in Dermatology [facility] 01/12/17 1:45 PM documented in this encounter Plan of Treatment Not on file documented as of this encounter Visit Diagnoses Not on filedocumented in this encounter Care Teams Fast Food Shift Lead Relationship Specialty Start Date End Date Dillon Alvarez MD [address] [place] [phone] PCP - General Family Medicine 11/09/16 05/25/23 documented as of this encounter
--- OUTSIDE RECORDS SUMMARY | 2024-08-25 01:08 | XMS_ITS | Encounter Summary ---
Author Organization [facility] Address [facility] [place] [address] Care Team Providers Care Ends Down Checker Name Role Phone Dillon Alvarez MD Primary Care Provider [phone] Reason for Visit * Reason Comments Acne Follow up Encounter Details Date Type Department Care Team (Late st Contact Info) Description 05/16/2017 1:15 PM EDT Office Visit Dermatology at [facility] [address] [place] [address] Barber Villanueva MD [facility] DR HAI[address] [place] [address] Acne vulgaris Social History Tobacco Use Types Packs/Day Years [...] this encounter Patient Instructions * Patient Instructions* Barber Villanueva - 05/16/2017 1:15 PM EDT Benzoyl peroxide in a 2-5% concentration is the best face wash to use. This is available over the counter at most pharmacies, or you can purchase it online. Some good brands include Panoxyl 4% wash, Topix 5% wash, and Neutrogena Clear Pore Cleanser/Mask 3.5% (available on [employer]). Benzoyl peroxide reduces bacteria and also prevents the development of antibiotic resistance. Keep in mind that this product may bleach pillowcases and towels, so it's safest to use white linens. Also, be advised that benzoyl peroxide is an eye irritant. Strategies for Decreasing Irritation While Starting a Topical Retinoid Topical retinoids are vitamin A derivatives and include products such as tretinoin (generic), adapalene (generic), Retin-A, Differin, and Tazorac. These medications will increase your sensitivity to the sun and should not be used if you are or trying to become . 1. Dose is a pea-sized amount (or single pump if using Retin-A Micro Pump) for the entire face (avoiding eye area and lips). Keep medication amount constant throughout treatment. 2. Apply medication 30-45 minutes after washing your face at night. 3. Goal is nightly treatment. To reduce irritation while your skin gets used to this medication, start at 3x/week (Monday, Monday, Monday) and increase frequency as you are able. documented in this encounter Progress Notes * Barber Villanueva - 05/16/2017 1:15 PM EDT Images from the original note were not included. DERMATOLOGY - ESTABLISHED PATIENT FOLLOW-UP Date of service: 05/16/2017 Raisa Morales : 2000, 16 y.o. CC: Acne HPI: Raisa Morales is a 16 y.o. female last seen by myself on 02/15/2017. Raisa is here with her grandfather (Erick) for acne follow up, reports that she never started theisotretinoin. She was hesitant about all the labs that were required and she felt like she wasn't making any progress. She noticed some flaring of her acne recently. Pt would like to go back to oral antibiotic and tretinoin face wash, she feels that worked best for her. Relevant Skin History: - Skin cancer (including type): none - Psoriasis: none - Eczema/Atopy: none - Acne: s/p 4-weeks of doxycycline. ? Family History No history of melanoma or non melanoma skin cancer ? Social History: Occupation: student grade 8 Marital status: single Current Outpatient Prescriptions on File Prior to Visit Medication Sig Dispense Refill ??? [DISCONTINUED] ISOtretinoin (ACCUTANE) 20 mg Capsule Take 1 capsule by mouth 2 times daily. I Naderdgmatt # [id number] (Patient not taking: Reported on 05/16/2017) 60 capsule 0 No current facility-administered medications on file prior to visit. No Known Allergies Review of Systems: - General: Feels well. - Skin: No other skin concerns. Examination: - Constitutional: Patient was alert, well-appearing and in no noticeable distress. - Skin: A focal skin exam of the face, neck, and shoulders was performed. Diagnosis/Skin findings/Assessment/Plan: 1. Acne vulgaris - face: scattered inflammatory papules with numerous open and closed comedones. Mild ice-pick scarring of cheeks. - Patient would benefit from isotretinoin; however, she would rather not take this medication. Recommendations: Aguilar-oxyl use in he shower for back and shoulders, 3-7 times a week. - RX:Doxycycline: 100 mg BID daily. will refill today. - RX: Tretinoin- 0.025% at bedtime as tolerated. Start 3x/week working up to nightly as tolerated. RTC: 3 months for acne follow up. Patient instructed to call with any questions or concerns. Note initiated by Alysia Barnes CMA. I am documenting this encounter acting as the scribe for and in the presence of Barber Villanueva MD. I performed the above scribed service and agree with the accuracy of the documentation in this encounter. Reviewed and signed by Barber Villanueva MD Resident in Dermatology [facility] Patient seen in conjunction with staff wood fence installer: Cedric Monk MD Section of Dermatology [facility] * Cedric Monk MD - 05/16/2017 1:15 PM EDT I directly supervised Dr. Barber Villanueva during this office visit. Dr. Villanueva presented the history and physical exam to me. I then saw and examined this patient with Dr. Villanueva. We reviewed the history and pertinent details and I confirmed the physical findings. I agree with the details of the history and physical exam as documented in Dr. Villanueva's note. CEDRIC MONK MD Staff Physician documented in this encounter Plan of Treatment Not on file documented as of this encounter Visit Diagnoses Diagnosis Acne vulgaris Other acne documented in this encounter Care Teams Ends Down Checker Relationship Specialty Start Date End Date Dillon Alvarez MD [address] [place] [phone] PCP - General Family Medicine 11/09/16 05/25/23 documented as of this encounter
--- OUTSIDE RECORDS SUMMARY | 2024-08-25 01:08 | XMS_ITS | Encounter Summary ---
Author Organization [facility] [place] [address] Care Team Providers Care Teaching Fellow Name Role Phone Dillon Alvarez MD Primary Care Provider [phone] Reason for Visit * Reason Comments Acne Encounter Details Date Type Department Care Team (Late st Contact Info) Description 02/15/2017 9:00 AM EDT Office Visit Dermatology at [facility] [address] [place] [address] [facility] [address] [place] [address] High risk medication use; Acne vulgaris Social History Tobacco Use Types [...] on file documented as of this encounter Progress Notes * Barber Villanueva - 02/15/2017 9:00 AM EDT Images from the original note were not included. DERMATOLOGY - ESTABLISHED PATIENT FOLLOW-UP Date of service: 02/15/2017 Raisa Morales : 2000, 16 y.o. CC: Acne HPI: Raisa Morales is a 16 y.o. female last seen by myself on 01/11/2017. - Raisa reports that she stopped the doxycycline. She noticed some flaring of her acne. She is currently not on isotretinoin because she was unable to get the test at the outside lab (explanation not given). Here today for repeat test and to start accutane. Relevant Skin History: - Skin cancer (including type): none - Psoriasis: none - Eczema/Atopy: none - Acne: s/p 4-weeks of doxycycline. Plan for isotretinoin ? Family History No history of melanoma or non melanoma skin cancer ? Social History: Occupation: student grade 8 Marital status: single No current outpatient prescriptions on file. Current Outpatient Prescriptions: ??? ISOtretinoin (ACCUTANE) 20 mg Capsule, Take 1 capsule by mouth 2 times daily. I Pledge # [id number] (Patient not taking: Reported on 02/15/2017), Disp: 60 capsule, Rfl: 0 No Known Allergies Review of Systems: - General: Feels well. - Skin: No other skin concerns. Examination: - Constitutional: Patient was alert, well-appearing and in no noticeable distress. - Skin: A focal skin exam of the face was performed. Recent Results (from the past 24 hour(s)) urine, qualitative Result Value Ref Range SG Urine 1.030 1.002 - 1.030 Beta HCG Qual Negative Diagnosis/Skin findings/Assessment/Plan: 1. Acne vulgaris - face: scattered inflammatory papules with numerous open comedones - Reviewed indications, contraindications, and treatment expectations for isotretinoin - Reviewed common side effects such as skin, eye, and lip dryness, mild nosebleeds, increased skin fragility. Absolute contraindication reviewed in depth. - Encouraged patient to use 's [place] and discussed the importance of sun protection, sunavoidance strategies, protective clothing, and sunscreen. - test done today - negative - I Pledge # [id number] - control method: Abstinence - Rx: Isotretinoin - 20 mg PO BID - Voicemail message left informing patient that her prescription has been sent to [facility]. She must answer the comprehension questions and shredder picker the prescription within 7 days. RTC: 1 month, sooner if needed. Instructed to call if problems arise. Note initiated by Jaimee G Barrego, PARANORMAL INVESTIGATOR. I am documenting this encounter acting as the scribe forand in the presence of Barber Villanueva MD. I am documenting this encounter acting as the scribe for and in the presence of Barber Villanueva MD: Cassidy New, Clinical Scribe I performed the above scribed service and agree with the accuracy of the documentation in this encounter. Reviewed and signed by Barber Villanueva MD Resident in Dermatology [facility] Staff meter reader inspector: Keyla Adams MD Section of Dermatology [facility] Level of Resident Supervision: Indirect Supervision (The supervising physician is not physically present, but is directly available for assistance in guiding the diagnosis and treatment plan). * Keyla Adams MD - 02/15/2017 9:00 AM EDT I was the supervising physician working with dermatology resident Dr. Barber Villanueva in the dermatologyclinic during this patient visit. The level of Resident supervision for this patient visit was indirect supervision with direct supervision immediately available. (definition: [facility] Policy Statement on Graduate Medical Education, Supervision of Graduate Medical Trainees) I was immediately available to Dr. Villanueva for questions and discussion regarding this visit. I have reviewed her encounter note details and level of service. KEYLA ADAMS MD Staff Physician documented in this encounter Plan of Treatment Not on file documented as of this encounter Procedures Procedure Name Priority Date/Time Associated Diagnosis Comments URINE, QUALITATIVE Routine 02/15/2017 9:43 AM EDT High risk medication use documented in this encounter Results * urine, qualitative (02/15/2017 9:43 AM EDT) Specific Prosser Urine Non-automated 1.030 1.002 - 1.030 [facility] Human Chorionic Gonadotropin Qualitative, Urine Negative [facility] Comment: If Specific Prosser is less than 1.010, a negative result is obtained, and is still suspected, a repeat on a first morning specimen is recommended. Urine specimen (specimen) 02/15/2017 9:43 AM EDT 02/15/2017 1:37 PM EDT Narrative Resulting Agency Comment Spec In Lab Keyla Adams MD URINE ORDERABLES Performing Organization Address City/State/[facility] Co de Phone Number [facility] [place] [address] documented in this encounter Visit Diagnoses Diagnosis High risk medication use Encounter for long-term (current) use of other medications Acne vulgaris Other acne documented in this encounter Care Teams Teaching Fellow Relationship Specialty Start Date End Date Dillon Alvarez MD [address] [place] [phone] PCP - General Family Medicine 11/09/16 05/25/23 documented as of this encounter
--- OUTSIDE RECORDS SUMMARY | 2024-08-25 01:08 | XMS_ITS | Encounter Summary ---
Author Organization [facility] [place] [address] Care Team Providers Care Jet Engine Mechanic Name Role Phone Nicki Paula MD Primary Care Provider [phone] Reason for Visit * Reason Comments Follow-up Encounter Details Date Type Department Care Team (Late st Contact Info) Description 12/10/2014 10:15 AM EDT [place] [address] Sylvia Ramirez MD [facility] [place] [address] History of tympanostomy tube placement Discharge Disposition: Home Social History Tobacco Use [...] Sign Reading Time Taken Comments Blood Pressure 95/57 12/10/2014 10:14 AM EDT Pulse 88 12/10/2014 10:14 AM EDT Temperature 36.9 ??C (98.4 ??F) 12/10/2014 10:14 AM E DT Respiratory Rate - - Oxygen Saturation - - Inhaled Oxygen Concentration - - Weight 51 kg (112 lb 6.4 oz) 12/10/2014 10:14 AM EDT Height 148.6 cm (4' 10.5) 12/10/2014 10:14 AM E DT Body Mass Index 23.09 12/10/2014 10:14 AM EDT Body Mass Index Percentile 89.29% 12/10/2014 10: 14 AM EDT Growth Chart: [facility] (Girls, 2- 20 Years) documented in this encounter Progress Notes * Sylvia Ramirez MD - 12/10/2014 10:54 AM EDT Pediatric Otolaryngology Follow-Up Note Date of Visit: 12/10/2014 Location of Visit: Otolaryngology Clinic, [facility] Patient: Raisa Morales ([id number]; 2000) Primary Care Provider: NICKI PAULA MD Referring Provider: Nicki Paula Reason for Visit: Raisa is a 14 y.o. female originally seen at the request of Nicki Paula for evaluation of ears. Interval History: Raisa is a 14 y.o. female who is accompanied to the clinic today by her mother. The patient was first seen in pediatric [...] remember results. She has had many fewer inf ections since those tubes were placed. They fell [...] have occasional difficulty listening to mom. Teachers havecalled mom to let her know that they think Raisa is ignoring them in class. Raisa has noticedduring the spring time that she has trouble hearing them. She notices she hears better with her left ear. She uses her left ear when talking on the telephone. No concerns about her speech. She has noknown allergies, with occasional rhinorrhea. The patient underwent removal of ear retained T tubes on 04/29/2013. Intraop findings include retained T tubes and left middle ear effusion. On postop on 06/17/2013, the patient had left ear pain intermittently. The patient complained about not being able to hear well from her left ear. She was found to have CHL. She underwent replacement of ear tubes andrevision adenoidectomy on 07/17/2013. Intraop findings include August modified T tubes, L mucoid SCOTTIE, 2+ adenoid regrowth. Postop visit on 10/08/2013 revealed functional T tubes and normal hearing. Follow up on 06/09/2014 revealed that the patient had a couple weeks of drainage. She did not use eardrops. She had earaches on both sides. She had her hearing tested at school and said that she cannot hear. She has had cold symptoms with her ear drainage and pain. She was noted to have L T tube otorrhea and functional R T tube. Follow up on 08/18/2014 revealed functional T tubes and mild CHL. In the interim, the patient has failed a hearing screening at school about a month ago on her left ear. The patient does not feel that she is having trouble hearing. Her mother is noticing that she is not responding as well. She is asking 'huh?' often. Teachers are noticing as well. She has been acting out at school. She has not had any ear drainage. She has had ear pain infrequently. She has nothad many URI symptoms. Medications: No outpatient prescriptions have been marked as taking for the 12/10/14 encounter (Follow-Up) with Sylvia Ramirez MD. Allergies: Review of patient's allergies indicates no known allergies. Past Medical, Family, and Social History: reviewed and unchanged from prior visit(s) Review of Systems: Pertinent positive findings discussed above. No other findings on review of constitutional, visual, cardiovascular, respiratory, gastrointestinal, genitourinary, musculosketelal, dermatologic, neurological, psychiatric, endocrine, hematologic or immunologic systems. Physical Examination: Vitals: Blood pressure 95/57, pulse 88, temperature 36.9 ??C (98.4 ??F), temperature source Oral, height 148.6 cm (4' 10.5), weight 50.984 kg (112 lb 6.4 oz). Body mass index is 23.09 kg/(m^2). Normal Abnormal/notable findings General Age-appropriate behavior, no acute distress. Interactive and cooperative. Not interested inconversing today Face Symmetric without dysmorphic features. Skin Dry and intact without rash, lesion, or birthmark. Acne on chin and ears Eyes Pupils are equal, round, and reactive to light. Extraocular movement is full and intact. Periocular structures and conjunctiva healthy without lesions. Ears Auricles symmetric bilaterally without lesions. External auditory canals without cerumen impaction or drainage. On the left and right, tympanic membranes intact with normal landmarks and mobility. Middle ears clear with no effusions. On the left and right, EAC with small amount of moist cerumen, TM with August modified T tubes in place and L appears patent with drainage, R with possible clog, middle ears with effusions. Nose Patent anteriorly; healthy pink mucosa without lesions. No purulent drainage, no significant inferior turbinate hypertrophy. Septum without significant deviation. Drainage mucous, inferior turbinate mildly inflamed Oral cavity Lips and gingiva pink, moist, without lesions. Gums/dentition healthy. Tongue and floorof mouth soft without lesions or masses. Hard palate without lesions. Oral pharynx Soft palate without lesions; uvula intact without evidence of submucus cleft palate. Oropharynx symmetric. Tonsillar fossa well-healed. Neck Soft, supple, normal range of motion. Trachea midline without deviation. Lymphatic No abnormal cervical lymphadenopathy. Neurologic/ Psych Normal speech and voice. Audiogram: 12/10/2014 hearing R SRT 10dB, L SRT 0 dB. B HF CHL. tymps flat AU with large ECV on L. Impression: Raisa is a 14 y.o. female with a history of eustachian tube dysfunction s/p BMT x3, T+Ax2, currently with T tubes in place but possibly clogged on R and with scant drainage on L. Plan: After reviewing the history and examining the patient, I recommend the followin. Start ofloxacin 5 drops to the both ears twice a day for 7 days. If patient develops ear drainage associated with fevers, foul smell, or ear discomfort, start ofloxacin 5 drops to the affected eartwice a day for 5 days. If symptoms persist, contact ENT or PCP for change in topical antibiotics or possible oral antibiotics. If drainage continues, contact ENT clinic to schedule a follow up appointment for cleaning and culturing of persistent fluid. 2. Preferential seating and listening accommodations at school. 3. Follow up in ENT/Audiology clinic in 6-12 months. Sylvia Ramirez MD, PhD Machinist Linotype, Pediatric Otolaryngology Otolaryngology-Head and Neck Surgery [place] [address] Office documented in this encounter Plan of Treatment Not on file documented as of this encounter Visit Diagnoses Diagnosis History of tympanostomy tube placement documented in this encounter Care Teams Jet Engine Mechanic Relationship Specialty Start Date End Date Nicki Paula MD [address] [place] [address] PCP - General 04/19/13 11/08/16 documented as of this encounter
--- OUTSIDE RECORDS SUMMARY | 2024-08-25 01:08 | XMS_ITS | Encounter Summary ---
Author Organization [facility] [place] [address] Care Team Providers Care Fur Remodeler Name Role Phone Dillon Alvarez MD Primary Care Provider [phone] Encounter Details Date Type Department Care Team (Late st Contact Info) Description 07/09/2019 Ancillary Procedure Radiology Library at [facility] [place] [id number] Dillon Alvarez MD [address] [place] [phone] Social History Tobacco Use Types Packs/Day Years [...] Procedure Name Priority Date/Time Associated Diagnosis Comments FILM LIBRARY STORAGE ONLY ULTRASOUND STUDY Routine 07/09/2019 12:00 AM EDT documented in this encounter Results * Film Library- Storage Only Ultrasound Study (07/09/2019 12:00 AM EDT) Narrative [facility] - 07/27/2019 11:22 PM EDT This exam is auto-finalizing. It's purpose is for storage only. Dillon Alvarez MD IMG FILM LIBRARY ORD ERABLES [facility] [place], [place] documented in this encounter Visit Diagnoses Not on filedocumented in this encounter Care Teams Fur Remodeler Relationship Specialty Start Date End Date Dillon Alvarez MD [address] [place] [phone] PCP - General Family Medicine 11/09/16 05/25/23 documented as of this encounter
--- OUTSIDE RECORDS SUMMARY | 2024-08-25 01:08 | XMS_ITS | Encounter Summary ---
Author Organization [facility] [place] [address] Care Team Providers Care Medieval English Literature Professor Name Role Phone Sampson Yang MD Primary Care Provider [phone] Encounter Details Date Type Department Care Team (Late st Contact Info) Description 04/24/2013 Telephone [place] [phone] Lucia Can Social History Tobacco Use Types Packs/Day Years Used Date Smoking Tobacco: Never Alcohol Use Standard Drinks/Week Comments No 0 (1 standard drink = 0.6 oz pur e alcohol) Sex and Gender Information Value Date Recorded Sex Assigned at Not on file Gender Identity Not on file Sexual Orientation Not on file documented as of this encounter Miscellaneous Notes * Telephone Encounter - Lucia Can - 04/24/2013 11:02 AM EDT Booked surgery with mother in clinic, confirmed surgery date of 04/29, follow up also made. documented in this encounter Plan of Treatment Not on file documented as of this encounter Visit Diagnoses Not on filedocumented in this encounter Care Teams Medieval English Literature Professor Relationship Specialty Start Date End Date Sampson Yang MD [address] [place] [place] [address] PCP - General 04/19/13 11/08/16 documented as of this encounter
--- OUTSIDE RECORDS SUMMARY | 2024-08-25 01:08 | XMS_ITS | Encounter Summary ---
Author Organization [facility] [place] [address] Care Team Providers Care Hemodialysis Rn Name Role Phone Sampson Yang MD Primary Care Provider [phone] Encounter Details Date Type Department Care Team (Late st Contact Info) Description 12/12/2014 External Results [place] [address] Bambi Freeman [facility] [place] [address] Social History Tobacco Use Types Packs/Day Years [...] Procedure Name Priority Date/Time Associated Diagnosis Comments AUDIOLOGY SCAN Routine 12/10/2014 documented in this encounter Results * Scan Doc: Audiology (12/10/2014) Bambi Freeman AUD MEDIA MGR SCAN EXT ORDR/RSLT documented in this encounter Visit Diagnoses Not on filedocumented in this encounter Care Teams Hemodialysis Rn Relationship Specialty Start Date End Date Sampson Yang MD [address] [place] [address] [place] [address] PCP - General 04/19/13 11/08/16 documented as of this encounter
--- OUTSIDE RECORDS SUMMARY | 2024-08-25 01:08 | XMS_ITS | Encounter Summary ---
Author Organization [facility] [place] [address] Care Team Providers Care Drivers' Cash Clerk Name Role Phone Sampson Yang MD Primary Care Provider [phone] Encounter Details Date Type Department Care Team (Late st Contact Info) Description 06/17/2013 External Results [place] [address] [address]in Wagoner [facility] [place] [address] Social History Tobacco Use Types Packs/Day Years [...] Date/Time Associated Diagnosis Comments AUDIOLOGY SCAN Routine 06/17/2013 documented in this encounter Results * Scan Doc: Audiology (06/17/2013) Shirin Wagoner AUD MEDIA MGR SCAN EX T ORDR/RSLT documented in this encounter Visit Diagnoses Not on filedocumented in this encounter Care Teams Drivers' Cash Clerk Relationship Specialty Start Date End Date Sampson Yang MD [address] [place] [address] [place] [address] PCP - General 04/19/13 11/08/16 documented as of this encounter
--- OUTSIDE RECORDS SUMMARY | 2024-08-25 01:08 | XMS_ITS | Encounter Summary ---
Author Organization [facility] Address [facility] [place] [address] Care Team Providers Care Computer Designer Name Role Phone Dillon Alvarez MD Primary Care Provider [phone] Reason for Visit * Reason Comments Acne * Consultation (Routine) - Closed Specialty Diagnoses / Procedures Referred By Contac t Referred To Contact Dermatology Diagnoses severe scarring acne over face and upper back not responsive to OTC treatment Dillon Alvarez MD [address] [place] [phone] [facility] Dermatology [address] [place] [address] Referral ID Status Reason Start Date Expiration Date V isits Requested Visits Authorized [id number] Closed [facility] 11/09/2016 11/09/2017 1 1 Encounter Details Date Type Department Care Team ([facility] Contact Info) Description 12/13/2016 2:30 PM EDT Office Visit Dermatology at [facility] [address] [place] [address] Barber Villanueva MD [facility] [address] [address] Acne vulgaris; High risk medication use Social History Tobacco Use Types Packs/Day Years [...] Instructions * Patient Instructions* Barber Villanueva - 12/13/2016 2:30 PM EDT Acne treatment plan - Tretinoin 0.025% at bedtime as tolerated. To decrease irritation, use 30-45 minutes after washingat night, using pea-sized amount mixed with moisturizer, start 3x/week working up to nightly as tolerated. - Doxycycline 100mg orally twice daily. Take with a full glass of water and not to lie down within 30 minutes of taking dose. Avoid taking medication with calcium, iron, MVI. Side effects include GI upset, esophagitis, photosensitivity, headaches, possibility of vaginal yeast infection, and contraindication. - Will start isotretinoin at follow-up visit in 1 month. documented in this encounter Progress Notes * Barber Villanueva - 12/13/2016 2:30 PM EDT Images from the original note were not included. DERMATOLOGY - NEW PATIENT NOTE Date of service: 12/13/2016 Raisa Morales : 2000, 16 y.o. CC: Chief Complaint Patient presents with ??? Acne HPI: Raisa Morales is referred by Dillon Alvarez with the following concerns: - Acne located on her face and back present for 1.5 years. Previous treatment include ,exzema, OTC cleansing pads. No identifiable triggers, but acne does come and go. No clear association with menses. Ongoing for 1.5 years. Back involved as well. Last FSE: None Relevant Skin History: - Skin cancer (including type): none - Psoriasis: none - Eczema/Atopy: none Family History No history of melanoma or non melanoma skin cancer Social History: Occupation: student grade 8 Marital status: single No current outpatient prescriptions on file. No Known Allergies Review of Systems: - General: Feels well. - Skin: No other skin concerns. Examination: - Constitutional: Patient was alert, well-appearing and in no noticeable distress. - Skin: Skin examination of the face, neck, back was normal with the exception of the findings listed below. Notable findings/Assessment/Plan: 1. Acne Vulgaris: Moderate comedoneal acne located on her face and upper back with scattered pustules and inflammatory papules. Mild superficial ice-pick scarring noted on cheeks. - Discussed treatment options, including topical medications, oral antibiotics, and isotretinoin. Risks and benefits of each approach reviewed. Patient expresses preference for whatever will get ridof her acne. Shared decision to proceed with isotretinoin. Accutane (isotretinoin) was discussed fully with the patient. It is very useful in the treatment of severe acne vulgaris. It acts by reducing sebum secretion, an effect that lasts for up to one year after cessation of therapy. The decreasein sebum results in a secondary decrease in P. acne proliferation. The drug also is anti-inflammatory and inhibits comedogenesis. Over 80 percent of patients experience a long-term stable remission after one course of treatment. Continued improvement may occur for several months after cessation of therapy; 4 to 5 months should elapse before considering retreatment. The vast majority of relapses (96 percent) occur within the first three years of stopping therapy; the highest relapse rates occur in patients with predominantlytruncal acne or in those receiving a total cumulative dose of less than 120 mg/kg. Accutane is a very effective drug to treat acne vulgaris but has many significant side effects. Chief among these are teratogenesis, hepatic injury, dyslipidemia, and severe drying of the mucous membranes leading to eye and lip irritation and possible epistaxis. Other rare side effects include arthr algias/myalgias, depression, suicidal attempts, violent behavior, pseudotumor cerebri, and decreased night vision. In patients with a genetic predisposition for inflammatory bowel disease, isotretinoin may unmask Crohn's or ulcerative colitis. Most of the adverse effects associated with isotretinoin can be managed without discontinuing the drug (eg, emollients for dry skin, nonsteroidal antiinflammatory drugs for myalgias or arthralgias, dietary manipulation for lipid abnormalities). Indications for stopping therapy include severe hypertr iglyceridemia (eg, above 800 mg/dL or 9 mmol/L) because of the risk of acute pancreatitis, and other marked abnormalities on laboratory testing. We explained the need for monthly f/u appointments with blood tests to monitor lipids and liver functions while receiving treatment. Female patients MUST use two simultaneous methods of family planning. Accutane is Category X for , meaning it will cause teratogenic malformations, and MUST be avoided while on this drug. Female patients MUST use two simultaneous methods of family planning. After discussion of these important issues, she indicates complete understanding of all of the above, and does wish to proceed with Accutane therapy. Her two forms of control will be abstinence and none Until this is approved and patient is able to start treatment, will treat with tretinoin and doxycycline. - Start RX Doxycycline 100mg orally twice daily. Instructed to take with a full glass of water Sideeffects and dosing of doxycycline reviewed, including but not limited to GI upset, esophagitis, photosensitivity, headache, and contraindication. - Start RX Tretinoin 0.025% at bedtime as tolerated. Start 3x/week working up to nightly as tolerated. - Urine test NEGATIVE today - Will start isotretinoin when patient returns in 4 weeks. Plan to check baseline labs at follow-upvisit. Standing orders placed for CMP, lipids, and serum test. RTC: 4 weeks Accutane start The following photos were obtained with patient consent: Note initiated by Nora Taveras LPN. I am documenting this encounter acting as the scribe for and in the presence of Barber Villanueva MD I performed the above scribed service and agree with the accuracy of the documentation in this encounter. Reviewed and signed by Barber Villanueva MD Resident in Dermatology [facility] Patient seen and evaluated with staff aquatics instructor: Everette Kaba MD Section of Dermatology [facility] * Everette Kaba MD - 12/13/2016 2:30 PM EDT I directly supervised Dr. Barber Villanueva during this office visit. Dr. Villanueva presented the history and physical exam to me. I then saw and examined this patient with Dr. Villanueva. We reviewed the history and pertinent details and I confirmed the physical findings. I agree with the details of the history and physical exam as documented in Dr. Villanueva's note. EVERETTE KABA MD Staff Physician * Nora Taveras LPN - 12/13/2016 2:30 PM EDT [phone] documented in this encounter Plan of Treatment Not on file documented as of this encounter Procedures Procedure Name Priority Date/Time Associated Diagnosis Comments POCT URINE Routine 12/13/2016 Acne vulgaris High risk medication use documented in this encounter Results * POCT urine (12/13/2016) POC Urine HCG Negative Negative - Negative POC Control Internal Controls Acceptable Everette Kaba MD POINT OF CARE TEST O RDERABLES documented in this encounter Visit Diagnoses Diagnosis Acne vulgaris Other acne High risk medication use Encounter for long-term (current) use of other medications documented in this encounter Care Teams Computer Designer Relationship Specialty Start Date End Date Dillon Alvarez MD [address] [place] [phone] PCP - General Family Medicine 11/09/16 05/25/23 documented as of this encounter
--- OUTSIDE RECORDS SUMMARY | 2024-08-25 01:08 | XMS_ITS | Encounter Summary ---
Author Organization [facility] [place] [address] Care Team Providers Care Pharmacy Informatics Specialist Name Role Phone Sampson Yang MD Primary Care Provider Encounter Details Date Type Department Care Team (Late st Contact Info) Description 08/18/2014 9:30 AM EST Follow-Up Audiology at [address] [phone] Shirin Wagoner AUD [facility] [place] [address] Conductive hearing loss, bilateral Discharge Disposition: Home Social History Tobacco Use [...] as of this encounter Progress Notes * Shirin Wagoner, LUKE - 08/18/2014 10:07 AM [place] [address] Raisa Morales , 14 y.o. 1 m.o. was seen on 08/18/2014 for an audiologic evaluation. Please refer to the scanned audiogram listed under SCANDOC for findings, impressions and recommendations. It may take up to 24 hours for the audiogram to be scanned. Enclosure: Audiogram Shirin Johnsonhan Au.D., [place] [address] documented in this encounter Plan of Treatment Not on file documented as of this encounter Visit Diagnoses Diagnosis Conductive hearing loss, bilateral documented in this encounter Care Teams Pharmacy Informatics Specialist Relationship Specialty Start Date End Date Sampson Yang MD [address] [place] [address] PCP - General 04/19/13 11/08/16 documented as of this encounter
--- OUTSIDE RECORDS SUMMARY | 2024-08-25 01:08 | XMS_ITS | Encounter Summary ---
Author Organization [facility] [place] [address] Care Team Providers Care Registered Nurse Teacher Name Role Phone Sampson Yang MD Primary Care Provider [phone] Encounter Details Date Type Department Care Team (Late st Contact Info) Description 10/27/2014 Telephone [place] [phone] Kathleen Bolton Social History Tobacco Use Types Packs/Day Years [...] encounter Miscellaneous Notes * Telephone Encounter - Kathleen Bolton - 10/27/2014 3:48 PM EST Sent January [address] reminder [address] out [address] Ramirez. documented in this encounter Plan of Treatment Not on file documented as of this encounter Visit Diagnoses Not on filedocumented in this encounter Care Teams Registered Nurse Teacher Relationship Specialty Start Date End Date Sampson Yang MD [address] [place] [address] PCP - General 04/19/13 11/08/16 documented as of this encounter
--- OUTSIDE RECORDS SUMMARY | 2024-08-25 01:08 | XMS_ITS | Encounter Summary ---
Author Organization [facility] [place] [address] Care Team Providers Care Winemaker Name Role Phone Sampson Yang MD Primary Care Provider [phone] Encounter Details Date Type Department Care Team (Late st Contact Info) Description 04/23/2013 External Results [place] [address] Shirin Wagoner [facility] [place] [address] Social History Tobacco Use Types Packs/Day Years [...] Date/Time Associated Diagnosis Comments AUDIOLOGY SCAN Routine 04/23/2013 documented in this encounter Results * Scan Doc: Audiology (04/23/2013) Shirin Wagoner AUD MEDIA MGR SCAN EX T ORDR/RSLT documented in this encounter Visit Diagnoses Not on filedocumented in this encounter Care Teams Winemaker Relationship Specialty Start Date End Date Sampson Yang MD [address] [place] [address] [place] [address] PCP - General 7/26/13 2/14/17 documented as of this encounter
--- OUTSIDE RECORDS SUMMARY | 2024-08-25 01:08 | XMS_ITS | Encounter Summary ---
Author Organization [facility] [place] [address] Care Team Providers Care Photo Producer Name Role Phone Nicki Paula MD Primary Care Provider [phone] Reason for Visit * Reason Comments Other 2nd opinion Encounter Details Date Type Department Care Team (Late st Contact Info) Description 04/23/2013 1:45 PM EDT Office [place] [address] Sylvia Ramirez MD [facility] [address] Hearing loss (Primary Dx); Otorrhea; Chronic otitis media with effusion Discharge Disposition: Home Social History Tobacco Use [...] Sign Reading Time Taken Comments Blood Pressure 99/56 04/23/2013 1:39 PM EDT Pulse 76 04/23/2013 1:39 PM EDT Temperature - - Respiratory Rate - - Oxygen Saturation - - Inhaled Oxygen Concentration - - Weight 36.9 kg (81 lb 4 oz) 04/23/2013 1:39 PM E DT Height 139.7 cm (4' 7) 04/23/2013 1:39 PM EDT Body Mass Index 18.88 04/23/2013 1:39 PM EDT Body Mass Index Percentile 71.28% 04/23/2013 1:3 9 PM EDT Growth Chart: CDC (Girls, 2- 20 Years) documented in this encounter Progress Notes * Taj Toney - 04/23/2013 12:52 PM EDT Pediatric Otolaryngology Consultation Note Date of Visit: 04/23/2013 Location of Visit: Otolaryngology Clinic, [facility] Patient: Raisa Morales ([id number]; 2000) Primary Care Provider: NICKI PAULA MD Referring Provider: Nicki Paula Reason for Visit: Raisa is seen at the request of Nicki Paula for evaluation and opinion on serous otitis media. History of Present Illness: Raisa is a 12 y.o. female who is accompanied to the clinic today by her mom, and presents with fluid in her ears and a hole in her ear drum. Raisa started having ear infections as an and would get monthly ear infections. Mom noticed that she had speech impediments (slurring) and seemed to have difficulty hearing. She had an audiology evaluation which was abnormal, per mom.Bilateral ear tubes first placed by Dr. Olmedo [...] were related to the tonsils. After the eartubes were replaced, mom and Raisa do not remember additional ear infections, but do recall fluid in the ears and bilateral drainage. No bloody drainage The drainage was not controlled with ofloxacin drops. She still snores occasionally, but not as much or as loudly as before the T&A with no observed apnea or snorting. She has not had sore throat since having her tonsillectomy and adenoid ectomy. Mom is worried about Raisa's hearing. Raisa says what frequently and seems to have occasional difficulty listening to mom. Teachers have called mom to let her know that they think Raisa isignoring then in class. Raisa has noticed during the spring time that she has trouble hearing them. She notices she hears better with her left ear. She uses her left ear when talking on the telephone. No concerns about her speech. Mom is concerned about the hole in her ear, the fluid in her ears and about her hearing. She falls asleep at 10 pm and sleeps until 8:30 or 9. During the school year she sleeps from 9 pm to 6 am. She does not feel tired during the day. She has no known allergies, with occasional rhinorrhea. Problem List: There is no problem list on file for this patient. Past Medical History: Has broken both arms in 2011, falling off of monkey bars at school. Past Surgical History: T-tubes placed 2002, replaced 2004, tonsillectomy and adenoidectomy 2004. history: Mom didn't know she was , so EGA not known, but she was born at 7 lbs, 9 oz.No complications for Raisa after . Prior Hospitalizations: None. Bleeding history: None. Medications: No outpatient prescriptions have been marked as taking for the 04/23/13 encounter (Office Visit) with Sylvia Ramirez MD. Allergies: Review of patient's allergies indicates no known allergies. Social History: Lives in [place] [address]*, with mom, dad, two brothers, two sisters, which is one hour away. Daycare/School: Will start fifth grade at [employer] in the fall. Secondhand smoke exposure: No. Pets: Two dogs, two cats, fish, chinchillas. Immunizations UTD. Family History: Biological dad unknown history. Mom's side: Depression in mom, MGF. HTN in mom, aunt, PGF, PGM. Stroke: PGF at 54 years old. Prostate cancer in PGF diagnosed in 60s. M aunt, PGF: asthma. Review of Systems: Pertinent positive findings discussed above. No other findings on review of constitutional, visual, cardiovascular, respiratory, gastrointestinal, genitourinary, musculoskeletal, dermatologic, neurological, psychiatric, endocrine, hematologic or immunologic systems. Physical Examination: Vitals: Blood pressure 99/56, pulse 76, height 139.7 cm (4' 7), weight 36.855 kg (81 lb 4 oz). Body mass index is 18.88 kg/(m^2). Normal Abnormal/Notable findings General Age-appropriate behavior, no acute distress. Interactive and cooperative. Face Symmetric without dysmorphic features. Skin Dry and intact without rash, lesion, or birthmark. Eyes Pupils are equal, round, and reactive to light. Periocular structures and conjunctiva healthy without lesions. Ears Auricles symmetric bilaterally without lesions. Cerumen obstructing view on both sides. On theright, the inferior tympanic membrane appears thickened. Drainage from right TM with tympanostomy tube in place. On the left, moist cerumen drainage in canal. Tympanostomy tube in place on left side,obscured about moist cerumen and drainage. Nose Patent anteriorly; healthy pink mucosa without lesions. No purulent drainage, no significant inferior turbinate hypertrophy. Septum without significant deviation. Oral cavity Lips and gingiva pink, moist, without lesions. Gums/dentition healthy. Tongue and floorof mouth soft without lesions or masses. Hard palate without lesions. Oral pharynx Soft palate without lesions; uvula intact without evidence of submucus cleft palate. Oropharynx symmetric. tonsils not present Neck Soft, supple, normal range of motion. Trachea midline without deviation. Lymphatic No abnormal cervical lymphadenopathy. Lung Clear to auscultation bilaterally, symmetric breath sounds, without wheezes. Breathing comfortably without stridor or grunting, flaring or retractions. Heart Regular rate and rhythm without murmur. Abdomen Soft, non-tender, non-distended, normal bowel sounds. Extremities Warm, well-perfused, mobile, normal strength. No cyanosis or edema. Neurologic/ Psych Normal speech and voice. Normal mood and affect. Procedures: Cerumen removed from both EACs. Audiogram: Mild conductive hearing hearing loss bilaterally at 4 kHz (30 dB right, 35 dB left) and 8 kHz (35 dB right, 45 dB left). Mild 250 Hz conductive hearing loss on right (35 dB). Impression: Raisa is a 12 y.o. female with a history of bilateral myringotomy and T-tube placement, and T&A presenting with bilateral serous otitis media with drainage, mild bilateral high-frequency conductive hearing loss with mild right 250 Hz conductive hearing loss. It would beneficial to remove the tymapnostomy tubes which have been in since 2004 and to consider replacing them, which may ameliorate fluid accumulation behind her tympanic membranes and conductive healing loss. Recommendations: After reviewing the history and examining the patient, I recommend the following: # Remove bilateral tympanostomy tubes and consider replacement of bilateral tympanostomy tubes.Risks, benefits and alternatives of procedure explained. Mom signed consent form for procedure. # Ciprodex ear drops (5 drops, twice a day, in both ears, for one week).prescribed. Taj Toney MS-4 Pediatric Otolaryngology Attending Physician Addendum I saw and examined this patient and have reviewed the history and physical examination with the medical student, Dr. Toney. I agree with the assessment and plan documented above unless otherwise specified in my addendum. 1. Start ciprodex 5 drops to both ears twice a day for 7 days. If symptoms persist, contact ENT or PCP for change in topical antibiotics or possible oral antibiotics. If drainage continues, contact ENT clinic to schedule a follow up appointment for cleaning and culturing of persistent fluid. 2. Removal of retained bilateral ear tubes and possible bilateral myringotomy with tube placement. The nature of the procedure as well as the risks, benefits, and alternatives to the procedure were discussed with the parent(s) and patient. The procedure is done in the operating room under general anesthesia with its own attendant risks including . The risks of the procedure include, but are not limited to, bleeding, infection, ear drainage, perforation of the ear drum, hearing loss, premature extrusion or clogging of the tube, and need for replacement of the tube or additional surgery. 3. Ear tube handout was given to the patient and family and their questions were answered to their satisfaction. Informed consent was obtained at today's visit. 4. Schedule patient for surgery in the OSC or SDP at their earliest convenience. 5. Post-operative visit in the ENT and audiology clinic in 4-6 weeks after surgery. Sylvia Ramirez MD, PhD Pediatric Otolaryngology [facility] documented in this encounter Plan of Treatment Not on file documented as of this encounter Procedures Procedure Name Priority Date/Time Associated Diagnosis Comments MYRINGOTOMY, REMOVAL P. E. TUBE Routine 04/23/2013 3:29 PM EDT documented in this encounter Visit Diagnoses Diagnosis Hearing loss- Primary Unspecified hearing loss Otorrhea Otorrhea, unspecified Chronic otitis media with effusion Other and unspecified chronic nonsuppurative otitis media documented in this encounter Care Teams Photo Producer Relationship Specialty Start Date End Date Nicki Paula MD [address] [place] [address] PCP - General 04/19/13 11/08/16 documented as of this encounter
--- OUTSIDE RECORDS SUMMARY | 2024-08-25 01:08 | XMS_ITS | Encounter Summary ---
Author Organization [facility] Address [facility] [place] [address] Care Team Providers Care Pocket Flap Creasing Machine Operator Name Role Phone Dillon Alvarez MD Primary Care Provider [phone] Encounter Details Date Type Department Care Team (Late st Contact Info) Description 01/17/2017 Orders Only Dermatology at [facility] [address] [place] [address] Barber Villanueva MD [facility] [address] HA[facility] [place] [address] High risk medication use; Acne vulgaris Social [...] as of this encounter Visit Diagnoses Diagnosis High risk medication use Encounter for long-term (current) use of other medications Acne vulgaris Other acne documented in this encounter Care Teams Pocket Flap Creasing Machine Operator Relationship Specialty Start Date End Date Dillon Alvarez MD [address] [place] [phone] PCP - General Family Medicine 11/09/16 05/25/23 documented as of this encounter
--- OUTSIDE RECORDS SUMMARY | 2024-08-25 01:08 | XMS_ITS | Encounter Summary ---
Author Organization [facility] [place] [address] Care Team Providers Care Licensed Clinician Name Role Phone Dillon Alvarez MD Primary Care Provider [phone] Reason for Visit * Reason Comments Follow-up Acne Encounter Details Date Type Department Care Team (Late st Contact Info) Description 01/11/2017 9:00 AM EDT Office Visit Dermatology at [facility] [address] [place] [address] Barber Villanueva MD [facility] [place] [address] High risk medication use; Acne vulgaris Social [...] Sign Reading Time Taken Comments Blood Pressure - - Pulse - - Temperature - - Respiratory Rate - - Oxygen Saturation - - Inhaled Oxygen Concentration - - Weight 59.4 kg (131 lb) 01/11/2017 9:24 AM EDT Height - - Body Mass Index - - documented in this encounter Patient Instructions * Patient Instructions* Cassidy New - 01/11/2017 9:00 AM EDT Caring for Your Skin Dry Skin Care Dry skin is more problematic in the winter, when the humidity is lower. Taking measures to maintainthe skin's moisture will decrease dryness and itching. Recommendations ?? Bathe in lukewarm water. Wash the skin gently (avoid vigorous scrubbing); use Dove or CeraVe soap to wash dirty areas. Avoid harsh soaps such as Karen Spring, Ivory, or Dial as these can be drying. ?? Immediately after bathing, apply a bland, preferably fragrance-free moisturizer to your skin. Ointments work better than creams, which work better than lotions. Look for the following brands: Vaseline 100% petroleum jelly, Vanicream, Neutrogena, CeraVe, Cetaphil, Aveeno, Lubriderm, or Eucerin. ?? For itchy areas, you can apply hydrocortisone 1% cream (olki-[id number]-qdcomfn product) for 1-2 weeks.Do not use this medication on your face. ?? Dr. Mejia's CortiBalm lip balm documented in this encounter Progress Notes * Maryanne Leo MD - 01/11/2017 3:36 PM EDT Labs ok. Continue Isotretinoin. Notify patient. NCP * Barber Villanueva - 01/11/2017 9:00 AM EDT Images from the original note were not included. DERMATOLOGY - ESTABLISHED PATIENT FOLLOW-UP Date of service: 01/11/2017 Raisa Morales : 2000, 16 y.o. CC: Follow up acne HPI: Raisa Morales is a 16 y.o. female last seen by me on 12/13/16. She presents with her mom today for an Accutane start. She is currently taking Doxycycline 100mg orally twice daily. Mom reports that it has helped. She tried tretinoin, but Mom states she had an allergic reaction to the Tretinoin--she was blotchy and face was bright red. She is ready to start isotretinoin. Last FSE: none Relevant Skin History: - Skin cancer (including type): none - Psoriasis: none - Eczema/Atopy: none ? Family History No history of melanoma or non melanoma skin cancer ?? Social History: Occupation: student grade 8 Marital status: single No current outpatient prescriptions on file. ?? Current Outpatient Prescriptions Medication Sig Dispense Refill ??? doxycycline monohydrate (MONODOX) 100 mg Capsule Take 1 capsule by mouth 2 times daily. 60 capsule 0 No current facility-administered medications for this visit. No Known Allergies Review of Systems: - General: Feels well. - Skin: No other skin concerns. Examination: Weight 131 lbs (60kg) - Constitutional: Patient was alert, well-appearing and in no noticeable distress. - Skin: Focused examination of the face. Notable findings/Assessment/Plan: 1. Acne vulgaris - face: scattered inflammatory papules with numerous open comedones -Discussed isotretinoin treatment in depth. Reviewed indications, contraindications, mechanism of action, and treatment expectations. Reviewed common side effects such as skin, eye, and lip dryness, mild nosebleeds, increased skin fragility. Absolute contraindication reviewed in depth. Discussed mandate that patient use 2 approved forms of control for 1 month before beginning isotretinoin and continued until 1 month afterisotretinoin course is completed. Reviewed importance and expectation of monthly blood test monitoring and testing. Reviewed importance and expectation of periodic blood test monitoring andfollow-up. - Isotretinoin information packet given to patient previously. Encouraged her to go online to complete the education portion. - Reviewed that patient should not share pills, drink alcohol, or get - Leap # [id number] - Lab work done: CMP, lipids, and serum test. - Labs look fine (cholesterol mildly elevated), test negative. - Rx: Isotretinoin 20 mg by mouth BID Left phone message at 2:00 PM to inform patient that her labs were fine. Reminded her to fill out the online education questions prior to picking up her prescription for isotretinoin. Also reminded her stop doxycycline before starting isotretinoin (Rx for doxycycline was only given for 30 days, so she does not have any remaining medication.) Follow-up 1 month. As scheduled upon leaving for 02/15/17. Note initiated by TALIB DUMONT LPN. I am documenting this encounter acting as the scribe for and in the presence of Barber Villanueva MD: Cassidy New, Clinical Scribe I performed the above scribed service and agree with the accuracy of the documentation in this encounter. Reviewed and signed by Barber Villanueva MD Resident in Dermatology [facility] Staff quality head: Savannah Cedeño MD Section of Dermatology [facility] Level of Resident Supervision: Indirect Supervision (The supervising physician is not physically present, but is directly available for assistance in guiding the diagnosis and treatment plan). * Savannah Cedeño MD - 01/11/2017 9:00 AM EDT I directly supervised Dr. Barber Villanueva during this office visit. Dr. Villanueva presented the history and physical exam to me. I then saw and examined this patient with Dr. Villanueva. We reviewed the history and pertinent details and I confirmed the physical findings. I agree with the details of the history and physical exam as documented in Dr. Villanueva's note. SAVANNAH CEDEÑO MD Staff Physician documented in this encounter Plan of Treatment Not on file documented as of this encounter Procedures Procedure Name Priority Date/Time Associated Diagnosis Comments BETA HCG, QUANTITATIVE Routine 7 9:47 AM EDT High risk medication use LIPID PANEL (REFLEX DIRECT LDL) Routine 01/11/2017 9:47 AM EDT High risk medication use COMPREHENSIVE METABOLIC PANEL Routine 01/11/2017 9:47 AM EDT High risk medication use documented in this encounter Results * Beta HCG, quantitative (01/11/2017 9:47 AM EDT) Beta Human Chorionic Gonadotropin, Quantitative <1 mlU/ML [facility] Comment: REFERENCE RANGES NON- FEMALE: ??Less than 5 mIU/mL POSTMENOPAUSAL FEMALE: ??Less than 8 mIU/mL ? -- FEMALES -- Weeks of ? HCG range ??(mIU/mL) ? 3 weeks ? 5.8 - 71.2 ? 4 weeks ? 9.5 - 750 ? 5 weeks ? 217 - 7,138 ? 6 weeks ? 158 - 31,795 ? 7 weeks ? 3,697 - 163,563 ? 8 weeks ? 32,065 - 149,571 ? 9 weeks ? 63,803 - 151,410 ?10 weeks ? 46,509 - 186,977 ?12 weeks ? 27,832 - 210,612 ?14 weeks ? 13,950 - 62,530 ?15 weeks ? 12,039 - 70,971 ?16 weeks ? 9,040 - 56,451 ?17 weeks ? 8,175 - 03,868 ?18 weeks ? 8,150 - 56,176 Blood specimen (specimen) 01/11/2017 9:47 AM EDT 01/11/2017 1:01 PM EDT Narrative Resulting Agency Comment Spec In Lab Maryanne Leo MD CHEMISTRY ORDERABLES [facility] [place] [address] * (ABNORMAL) Lipid Panel (01/11/2017 9:47 AM EDT) Cholesterol, Total 251(H) <=239 mg/dL [facility] Triglyceride 173 <=199 mg/dL [facility] HDL Cholesterol 59 >=40 mg/dL [facility] LDL Cholesterol 157 <=190 mg/dL [facility] Cholesterol/HDL Ratio 4.3 ratio [facility] Lipid Interpretation See Note [facility] Comment: Lipid management should be guided by a patient? s ASCVD risk, goals and preferences. ACC/AHA Guidelines recommend high intensity statin if clinical ASCVD or LDL greater than or equal to 190 mg/dL. http://circ.ahajournals.org/content/early/.cir.8240366236.18459.7a Adults aged 40-75 with LDL 70-189 mg/dL should have their 10 year ASCVD risk estimated with the ACC/AHA ASCVD risk redeye gunner http://tools.acc.org/LKNSZ-Mjep-Becnghqdq/ Statin should be discussed if risk greater [...] In Lab Maryanne Leo MD CHEMISTRY ORDERABLES [facility] [place] [address] * (ABNORMAL) Comprehensive metabolic panel (non-fasting) (01/11/2017 9:47 AM EDT) Glucose 88 65 - 199 mg/dL [facility] Comment:Diabetes: >=200 mg/d L plus symptoms Blood Urea Nitrogen 13 10 - 20 mg/dL [facility] Creatinine 0.76(H) 0.20 - 0.70 mg/dL [facility] Comment: Please note that the pediatric reference intervals supplied above were not validated at [facility]. Results from pediatric patients should be interpreted in conjunction to the patient's age, height and muscle mass. Sodium 142 135 - 145 mmol/L [facility] Potassium 4.5 3.5 - 5.0 mmol/L [facility] Comment: Please note: ??Patients with WBC >100,000 may have falsely elevated Potassium levels. ??For accurate Potassium quantification in these patients send serum separator tube (gold top) for subsequent determinations. ??Contact the Clinical Chemistry Laboratory if there are any questions. Chloride 103 98 - 107 mmol/L [facility] Carbon Dioxide 26 22 - 31 mmol/L [facility] Anion Gap 13 5 - 15 mmol/L [facility] Calcium 10.4 8.5 - 10.5 mg/dL [facility] Protein, Total 7.9 5.7 - 8.0 gm/dL [facility] Albumin 4.8 3.3 - 4.9 gm/dL [facility] Aspartate Aminotransferase 18 5 - 30 unit/L [facility] Alanine Aminotransferase 18 0 - 25 unit/L [facility] Alkaline Phosphatase 80 80 - 250 unit/L [facility] Bilirubin, Total 0.2 <=1.0 mg/dL [facility] Bilirubin, Direct 0.1 0.0 - 0.3 mg/dL [facility] Est Glomerular Filtration Rate See note >=60 [facility] Comment: Calculated GFR not appropriate for patients less than 18 years of age. This estimated GFR (eGFR) value was calculated using the MDRD equation which has been validated on patients between the ages of 18 and 70. The MDRD should not be used to assess kidney function in patients < 18 years of age or in patients with extremes of body mass, or in patients with acute kidney failure. This value should be multiplied by 1.2 for patients. For further information please copy and paste the following links into your internet browser. http://HelloBooks/DHnkdep http://HelloBooks/DHMCnkf Blood specimen (specimen) 01/11/2017 9:47 AM EDT 01/11/2017 1:01 PM EDT Narrative Resulting Agency Comment Spec In Lab Maryanne Leo MD CHEMISTRY ORDERABLES [facility] [place] [address] documented in this encounter Visit Diagnoses Diagnosis High risk medication use Encounter for long-term (current) use of other medications Acne vulgaris Other acne documented in this encounter Care Teams Licensed Clinician Relationship Specialty Start Date End Date Dillon Alvarez MD [address] [place] [phone] PCP - General Family Medicine 11/09/16 05/25/23 documented as of this encounter
--- OUTSIDE RECORDS SUMMARY | 2024-08-25 01:08 | XMS_ITS | Encounter Summary ---
Author Organization [facility] [place] [address] Care Team Providers Care Ballistician Name Role Phone Nicki Paula MD Primary Care Provider [phone] Reason for Visit * Reason Comments Follow-up Encounter Details Date Type Department Care Team (Late st Contact Info) Description 08/18/2014 11:00 AM EST [place] [address] Sylvia Ramirez MD [facility] [place] [address] History of tympanostomy tube placement Discharge Disposition: [...] Sign Reading Time Taken Comments Blood Pressure 105/70 08/18/2014 11:03 AM EST Pulse 82 08/18/2014 11:03 AM EST Temperature 37.3 ??C (99.1 ??F) 08/18/2014 1 1:03 AM EST Respiratory Rate - - Oxygen Saturation - - Inhaled Oxygen Concentration - - Weight 46.9 kg (103 lb 6.4 oz) 08/18/20 14 11:03 AM EST Height 148.6 cm (4' 10.5) 08/18/2014 1 1:03 AM EST Body Mass Index 21.24 08/18/2014 11:03 AM EST Body Mass Index Percentile 81.99% 08/18 11:03 AM EST Growth Chart: CDC (Girls, 2- 20 Years) documented in this encounter Progress Notes * Sylvia Ramirez MD - 08/18/2014 11:26 AM EST Pediatric Otolaryngology Follow-Up Note Date of Visit: 08/18/2014 Location of Visit: Otolaryngology Clinic, [facility] Patient: Raisa Morales ([id number]; 2000) Primary Care Provider: NICKI PAULA MD Referring Provider: Nicki Paula Reason for Visit: Raisa is a 14 y.o. female originally seen at the request of Nicki Paula for evaluation of ears. Interval History: Raisa is a 14 y.o. female who is accompanied to the clinic today by her grandfather. The patient was first seen in pediatric [...] and adenoidectomy because ofsnoring and because Dr. Olmedo thought the ear [...] tube otorrhea and functional R T tube. In the interim, the patient has been doing okay. She feels as though she can hear but her grandfather is not sure. She has had ear drainage but cannot tell which side. Her ears do not hurt. No concerns about her hearing at school. She has not used any ear drops recently. Medications: No outpatient prescriptions have been marked as taking for the 08/18/14 encounter (Follow-Up) with Sylvia Ramirez MD. No Facility-Administered Medications for the 08/18/14 encounter (Follow-Up) with Sylvia Ramirez MD. Allergies: Review of patient's allergies indicates no known allergies. Past Medical, Family, and Social History: reviewed and unchanged from prior visit(s) Review of Systems: Pertinent positive findings discussed above. No other findings on review of constitutional, visual, cardiovascular, respiratory, gastrointestinal, genitourinary, musculosketelal, dermatologic, neurological, psychiatric, endocrine, hematologic or immunologic systems. Physical Examination: Vitals: Blood pressure 105/70, pulse 82, temperature 37.3 ??C (99.1 ??F), temperature source Tympanic, height 148.6 cm (4' 10.5), weight 46.902 kg (103 lb 6.4 oz). Body mass index is 21.24 kg/(m^2). Normal Abnormal/notable findings General Age-appropriate behavior, [...] ears clear with no effusions. On the left, EAC with small amount of cerumen removed under binocular microscopy, TM with August modified T tube in place and patent, with tympanosclerosis, middle ear aerated. On the right, EAC with large cerumen impaction removed under binocular microscopy, TM with Richardsmodified T tube in place and patent, with tympanosclerosis, middle ear aerated. Nose Patent anteriorly; healthy pink mucosa without lesions. No purulent drainage, no significant inferior turbinate hypertrophy. Septum without significant deviation. Drainage minimal Oral cavity Lips and gingiva pink, moist, [...] Neurologic/ Psych Normal speech and voice. Audiogram: 08/18/2014 hearing mild to moderate hearing loss at 250, 3029-9953 Hz with conductive overlay B. tymps R flat, normal ECV, L flat, large ECV. Impression: Raisa is a 14 y.o. female with a history of eustachian tube dysfunction s/p BMT x3, T+Ax2, now with functional T tubes and mild CHL. Plan: After reviewing the history and examining the patient, I recommend the followin. If patient develops ear drainage associated with fevers, foul smell, or ear discomfort, start ofloxacin 5 drops to the affected ear twice a day for 5 days. If symptoms persist, contact ENT or PCP for change in topical antibiotics or possible oral antibiotics. If drainage continues, contact ENT clinic to schedule a follow up appointment for cleaning and culturing of persistent fluid. 2. Monitor hearing. Preferential seating and listening accommodations at school. 3. Follow up in ENT/Audiology clinic in 6 months. Sylvia Ramirez MD, PhD Manager Mental Health, Pediatric Otolaryngology Otolaryngology-Head and Neck Surgery [place], [place] [address] Office documented in this encounter Plan of Treatment Not on file documented as of this encounter Visit Diagnoses Diagnosis History of tympanostomy tube placement documented in this encounter Care Teams Ballistician Relationship Specialty Start Date End Date Nicki Paula MD [address] [place] [address] PCP - General 04/19/13 11/08/16 documented as of this encounter
--- OUTSIDE RECORDS SUMMARY | 2024-08-25 01:08 | XMS_ITS | Encounter Summary ---
Author Organization [facility] [place] [address] Care Team Providers Care Refinery Operator [employer] Name Role Phone Sampson Yang MD Primary Care Provider [phone] Encounter Details Date Type Department Care Team (Late st Contact Info) Description 10/08/2013 9:30 AM EST Follow-Up Audiology at [address] [address] Shirin Wagoner AUD [facility] [place] [address] Other examination of ears and hearing (Primary Dx); Hx of tympanostomy tubes Discharge Disposition: Home Social History Tobacco Use [...] Progress Notes * Shirin Wagoner, LUKE - 10/25/2013 4:19 PM [place] [address] Raisa Loli Morales , 13 y.o. 3 m.o. was seen on 10/08/2013 for an audiologic evaluation. Please refer to the scanned audiogram listed under [facility] for findings, impressions and recommendations. Itmay take up to 24 hours for the audiogram to be scanned. Enclosure: Audiogram Shirin Ruiz, [place] [address] documented in this encounter Plan of Treatment Not on file documented as of this encounter Visit Diagnoses Diagnosis Other examination of ears and hearing- Primary Hx of tympanostomy tubes Personal history of surgery to other organs documented in this encounter Care Teams Refinery Operator [employer] Relationship Specialty Start Date End Date Sampson Yang MD [address] [place] [address] PCP - General 04/19/13 11/08/16 documented as of this encounter
--- OUTSIDE RECORDS SUMMARY | 2024-08-25 01:08 | XMS_ITS | Encounter Summary ---
Author Organization [facility] [place] [address] Care Team Providers Care Hog Driver Name Role Phone Nicki Paula MD Primary Care Provider Encounter Details Date Type Department Care Team (Late st Contact Info) Description 07/17/2013 10:26 AM EDT - 07/17/2013 11:14 AM EDT Surgery [place] [address] Sylvia Majano MD [facility] [place] [address] MYRINGOTOMY, INSERTION OF TUBE CASIE (WRVU 2.01) Social History Tobacco Use Types Packs/Day Years [...] Taken Comments Blood Pressure - - Pulse 89 07/17/2013 11:54 AM EDT Temperature 36.1 ??C (97 ??F) 07/17/2013 11:45 AM EDT Respiratory Rate 20 07/17/2013 11:54 AM EDT Oxygen Saturation 96% 07/17/2013 12:14 PM EDT Inhaled Oxygen Concentration - - Weight 38.2 kg (84 lb 5 oz) 07/17/2013 9:31 AM E DT Height - - Body Mass Index - - documented in this encounter Discharge Instructions * Discharge Instructions* Adeola Naranjo RN - 07/17/2013 11:42 AM EDT ADRIAN PAINFREE DISCHARGE INSTRUCTIONS Your child has received sedation today. These medicines were given to decrease anxiety or pain and/or cause sleep. Watch your child closely the remainder of the day. They may be unsteady, dizzy, sleepy or irritable. When riding home in their car seat make sure their head does not fall forward. Avoid activities that require your child to be fully alert and coordinated such as climbing stairs,sports, biking, gym set activities and driving for teens. Your child may resume their regular diet as tolerated unless otherwise directed. Occasionally children will vomit. If so, return to clear liquids then advance. Your child may resume any regular medicines If your child had a breathing tube, they may have a sore throat. This is normal. Drinking cold fluids will ease the discomfort. Questions regarding sedation may be directed to the [facility] Pain[facility] Program Monday - Monday 8:00 - 4:00 pm at [phone] Evenings or weekends at [phone] and ask for pharmacy resident windows application packager Questions regarding the procedure, pain issues, or test results may be directed to the ordering physician * Patient Instructions* Sylvia Majano MD - 07/17/2013 10:03 AM EDT Patient Information Sheet: EAR TUBES General Information: A myringotomy is an incision made in the eardrum to remove fluid or infection from the middle ear space behind the eardrum. Usually, a small silicone or plastic ventilating tube (tympanostomy tube) is inserted through this opening to allow air to circulate within the middle earand/or allow fluid to drain from the middle ear. This tube does not impair the hearing, nor can it be felt by the patient. The tube usually remains in place for 6 to 24 months, and then naturally falls out on its own. Day of Surgery: The procedure takes only a few minutes to perform under a general anesthetic. Liquid or soft foods may be taken after your child has fully awakened from the anesthetic. Mild pain in the ear may be present and is readily relieved by acetaminophen (Tylenol) or ibuprofen (Motrin). Blood-tinged drainage from the ear after surgery is very common and may last for several days. A cotton ball may have been inserted in the ear canal at the time of surgery to absorb drainage. The cotton ball cotton should be changed as often as necessary while the drainage is present. Eardrops of an antibiotic solution will have been used at the time of tube placement. You will receive a bottle of antibiotic eardrops from the surgeon in the waiting area after surgery. You will usethese eardrops at home for a few days after surgery. Place 3-5 drops in each ear, 2 times a day, for 3 to 5 days after surgery (the duration of therapy will be discussed with you). These eardrops help treat any underlying infection and/or prevent the tube from becoming clogged with blood. The day after surgery, activity should return to normal, and your child may return to daycare or school. Water Precautions: Your child may bathe, shower, and swim in the pool without ear plugs. Swimming and diving more than 3 feet underwater may result in water entering the middle ear through the tube, possibly leading to discomfort and/or an ear infection. Those children who are swimming more than 3 feet underwater should wear ear plugs coupled with a neoprene head band or swim cap. Ear plugs (called DocMolds) are available through Otolaryngology clinic. Ear Drainage & Infections: Ear drainage may occur immediately after the procedure and/or at anytime while the tubes are in place and open (patent). If the ear drainage is runny, white, yellow-green, bloody, or foul smelling, please use the antibiotic ear drops that were provided at the time ofsurgery and use the ear drops as directed. Drainage from ear tubes usually means an infection is present. If the tubes are in place and open, these infections usually respond to the antibiotic ear drops without the need for oral antibiotics. Contact Information: The Otolaryngology nurse can be reached at and can answer any additional concerns or questions you may have in the post- operative period. The [facility] cake press operator helper can be reached at . In addition, the following web page has helpful information regarding common pediatric ear, nose, and throat concerns: http://www.entnet.org/kidsent. Follow-up: You already have an appointment scheduled approximately one month after surgery to return to Otolaryngology clinic for your first post-operative visit. If you need to confirm the appointment, please contact the office at . Patient Information Sheet: ADENOIDECTOMY General Information: Adenoidectomy is the surgical removal of the adenoid pad, a midline mass of tonsil-like lymphoid tissue located directly behind the soft palate. Adenoidectomy can help improve nasal congestion and recurrent sinusitis in pediatric patients, and can also help reduce the frequencyand severity of ear infections. Day of Surgery: Adenoidectomy is an outpatient procedure that takes about 30 minutes to perform under a general anesthetic. Liquid or soft foods may be taken after your child has fully awakened from the anesthetic. Following a brief period of observation in the recovery room, your child will be discharged home after surgery. Activity Level: The day after surgery, activity should return to normal, and your child may return to daycare or school. Pain: Mild pain in the throat and possibly the ear (referred pain) may be present and is readily relieved with [id number] ibuprofen (Motrin) or acetaminophen (Tylenol). A prescription for a stronger pain medication (such as Tylenol with codeine or hydrocodone) may have been provided - use this only if the pain is not adequately controlled with ibuprofen or acetaminophen. Avoid using aspirinfor 2 weeks before and 2 weeks after surgery, as this may cause bleeding from the surgical site. Fever: A low-grade fever commonly occurs for several days after surgery. If temperature reaches 102??F, please contact the office; otherwise, continue to encourage oral intake and administer pain medication. Nosebleeds: Mucus from the nose after an adenoidectomy will be tinged with blood. Occasionally, small nosebleeds can occur after adenoidectomy - they are usually minor and stop on their own. If severe bleeding from the nose occurs and does not stop on its own, contact the office immediately or takeyour child to the emergency room. Voice Change: Very rarely will the voice change after surgery to the point where the patient is difficult to understand. It usually resolves on its own shortly after surgery. Contact Information: The Otolaryngology nurse can be reached at and can answer any additional concerns or questions you may have in the post- operative period. The [facility] cake press operator helper can be reached at . In addition, the following web page has helpful information regarding common pediatric ear, nose, and throat concerns: http://www.entnet.org/kidsent. Follow-up: You already have an appointment scheduled approximately one month after surgery in Otolaryngology clinic for your first post-operative visit. If you need to confirm the appointment, pleasecontact the clinic secretaries at . documented in this encounter H&P Notes * Sylvia Majaon MD - 07/17/2013 10:33 AM EDT 24-Hour Pre-Operative H&P Update Patient was seen in the Pre-Operative Area today. I have reviewed, and agree with, the clinical history, physical examination findings, impression, and plan, as detailed in the original H&P Note. No new clinically-significant changes to the patient's health. Patient is ready to proceed with theplanned surgical procedure. Sylvia Majano MD PhD Pediatric Otolaryngology [facility] ([facility]) [place], [place] [address] Office Source Note - Sylvia Majano MD - 2013 7:26 PM EDT See preop H+P by PCP dated 07/08/2013 Pediatric Otolaryngology Postoperative Note Date of Visit: 06/17/2013 Location of Visit: Otolaryngology Clinic, [facility] Patient: Raisa Morales ([id number]; 2000) Primary Care Provider: NICKI PAULA MD Referring Provider: Nicki Paula Reason for Visit: Raisa is a 12 y.o. female originally seen at the request of Nicki Paula for evaluation of ear fluid. Interval History: Raisa is a 12 y.o. female who is accompanied to the clinic today by her motherand father. The patient was first seen in pediatric [...] T tubes and left middle ear effusion. In the interim, the patient has had left ear pain intermittently. The patient complains about not being able to hear well from her left ear. She has not had any visible ear drainage. She is doing good in school. She sits in different places in the classroom, not necessarily near the teacher. Her teachers have not mentioned difficulty hearing. Past Medical, Family, and Social History: reviewed and unchanged from prior visit(s), except the addition of Tube removal to past surgical history. Medications: No outpatient prescriptions have been marked as taking for the 06/17/13 encounter (Office Visit) with Sylvia Majano MD. Allergies: Review of patient's allergies indicates no known allergies. Review of Systems: Pertinent positive findings discussed above. No other findings on review of constitutional, visual, cardiovascular, respiratory, gastrointestinal, genitourinary, musculosketelal, dermatologic, neurological, psychiatric, endocrine, hematologic or immunologic systems. Physical Examination: Vitals: Blood pressure 99/68, pulse 87, resp. rate 20, height 139.7 cm (4' 7), weight 38.102 kg (84 lb). Body mass index is 19.52 kg/(m^2). Normal Abnormal/notable findings General Age-appropriate behavior, no acute distress. Interactive and cooperative. Face Symmetric without dysmorphic features. Skin Dry and intact without rash, lesion, or birthmark. Eyes Pupils are equal, round, and reactive to light. Periocular structures and conjunctiva healthy without lesions. Ears Auricles symmetric bilaterally without lesions. External auditory canals without cerumen impaction or drainage. On the left, EAC with small amount of cerumen, TM intact with small retraction pockets anterior-superiorly and inferiorly, middle ear effusion. On the right, EAC with small amount ofcerumen, TM intact with marginal tympanosclerosis, middle ear effusion. Nose Patent anteriorly; healthy pink mucosa without lesions. No purulent drainage, no significant inferior turbinate hypertrophy. Septum without significant deviation. Drainage dried mucous, inferiorturbinate mild inflammation Oral cavity Lips and gingiva pink, moist, [...] lymphadenopathy. Neurologic/ Psych Normal speech and voice. Normal mood and affect. Audiogram: 06/17/2013 mild moderate CHL AU, tymps flat AU Impression: Raisa is a 12 y.o. female with a history of recurrent OM s/p ear tube placement x2 and T+A in the past by outside ENT, most recently s/p removal of retained T tubes, now with chronic OME and CHL. Plan: After reviewing the history and examining the patient, I recommend the followin. Bilateral ear T tube placement and revision adenoidectomy. The nature of the procedures as well as the risks, benefits, and alternatives to the procedures were discussed with the parent(s) and patient. The procedures are performed in the operating room under general anesthesia with its own attendant risks including . The risks of the procedures include, but are not limited to, bleeding, infection, velopharyngeal insufficiency, tongue, teeth, or jaw injury, voice change, ear drainage, perforation of the ear drum, hearing loss, premature extrusion or clogging of the tube, or need for replacement of the tube or additional surgery. 2. Handouts about ear tube placement and adenoidectomy were given to the patient and family. Their questions were answered to their satisfaction. 3. Informed consent was obtained at today's visit. 4. Schedule patient for surgery in the OSC at the family's earliest convenience. 5. Post-operative visit in the ENT and audiology clinic in 4-6 weeks after surgery. . 6. Preferential seating. Avoid excessive noise exposure and head trauma. 7. Encourage saline nasal spray. Use this to wash the nose at least twice a day. * Sylvia Majano MD - 2013 7:26 PM EDT See preop H+P by PCP dated 07/08/2013 Pediatric Otolaryngology Postoperative Note Date of Visit: 06/17/2013 Location of Visit: Otolaryngology Clinic, [facility] Patient: Raisa Morales ([id number]; 2000) Primary Care Provider: NICKI PAULA MD Referring Provider: Nicki Paula Reason for Visit: Raisa is a 12 y.o. female originally seen at the request of Nicki Paula for evaluation of ear fluid. Interval History: Raisa is a 12 y.o. female who is accompanied to the clinic today by her motherand father. The patient was first seen in pediatric [...] T tubes and left middle ear effusion. In the interim, the patient has had left ear pain intermittently. The patient complains about not being able to hear well from her left ear. She has not had any visible ear drainage. She is doing good in school. She sits in different places in the classroom, not necessarily near the teacher. Her teachers have not mentioned difficulty hearing. Past Medical, Family, and Social History: reviewed and unchanged from prior visit(s), except the addition of Tube removal to past surgical history. Medications: No outpatient prescriptions have been marked as taking for the 06/17/13 encounter (Office Visit) with Sylvia Majano MD. Allergies: Review of patient's allergies indicates no known allergies. Review of Systems: Pertinent positive findings discussed above. No other findings on review of constitutional, visual, cardiovascular, respiratory, gastrointestinal, genitourinary, musculosketelal, dermatologic, neurological, psychiatric, endocrine, hematologic or immunologic systems. Physical Examination: Vitals: Blood pressure 99/68, pulse 87, resp. rate 20, height 139.7 cm (4' 7), weight 38.102 kg (84 lb). Body mass index is 19.52 kg/(m^2). Normal Abnormal/notable findings General Age-appropriate behavior, no acute distress. Interactive and cooperative. Face Symmetric without dysmorphic features. Skin Dry and intact without rash, lesion, or birthmark. Eyes Pupils are equal, round, and reactive to light. Periocular structures and conjunctiva healthy without lesions. Ears Auricles symmetric bilaterally without lesions. External auditory canals without cerumen impaction or drainage. On the left, EAC with small amount of cerumen, TM intact with small retraction pockets anterior-superiorly and inferiorly, middle ear effusion. On the right, EAC with small amount ofcerumen, TM intact with marginal tympanosclerosis, middle ear effusion. Nose Patent anteriorly; healthy pink mucosa without lesions. No purulent drainage, no significant inferior turbinate hypertrophy. Septum without significant deviation. Drainage dried mucous, inferiorturbinate mild inflammation Oral cavity Lips and gingiva pink, moist, [...] lymphadenopathy. Neurologic/ Psych Normal speech and voice. Normal mood and affect. Audiogram: 06/17/2013 mild moderate CHL AU, tymps flat AU Impression: Raisa is a 12 y.o. female with a history of recurrent OM s/p ear tube placement x2 and T+A in the past by outside ENT, most recently s/p removal of retained T tubes, now with chronic OME and CHL. Plan: After reviewing the history and examining the patient, I recommend the followin. Bilateral ear T tube placement and revision adenoidectomy. The nature of the procedures as well as the risks, benefits, and alternatives to the procedures were discussed with the parent(s) and patient. The procedures are performed in the operating room under general anesthesia with its own attendant risks including . The risks of the procedures include, but are not limited to, bleeding, infection, velopharyngeal insufficiency, tongue, teeth, or jaw injury, voice change, ear drainage, perforation of the ear drum, hearing loss, premature extrusion or clogging of the tube, or need for replacement of the tube or additional surgery. 2. Handouts about ear tube placement and adenoidectomy were given to the patient and family. Their questions were answered to their satisfaction. 3. Informed consent was obtained at today's visit. 4. Schedule patient for surgery in the OSC at the family's earliest convenience. 5. Post-operative visit in the ENT and audiology clinic in 4-6 weeks after surgery. . 6. Preferential seating. Avoid excessive noise exposure and head trauma. 7. Encourage saline nasal spray. Use this to wash the nose at least twice a day. documented in this encounter Miscellaneous Notes * Miscellaneous - Provider, Scanning - 07/17/2013 2:11 PM EDT * OR Attestation - Sylvia Majano MD - 07/17/2013 11:20 AM EDT Attestation: Case Date: 07/17/2013 I was present and I participated during the entire procedure (does not need to include opening and closing). SYLVIA MAJANO MD 07/17/2013 * Op Note - Sylvia Majano MD - 07/17/2013 11:16 AM EDT [facility] [place] Patient Name: Raisa Morales : [id number] MR#: [id number] Case Date: 07/17/2013 Surgeon: Surgeon(s) and Role: * Sylvia Majano MD - Primary * Lazara Mcleod MD Preoperative diagnosis: chronic OME Postoperative diagnosis: chronic OME Procedure(s): MYRINGOTOMY, INSERTION OF TUBE CASIE ADENOIDECTOMY, SECONDARY, UNDER AGE 12 General Estimated Blood Loss: < 5 ml Drains: none Disposition: awakened from anesthesia, extubated and taken to the recovery room in a stable condition, having suffered no apparent untoward event. Condition: doing well without problems (Please see the Surgical Encounter Summary for any Implant and Specimen details pertinent to this patient.) HPI/Surgical Indications: Raisa is a 12 y.o. female who was first seen in pediatric otolaryngology clinic [...] T tubes and left middle ear effusion. Procedure Description: Findings: Green modified type ventilation tubes placed Right TM intact with marginal tympanosclerosis, no middle ear effusion Left TM intact with marginal tympanosclerosis, thick tenacious mucoid middle ear effusion normal uvula and palate 2+ adenoid regrowth laterally and superiorly Tonsillar fossa with some lymphoid tissue Details: After informed consent was obtained, the patient was brought to the operating room and placed in a supine position. After induction of general anesthesia, the patient was intubated without difficulty. A time out was called and the patient, procedure, and site were confirmed. The operating microscope was brought into the field. An aural speculum was placed in the canal. Cerumen was removed with a curette. A myringotomy was made in the anterior-inferior quadrant. Middle ear effusion was suctionedif present. A Green modified ventilation tube was placed in the myringotomy. Ofloxacin drops were placed in the canal. The exact same procedure was performed on the opposite ear. The operating table was turned 90 degrees. A McIvor mouth gag was placed in the oral cavity to retract the tongue. This was suspended from a Ramirez stand. A suction catheter was passed through the right nostril to retract the soft palate. First the adenoidectomy was performed using the suction electrocautery. Hemostasis was achieved using the suction electrocautery. The oral cavity, oropharynx, andnasopharynx were irrigated with sterile water. The adenoid bed was hemostatic at the end of the case. The McIvor and catheter were removed. The patient was awaken and extubated in the operating room and taken to the recovery room in stable condition. Disposition: When the patient meets criteria, the patient will be discharged to home. Discharge medications include ofloxacin ear drops and acetaminophen for pain. If the patient needs additional analgesics, the parents may use ibuprofen per written instructions in addition to acetaminophen. The patient will follow up in ENT clinic in 4-6 weeks with audiogram. documented in this encounter Plan of Treatment Not on file documented as of this encounter Procedures Procedure Name Priority Date/Time Associated Diagnosis Comments ADENOIDECTOMY, SECONDARY, UNDER AGE 12 (WRVU 2.38) 07/17/2013 10:27 AM EDT chronic OME MYRINGOTOMY, INSERTION OF TUBE CASIE (WRVU 2.01) 07/17/2013 10:27 AM EDT chronic OME documented in this encounter Visit Diagnoses Not on filedocumented in this encounter Administered Medications Inactive Administered Medications - up to 3 most recent administrations Medication Order MAR Action Action Date Dose Rate Site Acetaminophen (TYLENOL) Oral suspension 500 mg 500 mg (13.1 mg/kg/dose), Oral, EVERY 4 HOURS PRN, Starting on Mon07/17/13 at 1117, Until Mon07/17/13 at 1517, Pain, Maximum dose of acetaminophen is 4,000 mg from all sources in 24 hours., Routine Given 07/17/2013 12:28 PM EDT 500 mg ofloxacin (FLOXIN) 0.3 % otic solution ONCE PRN, Starting on Mon07/17/13 at 1056, Until Mon07/17/13 at 1517, Intra-Operative (Intra-Procedure), Routine Given 07/17/2013 10:56 AM EDT 3 drops documented in this encounter Active and Recently Administered Medications Times are shown in EDT. PRN Medication Order 07/15/2013 2013 07/17/2013 Acetaminophen (TYLENOL) Oral suspension 500 mg (CANCELED)(Linked Group 1) 500 mg (13.1 mg/kg/dose), Oral, EVERY 4 HOURS PRN, Starting on Mon07/17/13 at 1117, Until Mon07/17/13 at 1517, Pain, Maximum dose of acetaminophen is 4,000 mg from all sources in 24 hours., Routine 1228 (Given - Provid er: Adeola Naranjo RN) ofloxacin (FLOXIN) 0.3 % otic solution (CANCELED) ONCE PRN, Starting on Mon07/17/13 at 1056, Until Mon07/17/13 at 1517, Intra-Operative (Intra-Procedure), Routine 1056 (Given - Provid er: Sylvia Majano MD) Linked Groups Order Group 1: Acetaminophen (TYLENOL) Oral suspension 500 mg (CANCELED)Jump to med 500 mg (13.1 mg/kg/dose), Oral, EVERY 4 HOURS PRN, Starting on Mon07/17/13 at 1117, Until Mon07/17/13 at 1517, Pain, Maximum dose of acetaminophen is 4,000 mg from all sources in 24 hours., Routine Or acetaminophen (TYLENOL) tablet 500 mg (CANCELED) 500 mg (13.1 mg/kg/dose), Oral, EVERY 4 HOURS PRN, Starting on Mon07/17/13 at 1117, Until Mon07/17/13 at 1517, Pain, Fever, Maximum dose of acetaminophen is 90 mg/kg (up to 4000 mg maximum) from all sources in 24 hours., Routine documented in this encounter Care Teams Hog Driver Relationship Specialty Start Date End Date Nicki Paula MD [address] [place] [address] PCP - General 04/19/13 11/08/16 documented as of this encounter
--- OUTSIDE RECORDS SUMMARY | 2024-08-25 01:08 | XMS_ITS | Encounter Summary ---
Author Organization Formerly [facility] [place] [address] Care Team Providers Care Blood Donor Unit Assistant Name Role Phone Sampson Yang MD Primary Care Provider [phone] Encounter Details Date Type Department Care Team (Late st Contact Info) Description 05/02/2016 Telephone [place] [phone] Lucia Can Social History Tobacco Use Types [...] * Telephone Encounter - Lucia Can - 05/02/2016 2:58 PM EDT Left message on machine for parent to call to schedule reminder appointment to see Dr. Ramirez and have a hearing test. documented in this encounter Plan of Treatment Not on file documented as of this encounter Visit Diagnoses Not on filedocumented in this encounter Care Teams Blood Donor Unit Assistant Relationship Specialty Start Date End Date Sampson Yang MD [address] [place] [address] PCP - General 04/19/13 11/08/16 documented as of this encounter
--- OUTSIDE RECORDS SUMMARY | 2024-08-25 01:08 | XMS_ITS | Encounter Summary ---
Author Organization Formerly [facility] [place] [address] Care Team Providers Care Electrical Products Sales Engineer Name Role Phone Dillon Alvarez MD Primary Care Provider [phone] Encounter Details Date Type Department Care Team (Late st Contact Info) Description 07/23/2019 Ancillary Procedure Radiology Library at [facility] [place] [phone] Dillon Alvarez MD [address] [place] [phone] Social History Tobacco Use Types Packs/Day Years [...] Associated Diagnosis Comments FILM LIBRARY STORAGE ONLY CT ABDOMEN AND PELVIS Routine 07/23/2019 12:00 AM EDT documented in this encounter Results * Film Library- Storage Only CT Abdomen & Pelvis (07/23/2019 12:00 AM EDT) Narrative [facility] - 07/27/2019 11:20 PM EDT This exam is auto-finalizing. It's purpose is for storage only. Dillon Alvarez MD IMG FILM LIBRARY ORD ERABLES DH RAD [place], [place] documented in this encounter Visit Diagnoses Not on filedocumented in this encounter Care Teams Electrical Products Sales Engineer Relationship Specialty Start Date End Date Dillon Alvarez MD [address] [place] [phone] PCP - General Family Medicine 11/09/16 05/25/23 documented as of this encounter
--- OUTSIDE RECORDS SUMMARY | 2024-08-25 01:08 | XMS_ITS | Encounter Summary ---
Author Organization [facility] [place] [address] Care Team Providers Care Livestock Trader Name Role Phone Sampson Yang MD Primary Care Provider [phone] Encounter Details Date Type Department Care Team (Late st Contact Info) Description 10/10/2013 External Results Audiology at [address] [address] Shirin Wagoner AUD [facility] [place] [address] Social History Tobacco Use Types Packs/Day Years [...] Date/Time Associated Diagnosis Comments AUDIOLOGY SCAN Routine 10/08/2012 documented in this encounter Results * Scan Doc: Audiology (10/08/2012) Shirin Wagoner AUD MED[facility] MGR SCAN EX T ORDR/RSLT documented in this encounter Visit Diagnoses Not on filedocumented in this encounter Care Teams Livestock Trader Relationship Specialty Start Date End Date Sampson Yang MD [address] [place] [address] [place] [address] PCP - General 04/19/13 11/08/16 documented as of this encounter
--- OUTSIDE RECORDS SUMMARY | 2024-08-25 01:08 | XMS_ITS | Encounter Summary ---
Author Organization [facility] [place] [address] Care Team Providers Care Product Coordinator Name Role Phone Sampson Yang MD Primary Care Provider [phone] Encounter Details Date Type Department Care Team (Late st Contact Info) Description 04/23/2013 12:45 PM EDT Office Visit Audiology at [address] [address] Shirin Wagoner AUD [facility] [place] [address] Conductive hearing loss, bilateral (Primary Dx) Discharge Disposition: Home Social History Tobacco Use [...] Progress Notes * Shirin Wagoner, LUKE - 04/23/2013 1:20 PM EDT [place] [address] Raisa Morales , 12 y.o. 9 m.o. was seen on 04/23/2013 for an audiologic evaluation. Please refer to the scanned audiogram listed under SCANDOC for findings, impressions and recommendations. Itmay take up to 24 hours for the audiogram to be scanned. Enclosure: Audiogram Sihrin Miguel., [place] [address] documented in this encounter Plan of Treatment Not on file documented as of this encounter Visit Diagnoses Diagnosis Conductive hearing loss, bilateral- Primary documented in this encounter Care Teams Product Coordinator Relationship Specialty Start Date End Date Sampson Yang MD [address] [place] [address] [place] [address] PCP - General 04/19/13 11/08/16 documented as of this encounter
--- OUTSIDE RECORDS SUMMARY | 2024-08-25 01:08 | XMS_ITS | Encounter Summary ---
Author Organization [facility] [place] [address] Care Team Providers Care Planning Intern Name Role Phone Nicki Paula MD Primary Care Provider [phone] Encounter Details Date Type Department Care Team (Latest Contact Info) Description 04/29/2013 12:35 PM EDT - 04/29/2013 3:13 PM EDT Hospital Encounter [place] [address] [facility] [place] [address] Chronic otitis media with effusion (Primary Dx); Otorrhea Discharge Disposition: Home Social History Tobacco Use [...] Sign Reading Time Taken Comments Blood Pressure 123/73 04/29/2013 1:15 PM EDT Pulse 118 04/29/2013 2:45 PM EDT Temperature 36.8 ??C (98.2 ??F) 04/29/2013 2:42 PM ED T Respiratory Rate 18 04/29/2013 2:45 PM EDT Oxygen Saturation 100% 04/29/2013 2:45 PM EDT Inhaled Oxygen Concentration - - Weight 36.6 kg (80 lb 11 oz) 04/29/2013 1:15 PM EDT Height - - Body Mass Index 18.75 04/23/2013 1:39 PM EDT Body Mass Index Percentile 69.74% 04/29/2013 1:1 5 PM EDT Growth Chart: [facility] (Girls, 2- 20 Years) documented in this encounter Discharge Instructions * Discharge Instructions* Bre Allison RN - 04/29/2013 2:55 PM EDT 1. Go home and rest. Your child may be sleepy for several hours. Take it easy as sudden position changes may cause dizziness and nausea. 2. Be careful on stairs, as your child may be unsteady on their feet. 3. Follow a light to regular diet as tolerated today. If nausea occurs, start with clear liquids, and progress slowly to a regular diet. 4. IV site - slight redness or tenderness is normal, you can use warm compresses. If tenderness andredness increases or foul drainage occurs, please contact your M.D. 5. Children may be cranky or irritable, and should be supervised closely. No bike riding, skateboarding, or gym set activities for 24 hours. Patients who have had endotracheal tubes. (This tube, used by the anesthesia department, is passed down your throat after you are asleep, to ensure safe air passage during your operation). 1. A sore throat is normal due to the tube. Cold liquids or soothing lozenges will help ease the discomfort. 2. The generalized muscle aches are due to the medication given to you just before the tube is inserted. As the medication wears off, you may develop muscle soreness, which usually goes away in 12-24hours. [facility] - Information If you are unable to pass urine, call the [facility] before 5 pm, your local MD, or closest ED * Patient Instructions* Sylvia Majano MD - 04/29/2013 2:43 PM EDT Keep ears dry. Use ear plugs to prevent water from getting into ears. If the patient develops ear drainage, use CiproHC drops as previously prescribed. documented in this encounter Progress Notes * Paulina Abdalla - 04/29/2013 2:00 PM EDT 24-Hour Pre-Operative H&P Update Patient seen and examined in the Pre-Operative Area today. I have reviewed, and agree with, the clinical history, physical examination findings, impression, and plan, as detailed in the original H&P Note. No new clinically-significant changes to the patient's health. Patient is ready to proceed with theplanned surgical procedure. Paulina Abdalla MD documented in this encounter H&P Notes * Pj Durant - 04/29/2013 1:08 PM EDT * Sylvia Majano MD - 04/28/2013 8:14 PM EDT Pediatric Otolaryngology Consultation Note Date of Visit: 04/23/2013 Location of Visit: Otolaryngology Clinic, [facility] Patient: Raisa Morales ([id number]; 2000) Primary Care Provider: NICKI PAULA MD [...] the 04/23/13 encounter (Office Visit) with Sylvia Majano MD. Allergies: Review of patient's allergies indicates no known allergies. Social History: Lives in [place] [address]*, with mom, dad, two brothers, two sisters, which is one hour away. Daycare/School: Will start fifth grade at [employer] in the fall. Secondhand smoke exposure: No. [...] clinic in 4-6 weeks after surgery. Sylvia Majano MD, PhD Pediatric Otolaryngology [facility] ([facility]) [facility] documented in this encounter Miscellaneous Notes * OR Attestation - Sylvia Majano MD - 04/29/2013 2:42 PM EDT Attestation: Case Date: 04/29/2013 I was present and I participated during the entire procedure (does not need to include opening and closing). SYLVIA MAJANO MD 04/29/2013 * Op Note - Sylvia Majano MD - 04/29/2013 2:39 PM EDT [facility] Operative Note Patient Name: Raisa Morales : [id number] MR#: [id number] Case Date: 04/29/2013 Surgeon: Surgeon(s) and Role: * Sylvia Majano MD - Primary * Paulina Abdalla MD - Resident-Surgeon Luis Preoperative diagnosis: retained tube Postoperative diagnosis: retained tube Procedure(s): MYRINGOTOMY, REMOVAL P. E. TUBE General Estimated Blood Loss: minimal Drains: none Disposition: awakened from anesthesia and taken to the recovery room in a stable condition, having suffered no apparent untoward event. Condition: doing well without problems (Please see the Surgical Encounter Summary for any Implant and Specimen details pertinent to this patient.) HPI/Surgical Indications: Raisa is a 12 y.o. female who presents with fluid in her ears and [...] has no known allergies, with occasional rhinorrhea. Procedure Description: Findings: T type ventilation tubes removed Right TM with retained T type tube removed, myringotomy closed with blood patch, no middle ear effusion Left TM with retained T type tube removed, myringotomy closed with blood patch, minimal middle ear effusion and mucosal inflammation Details: After informed consent was obtained, the patient was brought to the operating room and placed in a supine position. After induction of general anesthesia, the patient was mask ventilated. A time out was called and the patient, procedure, and site were confirmed. The operating microscope was broughtinto the field. An aural speculum was placed in the canal. Cerumen was removed with a curette. A T tube tube was removed, leaving TM perforation at the myringotomy site. The edge of the myringotomy was abraded with Peng needle to create blood patch. The exact same procedure was performed on the opposite ear. The patient was awakened and taken to the recovery room in stable condition. Disposition: When the patient meets criteria, he/she will be discharged to home. The parents are told to keep ears dry and use Children's acetaminophen or ibuprofen for discomfort and pain. They will follow up inENT/OM clinic in 4-6 weeks with an audiogram. * Miscellaneous - Provider, Scanning - 04/29/2013 12:43 PM EDT documented in this encounter Plan of Treatment Not on file documented as of this encounter Procedures Procedure Name Priority Date/Time Associated Diagnosis Comments MYRINGOTOMY, REMOVAL P. E. TUBE (WRVU 0.85) Yes 04/29/2013 2:01 PM EDT retained tube documented in this encounter Visit Diagnoses Diagnosis Chronic otitis media with effusion- Primary Other and unspecified chronic nonsuppurative otitis media Otorrhea Otorrhea, unspecified documented in this encounter Administered Medications Inactive Administered Medications - up to 3 most recent administrations Medication Order MAR Action Action Date Dose Rate Site acetaminophen (TYLENOL) 650 mg/20.3 mL oral liquid 15 mg/kg/dose 15 mg/kg/dose, Oral, ONCE, 1 dose, On 04/29/13 at 1345, Maximum dose of acetaminophen is 4,000 mg from all sources in 24 hours., Day of Surgery (Day of Procedure), Routine Given 04/29/2013 1:45 PM EDT 480 mg documented in this encounter Active and Recently Administered Medications Times are shown in EDT. Scheduled Medication Order 04/27/2013 04/28/2013 04/29/2013 acetaminophen (TYLENOL) 650 mg/20.3 mL oral liquid 15 mg/kg/dose (COMPLETED) 15 mg/kg/dose, Oral, ONCE, 1 dose, On 04/29/13 at 1345, Maximum dose of acetaminophen is 4,000 mg from all sources in 24 hours., Day of Surgery (Day of Procedure), Routine 1345 (Given - Provid er: Bre Allison RN) documented in this encounter Care Teams Planning Intern Relationship Specialty Start Date End Date Nicki Paula MD [address] [place] [address] PCP - General 04/19/13 11/08/16 documented as of this encounter
--- OUTSIDE RECORDS SUMMARY | 2024-08-25 01:08 | XMS_ITS | Encounter Summary ---
Author Organization [facility] Address [facility] [place] [address] Care Team Providers Care Project Manager Entertainment And Media Name Role Phone Sampson Yang MD Primary Care Provider [phone] Reason for Visit * Reason Comments Follow-up here with Mom who st ates that she has to raise her voice when talking to Raisa Encounter Details Date Type Department Care Team (Late st Contact Info) Description 08/01/2016 11:00 AM EST Office [place] [address] Sylvia Ramirez MD [facility] [place] [place] [address] History of tympanostomy tube placement; Conductive hearing loss, bilateral Social History Tobacco Use Types Packs/Day Years [...] - Inhaled Oxygen Concentration - - Weight 61.2 kg (135 lb) 08/01/2016 11:19 AM EST Height 156.2 cm (5' 1.5) 08/01/2016 11:19 AM ES T Body Mass Index 25.09 08/01/2016 11:19 AM EST Body Mass Index Percentile 91.02% 08/01/2016 11: 19 AM EST Growth Chart: [facility] (Girls, 2- 20 Years) documented in this encounter Progress Notes * Sylvia Ramirez MD - 08/01/2016 11:00 AM EST Pediatric Otolaryngology Follow-Up Note Date of Visit: 08/01/2016 Location of Visit: Otolaryngology Clinic, [facility] Patient: Raisa Morales ([id number]; 2000) Primary Care Provider: Sampson Yang MD Referring Provider: No ref. provider found Reason for Visit: Raisa is a 16 y.o. female originally seen at the request of No ref. provider found for evaluation of ears. Interval History: Raisa is a 16 y.o. female who is accompanied to the [...] possibly clogged tube with HF mild CHL. In the interim, the patient has been doing okay. She has not had any ear drainage. She feels as though her hearing is about the same. Her mother feels as though she does not hear well. No ear pain. She is in 8th grade. No concerns about hearing at school. Medications: No outpatient prescriptions have been marked as taking for the 08/01/16 encounter (Office Visit) with Sylvia Ramirez MD. Allergies: Review of patient's allergies indicates no known allergies. Past Medical, Family, and Social History: reviewed and unchanged from prior visit(s) Review of Systems: Pertinent positive findings discussed above. No other findings on review of constitutional, visual, cardiovascular, respiratory, gastrointestinal, genitourinary, musculosketelal, dermatologic, neurological, psychiatric, endocrine, hematologic or immunologic systems. Physical Examination: Vitals: Height 156.2 cm (5' 1.5), weight 61.2 kg (135 lb). Body mass index is 25.09 kg/(m^2). Normal Abnormal/notable findings General Age-appropriate behavior, no acute distress. Interactive and cooperative. Face Symmetric without dysmorphic features. Skin Dry and intact without rash, lesion, or birthmark. Facial acne Eyes Pupils are equal, round, and reactive to light. Periocular structures and conjunctiva healthy without lesions. Ears Auricles symmetric bilaterally without lesions. External auditory canals without cerumen impaction or drainage. On the left and right, tympanic membranes intact with normal landmarks and mobility. Middle ears clear with no effusions. On the left, EAC with extruded T tube in cerumen, TM intact with tympanosclerosis, middle ear aerated. On the right, EAC with small amount of cerumen, TM with T tube in place and patent, middle ear aerated. Nose Patent anteriorly; healthy [...] Neurologic/ Psych Normal speech and voice. Audiogram: 08/01/2016 hearing L WNL except mild CHL at 4-8 kHz. R WNL except mild HL/CHL at 250 and 4-8 kHz. tymps R large ECV, L flat Impression: Raisa is a 16 y.o. female with a history of eustachian tube dysfunction, recurrent OME s/p BMT and adenoidectomy last in 06/2013, now with functional R T tube and extruded L tube with stable HF CHL bilaterally. Plan: After reviewing the history and examining the patient, I recommend the followin. If patient develops ear drainage associated with fevers, foul smell, or ear discomfort, start ofloxacin 5 drops to the affected ear twice a day for 5 days. If symptoms persist or occur without drainage (tube out or clogged), contact ENT or PCP for possible oral antibiotics. If drainage continues, contact ENT clinic to schedule a follow up appointment for cleaning and culturing of persistent flu id. 2. Follow up in ENT/Audiology clinic in 6-12 months. 3. Preferential seating and listening accommodations at school. Sylvia Ramirez MD, PhD Risk Prevention Engineer, Pediatric Otolaryngology Otolaryngology-Head and Neck Surgery [place], [place] [address] Office documented in this encounter Plan of Treatment Not on file documented as of this encounter Visit Diagnoses Diagnosis History of tympanostomy tube placement Conductive hearing loss, bilateral documented in this encounter Care Teams Project Manager Entertainment And Media Relationship Specialty Start Date End Date Sampson Yang MD [address] [place] [place] [address] PCP - General 04/19/13 11/08/16 documented as of this encounter
--- OUTSIDE RECORDS SUMMARY | 2024-08-25 01:08 | XMS_ITS | Encounter Summary ---
Author Organization [facility] [place] [address] Care Team Providers Care Professor Of Special Education Name Role Phone Sampson Yang MD Primary Care Provider [phone] Encounter Details Date Type Department Care Team (Late st Contact Info) Description 12/10/2014 9:45 AM EDT Follow-Up Audiology at [address] [address] Bambi Freeman AUD [facility] [place] [address] Conductive hearing loss, bilateral; Hx of tympanostomy tubes Discharge Disposition: Home [...] as of this encounter Progress Notes * Bambi [facility], LUKE - 12/10/2014 10:17 AM EDT [place] [address] Raisa Morales was seen on 12/10/2014 for an audiologic evaluation in conjunction with Dr. Mckoy Otolaryngology. Please refer to the scanned audiogram listed under Scanned documents for findings, impressions and recommendations. It may take up to 24 hours for the audiogram to be scanned. Luke Lewis [place] [id number] documented in this encounter Plan of Treatment Not on file documented as of this encounter Visit Diagnoses Diagnosis Conductive hearing loss, bilateral Hx of tympanostomy tubes Personal history of surgery to other organs documented in this encounter Care Teams Professor Of Special Education Relationship Specialty Start Date End Date Sampson Yang MD [address] [place] [address] PCP - General 04/19/13 11/08/16 documented as of this encounter
--- OUTSIDE RECORDS SUMMARY | 2024-08-25 01:08 | XMS_ITS | Encounter Summary ---
[place] [address] Care Team Providers Care Electrolysist Name Role Phone Naun Alvarez MD Primary Care Provider [phone] Reason for Referral * Diagnostic Test (Routine) - Closed Specialty Diagnoses / Procedures Referred By Contac t Referred To Contact Radiology Diagnoses Chronic abdominal pain Hydronephrosis with ureteropelvic junction (UPJ) obstruction Procedures NM Renal Scan Diuretic Naun Gray MD [facility] [place] [address] [place] [address] Referral ID Status Reason Start Date Expiration Date V isits Requested Visits Authorized [id number] Closed Specialty Service Requested 09/05/2019 09/04/2020 1 1 Reason for Visit * Consultation (CICI) - Closed Specialty Diagnoses / Procedures Referred By Contac t Referred To Contact Pediatric Urology Diagnoses Unspecified abdominal pain GRADE 3 HYDRONEPHROSIS ON RIGHT, ASYMPTOMATIC Naun Alvarez MD [address] [place] [phone] [facility] Pedi Urology [address] [place] [phone] Referral ID Status Reason Start Date Expiration Date V isits Requested Visits Authorized [id number] Closed Consult, Test & Treat Connection Center PCP Updated and/or Approved 07/25/2019 07/24/2020 1 1 Encounter Details Date Type Department Care Team (Latest Contact Info) Description 09/05/2019 11:15 AM EST Office Visit Pediatric Urology at [facility] [place] [address] Naun Gray MD [facility] [place] [address] Chronic abdominal pain; Hydronephrosis with ureteropelvic junction (UPJ) obstruction Social [...] Sign Reading Time Taken Comments Blood Pressure 125/77 09/05/2019 10:57 AM EST Pulse 82 09/05/2019 10:57 AM EST Temperature - - Respiratory Rate - - Oxygen Saturation - - Inhaled Oxygen Concentration - - Weight 69 kg (152 lb 1.6 oz) 09/05/2019 10:57 AM EST Height 154.5 cm (5' 0.83) 09/05/2019 10:[address] Body Mass Index 28.9 09/05/2019 10:57 AM EST Body Mass Index Percentile 94.03% 09/05/2019 10: 57 AM EST Growth Chart: CDC (Girls, 2- 20 Years) documented in this encounter Patient Instructions * Patient Instructions* Naun Gray MD - 09/05/2019 11:15 AM EST Needs a MAG3 Lasix renogram. NAUN GRAY MD documented in this encounter Progress Notes * Naun Gray MD - 09/05/2019 11:15 AM EST PEDIATRIC UROLOGY OUTPATIENT SPECIALTY CONSULTATION Place of Service: [facility] Visit Summary: Diagnosis: Right and left lower quadrant abdominal pain starting around 06/28/19. Treatment/Plan: Right grade 4 hydronephrosis, possible partial UPJ obstruction. Schedule MAG3 Lasixrenogram. Reason for Visit: I am seeing Raisa at the request of Naun Alvarez MD for the evaluation of right grade IV hydronephrosis. I have reviewed the available records, interviewed her mother, and examined Raisa in the presence of her today. History of Present Illness: Raisa is a 19 y.o. 1 m.o. female who presents for evaluation of of her chronic generalized abdominal pain, and a recent finding on CT scan that revealed a hydronephrotic right kidney with no UPJ or ureteral stones. According to her mother Cassy has never had a urinary tract infection, kidney infection and has no daytime or nighttime urinary incontinence. No Known Allergies Current Outpatient Medications on File Prior to Visit Medication Sig Dispense Refill ??? tretinoin (RETIN-A) 0.025 % Cream Apply topically to face at bedtime as tolerated. Start 3x/week working up to nightly as tolerated. 45 g 3 ??? doxycycline monohydrate (MONODOX) 100 mg Capsule Take 1 capsule by mouth 2 times daily. 60 capsule 3 No current facility-administered medications on file prior to visit. Patient Active Problem List Diagnosis Code ??? Chronic otitis media with effusion H65.499 ??? Otorrhea H92.10 ??? Hearing loss H91.90 ??? Eustachian tube dysfunction H69.80 ??? Conductive hearing loss H90.2 Review of Systems: General: No fever/chills/headaches Eyes/Vision Normal. No glasses/discharge/aniridia Neurological: Normal. No head injury/seizures/hydrocephalus Endocrine: Irregular periods. No diabetes/dehydration/growth disturbance. GI: Normal. No constipation/diarrhea/vomiting/abd pain Cardiac: Normal. No murmur/CHD Integumentary: Normal. No rash/eczema Musculoskeletal: Normal. No joint pain/swelling/deformity ENT: Normal. No AOM/sinus congestion/strep throat Respiratory: Normal. No asthma/RSV/Pneumonia Hematologic Normal. No anemia/bruising/bleeding disorder Psych Normal. No ADHD/ADD/Behavior disorder Hepatobiliary: Normal. No Jaundice/Hepatitis Renal Normal. No UTI/Renal failure/Hematuria Past Medical History: Tubes and adenoids. Born at 40 weeks GA. BW: 7lbs/ 6 oz. Family History: Non contributory for congenital genitourinary abnormalities. Mother had endometriosis at an early age. Social History: Lives at home with her mother. Has 5 other sibling(s). Physical Exam: General: Healthy female in NAD. Well nourished [...] S2 normal Abdomen: Soft. No masses palpable. Liver/spleen/kidneys. Tender in the LLQ. No OM No evidence of abdominal or inguinal hernia Genitalia: Not examined. Extremities: Full ROM. No deformity/edema Lymph nodes: Not enlarged. Nontender Back: No curvature. Shoulders/scapula/iliacs symmetrical Spine: Straight. Not examined. Skin: Clear and warm. No significant lesions Neurological: Alert. No gross motor/sensory deficit. Normal gait and balance. Pertinent Radiology Studies Reviewed by me with Raisa's (both films and report): [facility] of the ABD/Pelvis(08/05/19): Right grade IV hydronephrosis, no masses, or stones. Left kidney is normal. [facility] RBUS(07/09/19): Right grade IV hydronephrosis. Pertinent Laboratory Studies Reviewed by me with Raisa's mother: 06/28/19: CBC WBC 13.2, HGB 14.4, Plt 394,000 Urine beta HCG <2.4 negative Creatinine 0.7 Assessment/Plan of Management: Raisa is a 19 y.o. 1 m.o. female with a right grade IV hydronephrosis and several months of migrating abdominal pain. I have explained the diagnosis to her mother and recommend a MAG3 Lasix renogram. The location of the is not consistent with a right UPJ obstruction. NAUN GRAY MD documented in this encounter Plan of Treatment Not on file documented as of this encounter Procedures Procedure Name Priority Date/Time Associated Diagnosis Comments POCT URINE Routine 10/22/2019 10:58 AM EST Hydronephrosis with ureteropelvic junction (UPJ) obstruction documented in this encounter Results * POCT urine (10/22/2019 10:58 AM EST) POC Urine HCG Negative Negative - Negative POC Control Internal Controls Acceptable Urine specimen (specimen) 10/22/2019 10:58 AM EST Naun Gray MD POINT OF CARE TEST O RDERABLES * NM Renal Scan Diuretic (10/04/2019 11:16 [...] contact the number below. Naun Gray MD [facility] [place] ORDERABLES documented in this encounter Visit Diagnoses Diagnosis Chronic abdominal pain Abdominal pain, unspecified site Hydronephrosis with ureteropelvic junction (UPJ) obstruction Chronic abdominal pain Abdominal pain, unspecified site Hydronephrosis with ureteropelvic junction (UPJ) obstruction documented in this encounter Care Teams Electrolysist Relationship Specialty Start Date End Date Naun Alvarez MD [address] [place] [phone] PCP - General Family Medicine 11/09/16 05/25/23 documented as of this encounter
--- OUTSIDE RECORDS SUMMARY | 2024-08-25 01:08 | XMS_ITS | Encounter Summary ---
Author Organization [facility] [place] [address] Care Team Providers Care Talent Solutions Manager Name Role Phone Nicki Paula MD Primary Care Provider [phone] Reason for Visit * Reason Comments Follow-up Encounter Details Date Type Department Care Team (Late st Contact Info) Description 06/17/2013 1:30 PM EDT Office Visit [place] [address] Sylvia Ramirez MD [facility] [place] [address] Hearing loss; Eustachian tube dysfunction Discharge Disposition: Home Social History Tobacco Use [...] Sign Reading Time Taken Comments Blood Pressure 99/68 06/17/2013 1:21 PM EDT Pulse 87 06/17/2013 1:21 PM EDT Temperature - - Respiratory Rate 20 06/17/2013 1:21 PM EDT Oxygen Saturation - - Inhaled Oxygen Concentration - - Weight 38.1 kg (84 lb) 06/17/2013 1:21 PM EDT Height 139.7 cm (4' 7) 06/17/2013 1:21 PM EDT Body Mass Index 19.52 06/17/2013 1:21 PM EDT Body Mass Index Percentile 76.33% 06/17/2013 1:2 1 PM EDT Growth Chart: CDC (Girls, 2- 20 Years) documented in this encounter Progress Notes * Sylvia Ramirez MD - 06/17/2013 1:37 PM EDT Pediatric Otolaryngology Postoperative Note Date of Visit: 06/17/2013 Location of Visit: Otolaryngology Clinic, [facility] Patient: Raisa Morales ([id number]; 2000) Primary Care Provider: NICKI PAULA MD [...] the 06/17/13 encounter (Office Visit) with Sylvia Ramirez MD. [...] the nose at least twice a day. Sylvia Ramirez MD, PhD Hand Driller, Pediatric Otolaryngology Otolaryngology-Head and Neck Surgery [place] [address] Office documented in this encounter Plan of Treatment Not on file documented as of this encounter Procedures Procedure Name Priority Date/Time Associated Diagnosis Comments MYRINGOTOMY (TYMPANOSTOMY), INSERTION OF TUBE CASIE Routine 06/17/2013 2:02 PM EDT ADENOIDECTOMY, SECONDARY,UNDER AGE 12 Routine 06/17/2013 2:02 PM EDT documented in this encounter Visit Diagnoses Diagnosis Hearing loss Unspecified hearing loss Eustachian tube dysfunction Dysfunction of Eustachian tube documented in this encounter Care Teams Talent Solutions Manager Relationship Specialty Start Date End Date Nicki Paula MD [address] [place] [address] PCP - General 04/19/13 11/08/16 documented as of this encounter
--- OUTSIDE RECORDS SUMMARY | 2024-08-25 01:08 | XMS_ITS | Encounter Summary ---
Author Organization [facility] [place] [address] Care Team Providers Care Scraper Hand Name Role Phone Sampson Yang MD Primary Care Provider [phone] Encounter Details Date Type Department Care Team (Late st Contact Info) Description 04/29/2013 2:11 PM EDT Anesthesia Event [place] [address] Chrissie Anthony MD [facility] [place] [address] Anesthesia Record Procedure Summary Procedure Name Responsible Anesthesiologist Anesthesia Start Time Anesthesia Stop Time MYRINGOTOMY, REMOVAL P. E. TUBE (WRVU 0.85) (Bilateral: Ear) Chrissie Anthony MD 04/29/13 1411 04/29/13 1441 Events Date Time Event Comment 04/29/2013 1334 1411 AN Verify 1411 Start 1411 An Start Data 1438 ASA Monitors 1438 An Induction 1438 PACU Bed 1438 an stop data 1441 Stop Meds * Agents Name O2 Air N2O Sevoflurane (et) * Blood No blood administrations on file. Lines, Drains, and Airways Type Details Placement Removal Incision 04/29/13; ear; LDA n ot present upon assessment; 10/22/19; 1526 04/29/13 0000 by Chrissie Carpio RN 10/22/19 1526 by Dary Knott RN documented in this encounter Social History Tobacco [...] OR Notes * Anesthesia Postprocedure Evaluation - Chrissie nAthony MD - 04/29/2013 6:17 PM EDT Patient: Raisa Morales Procedure(s) Performed: Procedure(s): MYRINGOTOMY, REMOVAL P. E. TUBE Actual Anesthetic: mask GA Patient location: PACU Post-op pain: Adequate analgesia Post-op nausea: no nausea or vomiting Last Vitals: Filed Vitals: 04/29/13 1445 BP: Pulse: 118 Temp: Resp: 18 Post-op cardiovascular and respiratory status: is stable Level of consciousness: awake, alert and oriented Complications: no apparent complications and tolerated the procedure well Fluid Status: normal * Anesthesia Preprocedure Evaluation - Chrissie Anthony MD - 04/29/2013 1:34 PM EDT Pre-Anesthesia Evaluation for: Raisa Morales a 12 y.o. female. Procedure(s): MYRINGOTOMY, REMOVAL P. E. TUBE Patient Active Problem List Diagnoses ??? Chronic otitis media with effusion ??? Otorrhea ??? Hearing loss No past medical history on file. No past surgical history on file. History Substance Use Topics ??? Smoking status: Never Smoker ??? Smokeless tobacco: Not on file ??? Alcohol Use: No History Drug Use Not on file No Known Allergies Medications: MAR and/or home medications have been reviewed. Physical Exam: There were no vitals filed for this visit. There is no height or weight on file to calculate BMI. Airway Assessment: Mallampati: I TM distance: >3 FB Neck ROM: full Cardiovascular Assessment: cardiovascular exam normal Pulmonary Assessment: pulmonary exam normal Dental Assessment: - normal exam Comment: No loose teeth Misc Assessment: Other exam findings: Previous anesthetics: multiple, no complications URI- no RAD- no Tobacco exposure- no Appropriately NPO- yes Anesthesia Plan: ASA 1 general, with a(n) inhalational induction Plan mask GA with RM. Plans and risks reviewed. Questions answered. Region - Other Informed Consent: Anesthetic plan and risks discussed with patient and mother. Plan discussed with SAFETY INSPECTOR and attending. [facility]. Assessment: documented in this encounter Plan of Treatment Not on file documented as of this encounter Visit Diagnoses Not on filedocumented in this encounter Care Teams Scraper Hand Relationship Specialty Start Date End Date Sampson Yang MD [address] [place] [address] PCP - General 04/19/13 11/08/16 documented as of this encounter
--- OUTSIDE RECORDS SUMMARY | 2024-08-25 01:08 | XMS_ITS | Encounter Summary ---
Author Organization [facility] [place] [address] Care Team Providers Care Health Information Technician Name Role Phone Nicki Paula MD Primary Care Provider Encounter Details Date Type Department Care Team (Late st Contact Info) Description 04/29/2013 1:54 PM EDT - 04/29/2013 2:29 PM EDT Surgery Outpatient [place] [address] Sylvia Majano MD [facility] [place] [address] MYRINGOTOMY, REMOVAL P. E. TUBE (WRVU 0.85) Social History Tobacco Use Types Packs/Day Years [...] 04/29/2013 1:1 5 PM EDT Growth Chart: [facility] (Girls, 2- 20 Years) documented in this [...] soreness, which usually goes away in 12-24hours. [facility] - Information If you are unable to [...] Visit: 04/23/2013 Location of Visit: Otolaryngology Clinic, [facility] Patient: Raisa Morales ([id number]; 2000) Primary Care Provider: NICKI PAULA MD [...] no known allergies. Social History: Lives in [place] [address]*, with mom, dad, two brothers, two sisters, which is one hour away. Daycare/School: Will start fifth grade at [employer] in the fall. Secondhand smoke exposure: [...] surgery. Sylvia Majano MD, PhD Pediatric Otolaryngology [facility] ([facility]) [facility] documented in this encounter Miscellaneous Notes * OR Attestation - Sylvia Majano MD - 04/29/2013 2:42 PM EDT Attestation: Case Date: 04/29/2013 I was present and I participated during the entire procedure (does not need to include opening and closing). SYLVIA MAJANO MD 04/29/2013 * Op Note - Sylvia Majano MD - 04/29/2013 2:39 PM EDT [facility] Operative Note Patient Name: Raisa Morales : [id number] MR#: [id number] Case Date: 04/29/2013 Surgeon: Surgeon(s) and Role: [...] After the eartubes were replaced, mom and Raias do not remember additional ear infections, but [...] tube documented in this encounter Visit Diagnoses Not on filedocumented in this encounter Administered Medications Inactive Administered Medications - up to 3 most recent administrations Medication Order MAR Action Action Date Dose Rate Site acetaminophen (TYLENOL) 650 mg/20.3 mL oral liquid 15 mg/kg/dose 15 mg/kg/dose, Oral, ONCE, 1 dose, On Mon04/29/13 at 1345, Maximum dose of acetaminophen is [...] 15 mg/kg/dose, Oral, ONCE, 1 dose, On Mon04/29/13 at 1345, Maximum dose of acetaminophen is 4,000 mg from all sources in 24 hours., Day of Surgery (Day of Procedure), Routine 1345 (Given - Provid er: Bre Allison RN) documented in this encounter Care Teams Health Information Technician Relationship Specialty Start Date End Date Nicki Paula MD [address] [place] [address] PCP - General 04/19/13 11/08/16 documented as of this encounter
--- OUTSIDE RECORDS SUMMARY | 2024-08-25 01:08 | XMS_ITS | Encounter Summary ---
Author Organization [facility] [place] [address] Care Team Providers Care Rubber Splicer Name Role Phone Sampson Yang MD Primary Care Provider [phone] Encounter Details Date Type Department Care Team (Late st Contact Info) Description 08/18/2014 External Results [place] [address] Shirin Wagoner [facility] [place] [address] Social History Tobacco Use Types Packs/Day Years [...] Date/Time Associated Diagnosis Comments AUDIOLOGY SCAN Routine 08/18/2014 documented in this encounter Results * Scan Doc: Audiology (08/18/2014) Shirin Wagoner AUD MEDIA MGR SCAN EX T ORDR/RSLT documented in this encounter Visit Diagnoses Not on filedocumented in this encounter Care Teams Rubber Splicer Relationship Specialty Start Date End Date Sampson Yang MD [address] [place] [address] [place] [address] PCP - General 04/19/13 11/08/16 documented as of this encounter
--- OUTSIDE RECORDS SUMMARY | 2024-08-25 01:08 | XMS_ITS | Encounter Summary ---
Author Organization [facility] [place] [address] Care Team Providers Care Beam Dyer Recessed Vat Name Role Phone Sampson Yang MD Primary Care Provider [phone] Encounter Details Date Type Department Care Team (Late st Contact Info) Description 06/17/2013 12:45 PM EDT Follow-Up Audiology at [address] [address] Shirin Wagoner AUD [facility] [place] [address] Conductive hearing loss, bilateral (Primary Dx) Discharge [...] Progress Notes * Shirin Wagoner, LUKE - 06/27/2013 2:29 PM EDT [place] [address] Raisa Morales , 12 y.o. 11 m.o. was seen on 06/17/2013 for an audiologic evaluation. Please refer to the scanned audiogram listed under SCANDOC for findings, impressions and recommendations. It may take up to 24 hours for the audiogram to be scanned. Enclosure: Audiogram Shirin Ruiz, [place] [address] documented in this encounter Plan of Treatment Not on file documented as of this encounter Visit Diagnoses Diagnosis Conductive hearing loss, bilateral- Primary documented in this encounter Care Teams Beam Dyer Recessed Vat Relationship Specialty Start Date End Date Sampson Yang MD [address] [place] [address] [place] [address] PCP - General 04/19/13 11/08/16 documented as of this encounter
--- OUTSIDE RECORDS SUMMARY | 2024-08-25 01:08 | XMS_ITS | Encounter Summary ---
Author Organization [facility] [place] [address] Care Team Providers Care Manganese Wheeler Name Role Phone Nicki Paula MD Primary Care Provider [phone] Reason for Visit * Reason Comments Follow Up Surgery 07/17/13 ADENOIDECTO MY& CASIE MYRINGOTOMY; hearing improved no reoccurences of OM Encounter Details Date Type Department Care Team (Late st Contact Info) Description 10/08/2013 10:15 AM EST Office Visit [place] [address] Sylvia Ramirez MD [facility] [place] [address] Eustachian tube dysfunction, unspecified laterality (Primary Dx) Discharge Disposition: Home Social History [...] Sign Reading Time Taken Comments Blood Pressure 119/78 10/08/2013 10:17 AM EST Pulse 85 10/08/2013 10:17 AM EST Temperature 36.6 ??C (97.8 ??F) 10/08/2013 10:[address] Respiratory Rate - - Oxygen Saturation - - Inhaled Oxygen Concentration - - Weight 39.9 kg (88 lb) 10/08/2013 10:17 AM EST Height 142.2 cm (4' 8) 10/08/2013 10:17 AM EST Body Mass Index 19.73 10/08/2013 10:17 AM EST Body Mass Index Percentile 76.04% 10/08/2013 10: 17 AM EST Growth Chart: [facility] (Girls, 2- 20 Years) documented in this encounter Progress Notes * Sylvia Ramirez MD - 10/08/2013 10:48 AM EST Pediatric Otolaryngology Postoperative Note Date of Visit: 10/08/2013 Location of Visit: Otolaryngology Clinic, [facility] Patient: Raisa Morales ([id number]; 2000) Primary Care Provider: NICKI PAULA MD Referring Provider: Nicki Paula Reason for Visit: Raisa is a 13 y.o. female originally seen at the request of Nicki Paula for evaluation of ears. Interval History: Raisa is a 13 y.o. female who is accompanied to the [...] tubes, L mucoid SCOTTIE, 2+ adenoid regrowth. In the interim, the patient has been doing well. She has not had any ear drainage or infection or pain. Her recovery went well. She is hearing better. Past Medical, Family, and Social History: reviewed and unchanged from prior visit(s), except the addition of BMT and revision adenoidectomy to past surgical history. Medications: No outpatient prescriptions have been marked as taking for the 10/08/13 encounter (Office Visit) with Sylvia Ramirez MD. Allergies: Review of patient's allergies indicates no known allergies. Review of Systems: Pertinent positive findings discussed above. No other findings on review of constitutional, visual, cardiovascular, respiratory, gastrointestinal, genitourinary, musculosketelal, dermatologic, neurological, psychiatric, endocrine, hematologic or immunologic systems. Physical Examination: Vitals: Blood pressure 119/78, pulse 85, temperature 36.6 ??C (97.8 ??F), temperature source Oral, height 142.2 cm (4' 8), weight 39.917 kg (88 lb). Body mass index is 19.73 kg/(m^2). Normal Abnormal/notable findings General Age-appropriate behavior, no acute distress. Interactive and cooperative. Face Symmetric without dysmorphic features. Skin Dry and intact without rash, lesion, or birthmark. Eyes Pupils are equal, round, and reactive to light. Periocular structures and conjunctiva healthy without lesions. Ears Auricles symmetric bilaterally without lesions. External auditory canals without cerumen impaction or drainage. On the left and right, EAC clear, TM with August modified T tubes in place and patent without drainage, with significant tympanosclerosis. Nose Patent anteriorly; healthy pink mucosa without [...] submucus cleft palate. Oropharynx symmetric. Tonsillar fossa well-healed Neck Soft, supple, normal range of motion. Trachea midline without deviation. Lymphatic No abnormal cervical lymphadenopathy. Neurologic/ Psych Normal speech and voice. Normal mood and affect. Audiogram: 10/08/2013 hearing WNL AU. tymps R CNT, L large ECV. Impression: Raisa is a 13 y.o. female with a history of eustachian tube dysfunction, CHL s/p eartube placement x3, removal of T tubes, T+A x2. Plan: After reviewing the history and examining [...] cleaning and culturing of persistent fluid. 2. Follow up in ENT/Audiology clinic in 12 months. Sylvia Ramirez MD, PhD Clinical Account Executive, Pediatric Otolaryngology Otolaryngology-Head and Neck Surgery [place] [address] Office documented in this encounter Plan of Treatment Not on file documented as of this encounter Visit Diagnoses Diagnosis Eustachian tube dysfunction, unspecified laterality- Primary documented in this encounter Care Teams Manganese Wheeler Relationship Specialty Start Date End Date Nicki Paula MD [address] [place] [address] PCP - General 04/19/13 11/08/16 documented as of this encounter
--- OUTSIDE RECORDS SUMMARY | 2024-08-25 01:08 | XMS_ITS | Encounter Summary ---
Author Organization [facility] [place] [address] Care Team Providers Care Harmonica Maker Name Role Phone Nicki Paula MD Primary Care Provider [phone] Reason for Visit * Reason Comments Established School does not thin k she can hear out of either ear. Encounter Details Date Type Department Care Team (Late st Contact Info) Description 06/09/2014 8:30 AM EDT [place] [address] Sylvia Ramirez MD [facility] [place] [address] S/P myringotomy with insertion of tube (Primary Dx); Otorrhea of left ear Discharge Disposition: Home Social History Tobacco Use [...] Sign Reading Time Taken Comments Blood Pressure 116/70 06/09/2014 8:17 AM EDT Pulse 80 06/09/2014 8:17 AM EDT Temperature 36.6 ??C (97.9 ??F) 06/09/2014 8:17 AM ED T Respiratory Rate - - Oxygen Saturation - - Inhaled Oxygen Concentration - - Weight 44.1 kg (97 lb 3.2 oz) 06/09/2014 8:17 AM EDT Height 146.7 cm (4' 9.75) 06/09/2014 8:17 AM ED T Body Mass Index 20.49 06/09/2014 8:17 AM EDT Body Mass Index Percentile 77.93% 06/09/2014 8:1 7 AM EDT Growth Chart: CDC (Girls, 2- 20 Years) documented in this encounter Progress Notes * Sylvia Ramirez MD - 06/09/2014 8:18 AM EDT Pediatric Otolaryngology Follow-Up Note Date of Visit: 06/09/2014 Location of Visit: Otolaryngology Clinic, [facility] Patient: Raisa Morales ([id number]; 2000) Primary Care Provider: NICKI PAULA MD Referring Provider: Nicki Paula Reason for Visit: Raisa is a 13 y.o. female originally seen at the request of Nicki Paula for evaluation of ears. Interval History: Raisa is a 13 y.o. female who is accompanied to the clinic today by his grandfather. The patient was first seen in [...] revealed functional T tubes and normal hearing. In the interim, the patient has had a couple weeks of drainage. She is not sure which ear. She did not use ear drops. She has had earaches on both sides. She had her hearing tested at school and saidthat she cannot hear. She denies difficulty hearing although dad thinks she is having trouble hearing and tries to read lips. She has had cold symptoms with her ear drainage and pain. Medications: No outpatient prescriptions have been marked as taking for the 06/09/14 encounter (Follow-Up) with Sylvia Ramirez MD. Allergies: Review of patient's allergies indicates no known allergies. Past Medical, Family, and Social History: reviewed and unchanged from prior visit(s) Review of Systems: Pertinent positive findings discussed above. No other findings on review of constitutional, visual, cardiovascular, respiratory, gastrointestinal, genitourinary, musculosketelal, dermatologic, neurological, psychiatric, endocrine, hematologic or immunologic systems. Physical Examination: Vitals: Blood pressure 116/70, pulse 80, temperature 36.6 ??C (97.9 ??F), temperature source Tympanic, height 146.7 cm (4' 9.75), weight 44.09 kg (97 lb 3.2 oz). Body mass index is 20.49 kg/(m^2). Normal Abnormal/notable findings General Age-appropriate behavior, no acute distress. Interactive and cooperative. Face Symmetric without dysmorphic features. Skin Dry and intact without rash, lesion, or birthmark. Eyes Pupils are equal, round, and reactive to light. Periocular structures and conjunctiva healthy without lesions. Ears Auricles symmetric bilaterally without lesions. External auditory canals without cerumen impaction. On the left, EAC with drainage and moist cerumen, TM with August modified T tube in place and patent with drainage, middle ear with effusion. On the right, EAC with moist cerumen, TM with August modified T tube in place and appears patent without drainage, middle ear appears aerated. Nose Patent anteriorly; healthy pink mucosa without lesions. No purulent drainage, no significant inferior turbinate hypertrophy. Septum without significant deviation. Drainage mucous, inferior turbinate inflammation Oral cavity Lips and gingiva pink, moist, without lesions. Gums/dentition healthy. Tongue and floorof mouth soft without lesions or masses. Hard palate without lesions. Neck Soft, supple, normal range of motion. Trachea midline without deviation. Lymphatic No abnormal cervical lymphadenopathy. Neurologic/ Psych Normal speech and voice. Impression: Raisa is a 13 y.o. female with a history of eustachian tube dysfunction s/p ear tubereplacement and revision adenoidectomy 06/2013, with functional T tubes with L tube otorrhea. Plan: After reviewing the history and examining the patient, I recommend the followin. For left tube otorrhea, start ofloxacin 5 drops to the left ear twice a day for 5 days. If patient develops ear drainage associated with fevers, foul smell, or ear discomfort, start ofloxacin 5 drops to the affected ear twice a day for 5 days. If symptoms persist, contact ENT or PCP for change in topical antibiotics or possible oral antibiotics. If drainage continues, contact ENT clinic to juana connor a follow up appointment for cleaning and culturing of persistent fluid. 2. Follow up in ENT/Audiology clinic in 2-4 weeks with AE first. 3. Preferential seating and listening accommodations at school while hearing is down secondary to otorrhea. Sylvia Ramirez MD, PhD [employer] Commissioner, Pediatric Otolaryngology Otolaryngology-Head and Neck Surgery [facility] [address] Office documented in this encounter Plan of Treatment Not on file documented as of this encounter Visit Diagnoses Diagnosis S/P myringotomy with insertion of tube- Primary Other postprocedural status Otorrhea of left ear Otorrhea, unspecified documented in this encounter Care Teams Harmonica Maker Relationship Specialty Start Date End Date Nicki Paula MD [address] [place] [address] PCP - General 04/19/13 11/08/16 documented as of this encounter
--- OUTSIDE RECORDS SUMMARY | 2024-08-25 01:08 | XMS_ITS | Encounter Summary ---
Author Organization [facility] [place] [address] Care Team Providers Care Fluoroscope Operator Name Role Phone Sampson Yang MD Primary Care Provider [phone] Encounter Details Date Type Department Care Team (Late st Contact Info) Description 07/17/2013 10:39 AM EDT Anesthesia [place] [id number] Julian Thomas MD [facility] [place] [address] Odin Dodge MD [facility] [place] [address] Anesthesia Record Procedure Summary Procedure Name Responsible Anesthesiologist Anesthesia Start Time Anesthesia Stop Time MYRINGOTOMY, INSERTION OF TUBE CASIE (WRVU 2.01) (Ear) Julian Thomas MD 07/17/13 1039 07/17/13 1149 Events Date Time Event Comment 07/17/2013 0952 1037 AN Verify 1039 Start 1039 An Start Data 1041 An Induction 1044 IV Start 1050 An Intubation 1051 Anesthesia Ready 1140 Extubation/LMA Out 1140 an stop data 1149 Stop Meds Name Total propofol 100 mg propofol INF 721.98 mg fentaNYL 20 mcg ondansetron 3 mg Dexmedetomidine 19 mcg * Agents Name O2 Air N2O Sevoflurane (et) * Blood No blood administrations on file. Lines, Drains, and Airways Type Details Placement Removal Incision 04/29/13; ear; LDA not present upon assessment; 10/22/19; 1526 04/29/13 0000 by Chrissie Carpio RN 10/22/19 1526 by Dary Knott RN Incision 07/17/13; ear; LDA not present upon assessment; 10/22/19; 1526 07/17/13 0000 by Deepali Ramirez RN 10/22/19 1526 by Dary Knott RN Incision 07/17/13; other (see comments) (Oral/throat); LDA not present upon assessment; 10/22/19; 1526 07/17/13 0000 by Deepali Ramirez RN 10/22/19 1526 by Dary Knott RN (RETIRED) Peripheral IV Line - Single Lumen 01/08/18 (Auto removal via utility); 0921 (Auto removal via utility) 07/17/13 1100 by 01/08/18 0921 by [employer], Silvestre (RETIRED) Non-Surgical Airway Mask Ventilation: Adjunct (2); ETT Type: Cuffed, Oral, DIXON; ETT Size: 6 mm; Removal Date: 07/17/13; Removal Time: 1140 07/17/13 1101 by 07/17/13 1140 by Julian Thomas MD documented in this encounter Social History Tobacco [...] OR Notes * Anesthesia Postprocedure Evaluation - Julian Thomas MD - 07/17/2013 1:28 PM EDT Patient: Raisa Morales Procedure(s) Performed: Procedure(s): MYRINGOTOMY, INSERTION OF TUBE CASIE ADENOIDECTOMY, SECONDARY, UNDER AGE 12 Actual Anesthetic: general Patient location: PACU Post-op pain: Adequate analgesia Post-op nausea: no nausea or vomiting Last Vitals: Filed Vitals: 07/17/13 1154 Pulse: 89 Temp: Resp: 20 Post-op cardiovascular and respiratory status: is stable Level of consciousness: awake, alert and oriented Complications: no apparent complications and tolerated the procedure well Fluid Status: normal * Anesthesia Preprocedure Evaluation - Julian Thomas MD - 07/17/2013 9:45 AM EDT Pre-Anesthesia Evaluation for: Raisa Morales a 13 y.o. female. Procedure(s): MYRINGOTOMY, INSERTION OF TUBE CASIE ADENOIDECTOMY, SECONDARY, UNDER AGE 14 Patient Active Problem List Diagnosis ??? Eustachian tube dysfunction ??? Chronic otitis media with effusion ??? Otorrhea The patient was first seen in pediatric [...] T tubes and left middle ear effusion. ??? Hearing loss No past medical history on file. Past Surgical History Procedure Date ??? Vent tube remvl req gen anesthesia 04/29/2013 MYRINGOTOMY, REMOVAL P. E. TUBE performed by Sylvia Ramirez MD at [facility] History Substance Use Topics ??? Smoking status: Never Smoker ??? Smokeless tobacco: Not on file Comment: no one in the household smokes ??? Alcohol Use: No History Drug Use Not on file No Known Allergies Medications: MAR and/or home medications have been reviewed. Physical Exam: There were no vitals filed for this visit. There is no height or weight on file to calculate BMI. Anesthesia Physical Exam Anesthesia Plan: ASA 2 general, with a(n) inhalational induction 38kg 13yo with COME for Adenoidectomy and BMT (revision) Recently healthy - No URI/LAMAR/RAD/GERD/ELI/FHAC etc Appropriately fasted No ETS exposure Recent dry cough - No fever, no change in activity or appetite Region - Other Informed Consent: Anesthetic plan and risks discussed with father, mother and patient. Plan discussed with resident. [facility]. Assessment: documented in this encounter Plan of Treatment Not on file documented as of this encounter Visit Diagnoses Not on filedocumented in this encounter Administered Medications Inactive Administered Medications - up to 3 most recent administrations Medication Order MAR Action Action Date Dose Rate Site dexmedetomidine (PRECEDEX) injection PRN, Starting on Mon07/17/13 at 1056, Until Mon07/17/13 at 1149, Anesthesia Intra-op, Routine Given 07/17/2013 10:56 AM EDT 19 mcg fentaNYL 50mcg/mL injection PRN, Starting on Mon07/17/13 at 1053, Until Mon07/17/13 at 1149, Pain, Anesthesia Intra-op, Routine Given 07/17/2013 10:53 AM EDT 20 mcg ondansetron (ZOFRAN) injection PRN, Starting on Mon07/17/13 at 1057, Until Mon07/17/13 at 1149, Nausea, Anesthesia Intra-op, Routine Given 07/17/2013 10:57 AM EDT 3 mg propofol (DIPRIVAN) 10 mg/mL bolus injection (Anesthesia) PRN, Starting on Mon07/17/13 at 1049, Until Mon07/17/13 at 1149, Anesthesia Intra-op Given 07/17/2013 10:49 AM EDT 100 mg propofol (DIPRIVAN) infusion CONTINUOUS PRN, Starting on Mon07/17/13 at 1046, Until Mon07/17/13 at 1149, Anesthesia Intra-op, Routine New Bag 07/17/2013 10:46 AM EDT 300 mcg/kg/min 68.8 mL/hr documented in this encounter Care Teams Fluoroscope Operator Relationship Specialty Start Date End Date Sampson Yang MD [address] [place] [address] PCP - General 04/19/13 11/08/16 documented as of this encounter
--- OUTSIDE RECORDS SUMMARY | 2024-08-25 01:08 | XMS_ITS | Encounter Summary ---
Author Organization [facility] [place] [address] Care Team Providers Care Records And Tape Recordings Engineer Name Role Phone Nicki Paula MD Primary Care Provider [phone] Encounter Details Date Type Department Care Team (Latest Contact Info) Description 07/17/2013 9:16 AM EDT - 07/17/2013 12:42 PM EDT Hospital Encounter [place] [address] Sylvia Majano MD [facility] [place] [address] Discharge Disposition: Home Social History Tobacco Use [...] Naranjo RN - 07/17/2013 11:42 AM EDT [facility] PAINFREE DISCHARGE INSTRUCTIONS Your child has received [...] regarding sedation may be directed to the [facility] Painfree Program Monday - Monday 8:00 - 4:00 pm at [phone] Evenings or weekends at [phone] and ask for head resident traffic sign erection supervisor Questions regarding the procedure, pain issues, or [...] have in the post- operative period. The [facility] cutter operator tile can be reached at . In addition, [...] be present and is readily relieved with [id number] ibuprofen (Motrin) or acetaminophen (Tylenol). A prescription [...] have in the post- operative period. The [facility] cutter operator tile can be reached at . In addition, [...] in this encounter H&P Notes * Sylvia Majano MD - 07/17/2013 10:33 AM EDT 24-Hour Pre-Operative H&P Update Patient was seen in the Pre-Operative Area today. I have reviewed, and agree with, the clinical history, physical examination findings, impression, and plan, as detailed in the original H&P Note. No new clinically-significant changes to the patient's health. Patient is ready to proceed with theplanned surgical procedure. Sylvia Majano MD PhD Pediatric Otolaryngology [facility] [place], [place] [address] Office Source Note - Sylvia Majano MD - 2013 7:26 PM EDT See preop H+P by PCP dated 07/08/2013 Pediatric Otolaryngology Postoperative Note Date of Visit: 06/17/2013 Location of Visit: Otolaryngology Clinic, [facility] Patient: Raisa Morales ([id number]; 2000) Primary Care Provider: NICKI PAULA MD [...] Visit: 06/17/2013 Location of Visit: Otolaryngology Clinic, [facility] Patient: Raisa Morales ([id number]; 2000) Primary Care Provider: NICKI PAULA MD Referring Provider: Nikci Paula Reason for Visit: Raisa is a [...] Majano MD - 07/17/2013 11:16 AM EDT [facility] Operative Note Patient Name: Raisa Morales : [id number] MR#: [id number] Case Date: 07/17/2013 Surgeon: Surgeon(s) and Role: [...] the tongue. This was suspended from a Armirez stand. A suction catheter was passed through [...] Given 07/17/2013 12:28 PM EDT 500 mg documented in this encounter Active and [...] Routine documented in this encounter Care Teams Records And Tape Recordings Engineer Relationship Specialty Start Date End Date Nicki Paula MD [address] [place] [address] DR [facility] [place] [address] PCP - General 04/19/13 11/08/16 documented as of this encounter
--- OUTSIDE RECORDS SUMMARY | 2024-08-25 01:08 | XMS_ITS | Encounter Summary ---
Author Organization [facility] [place] [address] Care Team Providers Care School Bus Inspector Name Role Phone Sampson Yang MD Primary Care Provider [phone] Encounter Details Date Type Department Care Team (Late st Contact Info) Description 08/01/2016 10:15 AM EST Office Visit Audiology at [address] [address] Christina King [facility] [place] [address] Conductive hearing loss Social History Tobacco Use Types Packs/Day Years [...] as of this encounter Progress Notes * Christina King MEd - 08/01/2016 10:15 AM EST Patient was seen for an audiologic evaluation as medically indicated in conjunction with an appointment with Dr. Sylvia Ramirez in Otolaryngology. Please refer to the audiogram under Procedures for findings, impressions, and recommendations. documented in this encounter Plan of Treatment Not on file documented as of this encounter Procedures Procedure Name Priority Date/Time Associated Diagnosis Comments COMPREHENSIVE HEARING TEST Routine 08/01/2016 10:14 AM EST documented in this encounter Results * Comprehensive hearing test (08/01/2016 10:14 AM EST) 08/01/2016 10:1 4 AM EST Narrative AUDBASE COMP - 08/01/2016 10:14 AM EST 16 yo seen in conjunction with Dr. Sylvia Ramirez in Otolaryngology. History of PE tubes and conductive hearing loss with high frequencies as low as moderate HL level in 11/2014. Today cerumen removed 1st in ENT. Hearing within normal limits 250-3k Hz sloping to mild hearing loss through 8k Hz ??for the left ear, and within normal limits for 500-3k Hz with mild hearing loss at 250, and 4k-8k Hz with conductive overlay noted at 4k Hz. Good word recognition bilaterally. Monitor hearing as needed per Dr. Ramirez. Listening accommodations on an as needed basis in the educational setting (says hears well in school). Procedure Note Unknown - 08/01/2016 16 yo seen in conjunction with Dr. Sylvia Ramirez in Otolaryngology. Historyof PE tubes and conductive hearing loss with high frequencies as low as moderate HL levelin 11/2014. Today cerumen removed 1st in ENT. Hearing within normal limits 250-3k Hz slopingto mild hearing loss through 8k Hz for the left ear, and within normal limits for 500-3k Hzwith mild hearing loss at 250, and 4k-8k Hz with conductive overlay noted at 4k Hz. Good wordrecognition bilaterally. Monitor hearing as needed per Dr. Ramirez. Listeningaccommodations on an as needed basis in the educational setting (says hears well in school). Unknown AUDIOLOGY SERVICES O RDER[employer]LES AUD[employer] COMP documented in this encounter Visit Diagnoses Diagnosis Conductive hearing loss Unspecified conductive hearing loss documented in this encounter Care Teams School Bus Inspector Relationship Specialty Start Date End Date Sampson Yang MD [address] [place] [address] PCP - General 04/19/13 11/08/16 documented as of this encounter
--- OUTSIDE RECORDS SUMMARY | 2024-08-25 01:08 | XMS_ITS | Encounter Summary ---
Author Organization [facility] [place] [address] Care Team Providers Care Retort Firer Name Role Phone Sampson Yang MD Primary Care Provider [phone] Encounter Details Date Type Department Care Team (Late st Contact Info) Description 04/23/2013 Orders Only [place] [phone] Hortencia Garcia, [place] [address] Social History Tobacco Use Types Packs/Day Years [...] on filedocumented in this encounter Care Teams Retort Firer Relationship Specialty Start Date End Date Sampson Yang MD [address] [place] [address] [place] [address] PCP - General 04/19/13 11/08/16 documented as of this encounter
--- OUTSIDE RECORDS SUMMARY | 2024-08-25 01:08 | XMS_ITS | Encounter Summary ---
Author Organization [facility] Address [facility] [place] [address] Care Team Providers Care Tire Shop Mechanic Name Role Phone Dillon Alvarez MD Primary Care Provider [phone] Encounter Details Date Type Department Care Team (Late st Contact Info) Description 07/29/2019 Orders Only [place] [address] Dillon Gray MD [facility] [place] [address] Chronic abdominal pain; Generalized abdominal pain Social History Tobacco Use Types Packs/Day Years [...] as of this encounter Visit Diagnoses Diagnosis Chronic abdominal pain Abdominal pain, unspecified site Generalized abdominal pain Abdominal pain, generalized documented in this encounter Care Teams Tire Shop Mechanic Relationship Specialty Start Date End Date Dillon Alvarez MD [address] [place] [phone] PCP - General Family Medicine 11/09/16 05/25/23 documented as of this encounter
[2024-08-25 01:20] VITALS: BP 136/86; PULSE 94; RESP 16; TEMP 36.8
--- NOTE | 2024-08-25 01:55 | ED.GENADUL_ITS ---
Discharge Plan Disposition Patient Disposition: Home Condition: Good Discharge Details Clinical Impression: UTI (urinary tract infection) Primary Care Provider: Unknown,Unknown ED Provider: Chrissie Morris Home Meds and New Rx's Prescriptions: New cephalexin 250 mg capsule 250 mg PO QID Qty: 16 0RF Discharge Instructions Instructions: Urinary Tract Infection, Adult ED Additional Instructions: Cephalexin four times a day for the next 5 days. Call your primary care doctor on Monday to schedule an appointment to be seen within the next 72 hours to followup on your visit here. Return to the emergency department for new or worsening symptoms including fever, new/different/worse pain, flank pain, or if your symptoms have not improved after 48 hours. HPI General Mode of arrival: ambulatory . Date/Time Provider Initiated Documentation: 08/25/24 01:04 . Limitations to Documentation: no limitations . Information obtained by: patient . HPI Narrative: 24yo previously healthy female presenting with dysuria x 3 days. Reports burning pain with urination, urinary frequency, does not feel like she is completely emptying her bladder. No hematuria but it does look cloudy. Associated mild dull suprapubic pain and bilateral mild low lumbar back pain, non radiating. No vaginal discharge. No prior hx of UTI. LMP three weeks ago. Otherwise in her usual state of health with no fevers, chills, rash, nausea, vomiting, or other concerns. Related Data Home Medications ?Medication ?Instructions ?Recorded ?Confirmed cephalexin 250 mg capsule 250 mg PO QID #16 caps 08/25/24 Previous Rx's ?Medication ?Instructions ?Recorded cephalexin 250 mg capsule 250 mg PO QID #16 caps 08/25/24 Allergies Allergy/AdvReac Type Severity Reaction Status Date / Time No Known Allergies Allergy Unverified 03/31/24 10:51 General Stated Complaint: Urinary BRENDON: 4 Review of Systems Narrative: see HPI Exam Narrative Exam Narrative: General: Alert, well appearing, well nourished, in no acute distress. Head: Normocephalic, atraumatic Neck: Trachea midline, ?Neck supple. ENT: ?MMM.? No oropharygeal lesions or exudate. Cardiac: ?RRR, no murmurs appreciated Resp: No respiratory distress. CTAB. Abd: ?Soft, non-distended. : ?Mild suprapubic tenderness. No CVA tenderness. Extremities: ?No deformities.? No peripheral edema. Neurologic: GCS 15. ? Moves all extremities freely against gravity Course Vital Signs Vital signs: Vital Signs Temperature 36.8 C 08/25/24 01:20 Pulse 94 H 08/25/24 01:20 Respiratory Rate 16 08/25/24 01:20 Blood Pressure 136/86 08/25/24 01:20 Temperature 36.8 C 08/25/24 01:20 Pulse 94 H 08/25/24 01:20 Respiratory Rate 16 08/25/24 01:20 Respiratory Effort Normal 08/25/24 01:22 Blood Pressure 136/86 08/25/24 01:20 Pain Level 8 08/25/24 01:36 Medical Decision Making 24yo previously healthy female presenting with dysuria x 3 days with associated suprapubic pain and urinary frequency. Systemically well, no fevers. Slightly tachcyardiac to 90's on arrival after ambulating into triage; HR improved to 80's without intervention. Mild suprapubic tenderness on exam, no CVA tenderness. History and exam not suggestive of sepsis, pyelonephritits, ovarian torsion, ectopic , tuboovarian abscess, PID, jarrett; would not get labs or CT Or US imaging. Urine negative. UA as below, consistent with infection. Will treat for acute cystitis with 5 day course of cephalexin. Discharged home; discharge instructions and return precautions were reviewed with patient who verbalized understanding. All questions were answered and she is in full agreement with the plan. Lab Data Lab results reviewed: Yes I reviewed the patient's lab results. Labs: 08/25/24 02:05 Urine - Reflex from Ua Urine Culture - Pending Laboratory Tests Range/Units 08/25/24 02:05 Urine Color (Yellow) Yellow Urine Clarity (Clear) Sl Cloudy Urine pH (5-8) 7.0 Ur Specific [place] (1.005-1.025) 1.015 Urine Protein (Neg-Trace) mg/dL Trace Urine Ketones (Negative) mg/dL Negative Urine Blood (Negative) Moderate H Urine Nitrite (Negative) Negative Urine Bilirubin (Negative) Negative Urine Urobilinogen (Up to 0.2) mg/dL 0.2 Ur Leukocyte Esterase (Negative) Moderate H Urine RBC (0-2) HPF 5-10 H Urine WBC (0-5) HPF >50 H Ur Epithelial Cells (Negative) HPF Few Urine Crystals (Negative) HPF Negative Urine Bacteria (Negative) HPF Moderate Urine Casts (Negative) LPF Negative Urine Mucus (Negative) Negative Ur Culture Indicated? Yes Urine Glucose (Negative) mg/dL Negative Quality:SDOH Health Related Social Needs: No Data to Display PFSH All Active Problems (Updated 08/25/24 @ 02:31 by Chrissie Morris MD) UTI (urinary tract infection) (Acute) Surgical History ear tubes Tonsillectomy Social History Smoking/Tobacco Use Status: Current every day Tobacco Type: e-cigarettes Smoking risk assessment performed?: Yes Alcohol Intake: current Alcohol Intake frequency: a few times a week Alcohol type: beer Drug use: Never Substance use type: does not use Housing: apartment Do you feel safe at home: Yes Do you feel safe in your relationship?: Yes
[2024-08-25 02:02] VITALS: PULSE 82
[2024-08-25 02:08] VITALS: BP 133/72; PULSE 86; RESP 20; TEMP 37.1; O2SAT 99
[2024-08-25 02:21] LABS: Bilirubin Negative (Negative); Blood Moderate (Negative); Clarity Sl Cloudy (Clear); Glucose Negative (Negative); Ketones Negative (Negative); Leukocyte Esterase Moderate (Negative); Nitrite Negative (Negative); Specific Gravity 1.015 (1.005-1.025); Urobilinogen 0.2 mg/dL (Up to 0.2)
[2024-08-25 02:25] LABS: Bacteria Moderate HPF (Negative); C & S Indicated? Yes; Casts Negative LPF (Negative); Crystals Negative HPF (Negative); Epithelial Cells Few HPF (Negative); Mucus Negative (Negative); WBC >50 HPF (0-5)
[2024-08-25] MEDS: Cephalexin 250 MG CAP PO (02:45)
[2024-08-25] MEDS: Cephalexin 250 MG CAP 1000 MG PO (02:58)
[2024-08-25 03:00] VITALS: BP 118/74; PULSE 78; RESP 16
== END 2024-08-25 02:58 | disposition home or self-care (01) ==
PROVIDERS: Emergency Provider Student in an Organized Health Care Education/Training Program
DX: R30.0 Dysuria (principal); M54.50 Low back pain, unspecified; N39.0 Urinary tract infection, site not specified; R35.0 Frequency of micturition; F17.290 Nicotine dependence, other tobacco product, uncomplicated
CPT/HCPCS: 81025; 99283; 81003; 81015; 87086

== ENCOUNTER 2024-10-22 08:49 | Emergency (ER) | payer SELFPAY ==
[2024-10-22 08:55] VITALS: BP 128/85; PULSE 96; RESP 18; TEMP 36.6; O2SAT 99
--- OUTSIDE RECORDS SUMMARY | 2024-10-22 08:57 | XMS_ITS | Encounter Summary ---
Author Organization [facility] [place] [address] Care Team Providers Care Monitoring And Evaluation Advisor Name Role Phone Dillon Alvarez MD Primary Care Provider [phone] Encounter Details Date Type Department Care Team (Late st Contact Info) Description 07/09/2019 Ancillary Procedure Radiology Library at [facility] [place] [phone] Dillon Alvarez MD [address] [place] [phone] Social History Tobacco Use Types Packs/Day Years [...] Ultrasound Study (07/09/2019 12:00 AM EDT) Narrative [facility] - 07/27/2019 11:22 PM EDT This exam is auto-finalizing. It's purpose is for storage only. Dillon Alvarez MD IMG FILM LIBRARY ORD ERABLES [facility] [place], [place] documented in this encounter Visit Diagnoses Not on filedocumented in this encounter Care Teams Monitoring And Evaluation Advisor Relationship Specialty Start Date End Date Dillon Alvarez MD [address] [place] [phone] PCP - General Family Medicine 11/09/16 05/25/23 documented as of this encounter
--- OUTSIDE RECORDS SUMMARY | 2024-10-22 08:57 | XMS_ITS | Encounter Summary ---
Author Organization [facility] Address [facility] [place] [address] Care Team Providers Care Web Pressman Name Role Phone Naun Alvarez MD Primary Care Provider [phone] Encounter Details Date Type Department Care Team (Latest Contact Info) Description 12/23/2019 2:00 PM EDT [place] [address] Naun Gray MD [facility] [place] [address] Encounter for removal of ureteral stent; Obstruction [...] and cola. You do not need to [id number] ounces of water today. Urination: You will likely have a small amount of blood in your urine for the next several days. This is normal; however, if you are passing large amounts of blood clots or are unable to void please call our office at before 5PM or [phone] after hours. Please call if: * you have copious blood in your urine * fevers greater than 101.3 F * you are unable to void The number for questions is before 5 PM weekdays and [phone] after 5 PM and weekends. Follow-up: Follow up in [address] Gray with a renal ultrasound documented in this encounter Progress Notes * Naun Gray MD - 12/23/2019 2:00 PM EDT PEDIATRIC UROLOGY PROCEDURE NOTE Won Morales Date 12/23/2019 Surgeon: Naun Gray MD, Attending Terrazzo Tile Setter: Leydi Moya RN Anesthesia: Topical Lidocaine jelly [...] 12:07 pm) PATIENT INFO: ID #: ? [id number] ?: ??[birth year] (20 yrs)(F) Name: ? WON Loli ? Visit Date: 09/02/2020 10:57 am ? GOEHRING PERFORMED BY: Performed By: ? Adeola Kennedy RDMS Attending: ?Tamela Hamlin MD Referred By: ?NAUN GRAY Location: ? [facility] SERVICE(S) PROVIDED: ??URETRO - Retroperitoneal Complete - [id number] ? [id number] INDICATIONS: ?? hydronephrosis, removal of ureteral stent, [...] 09/02/2020 12:07 pm) PATIENT INFO: ID #: [id number] : [birth year] (20 yrs)(F) Name: WON Ennis Visit Date: 09/02/2020 10:57 am GOEHRING PERFORMED BY: Performed By: Adeola Kennedy RDMS Attending: Tamela Hamlin MD Referred By: NAUN GRAY Location: [facility] SERVICE(S) PROVIDED: URETRO - Retroperitoneal Complete - [id number] INDICATIONS: hydronephrosis, removal of ureteral stent, obstruction [...] Culture No growth (Less than 1,000 cfu/ml). [facility] Urine specimen obtained by clean catch procedure (specimen) 12/23/2019 2:00 PM EDT 12/23/2019 4:14 PM EDT Narrative Resulting Agency Comment Spec In Lab Naun Gray MD MICROBIOLOGY - GENER AL ORDERABLES Performing Organization Address City/State/[facility] Co de Phone Number [facility] [place] [address] documented in this encounter Visit Diagnoses Diagnosis Encounter for removal of ureteral stent Obstruction of right ureteropelvic junction (UPJ) Encounter for removal of ureteral stent Obstruction of right ureteropelvic junction (UPJ) documented in this encounter Care Teams Web Pressman Relationship Specialty Start Date End Date Naun Alvarez MD [address] [place] [phone] PCP - General Family Medicine 11/09/16 05/25/23 documented as of this encounter
--- OUTSIDE RECORDS SUMMARY | 2024-10-22 08:57 | XMS_ITS | Encounter Summary ---
Author Organization [facility] Address [address] [place] [id number] Care Team Providers Care Lathmaker Name Role Phone Sampson Yang MD Primary Care Provider Willy allen Encounter Details Date Type Department Care Team (Late st Contact Info) Description 09/09/2022 Lab Requisition [facility] Pathology & Laboratory Medicine - [address] [address] Outr Resulting Lab, Provider Social History Tobacco [...] MICROBIOLOGY - GENER AL ORDERABLES Final Result [facility] [address] [place] [address] * COVID-19 TESTING (09/08/2022 10:15 EST) COVID-19 rt-PCR Result Negative Negative 09/10/2022 11:19 EST [facility] Comment: This test [...] performed using the meir SARS-CoV-2 assay ([employer] on the Meir 6800 System Performing Lab Meir [address] [facility] Lab 09/10/2022 11:19 EST [facility] Swab 09/08/2022 10:1 5 EST 09/09/2022 19:54 EST us Provider Outr Resulting Lab MICROBIOLOGY - GENER AL ORDERABLES Final Result [facility] [address] [place] [address] documented in this encounter Visit Diagnoses Not on filedocumented in this encounter Care Teams Lathmaker Relationship Specialty Start Date End Date Sampson Yang MD PCP - General 08/06/15 documented as of this encounter
--- OUTSIDE RECORDS SUMMARY | 2024-10-22 08:57 | XMS_ITS | Encounter Summary ---
Author Organization [facility] Address [facility] [address] Care Team Providers Care Stores Clerk Name Role Phone Dillon Alvarez MD Primary Care Provider [phone] Reason for Visit * Reason Comments Acne Follow up Encounter Details Date Type Department Care Team (Late st Contact Info) Description 05/16/2017 1:15 PM EDT Office Visit Dermatology at [facility] [address] [place] [address] Barber Villanueva MD [facility] [address] [facility] [address] Acne vulgaris Social History Tobacco Use Types [...] Neutrogena Clear Pore Cleanser/Mask 3.5% (available on Kamida). Benzoyl peroxide reduces bacteria and also prevents [...] mouth 2 times daily. I Naderdgmatt # [id number] (Patient not taking: Reported on 05/16/2017) 62 [...] by Barber Villanueva MD Resident in Dermatology [facility] Patient seen in conjunction with staff electrical instrument repairer: Cedric Monk MD Section of Dermatology [facility] * Cedric Monk MD - 05/16/2017 1:15 [...] acne documented in this encounter Care Teams Stores Clerk Relationship Specialty Start Date End Date Dillon Alvarez MD [address] [place] [phone] PCP - General Family Medicine 11/09/16 05/25/23 documented as of this encounter
--- OUTSIDE RECORDS SUMMARY | 2024-10-22 08:57 | XMS_ITS | Encounter Summary ---
Author Organization Formerly [facility] [place] [address] Care Team Providers Care Bending Machine Operator Name Role Phone Naun Alvarez MD Primary Care Provider [phone] Reason for Visit * Auth/Cert Specialty Diagnoses [...] Expiration Date Visits Re quested Visits Authorized [id number] 1 1 Encounter Details Date Type Department Care Team (Late st Contact Info) Description 10/22/2019 11:58 AM EST - 10/22/2019 7:56 PM EST [place] [address] Naun Gray MD [facility] [place] [address] ROBOTIC ASSIST PYELOPLASTY (WRVU 23.37) Social History [...] 10/22/2019 10: 54 AM EST Growth Chart: [facility] (Girls, 2- 20 Years) documented in this [...] and left-sided flank pain.?A recent CT scan ??[facility] revealed a dilated right renal pelvis, [...] with right robotic dismembered pyeloplasty. Hospital Course: Riasa Morales was admitted to [facility] on 10/22/2019 through the Same Day Surgery [...] that part of your care. Urology Clinic: [phone] PCP: Naun Alvarez MD, . Please follow-up [...] your appointment, please call pediatric urology in [place] at or in [place] at from 8:00am to 5:00pm Monday through Monday. On the weekends or after 5:00pm, you should call [facility] at and ask to speak to the Urology Resident director of investigations FOLLOW-UP APPOINTMENT A follow up appointment has [...] managed by the Urologic Surgery Team at [facility]. If you have any questions or concerns, please feel free to contact us. Provider Contact Information: Urology Clinic: [phone] [facility] (after business hours): CC: Naun Alvarez MD Signed: JAYILN DAVIS 10/24/2019 Urology Attending: I saw and [...] your appointment, please call pediatric urology in [place] at or in [place] at from 8:00am to 5:00pm Monday through Monday. On the weekends or after 5:00pm, you should call [facility] at and ask to speak to the Urology Resident director of investigations FOLLOW-UP APPOINTMENT A follow up appointment has [...] floor status, will discuss discharge planning with health care specialist. Code status: Full code JAYLIN Moser Urology [...] left-sided flank pain. A recent CT scan [facility] revealed a dilated right renal pelvis, [...] care provider on file: Naun Alvarez MD [phone] Medical Decision Maker: Mother Code Status: Full Code Patient???s Functional Status: Stable Living Situation: Per chart review, patient lives at home with her mother and step-father and siblings [address] [place] [address] Supports: Patient is supported by her mother [...] home via private vehicle when medically ready. custom van converter/Rigging Foreman will continue to follow patient???s progress and remain available if situation changes for coordination of care, psychosocial support and/or discharge planning. NICHOLAS Zaidi Pager [phone] Extension [phone] * Plan of Care - [place] [...] Gray MD - 10/22/2019 8:01 PM EST [facility] Operative Note Patient Name: Raisa Morales : [id number] MR#: [id number] Case Date: 10/22/2019 Surgeon: Surgeon(s) and Role: [...] Time SPECIMEN TO PATHOLOGY OR 11 ; 0-3111 Right UPJO. Right UPJ excision No 10/22/2019 [...] the Abd/pelvi after she present to the [facility] ED for abdominal pain. She then [...] rightorifice was cannulated with a 5 Fr. Cadillac catheter. Omnipaque contrast was instilled and the retro grade pyelogram performed. The ureter was normal until the UPJ where the ureter appeared stenotic with a high insertion. There was severe hydronephrosis beyond this point. The Cadillac was advanced and the ureter was measured at 26 cm to the level of obstruction. The 5 Fr Cadillac was left in place and attached to [...] appeared healthy. The ureter was spatulated using [place] robotic scissors laterally. This tissue also appeared [...] Operative Note Patient Name: Raisa Morales : [id number] MR#: [id number] Case Date: 10/22/2019 Surgeon: Surgeon(s) and Role: [...] junction (UPJ) obstruction Cystoscopy, Remv Calculus, Simple (40732) Yes 10/22/2019 1:28 PM EST Hydronephrosis with ureteropelvic junction (UPJ) obstruction Cystourethroscopy, Ureter Catheter ([id number]) Yes 10/22/2019 1:28 PM EST Hydronephrosis with ureteropelvic junction (UPJ) obstruction Lap, Pyeloplasty ([id number]) Yes 10/22/2019 1:28 PM EST Hydronephrosis with ureteropelvic junction (UPJ) obstruction documented in this encounter Results * (ABNORMAL) Differential, Automated (10/23/2019 1:48 AM EST) Neutrophil % 79.6 % [facility] Neutrophil Absolute 10.02(H) 1.50 - 8.00 x10(3)/[facility] Lymph % 13.6 % [facility] Lymphocytes Abs 1.7 1.2 - 5.2 x10(3)/[facility] Monocyte % 6.4 % [facility] Monocyte Abs 0.8 0.2 - 1.0 x10(3)/[facility] Eos % 0.0 % [facility] Eosinophils Abs 0.0 0.0 - 0.4 x10(3)/[facility] Basophil % 0.2 % [facility] Baso Absolute 0.0 0.0 - 0.1 x10(3)/[facility] Immature Gran % 0.20 % [facility] Comment: Immature granulocytes(IG's)percentage and absolute count will include metamyelocytes, myelocytes, and promyelocytes. Blood smears from CBCs yielding IG's will be scanned manually for concordance. If this scan disagrees with the automated IG or if promyelocytes are noted, a manual differential will be performed. Immature Gran Absolute 0.03 0.00 - 0.04 x10(3)/[facility] Blood specimen (specimen) 10/23/2019 1:48 AM EST 10/23/2019 1:56 AM EST Narrative Resulting Agency Comment Spec In Lab Wenceslao Caballero MD HEMATOLOGY ORDERABLE S [facility] [place] [address] * (ABNORMAL) Hemogram (10/23/2019 1:48 AM EST) White Blood Cell 12.6 4.5 - 13.0 x10(3)/[facility] Red Blood Cell 4.51 4.10 - 5.10 x10(6)/[facility] Hemoglobin 12.9 12.0 - 16.0 gm/dL [facility] Hematocrit 39.5 36.0 - 46.0 % [facility] Mean Cell Volume 87.6 76.0 - 98.0 fL [facility] Mean Cell Hemoglobin 28.6 25.0 - 35.0 pg [facility] Mean Cell Hemoglobin Concentration 32.7 32.0 - 36.5 gm/dL [facility] Platelet 389(H) 145 - 370 x10(3)/mc L [facility] RDW Standard Deviation 38.9 37.0 - 46.0 fL [facility] RDW coefficient of variation 12.1 0.0 - 14.5 % [facility] Mean Platelet Volume 8.9 7.6 - 12.9 [facility] NRBC% auto 0.0 % [facility] NRBC Absolute 0.000 0.000 - 0.000 x10(3)/mc L [facility] Blood specimen (specimen) 10/23/2019 1:48 AM EST 10/23/2019 1:56 AM EST Narrative Resulting Agency Comment Spec In Lab Wenceslao Caballero MD HEMATOLOGY ORDERABLE S [facility] [place] [phone] * (ABNORMAL) BMP w/fasting Glucose (10/23/2019 1:48 AM EST) Glucose Fasting 124(H) 65 - 99 mg/dL [facility] Comment: ?Fasting* Glucose [...] of Diabetes Mellitus, Position Statement from the [place] [employer]. ??Diabetes Care, Volume 33, Supplement 1, Sep 2009 Blood Urea Nitrogen 8(L) 10 - 20 mg/dL [facility] Creatinine 0.72 0.50 - 0.89 mg/dL [facility] Sodium 142 135 - 145 mmol/L [facility] Potassium 3.8 3.5 - 5.0 mmol/L [facility] Comment: Please note: ??Patients with WBC >100,000 may have falsely elevated Potassium levels. ??For accurate Potassium quantification in these patients send serum separator tube (gold top) for subsequent determinations. ??Contact the Clinical Chemistry Laboratory if there are any questions. Chloride 106 98 - 107 mmol/L [facility] Carbon Dioxide 24 22 - 31 mmol/L [facility] Anion Gap 12 5 - 15 mmol/L [facility] Calcium 8.9 8.5 - 10.5 mg/dL [facility] Est Glomerular Filtration Rate See note >=60 mL/min/1. 73 m?? [facility] Comment: The eGFR [...] of body mass or the acutely ill. [email or web address] eGFR See note >=60 mL/min/1. 73 m?? [facility] Comment: The eGFR [...] of body mass or the acutely ill. [email or web address] Blood specimen (specimen) 10/23/2019 1:48 AM EST 10/23/2019 1:56 AM EST Narrative Resulting Agency Comment Spec In Lab Naun Gray MD CHEMISTRY ORDERABLES [facility] [place] [address] * XR Abdomen 1 view (Generic) (10/22/2019 [...] Report (10/22/2019 4:24 PM EST) Final Diagnosis [id number] ? Location: 2WST; P212; A The signing pathologist has (i) examined the relevant preparation(s) for the specimen(s) and (ii) rendered or confirmed the diagnosis(es). . ?Surgical Pathology DIAGNOSIS A - Right uretero-pelvic junction, excision: ?Benign urothelial mucosa with prominent fibromuscular tissue. Electronically signed by: ??Chrissy MARTINS, Roe Ennis Verified: ??10/29/2019 ?Pathologist Performed at: ??-[facility] Dept. of Pathology, [place], [place] CLINICAL INFORMATION Specimen Submitted: A - Right ureter Clinical History and Diagnosis: Right UPJO SPECIMEN PROCESSING A - Labeled/Fixative: Right UPJ, fresh. Quantity/Size: Single, 1 x 0.7 x 0.3 cm, 1 g. Tissue Description: [place] soft tissue with a transparent stitch on one side. Sections/Processi ng: Entirely submitted in 1 cassettes as follows: ?A1: ??Stitch side is submitted en face ??aemr 10/29/2019 3:01 PM EST [facility] URETERIC STRUCTURE / Unknown 10/22/2019 4:24 PM EST 10/22/2019 4:24 PM EST Naun Gray MD PATHOLOGY/CYTOLOGY O BRENDAN Performing Organization Address [facility] de Phone Number [facility] [place] [address] * Specimen to Pathology (10/22/2019 4:24 PM EST) AP Specimen 10/22/2019 4:24 PM EST 10/22/2019 4:24 PM EST Narrative [facility] - 10/22/2019 4:24 PM EST Specimen requisition ordered. ??Separate Pathology report to follow Naun Gray MD PATHOLOGY/CYTOLOGY O BRENDAN Performing Organization Address [facility] [[email or web address]] Co de Phone Number [facility] [place] [address] * XR Fluoro No Rad <1Hr - OR Use (10/22/2019 2:20 PM EST) Narrative RAD - 10/22/2019 3:21 PM EST This exam is auto-finalizing. No interpretation was done. Naun Gray MD IMG FLUORO ORDERABLE S Performing Organization Address [facility] [[email or web address]] Co de Phone Number [place], [place] * Urine culture Urine (10/22/2019 2:12 PM EST) Urine Culture No growth (Less than 1,000 cfu/ml). [facility] Urine specimen (specimen) 10/22/2019 2:12 PM EST 10/22/2019 3:57 PM EST Comment:BLADDER URINE Narrative Resulting Agency Comment Spec In Lab Naun Gray MD MICROBIOLOGY - GENER AL ORDERABLES [facility] [place] [address] documented in this encounter Visit Diagnoses Diagnosis [...] 5% 100 mL (COMPLETED) 2 g, Intravenous, LEAD RET[employer] SALES ASSOCIATE TO [employer] 1 dose, On Mon10/22/19 at [...] Routine documented in this encounter Care Teams Bending Machine Operator Relationship Specialty Start Date End Date Naun Alvarez MD [address] [place] [address] [phone] PCP - General Family Medicine 11/09/16 05/25/23 documented as of this encounter
--- OUTSIDE RECORDS SUMMARY | 2024-10-22 08:57 | XMS_ITS | Encounter Summary ---
Author Organization [facility] [place] [address] Care Team Providers Care Licensed Prosthetist/Orthotist Name Role Phone Naun Alvarez MD Primary Care Provider [phone] Reason for Visit * Auth/Cert Specialty Diagnoses [...] Expiration Date Visits Re quested Visits Authorized [id number] 1 1 Encounter Details Date Type Department Care Team (Latest Contact Info) Description 10/22/2019 10:21 AM EST - 10/24/2019 12:17 PM [facility] Hospital Encounter Pediatrics at [facility] [place] [address] Naun Gray MD [facility] [place] [address] Discharge Disposition: Home Social History Tobacco Use [...] 10/22/2019 10: 54 AM EST Growth Chart: [facility] (Girls, 2- 20 Years) documented in [...] and left-sided flank pain.?A recent CT scan ??[facility] revealed a dilated right renal pelvis, but [...] Hospital Course: Raisa Morales was admitted to [facility] on 10/22/2019 through the Same Day Surgery [...] that part of your care. Urology Clinic: [phone] PCP: Naun Alvarez MD, . Please follow-up [...] your appointment, please call pediatric urology in [place] at or in [place] at from 8:00am to 5:00pm Monday through Monday. On the weekends or after 5:00pm, you should call [facility] at and ask to speak to the Urology Resident out of town collection clerk FOLLOW-UP APPOINTMENT A follow up appointment has [...] contact us. Provider Contact Information: Urology Clinic: [phone] [facility] (after business hours): CC: Naun Alvarez MD [...] your appointment, please call pediatric urology in [place] at or in [place] at from 8:00am to 5:00pm Monday through Monday. On the weekends or after 5:00pm, you should call [facility] at and ask to speak to the Urology Resident out of town collection clerk FOLLOW-UP APPOINTMENT A follow up appointment has [...] floor status, will discuss discharge planning with group care worker. Code status: Full code JAYLIN Moser Urology [...] left-sided flank pain. A recent CT scan [facility] revealed a dilated right renal pelvis, but [...] care provider on file: Naun Alvarez MD [phone] Medical Decision Maker: Mother Code Status: Full Code Patient???s Functional Status: Stable Living Situation: Per chart review, patient lives at home with her mother and step-father and siblings [address] [place] [address] Supports: Patient is supported by her mother [...] home via private vehicle when medically ready. counter helper/Compressed Yeast Supervisor will continue to follow patient???s progress and remain available if situation changes for coordination of care, psychosocial support and/or discharge planning. NICHOLAS Zaidi Pager [phone] * Plan of Care - [place] [...] Gray MD - 10/22/2019 8:01 PM EST [facility] Operative Note Patient Name: Raisa Morales : [id number] MR#: [id number] Case Date: 10/22/2019 Surgeon: Surgeon(s) and Role: [...] the Abd/pelvi after she present to the [facility] ED for abdominal pain. She [...] rightorifice was cannulated with a 5 Fr. Lambert catheter. Omnipaque contrast was instilled and the retro grade pyelogram performed. The ureter was normal until the UPJ where the ureter appeared stenotic with a high insertion. There was severe hydronephrosis beyond this point. The Lambert was advanced and the ureter was measured at 26 cm to the level of obstruction. The 5 Fr Lambert was left in place and attached to [...] appeared healthy. The ureter was spatulated using [employer] robotic scissors laterally. This tissue also appeared [...] Operative Note Patient Name: Raisa Morales : [id number] MR#: [id number] Case Date: 10/22/2019 Surgeon: Surgeon(s) and Role: [...] Time SPECIMEN TO PATHOLOGY OR 11 ; 2-3111 Right UPJO. Right UPJ excision No 10/22/2019 [...] junction (UPJ) obstruction Cystoscopy, Remv Calculus, Simple (43517) Yes 10/22/2019 1:28 PM EST Hydronephrosis with ureteropelvic junction (UPJ) obstruction Cystourethroscopy, Ureter Catheter ([id number]) Yes 10/22/2019 1:28 PM EST Hydronephrosis with ureteropelvic junction (UPJ) obstruction Lap, Pyeloplasty (20470) Yes 10/22/2019 1:28 PM EST Hydronephrosis with ureteropelvic junction (UPJ) obstruction documented in this encounter Results * (ABNORMAL) Differential, Automated (10/23/2019 1:48 AM EST) Neutrophil % 79.6 % [facility] Neutrophil Absolute 10.02(H) 1.50 - 8.00 x10(3)/[facility] Lymph % 13.6 % [facility] Lymphocytes Abs 1.7 1.2 - 5.2 x10(3)/[facility] Monocyte % 6.4 % [facility] Monocyte Abs 0.8 0.2 - 1.0 x10(3)/[facility] Eos % 0.0 % [facility] Eosinophils Abs 0.0 0.0 - 0.4 x10(3)/[facility] Basophil % 0.2 % [facility] Baso Absolute 0.0 0.0 - 0.1 x10(3)/[facility] Immature Gran % 0.20 % [facility] Comment: Immature granulocytes(IG's)percentage and absolute count will include metamyelocytes, myelocytes, and promyelocytes. Blood smears from CBCs yielding IG's will be scanned manually for concordance. If this scan disagrees with the automated IG or if promyelocytes are noted, a manual differential will be performed. Immature Gran Absolute 0.03 0.00 - 0.04 x10(3)/[facility] Blood specimen (specimen) 10/23/2019 1:48 AM EST 10/23/2019 1:56 AM EST Narrative Resulting Agency Comment Spec In Lab Wenceslao Caballero MD HEMATOLOGY ORDERABLE S [facility] [place] [address] * (ABNORMAL) Hemogram (10/23/2019 1:48 AM EST) White Blood Cell 12.6 4.5 - 13.0 x10(3)/[facility] Red Blood Cell 4.51 4.10 - 5.10 x10(6)/[facility] Hemoglobin 12.9 12.0 - 16.0 gm/dL [facility] Hematocrit 39.5 36.0 - 46.0 % [facility] Mean Cell Volume 87.6 76.0 - 98.0 fL [facility] Mean Cell Hemoglobin 28.6 25.0 - 35.0 pg [facility] Mean Cell Hemoglobin Concentration 32.7 32.0 - 36.5 gm/dL [facility] Platelet 389(H) 145 - 370 x10(3)/mc L [facility] RDW Standard Deviation 38.9 37.0 - 46.0 fL [facility] RDW coefficient of variation 12.1 0.0 - 14.5 % [facility] Mean Platelet Volume 8.9 7.6 - 12.9 fL [facility] NRBC% auto 0.0 % [facility] NRBC Absolute 0.000 0.000 - 0.000 x10(3)/mc L [facility] Blood specimen (specimen) 10/23/2019 1:48 AM EST 10/23/2019 1:56 AM EST Narrative Resulting Agency Comment Spec In Lab Wenceslao Caballero MD HEMATOLOGY ORDERABLE S [facility] [place] [address] * (ABNORMAL) BMP w/fasting Glucose (10/23/2019 1:48 AM EST) Glucose Fasting 124(H) 65 - 99 mg/dL [facility] Comment: ?Fasting* Glucose Interpretive Criteria [...] of Diabetes Mellitus, Position Statement from the [place] [employer]. ??Diabetes Care, Volume 33, Supplement 1, Sep 2009 Blood Urea Nitrogen 8(L) 10 - 20 mg/dL [facility] Creatinine 0.72 0.50 - 0.89 mg/dL [facility] Sodium 142 135 - 145 mmol/L [facility] Potassium 3.8 3.5 - 5.0 mmol/L [facility] Comment: Please note: ??Patients with WBC >100,000 may have falsely elevated Potassium levels. ??For accurate Potassium quantification in these patients send serum separator tube (gold top) for subsequent determinations. ??Contact the Clinical Chemistry Laboratory if there are any questions. Chloride 106 98 - 107 mmol/L [facility] Carbon Dioxide 24 22 - 31 mmol/L [facility] Anion Gap 12 5 - 15 mmol/L [facility] Calcium 8.9 8.5 - 10.5 mg/dL [facility] Est Glomerular Filtration Rate See note >=60 mL/min/1. 73 m?? [facility] Comment: The eGFR for patients [...] of body mass or the acutely ill. http://Diurnal/[facility] eGFR See note >=60 mL/min/1. 73 m?? [facility] Comment: The eGFR for patients [...] of body mass or the acutely ill. http://Diurnal/[facility] Blood specimen (specimen) 10/23/2019 1:48 AM EST 10/23/2019 1:56 AM EST Narrative Resulting Agency Comment Spec In Lab Naun Gray MD CHEMISTRY ORDERABLES [facility] [place] [address] * XR Abdomen 1 view (Generic) (10/22/2019 [...] Report (10/22/2019 4:24 PM EST) Final Diagnosis [id number] ? Location: 2WST; P212; A The signing pathologist has (i) examined the relevant preparation(s) for the specimen(s) and (ii) rendered or confirmed the diagnosis(es). . ?Surgical Pathology DIAGNOSIS A - Right uretero-pelvic junction, excision: ?Benign urothelial mucosa with prominent fibromuscular tissue. Electronically signed by: ??Chrissy MARTINS, Roe Ennis Verified: ??10/29/2019 ?Pathologist Performed at: ??-[facility] Dept. of Pathology, [place], [place] CLINICAL INFORMATION Specimen Submitted: A - Right ureter Clinical History and Diagnosis: Right UPJO SPECIMEN PROCESSING A - Labeled/Fixative: Right UPJ, fresh. Quantity/Size: Single, 1 x 0.7 x 0.3 cm, 1 g. Tissue Description: [place] soft tissue with a transparent stitch on one side. Sections/Processi ng: Entirely submitted in 1 cassettes as follows: ?A1: ??Stitch side is submitted en face ??aemr 10/29/2019 3:01 PM EST [facility] URETERIC STRUCTURE / Unknown 10/22/2019 4:24 PM EST 10/22/2019 4:24 PM EST Naun Gray MD PATHOLOGY/CYTOLOGY O BRENDAN Performing Organization Address [facility] de Phone Number [facility] [place] [address] * Specimen to Pathology (10/22/2019 4:24 PM EST) AP Specimen 10/22/2019 4:24 PM EST 10/22/2019 4:24 PM EST Narrative [facility] - 10/22/2019 4:24 PM EST Specimen requisition ordered. ??Separate Pathology report to follow Naun Gray MD PATHOLOGY/CYTOLOGY O [place] Performing Organization Address [facility] Co de Phone Number [facility] [place] [address] * XR Fluoro No Rad <1Hr - OR Use (10/22/2019 2:20 PM EST) Narrative RAD - 10/22/2019 3:21 PM EST This exam is auto-finalizing. No interpretation was done. Naun Gray MD IMG FLUORO ORDERABLE S Performing Organization Address [facility] Co de Phone Number [facility] [place], [place] * Urine culture Urine (10/22/2019 2:12 PM EST) Urine Culture No growth (Less than 1,000 cfu/ml). [facility] Urine specimen (specimen) 10/22/2019 2:12 PM EST 10/22/2019 3:57 PM EST Comment:BLADDER URINE Narrative Resulting Agency Comment Spec In Lab Naun Gray MD MICROBIOLOGY - GENER AL ORDERABLES [facility] [place] [address] documented in this encounter Visit Diagnoses Diagnosis [...] 5% 100 mL (COMPLETED) 2 g, Intravenous, TRANSACTION COORDINATOR TO O.R., 1 dose, On Mon10/22/19 at [...] Routine documented in this encounter Care Teams Licensed Prosthetist/Orthotist Relationship Specialty Start Date End Date Naun Alvarez MD [address] [place] [phone] PCP - General Family Medicine 11/09/16 05/25/23 documented as of this encounter
--- OUTSIDE RECORDS SUMMARY | 2024-10-22 08:57 | XMS_ITS | Encounter Summary ---
Author Organization [facility] [place] [address] Care Team Providers Care Sugar Sampler Name Role Phone Dillon Alvarez MD Primary Care Provider [phone] Reason for Visit * Reason Comments Medication Refill Encounter Details Date Type Department Care Team (Late st Contact Info) Description 11/20/2019 Refill Pediatrics at [facility] [place] [address] Skylar Carrington PA [facility] [place] [address] Social History Tobacco Use Types Packs/Day Years [...] on filedocumented in this encounter Care Teams Sugar Sampler Relationship Specialty Start Date End Date Dillon Alvarez MD [address] [place] [phone] PCP - General Family Medicine 11/09/16 05/25/23 documented as of this encounter
--- OUTSIDE RECORDS SUMMARY | 2024-10-22 08:57 | XMS_ITS | Encounter Summary ---
Author Organization [facility] [place] [address] Care Team Providers Care Information Systems Operator Name Role Phone Dillon Alvarez MD Primary Care Provider [phone] Reason for Visit * Auth/Cert Specialty Diagnoses [...] Expiration Date Visits Re quested Visits Authorized [id number] 1 1 Encounter Details Date Type Department Care Team (Late st Contact Info) Description 10/22/2019 1:28 PM EST Anesthesia Event [place] [phone] Cordell Bueno MD Myers, Curtis A Jr., [facility] Anesthesia Record Procedure Summary Procedure Name Responsible [...] surgeon. 1455 Break/Relief Out 1800 Extubation/LMA Out 181 an stop data 181 Recovery or ICU [...] Dary Knott RN Incision 07/17/13; ear; LDA n ot present upon assessment; 10/22/19; 1526 07/17/13 0000 by Deepali Ramirez RN 10/22/19 1526 by Dary Knott RN Incision 07/17/13; other (see comments) (Oral/throat); LDA not present upon assessment; 10/22/19; 1526 07/17/13 0000 by Deepali Ramirez RN 10/22/19 1526 by Dary Knott RN (RETIRED) Peripheral IV Line - Single Lumen 10/22/19; 1113; metacarpal vein (top of hand), right; [id number] catheter system; 22 gauge; Meena RN; distraction, [...] 1800 10/22/19 1339 by Danielito Lemus Jr., GEOPHYSICIST 10/22/19 1800 by Danielito Lemus Jr., GEOPHYSICIST (RETIRED) Peripheral IV Line - Single Lumen 10/22/19; 1343; metacarpal vein (top of hand), left; [id number]-gvm-sptwwa catheter system; 18 gauge; 06/30/21 (LDA Cleanup utility RA#[id number]); 1649 (LDA Cleanup utility RA#[id number]) 10/22/19 1343 by Danielito Lemus Jr., GEOPHYSICIST 06/30/21 1650 by [place] Goncalves Urethral Catheter [...] 10/22/19 Room / Location: [facility] OR [address] [place] [address] MAIN OR Anesthesia Start: 1328 Anesthesia Stop: [...] MD; Carlos Robins MD; Angie Quinones MD GEOPHYSICIST: Danielito Lemus Jr., CRNA Vitals Value Taken Time BP 100/56 10/22/2019 8:00 PM Temp 37.5 ??C (99.5 ??F) 10/22/2019 7:00 PM Pulse 60 10/22/2019 8:00 PM Resp 16 10/22/2019 8:00 PM SpO2 97 % 10/22/2019 8:35 PM Pain Level 5 10/22/2019 7:15 PM Vitals shown include unvalidated device data. Patient Location: PACU/[facility] Level of Consciousness: Conscious but Sleepy Pain [...] BODY OR CALCULUS, SIMPLE (WRVU 2.81) MODIFIER ROBOT,DAVINCI XI Patient Active Problem List Diagnosis ??? [...] Sylvia Ramirez MD at [facility] MAIN OR ? ? PRO REMOVAL ADENOIDS, SECOND, <12 Y/O N/A 07/17/2013 ADENOIDECTOMY, SECONDARY, UNDER AGE 12 performed by Sylvia Ramirez MD at [facility] MAIN OR ??? PRO VENT TUBE REMVL REQ GEN ANESTHESIA 04/29/2013 MYRINGOTOMY, REMOVAL P. E. TUBE performed by Sylvia Ramirez MD at [facility] OSC Social History Tobacco Use ??? Smoking [...] issues, hepatitis, GERD, ELI, thyroid disease [facility] Other Informed Consent: Anesthetic plan and risks discussed with patient. Plan discussed with GEOPHYSICIST. PAT Clinic Note documented in this encounter Plan of Treatment Not on file documented as of this encounter Visit Diagnoses Not on filedocumented in this encounter Administered Medications Inactive Administered Medications - up to 3 most recent administrations Medication Order MAR Action Action Date Dose Rate Site ceFAZolin (ANCEF) 2g in dextrose 5% 100 mL 2 g, Intravenous, DEVELOPMENT MANAGER TO O.R., 1 dose, On Mon10/22/19 at [...] on Mon10/22/19 at 1348, Until Mon10/22/19 at 1812, Anesthesia Intra-op, Routine New Bag 10/22/2019 1:48 PM EST 30 mcg/kg/min 12.4 mL/hr rocuronium (ZEMURON) multi-dose injection PRN, Starting on Mon10/22/19 at 1339, Until Mon10/22/19 at 181, Anesthesia Intra-op, Routine Given 10/22/2019 4:45 PM EST 10 mg Given 10/22/2019 3:10 PM EST 20 mg Given 10/22/2019 1:39 PM EST 50 mg documented in this encounter Care Teams Information Systems Operator Relationship Specialty Start Date End Date Dillon Alvarez MD [address] [place] [phone] PCP - General Family Medicine 11/09/16 05/25/23 documented as of this encounter
--- OUTSIDE RECORDS SUMMARY | 2024-10-22 08:57 | XMS_ITS | Encounter Summary ---
Author Organization [facility] Radha [place] [address] Care Team Providers Care Executive Sous Chef Name Role Phone Dillon Alvarez MD Primary Care Provider [phone] Encounter Details Date Type Department Care Team (Late st Contact Info) Description 07/23/2019 Ancillary Procedure Radiology Library at [facility] [place] [phone] Dillon Alvarez MD [address] [place] [phone] Social History Tobacco Use Types Packs/Day Years [...] & Pelvis (07/23/2019 12:00 AM EDT) Narrative [facility] - 07/27/2019 11:20 PM EDT This exam is auto-finalizing. It's purpose is for storage only. Dillon Alvarez MD IMG FILM LIBRARY ORD ERABLES [facility] [place], [place] documented in this encounter Visit Diagnoses Not on filedocumented in this encounter Care Teams Executive Sous Chef Relationship Specialty Start Date End Date Dillon Alvarez MD [address] [place] [phone] PCP - General Family Medicine 11/09/16 05/25/23 documented as of this encounter
--- OUTSIDE RECORDS SUMMARY | 2024-10-22 08:57 | XMS_ITS | Encounter Summary ---
Author Organization [facility] [place] [address] Care Team Providers Care Ductfixing Plumber Name Role Phone Dillon Alvarez MD Primary Care Provider [phone] Reason for Referral * Diagnostic Test (Routine) - Closed Specialty Diagnoses / Procedures Referred By Contac t Referred To Contact Radiology Diagnoses Chronic abdominal pain Hydronephrosis with ureteropelvic junction (UPJ) obstruction Procedures NM Renal Scan Dillon Fernandez MD [facility] [place] [address] [place] [address] Referral ID Status Reason Start Date Expiration Date V isits Requested Visits Authorized [id number] Closed Specialty Service Requested 09/05/2019 09/04/2020 1 1 Reason for Visit * Diagnostic Test (Routine) - Closed Specialty Diagnoses / Procedures Referred By Contac t Referred To Contact Radiology Diagnoses Chronic abdominal pain Hydronephrosis with ureteropelvic junction (UPJ) obstruction Procedures NM Renal Scan Diuretic Dillon Gray MD [facility] [place] [address] [place] [phone] Referral ID Status Reason Start Date Expiration Date V isits Requested Visits Authorized [id number] Closed Specialty Service Requested 09/05/2019 09/04/2020 1 1 Encounter Details Date Type Department Care Team (Latest Contact Info) Description 10/04/2019 9:38 AM EST - 10/04/2019 11:59 PM EST Hospital Encounter [place] [address] Dillon Gray MD [facility] DR [place] [address] Chronic abdominal pain; Hydronephrosis with ureteropelvic junction [...] contact the number below. Dillon Gray MD [facility] [place] ORDERABLES documented in this encounter Visit [...] Arm documented in this encounter Care Teams Ductfixing Plumber Relationship Specialty Start Date End Date Dillon Alvarez MD [address] [place] [phone] PCP - General Family Medicine 11/09/16 05/25/23 documented as of this encounter
--- OUTSIDE RECORDS SUMMARY | 2024-10-22 08:57 | XMS_ITS | Encounter Summary ---
[place] [address] Care Team Providers Care Patent Chemist Name Role Phone Naun Alvarez MD Primary Care Provider [phone] Reason for Referral * Diagnostic Test (Routine) - Closed Specialty Diagnoses / Procedures Referred By Contac t Referred To Contact Radiology Diagnoses Chronic abdominal pain Hydronephrosis with ureteropelvic junction (UPJ) obstruction Procedures NM Renal Scan Diuretic Naun Gray MD [facility] [place] [address] [place] [address] Referral ID Status Reason Start Date Expiration Date V isits Requested Visits Authorized [id number] Closed Specialty Service Requested 09/05/2019 09/04/2020 1 1 Reason for Visit * Consultation (CICI) - Closed Specialty Diagnoses / Procedures Referred By Contac t Referred To Contact Pediatric Urology Diagnoses Unspecified abdominal pain GRADE 3 HYDRONEPHROSIS ON RIGHT, ASYMPTOMATIC Naun Alvarez MD [address] [place] [phone] [facility] Ped[facility] Urology [address] [place] [phone] Referral ID Status Reason Start Date Expiration Date V isits Requested Visits Authorized [id number] Closed Consult, Test & Treat [facility] PCP Updated and/or Approved 07/25/2019 07/24/2020 1 1 Encounter Details Date Type Department Care Team (Latest Contact Info) Description 09/05/2019 11:15 AM EST Office Visit Pediatric Urology at [facility] [place] [address] [facility] [place] [address] Chronic abdominal pain; Hydronephrosis with ureteropelvic junction [...] me with Raisa's (both films and report): [facility] CT of the ABD/Pelvis(08/05/19): Right grade IV hydronephrosis, no masses, or stones. Left kidney is normal. [facility] RBUS(07/09/19): Right grade IV hydronephrosis. Pertinent [...] contact the number below. Naun Gray MD [facility] [place] ORDERABLES documented in this encounter Visit Diagnoses Diagnosis Chronic abdominal pain Abdominal pain, unspecified site Hydronephrosis with ureteropelvic junction (UPJ) obstruction Chronic abdominal pain Abdominal pain, unspecified site Hydronephrosis with ureteropelvic junction (UPJ) obstruction documented in this encounter Care Teams Patent Chemist Relationship Specialty Start Date End Date Naun Alvarez MD [address] [place] [phone] PCP - General Family Medicine 11/09/16 05/25/23 documented as of this encounter
--- OUTSIDE RECORDS SUMMARY | 2024-10-22 08:57 | XMS_ITS | Clinical Summary ---
Author Organization [facility] Address [address] [place] [address] Care Team Providers Care Craft Center Director Name Role Phone Sampson Yang MD Primary [...] - 19+ 3-dose series) 07/16 COVID-19 Vaccine ( season) 2024 Care Teams Craft Center Director Relationship Specialty Start Date End Date Sampson Yang MD PCP - General 08/06/15
--- OUTSIDE RECORDS SUMMARY | 2024-10-22 08:57 | XMS_ITS | Encounter Summary ---
Author Organization [facility] [place] [address] Care Team Providers Care Statement Processor Name Role Phone Dillon Alvarez MD Primary Care Provider [phone] Reason for Visit * Reason Comments Acne Encounter Details Date Type Department Care Team (Late st Contact Info) Description 02/15/2017 9:00 AM EDT Office Visit Dermatology at [facility] [address] [place] [address] Barber Villanueva MD [facility] DR HAILEY [place] [address] High risk medication use; Acne vulgaris Social [...] mouth 2 times daily. I Pledge # [id number] (Patient not taking: Reported on 02/15/2017), Disp: [...] - Encouraged patient to use 's [place]i [place] and discussed the importance of sun protection, sunavoidance strategies, protective clothing, and sunscreen. - test done today - negative - I Pledge # [id number] - control method: Abstinence - Rx: Isotretinoin - 20 mg PO BID - Voicemail message left informing patient that her prescription has been sent to [facility]. She must answer the comprehension questions and tile picker the prescription within 7 days. RTC: 1 month, sooner if needed. Instructed to call if problems arise. Note initiated by Jaimee G Barrego, OYSTER CULTIVATOR. I am documenting this encounter acting as [...] by Barber Villanueva MD Resident in Dermatology [facility] Staff car barn laborer: Keyla Adams MD Section of Dermatology [facility] Level of Resident Supervision: Indirect Supervision [...] supervision with direct supervision immediately available. (definition: [facility] GME Policy Statement on Graduate Medical Education, [...] urine, qualitative (02/15/2017 9:43 AM EDT) Specific [place] Urine Non-automated 1.030 1.002 - 1.030 [facility] Human Chorionic Gonadotropin Qualitative, Urine Negative [facility] Comment: If Specific [place] is less than 1.010, a negative result is obtained, and is still suspected, a repeat on a first morning specimen is recommended. Urine specimen (specimen) 02/15/2017 9:43 AM EDT 02/15/2017 1:37 PM EDT Narrative Resulting Agency Comment Spec In Lab Keyla Adams MD URINE ORDERABLES Performing Organization Address City/State/[facility] Co de Phone Number [facility] [place] [address] documented in this encounter Visit Diagnoses Diagnosis High risk medication use Encounter for long-term (current) use of other medications Acne vulgaris Other acne documented in this encounter Care Teams Statement Processor Relationship Specialty Start Date End Date Dillon Alvarez MD [address] [place] [phone] PCP - General Family Medicine 11/09/16 05/25/23 documented as of this encounter
--- OUTSIDE RECORDS SUMMARY | 2024-10-22 08:57 | XMS_ITS | Encounter Summary ---
Author Organization [facility] Address [facility] [place] [address] Care Team Providers Care Pharmacy Informatics Specialist Name Role Phone Naun Alvarez MD Primary Care Provider [phone] Encounter Details Date Type Department Care Team (Latest Contact Info) Description 09/02/2020 10:46 AM EST - 09/02/2020 11:59 PM [facility] Hospital [place] [address] Naun Gray MD [facility] [place] [address] Encounter for removal of ureteral stent; Obstruction [...] 12:07 pm) PATIENT INFO: ID #: ? [id number] ?: ??[birth year] (20 yrs)(F) Name: ? WON Loli ? Visit Date: 09/02/2020 10:57 am ? GOEHRING PERFORMED BY: Performed By: ? Adeola Kennedy RDMS Attending: ?Tamela Hamlin MD Referred By: ?NAUN GRAY Location: ? [place] SERVICE(S) PROVIDED: ??URETRO - Retroperitoneal Complete - [id number] ? [id number] INDICATIONS: ?? hydronephrosis, removal of ureteral stent, [...] Comment: ?Partially distended, normal contour. Procedure Note Tamlea Hamlin MD - 09/02/2020 Renal (Signed Final 09/02/2020 12:07 pm) PATIENT INFO: ID #: [id number] : [birth year] (20 yrs)(F) Name: WON Ennis Visit Date: 09/02/2020 10:57 am GOEHRING PERFORMED BY: Performed By: Adeola Kennedy RDMS Attending: Tamela Hamlin MD Referred By: NAUN GRAY Location: [place] SERVICE(S) PROVIDED: URETRO - Retroperitoneal Complete - [id number] INDICATIONS: hydronephrosis, removal of ureteral stent, obstruction [...] Report 09/02/2020 12:07 pm Naun [facility] MD [facility] ORDERABLE S documented in this encounter Visit Diagnoses Diagnosis Encounter for removal of ureteral stent Obstruction of right ureteropelvic junction (UPJ) documented in this encounter Care Teams Pharmacy Informatics Specialist Relationship Specialty Start Date End Date Naun Alvarez MD [address] [place] [phone] PCP - General Family Medicine 11/09/16 05/25/23 documented as of this encounter
--- OUTSIDE RECORDS SUMMARY | 2024-10-22 08:57 | XMS_ITS | Encounter Summary ---
Author Organization [facility] Address [facility] [place] [address] Care Team Providers Care Safety Security Officer Name Role Phone Naun Alvarez MD Primary Care Provider [phone] Encounter Details Date Type Department Care Team (Late st Contact Info) Description 09/02/2020 1:00 PM EST Office [place] [address] Naun Gray MD [facility] [place] [address] UPJ (ureteropelvic junction) obstruction Social History Tobacco [...] 94.97% 09/02 11:38 AM EST Growth Chart: [facility] [...] obstruction documented in this encounter Care Teams Safety Security Officer Relationship Specialty Start Date End Date Naun Alvarez MD [address] [place] [phone] PCP - General Family Medicine 11/09/16 05/25/23 documented as of this encounter
--- OUTSIDE RECORDS SUMMARY | 2024-10-22 08:57 | XMS_ITS | Encounter Summary ---
Author Organization [facility] Address [facility] [place] [address] Care Team Providers Care Hogshead Stock Clerk Name Role Phone Naun Alvarez MD Primary Care Provider [phone] Encounter Details Date Type Department Care Team (Latest Contact Info) Description 10/04/2019 1:00 PM EST Office [place] [address] Naun Gray MD [facility] [place] [address] Hydronephrosis with ureteropelvic junction (UPJ) obstruction Social [...] 93.17% 10/04 12:46 PM EST Growth Chart: [facility] (Girls, 2- 20 Years) documented in this encounter Patient Instructions * Patient Instructions* Naun Gray MD - 10/04/2019 1:00 PM EST Schedule a robotic assisted right laparoscopic dismembered pyeloplasty. NAUN GRAY MD documented in this encounter Progress Notes * Naun Gray MD - 10/04/2019 1:00 PM EST PEDIATRIC [...] left-sided flank pain. A recent CT scan [facility] revealed a dilated right renal pelvis, [...] UA Latest Ref Range: Clear Clear Spec [facility] UA Latest Ref Range: 1.002 - 1.030 [...] LABORATORY Neutrophil Absolute 5.28 1.50 - 8.00 x10(3)/[facility] LABORATORY Lymph % 35.9 % [facility] Lymphocytes Abs 3.4 1.2 - 5.2 x10(3)/[facility] LABORATORY Monocyte % 6.7 % [facility] Monocyte Abs 0.6 0.2 - 1.0 x10(3)/[facility] LABORATORY Eos % 0.5 % [facility] Eosinophils Abs 0.0 0.0 - 0.4 x10(3)/[facility] LABORATORY Basophil % 0.7 % [facility] Baso Absolute 0.1 0.0 - 0.1 x10(3)/[facility] LABORATORY Immature Gran % 0.20 % [facility] Comment: Immature granulocytes(IG's)percentage and absolute count will include metamyelocytes, myelocytes, and promyelocytes. Blood smears from CBCs yielding IG's will be scanned manually for concordance. If this scan disagrees with the automated IG or if promyelocytes are noted, a manual differential will be performed. Immature Gran Absolute 0.02 0.00 - 0.04 x10(3)/[facility] Blood specimen (specimen) 10/04/2019 1:34 PM EST 10/04/2019 1:41 PM EST Narrative Resulting Agency Comment Spec In Lab Naun Gray MD HEMATOLOGY ORDERABLE S [facility] [place] [address] * (ABNORMAL) Hemogram (10/04/2019 1:34 PM EST) White Blood Cell 9.4 4.5 - 13.0 x10(3)/mc L [facility] Red Blood Cell 4.99 4.10 - 5.10 x10(6)/mc L [facility] Hemoglobin 14.1 12.0 - 16.0 gm/dL [facility] Hematocrit 44.2 36.0 - 46.0 % [facility] Mean Cell Volume 88.6 76.0 - 98.0 fL [facility] Mean Cell Hemoglobin 28.3 25.0 - 35.0 pg [facility] Mean Cell Hemoglobin Concentration 31.9(L) 32.0 - 36.5 gm/dL [facility] Platelet 489(H) 145 - 370 x10(3)/mc L [facility] RDW Standard Deviation 39.8 37.0 - 46.0 fL [facility] RDW coefficient of variation 12.3 0.0 - 14.5 % [facility] Mean Platelet Volume 8.7 7.6 - 12.9 fL [facility] NRBC% auto 0.0 % [facility] NRBC Absolute 0.000 0.000 - 0.000 x10(3)/mc L [facility] Blood specimen (specimen) 10/04/2019 1:34 PM EST 10/04/2019 1:41 PM EST Narrative Resulting Agency Comment Spec In Lab Naun Gray MD HEMATOLOGY ORDERABLE S Performing Organization Address City/State/[facility] Co de Phone Number [facility] [place] [address] * Basic Metabolic Panel (non-fasting) (10/04/2019 1:34 PM EST) Glucose 94 65 - 199 mg/dL [facility] Comment:Diabetes: >=200 mg/d L plus symptoms Blood Urea Nitrogen 12 10 - 20 mg/dL [facility] Creatinine 0.87 0.50 - 0.89 mg/dL [facility] Sodium 142 135 - 145 mmol/L [facility] Potassium 3.7 3.5 - 5.0 mmol/L [facility] Comment: Please note: ??Patients with WBC >100,000 may have falsely elevated Potassium levels. ??For accurate Potassium quantification in these patients send serum separator tube (gold top) for subsequent determinations. ??Contact the Clinical Chemistry Laboratory if there are any questions. Chloride 100 98 - 107 mmol/L [facility] Carbon Dioxide 29 22 - 31 mmol/L [facility] Anion Gap 13 5 - 15 mmol/L [facility] Calcium 9.5 8.5 - 10.5 mg/dL [facility] Est Glomerular Filtration Rate See note >=60 mL/min/1. 73 m?? [facility] Comment: The eGFR for [...] of body mass or the acutely ill. http://Meetingmix.com/[facility] eGFR See note >=60 mL/min/1. 73 m?? [facility] Comment: The eGFR for [...] of body mass or the acutely ill. http://Meetingmix.com/[facility] Blood specimen (specimen) 10/04/2019 1:34 PM EST 10/04/2019 1:41 PM EST Narrative Resulting Agency Comment Spec In Lab Naun Gray MD CHEMISTRY ORDERABLES [facility] [place] [address] * Urinalysis with reflex Culture (10/04/2019 1:10 PM EST) Glucose, Urine Dipstick Negative Negative mg/dL [facility] Protein, Urine Dipstick Negative Negative mg/dL [facility] Bilirubin, Urine Dipstick Negative Negative mg/dL [facility] Comment: Clinical correlation required for positive Urine Bilirubin results as false positive may occur with some drugs and drug related products. If a false positive is suspected a serum total bilirubin should be considered if clinically indicated. Urobilinogen, Urine Dipstick Normal Normal mg/dL [facility] pH, Urn (dipstick) 7.0 5.0 - 8.0 [facility] Blood, Urine Dipstick Negative Negative mg/dL [facility] Ketone, Urine Dipstick Negative Negative mg/dL [facility] Nitrite, Urine Dipstick Negative Negative [facility] Leukocytes, Urine Dipstick Negative Negative [facility] Appearance, Urine Dipstick Clear Clear [facility] Specific [facility] Urine Automated 1.008 1.002 - 1.030 [facility] Color, Urine Dipstick Yellow Yellow [facility] Reflex to Culture No [facility] Urine specimen (specimen) 10/04/2019 1:10 PM EST 10/04/2019 1:21 PM EST Narrative Resulting Agency Comment Spec In Lab Naun Gray MD URINE ORDERABLES Performing Organization Address City/State/[facility] Co de Phone Number [facility] [place] [phone] * (ABNORMAL) POCT urine dipstick (10/04/2019 1:12 AM EST) POC Sp [facility] 1.000(A) 1.002 - 1.030 POC pH, UA [...] obstruction documented in this encounter Care Teams Hogshead Stock Clerk Relationship Specialty Start Date End Date Naun Alvarez MD [address] [place] [phone] PCP - General Family Medicine 11/09/16 05/25/23 documented as of this encounter
--- OUTSIDE RECORDS SUMMARY | 2024-10-22 08:57 | XMS_ITS | Referral Summary ---
Author Organization [facility] Address [address] [place] [address] Care Team Providers Care Button Clamper Name Role Phone Sampson Yang MD Primary Care Provider Willy allen Social History Tobacco Use Types Packs/Day Years Used Date Smoking Tobacco: Never Assessed Comments Unknown Sex and Gender Information Value Date Recorded Sex Assigned at Not on file Legal Sex Female 18:34 EST Gender Identity Not on file Sexual Orientation Not on file Plan of Treatment Not on file Care Teams Button Clamper Relationship Specialty Start Date End Date Sampson Yang MD PCP - General 08/06/15
--- OUTSIDE RECORDS SUMMARY | 2024-10-22 08:57 | XMS_ITS | Encounter Summary ---
Author Organization [facility] Address [facility] [place] [address] Care Team Providers Care Director Learning And Development Name Role Phone Dillon Alvarez MD Primary Care Provider [phone] Encounter Details Date Type Department Care Team (Late st Contact Info) Description 07/29/2019 Orders Only [place] [address] Dillon Gray MD [facility] DR [place] [address] Chronic abdominal pain; Generalized abdominal pain Social [...] generalized documented in this encounter Care Teams Director Learning And Development Relationship Specialty Start Date End Date Dillon Alvarez MD [address] [place] [phone] PCP - General Family Medicine 11/09/16 05/25/23 documented as of this encounter
--- OUTSIDE RECORDS SUMMARY | 2024-10-22 08:57 | XMS_ITS | Encounter Summary ---
Author Organization [facility] Address [facility] [place] [address] Care Team Providers Care Mobile Engineer Name Role Phone Dillon Alvarez MD Primary Care Provider [phone] Encounter Details Date Type Department Care Team (Late st Contact Info) Description 09/02/2022 Orders [place] [address] Dillon Gray MD [facility] [place] [address] UPJ (ureteropelvic junction) obstruction Social History Tobacco [...] obstruction documented in this encounter Care Teams Mobile Engineer Relationship Specialty Start Date End Date Dillon Alvarez MD [address] [place] [phone] PCP - General Family Medicine 11/09/16 05/25/23 documented as of this encounter
--- OUTSIDE RECORDS SUMMARY | 2024-10-22 08:57 | XMS_ITS | Clinical Summary ---
Author Organization [facility] [place] [address] Care Team Providers Care Biodiesel Processing Technician Name Role Phone Unknown Primary Care Provider [...] Discontinued 01/11/2017 Medical Devices Implanted Type Area Chef Manager Device Identifier Shelf Expiration Date Model / Serial / Lot Tube,Vent,T,U ltrasil,Modif ied ([id number]) - [id number] Implanted:Qty : 2 on 07/17/2013 by Lazara Mcleod MD at [facility] IMPLANTS N/A: Ear DO NOT USE [employer] Allie - Surgical Pro - [id number] 03/17/2023 [id number] / / [id number] Explanted Type Area Chef Manager Device Identifier Shelf Expiration Date Model / Serial / Lot Stent,Contour ,[id number] ([id number]) - [id number] Implanted:Qty : 1 on 10/22/2019 by Dillon Gray MD at [facility] Explanted:Qty : 1 on 12/23/2019 by Dillon Gray MD IMPLANTS Right: Ureter Peter Blueberry - Realie 04/10/2022 [id number] / / [id number] Procedures Procedure Name Priority Date/Time Associated Diagnosis Comments LIPID PANEL (REFLEX DIRECT LDL) Routine 01/11/2017 9:47 AM EDT High risk medication use from Last 3 Months or Most Recently Relevant to Health Maintenance Results * (ABNORMAL) Lipid Panel (01/11/2017 9:47 AM EDT) Cholesterol, Total 251(H) <=239 mg/dL [facility] Triglyceride 173 <=199 mg/dL [facility] HDL Cholesterol 59 >=40 mg/dL [facility] LDL Cholesterol 157 <=190 mg/dL [facility] Cholesterol/HDL Ratio 4.3 ratio [facility] Lipid Interpretation See Note [facility] Comment: Lipid management should be guided by a patient? s ASCVD risk, goals and preferences. ACC/AHA Guidelines recommend high intensity statin if clinical ASCVD or LDL greater than or equal to 190 mg/dL. http://circ.ahajournals.org/content/early/.cir.0363505966.91256.7a Adults aged 40-75 with LDL 70-189 mg/dL should have their 10 year ASCVD risk estimated with the ACC/AHA ASCVD risk flight test shop mechanic http://tools.acc.org/ZLLWO-Snzj-Otbzuamuc/ Statin should be discussed if risk greater [...] In Lab Maryanne Leo MD CHEMISTRY ORDERABLES [facility] [place] [address] from Last 3 Months or Most Recently Relevant to Health Maintenance Advance Directives * Full Code (Latest Code Status on File) Date Activated Date Inactivated Comments 10/22/2019 5:58 PM 10/24/2019 2:17 PM Question Answer Comments Does patient have capacity to make decision: No Code Status decision being made per: Parents wis hes Care Teams Biodiesel Processing Technician Relationship Specialty Start Date End Date Unknown None PCP - General 05/26/23
--- OUTSIDE RECORDS SUMMARY | 2024-10-22 08:58 | XMS_ITS | Encounter Summary ---
Author Organization [facility] [place] [address] Care Team Providers Care Cash Accountant Name Role Phone Sampson Yang MD Primary Care Provider Encounter Details Date Type Department Care Team (Late st Contact Info) Description 06/17/2013 External Results Otolaryngology at [facility] [place] [phone] Shirin Wagoner AUD Social History Tobacco Use Types Packs/Day Years [...] Results * Scan Doc: Audiology (06/17/2013) Shirin BUTLER MEDIA MGR SCAN EX T ORDR/RSLT documented in this encounter Visit Diagnoses Not on filedocumented in this encounter Care Teams Cash Accountant Relationship Specialty Start Date End Date Sampson Yang MD [address] [facility] [place] [address] PCP - General 04/19/13 11/08/16 documented as of this encounter
--- OUTSIDE RECORDS SUMMARY | 2024-10-22 08:58 | XMS_ITS | Encounter Summary ---
Author Organization [facility] [place] [address] Care Team Providers Care Crm Developer Name Role Phone Sampson Yang MD Primary Care Provider [phone] Encounter Details Date Type Department Care Team (Late st Contact Info) Description 08/01/2016 10:15 AM EST Office Visit Audiology at [address] [phone] Christina [facility] [place] [address] Conductive hearing loss Social History Tobacco Use [...] loss documented in this encounter Care Teams Crm Developer Relationship Specialty Start Date End Date Sampson Yang MD [address] [place] [address] PCP - General 04/19/13 11/08/16 documented as of this encounter
--- OUTSIDE RECORDS SUMMARY | 2024-10-22 08:58 | XMS_ITS | Encounter Summary ---
Author Organization [facility] [place] [address] Care Team Providers Care Senior Tableau Developer Name Role Phone Nicki Paula MD Primary Care Provider [phone] Encounter Details Date Type Department Care Team (Late st Contact Info) Description 07/17/2013 10:26 AM EDT - 07/17/2013 11:14 AM EDT Surgery [place] [address] Sylvia Majano MD [facility] [place] [address] MYRINGOTOMY, INSERTION OF TUBE CASIE (WRVU 2.01) [...] regarding sedation may be directed to the [facility] Pain[facility] Program Monday - Monday 8:00 - 4:00 pm at [phone] Evenings or weekends at [phone] and ask for residential real estate agent provisioning specialist Questions regarding the procedure, pain issues, or [...] have in the post- operative period. The [facility] log handling equipment operator can be reached at . In addition, [...] be present and is readily relieved with [id number] ibuprofen (Motrin) or acetaminophen (Tylenol). A prescription [...] have in the post- operative period. The [facility] log handling equipment operator can be reached at . In addition, [...] Sylvia Majano MD PhD Pediatric Otolaryngology [facility] ([facility]) [place], [place] [address] Office Source Note - Sylvia Majano MD - 2013 7:26 PM EDT See preop H+P by PCP dated 07/08/2013 Pediatric Otolaryngology Postoperative Note Date of Visit: 06/17/2013 Location of Visit: Otolaryngology Clinic, [facility] Patient: Raisa Morales ([id number]; 2000) Primary Care Provider: NICKI PAULA MD [...] Visit: 06/17/2013 Location of Visit: Otolaryngology Clinic, [facility] Patient: Raisa Morales ([id number]; 2000) Primary Care Provider: NICKI PAULA MD [...] Majano MD - 07/17/2013 11:16 AM EDT [facility] Operative Note Patient Name: Raisa Morales : [id number] MR#: [id number] Case Date: 07/17/2013 Surgeon: Surgeon(s) and Role: [...] hours., Routine 1228 (Given - Provid er: Aedola Naranjo RN) ofloxacin (FLOXIN) 0.3 % otic [...] Routine documented in this encounter Care Teams Senior Tableau Developer Relationship Specialty Start Date End Date Nicki Paula MD [address] [facility] [place] [address] PCP - General 04/19/13 11/08/16 documented as of this encounter
--- OUTSIDE RECORDS SUMMARY | 2024-10-22 08:58 | XMS_ITS | Encounter Summary ---
Author Organization [facility] [place] [address] Care Team Providers Care Binding Stitcher Name Role Phone Sampson Yang MD Primary Care Provider Encounter Details Date Type Department Care Team (Late st Contact Info) Description 08/18/2014 9:30 AM EST Follow-Up Audiology at [address] [phone] Shirin Wagoner AUD Conductive hearing loss, bilateral Discharge Disposition: Home [...] - 08/18/2014 10:07 AM [place] [address] Raisa Morales , 14 y.o. 1 m.o. was seen on 08/18/2014 for an audiologic evaluation. Please refer to the scanned audiogram listed under SCANDOC for findings, impressions and recommendations. It may take up to 24 hours for the audiogram to be scanned. Enclosure: Audiogram Shirin Ruiz, [place] [address] documented in this encounter Plan of Treatment Not on file documented as of this encounter Visit Diagnoses Diagnosis Conductive hearing loss, bilateral documented in this encounter Care Teams Binding Stitcher Relationship Specialty Start Date End Date Sampson Yang MD [address] [facility] [place] [address] PCP - General 04/19/13 11/08/16 documented as of this encounter
--- OUTSIDE RECORDS SUMMARY | 2024-10-22 08:58 | XMS_ITS | Encounter Summary ---
Author Organization [facility] [place] [address] Care Team Providers Care Import Export Clerk Name Role Phone Nicki Paula MD Primary Care Provider [phone] Encounter Details Date Type Department Care Team (Latest Contact Info) Description 04/29/2013 12:35 PM EDT - 04/29/2013 3:13 PM EDT Hospital Encounter [place] [address] Sylvia Majano MD [facility] [place] [address] Chronic otitis media with effusion (Primary Dx); [...] 04/29/2013 1:1 5 PM EDT Growth Chart: [facility] (Girls, 2- 20 Years) documented in [...] soreness, which usually goes away in 12-24hours. [facility] - Information If you are unable to [...] Visit: 04/23/2013 Location of Visit: Otolaryngology Clinic, [facility] Patient: Raisa Morales ([id number]; 2000) Primary Care Provider: NICKI PAULA MD [...] no known allergies. Social History: Lives in [place] [address]*, with mom, dad, two brothers, two sisters, which is one hour away. Daycare/School: Will start fifth grade at [employer] in the fall. Secondhand smoke exposure: No. [...] surgery. Sylvia Majano MD, PhD Pediatric Otolaryngology [facility] ([facility]) [facility] documented in this encounter Miscellaneous Notes * OR Attestation - Sylvia Majano MD - 04/29/2013 2:42 PM EDT Attestation: Case Date: 04/29/2013 I was present and I participated during the entire procedure (does not need to include opening and closing). SYLVIA MAJANO MD 04/29/2013 * Op Note - Sylvia Majano MD - 04/29/2013 2:39 PM EDT [facility] Operative Note Patient Name: Raisa Morales : [id number] MR#: [id number] Case Date: 04/29/2013 Surgeon: Surgeon(s) and Role: [...] RN) documented in this encounter Care Teams Import Export Clerk Relationship Specialty Start Date End Date Nicki Paula MD [address] [place] [address] PCP - General 04/19/13 11/08/16 documented as of this encounter
--- OUTSIDE RECORDS SUMMARY | 2024-10-22 08:58 | XMS_ITS | Encounter Summary ---
Author [facility] [place] [address] Care Team Providers Care Pharmaceutical Sales Name Role Phone Sampson Yang MD Primary Care Provider [phone] Encounter Details Date Type Department Care Team (Late st Contact Info) Description 04/23/2013 Orders [place] [phone] Hortencia Garcia, RN Social History Tobacco Use Types Packs/Day Years [...] on filedocumented in this encounter Care Teams Pharmaceutical Sales Relationship Specialty Start Date End Date Sampson Yang MD [address] [place] [address] [place] [address] PCP - General 04/19/13 11/08/16 documented as of this encounter
--- OUTSIDE RECORDS SUMMARY | 2024-10-22 08:58 | XMS_ITS | Encounter Summary ---
Author Organization [facility] [place] [address] Care Team Providers Care Distiller Name Role Phone Sampson Yang MD Primary Care Provider Encounter Details Date Type Department Care Team (Late st Contact Info) Description 04/23/2013 12:45 PM EDT Office Visit Audiology at [address] [phone] Shirin Wagoner AUD Conductive hearing loss, bilateral (Primary Dx) Discharge [...] of this encounter Progress Notes * Shirin Wagoner AUD - 04/23/2013 1:20 PM EDT [place] [address] Raisa Loli Morales , 12 y.o. 9 m.o. was seen on 04/23/2013 for an audiologic evaluation. Please refer to the scanned audiogram listed under SCANDOC for findings, impressions and recommendations. Itmay take up to 24 hours for the audiogram to be scanned. Enclosure: Audiogram Shirin Ruiz, [place] [address] documented in this encounter Plan of Treatment Not on file documented as of this encounter Visit Diagnoses Diagnosis Conductive hearing loss, bilateral- Primary documented in this encounter Care Teams Distiller Relationship Specialty Start Date End Date Sampson Yang MD [address] [facility] [address] PCP - General 04/19/13 11/08/16 documented as of this encounter
--- OUTSIDE RECORDS SUMMARY | 2024-10-22 08:58 | XMS_ITS | Encounter Summary ---
Author Organization [facility] [place] [address] Care Team Providers Care Recruitment Internship Name Role Phone Nicki Paula MD Primary Care Provider [phone] Reason for Visit * Reason Comments Other 2nd opinion Encounter Details Date Type Department Care Team (Late st Contact Info) Description 04/23/2013 1:45 PM EDT Office [place] [address] Sylvia Ramirez MD [facility] [place] [address] Hearing loss (Primary Dx); Otorrhea; Chronic otitis [...] Visit: 04/23/2013 Location of Visit: Otolaryngology Clinic, [facility] Patient: Raisa Morales ([id number]; 2000) Primary Care Provider: NICKI PAULA MD [...] allergies. Social History: Lives in [place] [address]*, with mom, dad, two brothers, two sisters, which is one hour away. Daycare/School: Will start fifth grade at [employer] in the fall. Secondhand smoke exposure: [...] Sylvia Ramirez MD, PhD Pediatric Otolaryngology [facility] documented in this encounter Plan [...] media documented in this encounter Care Teams Recruitment Internship Relationship Specialty Start Date End Date Nicki Paula MD [address] [place] [address] PCP - General 04/19/13 11/08/16 documented as of this encounter
--- OUTSIDE RECORDS SUMMARY | 2024-10-22 08:58 | XMS_ITS | Encounter Summary ---
Author Organization [facility] [place] [address] Care Team Providers Care Vineyard Worker Name Role Phone Sampson Yang MD Primary Care Provider [phone] Encounter Details Date Type Department Care Team (Late st Contact Info) Description 12/10/2014 9:45 AM EDT Follow-Up Audiology at [address] [address] Bambi Freeman AUD [facility] [place] [address] Conductive hearing loss, bilateral; Hx of tympanostomy [...] - 12/10/2014 10:17 AM EDT [place] [address] Raisa Morales was seen on 12/10/2014 for an audiologic evaluation in conjunction with Dr. Mckoy Otolaryngology. Please refer to the scanned audiogram listed under Scanned documents for findings, impressions and recommendations. It may take up to 24 hours for the audiogram to be scanned. Luke Lewis [place] [phone] documented in this encounter Plan of Treatment Not on file documented as of this encounter Visit Diagnoses Diagnosis Conductive hearing loss, bilateral Hx of tympanostomy tubes Personal history of surgery to other organs documented in this encounter Care Teams Vineyard Worker Relationship Specialty Start Date End Date Sampson Yang MD [address] [place] [address] PCP - General 04/19/13 11/08/16 documented as of this encounter
--- OUTSIDE RECORDS SUMMARY | 2024-10-22 08:58 | XMS_ITS | Encounter Summary ---
Author Organization [facility] [place] [address] Care Team Providers Care Security System Installer Name Role Phone Nicki Paula MD Primary Care Provider Reason for Visit * Reason Comments Follow Up Surgery 07/17/13 ADENOIDECTO MY& CASIE MYRINGOTOMY; hearing improved no reoccurences of OM Encounter Details Date Type Department Care Team (Late st Contact Info) Description 10/08/2013 10:15 AM EST Office [place] [address] [facility] [place] [address] Eustachian tube dysfunction, unspecified laterality (Primary Dx) [...] 10/08/2013 10: 17 AM EST Growth Chart: [facility] (Girls, 2- 20 Years) documented in this encounter Progress Notes * Sylvia Ramirez MD - 10/08/2013 10:48 AM EST Pediatric Otolaryngology Postoperative Note Date of Visit: 10/08/2013 Location of Visit: Otolaryngology Clinic, [facility] Patient: Raisa Morales ([id number]; 2000) Primary Care Provider: NICKI PAULA MD [...] in 12 months. Sylvia Ramirez MD, PhD Marine Engineering Consultant, Pediatric Otolaryngology Otolaryngology-Head and Neck Surgery [place] [address] Office documented in this encounter Plan of Treatment Not on file documented as of this encounter Visit Diagnoses Diagnosis Eustachian tube dysfunction, unspecified laterality- Primary documented in this encounter Care Teams Security System Installer Relationship Specialty Start Date End Date Nicki Paula MD [address] [place] [address] PCP - General 04/19/13 11/08/16 documented as of this encounter
--- OUTSIDE RECORDS SUMMARY | 2024-10-22 08:58 | XMS_ITS | Encounter Summary ---
Author Organization [facility] [place] [address] Care Team Providers Care Phlebotomy Supervisor Name Role Phone Dillon Alvarez MD Primary Care Provider Encounter Details Date Type Department Care Team (Late st Contact Info) Description 01/12/2017 Telephone Dermatology at [facility] [address] [place] [address] Barber Villanueva MD [facility] [address] [place] [address] Social History Tobacco Use Types Packs/Day Years [...] response. Barber Villanueva MD Resident in Dermatology [facility] * Telephone Encounter - Nicole Ghosh LPN - 01/18/2017 4:25 PM EDT Reached out to the [facility] for the results of the urine test Raisa was to do today per her mom Shaina. The lab states they have no results since the patient never arrivedto have the test done. * Telephone Encounter - Nicole Ghosh LPN - 01/17/2017 8:59 AM EDT Shaina mom of Raisa RTC. This instructional writer spoke to her and let her know she needs to do another Urine test for . Shaina said she will bring Raias tomorrow morning and have it done at the [facility]. Lab slip sent via fax the # is . I explained this needs to be done in order for this office to confirm her in the [place]. This office will confirm as soon as results area back and Shaina needs to be called so Raisa can do her part and then she will be able to clam picker her script so long as it's [...] EDT Message below from Dr. Villanueva. This instructional writer attempted to contact Raisa's mother Shaina [...] Unfortunately, due to the constraints of the [facility] program rules, her test was 4 days too early (required to be >/= 31 days since prior test), and therefore cannot be used. We will need to repeat her test on or after 01/15. She could have the test done at [place] or [facility] (the closest CLIA-certified labs). Test should be done at her convenience, with results faxed to [facility]. Barber Villanueva MD, PGY-3 Resident in Dermatology [facility] 01/12/17 1:45 PM documented in this encounter Plan of Treatment Not on file documented as of this encounter Visit Diagnoses Not on filedocumented in this encounter Care Teams Phlebotomy Supervisor Relationship Specialty Start Date End Date Dillon Alvarez MD [address] [place] [phone] PCP - General Family Medicine 11/09/16 05/25/23 documented as of this encounter
--- OUTSIDE RECORDS SUMMARY | 2024-10-22 08:58 | XMS_ITS | Encounter Summary ---
Author Organization [facility] [place] [address] Care Team Providers Care Associate Professor Of Communication Name Role Phone Sampson Yang MD Primary Care Provider [phone] Encounter Details Date Type Department Care Team (Late st Contact Info) Description 10/27/2014 Telephone [place] [phone] Kathleen Bolton Social History Tobacco Use Types [...] on filedocumented in this encounter Care Teams Associate Professor Of Communication Relationship Specialty Start Date End Date Sampson Yang MD [address] [place] [address] PCP - General 04/19/13 11/08/16 documented as of this encounter
--- OUTSIDE RECORDS SUMMARY | 2024-10-22 08:58 | XMS_ITS | Encounter Summary ---
[place] [address] Care Team Providers Care Featherer Name Role Phone Sampson Yang MD Primary Care Provider [phone] Encounter Details Date Type Department Care Team (Late st Contact Info) Description 10/10/2013 External Results Audiology at [address] [address] Shirin Wagoner AUD Social History Tobacco Use [...] Results * Scan Doc: Audiology (10/08/2012) Shirin BUTLER MEDIA MGR SCAN EX T ORDR/RSLT documented in this encounter Visit Diagnoses Not on filedocumented in this encounter Care Teams Featherer Relationship Specialty Start Date End Date Sampson Yang MD [address] [facility] [place] [address] PCP - General 04/19/13 11/08/16 documented as of this encounter
--- OUTSIDE RECORDS SUMMARY | 2024-10-22 08:58 | XMS_ITS | Encounter Summary ---
Author Organization [facility] [place] [address] Care Team Providers Care Respiratory Coordinator Name Role Phone Sampson Yang MD Primary Care Provider [phone] Encounter Details Date Type Department Care Team (Late st Contact Info) Description 05/02/2016 Telephone [place] [phone] Lucia Can Social History Tobacco Use Types [...] on filedocumented in this encounter Care Teams Respiratory Coordinator Relationship Specialty Start Date End Date Sampson Yang MD [address] [place] [address] PCP - General 04/19/13 11/08/16 documented as of this encounter
--- OUTSIDE RECORDS SUMMARY | 2024-10-22 08:58 | XMS_ITS | Encounter Summary ---
Author Organization [facility] [place] [address] Care Team Providers Care Latent Fingerprint Examiner Name Role Phone Sampson Yang MD Primary Care Provider [phone] Encounter Details Date Type Department Care Team (Late st Contact Info) Description 04/29/2013 2:11 PM EDT Anesthesia Event [place] [address] Chrissie Anthony MD [facility] DR [place]ES[place] [address] Anesthesia Record Procedure Summary Procedure Name Responsible [...] Notes * Anesthesia Postprocedure Evaluation - Chrissie Anthony MD - 04/29/2013 6:17 PM EDT Patient: [...] with patient and mother. Plan discussed with GEOMORPHOLOGIST and attending. [facility]. Assessment: documented in this encounter Plan of Treatment Not on file documented as of this encounter Visit Diagnoses Not on filedocumented in this encounter Care Teams Latent Fingerprint Examiner Relationship Specialty Start Date End Date Sampson Yang MD [address] [address] PCP - General 04/19/13 11/08/16 documented as of this encounter
--- OUTSIDE RECORDS SUMMARY | 2024-10-22 08:58 | XMS_ITS | Encounter Summary ---
Author Organization [facility] [place] [address] Care Team Providers Care Conditioning Room Worker Name Role Phone Nicki Paula MD Primary Care Provider Reason for Visit * Reason Comments Follow-up Encounter Details Date Type Department Care Team (Late st Contact Info) Description 08/18/2014 11:00 AM EST Follow-Up [place] [address] Sylvia Ramirez MD [facility] [place] [address] History of tympanostomy tube placement Discharge Disposition: [...] Visit: 08/18/2014 Location of Visit: Otolaryngology Clinic, [facility] Patient: Raisa Morales ([id number]; 2000) Primary Care Provider: NICKI PAULA MD [...] mild to moderate hearing loss at 250, 3126-9132 Hz with conductive overlay B. tymps R [...] in 6 months. Sylvia Ramirez MD, PhD Tool Room Gear Machine Operator, Pediatric Otolaryngology Otolaryngology-Head and Neck Surgery [place], [place] [address] Office documented in this encounter Plan of Treatment Not on file documented as of this encounter Visit Diagnoses Diagnosis History of tympanostomy tube placement documented in this encounter Care Teams Conditioning Room Worker Relationship Specialty Start Date End Date Nicki Paula MD [address] [place] [address] PCP - General 04/19/13 11/08/16 documented as of this encounter
--- OUTSIDE RECORDS SUMMARY | 2024-10-22 08:58 | XMS_ITS | Encounter Summary ---
Author Organization [facility] [place] [address] Care Team Providers Care Accountant Auditor Name Role Phone Nicki Paula MD Primary Care Provider [phone] Reason for Visit * Reason Comments Follow-up Encounter Details Date Type Department Care Team (Late st Contact Info) Description 12/10/2014 10:15 AM EDT [place] [address] Sylvia Ramirez MD [facility] [place] [address] History of tympanostomy tube placement Discharge Disposition: [...] 12/10/2014 10: 14 AM EDT Growth Chart: [facility] (Girls, 2- 20 Years) documented in this encounter Progress Notes * Sylvia Ramirez MD - 12/10/2014 10:54 AM EDT Pediatric Otolaryngology Follow-Up Note Date of Visit: 12/10/2014 Location of Visit: Otolaryngology Clinic, [facility] Patient: Raisa Morales ([id number]; 2000) Primary Care Provider: NICKI PAULA MD [...] in 6-12 months. Sylvia Ramirez MD, PhD Solution Advisor, Pediatric Otolaryngology Otolaryngology-Head and Neck Surgery [place] [address] Office documented in this encounter Plan of Treatment Not on file documented as of this encounter Visit Diagnoses Diagnosis History of tympanostomy tube placement documented in this encounter Care Teams Accountant Auditor Relationship Specialty Start Date End Date Nicki Paula MD [address] [place] [address] PCP - General 04/19/13 11/08/16 documented as of this encounter
--- OUTSIDE RECORDS SUMMARY | 2024-10-22 08:58 | XMS_ITS | Encounter Summary ---
Author Organization [facility] [place] [address] Care Team Providers Care Mixing Technician Name Role Phone Sampson Yang MD Primary Care Provider [phone] Encounter Details Date Type Department Care Team (Late st Contact Info) Description 07/17/2013 10:39 AM EDT Anesthesia Event [place] [phone] Julian Thomas MD [facility] DR [place] [address] Odin Dodge MD [facility] DR CRITICAL [place] [address] Anesthesia Record Procedure Summary Procedure Name Responsible [...] utility) 07/17/13 1100 by 01/08/18 0921 by [employer], Silvestre (RETIRED) Non-Surgical Airway Mask Ventilation: Adjunct [...] TUBE performed by Sylvia Ramirez MD at [facility] History Substance Use Topics ??? Smoking [...] mother and patient. Plan discussed with resident. [facility]. Assessment: documented in this encounter Plan of [...] mL/hr documented in this encounter Care Teams Mixing Technician Relationship Specialty Start Date End Date Sampson Yang MD [address] [place] [address] PCP - General 04/19/13 11/08/16 documented as of this encounter
--- OUTSIDE RECORDS SUMMARY | 2024-10-22 08:58 | XMS_ITS | Encounter Summary ---
Author Organization [facility] [place] [address] Care Team Providers Care Casualty Claims Supervisor Name Role Phone Sampson Yang MD Primary Care Provider [phone] Encounter Details Date Type Department Care Team (Late st Contact Info) Description 10/08/2013 9:30 AM EST Follow-Up Audiology at [address] [address] Shirin Wagoner AUD Other examination of ears and hearing (Primary [...] Progress Notes * Shirin Wagoner AUD - 10/25/2013 4:19 PM EST [place] [address] Raisa Morales , 13 y.o. 3 m.o. was seen on 10/08/2013 for an audiologic evaluation. Please refer to the scanned audiogram listed under SCANDOC for findings, impressions and recommendations. Itmay take up to 24 hours for the audiogram to be scanned. Enclosure: Audiogram Shirin Ruiz, [place] [address] documented in this encounter Plan of Treatment Not on file documented as of this encounter Visit Diagnoses Diagnosis Other examination of ears and hearing- Primary Hx of tympanostomy tubes Personal history of surgery to other organs documented in this encounter Care Teams Casualty Claims Supervisor Relationship Specialty Start Date End Date Sampson Yang MD [address] [place] [address] PCP - General 04/19/13 11/08/16 documented as of this encounter
--- OUTSIDE RECORDS SUMMARY | 2024-10-22 08:58 | XMS_ITS | Encounter Summary ---
Author Organization [facility] [place] [address] Care Team Providers Care Biomedical Specialist Name Role Phone Sampson Yang MD Primary Care Provider [phone] Encounter Details Date Type Department Care Team (Late st Contact Info) Description 04/24/2013 Telephone [place] [phone] Lucia Can Social History Tobacco Use Types [...] on filedocumented in this encounter Care Teams Biomedical Specialist Relationship Specialty Start Date End Date Sampson Yang MD [address] [facility] [address] PCP - General 04/19/13 11/08/16 documented as of this encounter
--- OUTSIDE RECORDS SUMMARY | 2024-10-22 08:58 | XMS_ITS | Encounter Summary ---
Author Organization [facility] [place] [address] Care Team Providers Care Grocery Shopper Name Role Phone Dillon Alvarez MD Primary Care Provider [phone] Reason for Visit * Reason Comments Follow-up Acne Encounter Details Date Type Department Care Team (Late st Contact Info) Description 01/11/2017 9:00 AM EDT Office Visit Dermatology at [facility] [address] [place] [address] aBrber Villanueva MD [facility] [address] HAI[place] [address] High risk medication use; Acne vulgaris Social [...] areas, you can apply hydrocortisone 1% cream (oysj-jen-tmgnxkk product) for 1-2 weeks.Do not use this [...] share pills, drink alcohol, or get - eoSemi # [id number] - Lab work done: CMP, lipids, and [...] by Barber Villanueva MD Resident in Dermatology [facility] Staff oracle obiee developer: Savannah Cedeño MD Section of Dermatology [facility] Level of Resident Supervision: Indirect Supervision (The [...] Beta Human Chorionic Gonadotropin, Quantitative <1 mlU/ML [facility] Comment: REFERENCE RANGES NON- FEMALE: ??Less [...] - 56,451 ?17 weeks ? 8,175 - 86,868 ?18 weeks ? 8,694 - 05,176 Blood specimen (specimen) 01/11/2017 9:47 AM EDT 01/11/2017 1:01 PM EDT Narrative Resulting Agency Comment Spec In Lab Maryanne Leo MD CHEMISTRY ORDERABLES [facility] [place] [address] * (ABNORMAL) Lipid Panel (01/11/2017 9:47 AM [...] greater than or equal to 190 mg/dL. http://circ.ahajournals.org/content/early/.cir.2640911460.61253.7a Adults aged 40-75 with LDL 70-189 mg/dL should have their 10 year ASCVD risk estimated with the ACC/AHA ASCVD risk senior estimator http://tools.acc.org/IWIBK-Xasi-Hqsnueurb/ Statin should be discussed if risk greater [...] MD CHEMISTRY ORDERABLES [facility] [place] [address] * (ABNORMAL) Comprehensive metabolic panel (non-fasting) (01/11/2017 9:47 AM EDT) Glucose 88 65 - 199 mg/dL [facility] Comment:Diabetes: >=200 mg/d L plus symptoms Blood Urea Nitrogen 13 10 - 20 mg/dL [facility] Creatinine 0.76(H) 0.20 - 0.70 mg/dL [facility] Comment: Please note that the pediatric reference intervals supplied above were not validated [place] [facility] Results from pediatric patients should be interpreted in conjunction to the patient's age, height and muscle mass. Sodium 142 135 - 145 mmol/L [facility] Potassium 4.5 3.5 - 5.0 mmol/L [facility] Comment: Please note: ??Patients with WBC >100,000 may have falsely elevated Potassium levels. ??For accurate Potassium quantification in these patients send serum separator tube (gold top) for subsequent determinations. ??Contact the Clinical Chemistry Laboratory if there are any questions. Chloride 103 98 - 107 mmol/L [facility] Carbon Dioxide 26 22 - 31 mmol/L [facility] Anion Gap 13 5 - 15 mmol/L [facility] Calcium 10.4 8.5 - 10.5 mg/dL [facility] Protein, Total 7.9 5.7 - 8.0 gm/dL [facility] Albumin 4.8 3.3 - 4.9 gm/dL [facility] Aspartate Aminotransferase 18 5 - 30 unit/L [facility] Alanine Aminotransferase 18 0 - 25 unit/L [facility] Alkaline Phosphatase 80 80 - 250 unit/L [facility] Bilirubin, Total 0.2 <=1.0 mg/dL [facility] Bilirubin, Direct 0.1 0.0 - 0.3 mg/dL [facility] Est Glomerular Filtration Rate See note >=60 [facility] Comment: Calculated GFR not appropriate for [...] the following links into your internet browser. [email or web address] Blood specimen (specimen) 01/11/2017 9:47 AM EDT 01/11/2017 1:01 PM EDT Narrative Resulting Agency Comment Spec In Lab Maryanne Leo MD CHEMISTRY ORDERABLES [facility] [place] [address] documented in this encounter Visit Diagnoses Diagnosis High risk medication use Encounter for long-term (current) use of other medications Acne vulgaris Other acne documented in this encounter Care Teams Grocery Shopper Relationship Specialty Start Date End Date Dillon Alvarez MD [address] [place] [phone] PCP - General Family Medicine 11/09/16 05/25/23 documented as of this encounter
--- OUTSIDE RECORDS SUMMARY | 2024-10-22 08:58 | XMS_ITS | Encounter Summary ---
Author Organization [facility] [place] [address] Care Team Providers Care Chicken And Fish Butcher Name Role Phone Sampson Yang MD Primary Care Provider [phone] Encounter Details Date Type Department Care Team (Late st Contact Info) Description 06/17/2013 12:45 PM EDT Follow-Up Audiology at [address] [phone] Shirin Wagoner AUD Conductive hearing loss, bilateral [...] Progress Notes * Shirin Wagoner AUD - 06/27/2013 2:29 PM [place] [address] Raisa Morales , 12 y.o. 11 m.o. was seen on 06/17/2013 for an audiologic evaluation. Please refer to the scanned audiogram listed under SCANDOC for findings, impressions and recommendations. It may take up to 24 hours for the audiogram to be scanned. Enclosure: Audiogram Shirin Ruiz, [place] [address] documented in this encounter Plan of Treatment Not on file documented as of this encounter Visit Diagnoses Diagnosis Conductive hearing loss, bilateral- Primary documented in this encounter Care Teams Chicken And Fish Butcher Relationship Specialty Start Date End Date Sampson Yang MD [address] [place] [address] PCP - General 04/19/13 11/08/16 documented as of this encounter
--- OUTSIDE RECORDS SUMMARY | 2024-10-22 08:58 | XMS_ITS | Encounter Summary ---
Author Organization [facility] [place] [address] Care Team Providers Care Mill Stenciler Name Role Phone Sampson Yang MD Primary Care Provider [phone] Encounter Details Date Type Department Care Team (Late st Contact Info) Description 08/18/2014 External Results Otolaryngology at [facility] [place] [phone] Shirin Wagoner AUD Social History Tobacco Use [...] Results * Scan Doc: Audiology (08/18/2014) Shirin BUTLER MEDIA MGR SCAN EX T ORDR/RSLT documented in this encounter Visit Diagnoses Not on filedocumented in this encounter Care Teams Mill Stenciler Relationship Specialty Start Date End Date Sampson Yang MD [address] [facility] [place] [address] PCP - General 04/19/13 11/08/16 documented as of this encounter
--- OUTSIDE RECORDS SUMMARY | 2024-10-22 08:58 | XMS_ITS | Encounter Summary ---
Author Organization [facility] [place] [address] Care Team Providers Care Parts Technician Name Role Phone Nicki Paula MD Primary Care Provider [phone] Encounter Details Date Type Department Care Team (Latest Contact Info) Description 07/17/2013 9:16 AM EDT - 07/17/2013 12:42 PM EDT Hospital [place] [address] Sylvia Majano MD [facility] [place] [address] Discharge Disposition: Home Social History Tobacco Use [...] Naranjo RN - 07/17/2013 11:42 AM EDT [facility] Your child has received [...] regarding sedation may be directed to the [facility] Painfree Program Monday - Monday 8:00 - 4:00 pm at [phone] Evenings or weekends at [phone] and ask for founder president and ceo information services vice president Questions regarding the procedure, pain issues, or [...] have in the post- operative period. The [facility] clay dry press operator can be reached at . In [...] be present and is readily relieved with heti-mxv-yqxarlh ibuprofen (Motrin) or acetaminophen (Tylenol). A prescription [...] have in the post- operative period. The [facility] clay dry press operator can be reached at . In [...] procedure. Sylvia Majano MD PhD Pediatric Otolaryngology [facility] ([facility]) [place], [place] [address] Office Source Note - Sylvia Majano MD - 2013 7:26 PM EDT See preop H+P by PCP dated 07/08/2013 Pediatric Otolaryngology Postoperative Note Date of Visit: 06/17/2013 Location of Visit: Otolaryngology Clinic, [facility] Patient: Raisa Morales ([id number]; 2000) Primary Care Provider: NICKI PAULA MD [...] Visit: 06/17/2013 Location of Visit: Otolaryngology Clinic, [facility] Patient: Raisa Morales ([id number]; 2000) Primary Care Provider: NICKI PAULA MD [...] Majano MD - 07/17/2013 11:16 AM EDT [facility] [place] Patient Name: Raisa Morales : [id number] MR#: [id number] Case Date: 07/17/2013 Surgeon: Surgeon(s) and Role: [...] Routine documented in this encounter Care Teams Parts Technician Relationship Specialty Start Date End Date Nicki Paula MD [address] [place] [address] [facility] [place] [address] PCP - General 04/19/13 11/08/16 documented as of this encounter
--- OUTSIDE RECORDS SUMMARY | 2024-10-22 08:58 | XMS_ITS | Encounter Summary ---
Author Organization [facility] Address [facility] [place] [address] Care Team Providers Care Slot Operations Manager Name Role Phone Dillon Alvarez MD Primary Care Provider [phone] Reason for Visit * Reason Comments Acne * Consultation (Routine) - Closed Specialty Diagnoses / Procedures Referred By Contac t Referred To Contact Dermatology Diagnoses severe scarring acne over face and upper back not responsive to OTC treatment Dillon Alvarez MD [address] [place] [phone] [facility] Dermatology [address] [place] [address] Referral ID Status Reason Start Date Expiration Date V isits Requested Visits Authorized [id number] Closed Evaluate and Treat [facility] 11/09/2016 11/09/2017 1 1 Encounter Details Date Type Department Care Team ([facility] Contact Info) Description 12/13/2016 2:30 PM EDT Office Visit Dermatology at [facility] [address] [place] [address] Barber Villanueva MD [facility] DR HAILEY [place] [address] Acne vulgaris; High risk medication [...] by Barber Villanueva MD Resident in Dermatology [facility] Patient seen and evaluated with staff vice president payment: Everette Kaba MD Section of Dermatology [facility] * Everette Kaba MD - 12/13/2016 [...] Taveras LPN - 12/13/2016 2:30 PM EDT [facility] [phone] documented in this encounter Plan of Treatment [...] medications documented in this encounter Care Teams Slot Operations Manager Relationship Specialty Start Date End Date Dillon Alvarez MD [address] [place] [phone] PCP - General Family Medicine 11/09/16 05/25/23 documented as of this encounter
--- OUTSIDE RECORDS SUMMARY | 2024-10-22 08:58 | XMS_ITS | Encounter Summary ---
Author Organization [facility] [place] [address] Care Team Providers Care Ingot Passer Name Role Phone Nicki Paula MD Primary Care Provider [phone] Encounter Details Date Type Department Care Team (Late st Contact Info) Description 04/29/2013 1:54 PM EDT - 04/29/2013 2:29 PM EDT Surgery Outpatient [place] [address] Sylvia Majano MD [facility] [place] [address] MYRINGOTOMY, REMOVAL P. E. TUBE (WRVU 0.85) [...] 04/29/2013 1:1 5 PM EDT Growth Chart: [facility] (Girls, 2- 20 Years) documented in [...] soreness, which usually goes away in 12-24hours. [facility] - Information If you are unable [...] Visit: 04/23/2013 Location of Visit: Otolaryngology Clinic, [facility] Patient: Raisa Morales ([id number]; 2000) Primary Care Provider: NICKI PAULA MD [...] no known allergies. Social History: Lives in [place] [address]*, with mom, dad, two brothers, two sisters, which is one hour away. Daycare/School: Will start fifth grade at [employer] in the fall. Secondhand smoke [...] surgery. Sylvia Majano MD, PhD Pediatric Otolaryngology [facility] [place], [facility]) [facility] documented in this encounter Miscellaneous Notes * OR Attestation - Sylvia Majano MD - 04/29/2013 2:42 PM EDT Attestation: Case Date: 04/29/2013 I was present and I participated during the entire procedure (does not need to include opening and closing). SYLVIA MAJANO MD 04/29/2013 * Op Note - Sylvia Majano MD - 04/29/2013 2:39 PM EDT [facility] [place] Patient Name: Raisa Morales : [id number] MR#: [id number] Case Date: 04/29/2013 Surgeon: Surgeon(s) and Role: [...] RN) documented in this encounter Care Teams Ingot Passer Relationship Specialty Start Date End Date Nikci Paula MD [address] [place] [address] PCP - General 04/19/13 11/08/16 documented as of this encounter
--- OUTSIDE RECORDS SUMMARY | 2024-10-22 08:58 | XMS_ITS | Encounter Summary ---
Author Organization [facility] [place] [address] Care Team Providers Care Apartment House Manager Name Role Phone Sampson Yang MD Primary Care Provider [phone] Encounter Details Date Type Department Care Team (Late st Contact Info) Description 12/12/2014 External Results [place] [address] Bambi Freeman [facility] [place] [address] Social History Tobacco Use Types Packs/Day Years [...] on filedocumented in this encounter Care Teams Apartment House Manager Relationship Specialty Start Date End Date Sampson Yang MD [address] [place] [address] [place] [address] PCP - General 04/19/13 11/08/16 documented as of this encounter
--- OUTSIDE RECORDS SUMMARY | 2024-10-22 08:58 | XMS_ITS | Encounter Summary ---
Author Organization [facility] [place] [address] Care Team Providers Care Woodworking Machine Feeder Name Role Phone Sampson Yang MD Primary Care Provider [phone] Encounter Details Date Type Department Care Team (Late st Contact Info) Description 04/23/2013 External [place] [phone] Shirin Wagoner AUD Social History Tobacco Use [...] Results * Scan Doc: Audiology (04/23/2013) Shirin BUTLER MEDIA MGR SCAN EX T ORDR/RSLT documented in this encounter Visit Diagnoses Not on filedocumented in this encounter Care Teams Woodworking Machine Feeder Relationship Specialty Start Date End Date Sampson Yang MD [address] [place] [address] [facility] [place] [address] PCP - General 04/19/13 11/08/16 documented as of this encounter
--- OUTSIDE RECORDS SUMMARY | 2024-10-22 08:58 | XMS_ITS | Encounter Summary ---
Author Organization [facility] [place] [address] Care Team Providers Care Public School Teacher Name Role Phone Dillon Alvarez MD Primary Care Provider [phone] Encounter Details Date Type Department Care Team (Late st Contact Info) Description 01/17/2017 Orders Only Dermatology at [facility] [address] [place] [address] Barber Villanueva MD [facility] DR HAILEY [place] [address] High risk medication use; Acne vulgaris Social [...] acne documented in this encounter Care Teams Public School Teacher Relationship Specialty Start Date End Date Dillon Alvarez MD [address] [place] [phone] PCP - General Family Medicine 11/09/16 05/25/23 documented as of this encounter
--- OUTSIDE RECORDS SUMMARY | 2024-10-22 08:58 | XMS_ITS | Encounter Summary ---
Author Organization [facility] [place] [address] Care Team Providers Care Correctional Supervisor Name Role Phone Nicki Paula MD Primary Care Provider [phone] Reason for Visit * Reason Comments Follow-up Encounter Details Date Type Department Care Team (Late st Contact Info) Description 06/17/2013 1:30 PM EDT Office [place] [address] Sylvia Ramirez MD [facility] [place] [address] Hearing loss; Eustachian tube dysfunction Discharge Disposition: [...] Visit: 06/17/2013 Location of Visit: Otolaryngology Clinic, [facility] Patient: Raisa Morales ([id number]; 2000) Primary Care Provider: NICKI PAULA MD [...] twice a day. Sylvia Ramirez MD, PhD General Counsel, Pediatric Otolaryngology Otolaryngology-Head and Neck Surgery [place] [address] Office documented in this encounter Plan of [...] tube documented in this encounter Care Teams Correctional Supervisor Relationship Specialty Start Date End Date Nicki Paula MD [address] [place] [address] PCP - General 04/19/13 11/08/16 documented as of this encounter
--- OUTSIDE RECORDS SUMMARY | 2024-10-22 08:58 | XMS_ITS | Encounter Summary ---
Author Organization [facility] [place] [address] Care Team Providers Care Fruit Loader Machine Operator Name Role Phone Nicki Paula MD Primary Care Provider [phone] Reason for Visit * Reason Comments Established School does not thin k she can hear out of either ear. Encounter Details Date Type Department Care Team (Late st Contact Info) Description 06/09/2014 8:30 AM EDT Follow-[place] [address] Sylvia Ramirez MD [facility] [place] [address] S/P myringotomy with insertion of tube (Primary [...] Visit: 06/09/2014 Location of Visit: Otolaryngology Clinic, [facility] Patient: Raisa Morales ([id number]; 2000) Primary Care Provider: NICKI PAULA MD [...] secondary to otorrhea. Sylvia Ramirez MD, PhD Manager Produce, Pediatric Otolaryngology Otolaryngology-Head and Neck Surgery [facility] [address] Office documented in this encounter Plan of Treatment Not on file documented as of this encounter Visit Diagnoses Diagnosis S/P myringotomy with insertion of tube- Primary Other postprocedural status Otorrhea of left ear Otorrhea, unspecified documented in this encounter Care Teams Fruit Loader Machine Operator Relationship Specialty Start Date End Date Nicki Paula MD [address] [place] [address] PCP - General 04/19/13 11/08/16 documented as of this encounter
--- OUTSIDE RECORDS SUMMARY | 2024-10-22 08:58 | XMS_ITS | Encounter Summary ---
Author Organization [facility] Address [facility] [place] [address] Care Team Providers Care Field Clinical Engineer Name Role Phone Sampson Yang MD Primary Care Provider [phone] Reason for Visit * Reason Comments Follow-up here with Mom who st ates that she has to raise her voice when talking to Raisa Encounter Details Date Type Department Care Team (Late st Contact Info) Description 08/01/2016 11:00 AM EST Office Visit [place] [address] Sylvai Ramirez MD [facility] [place] [address] History of tympanostomy tube placement; Conductive hearing [...] Visit: 08/01/2016 Location of Visit: Otolaryngology Clinic, [facility] Patient: Raisa Morales ([id number]; 2000) Primary Care Provider: Sampson Yang MD [...] accommodations at school. Sylvia Ramirez MD, PhD Stock Mover, Pediatric Otolaryngology Otolaryngology-Head and Neck Surgery [place], [place] [address] Office documented in this encounter Plan of Treatment Not on file documented as of this encounter Visit Diagnoses Diagnosis History of tympanostomy tube placement Conductive hearing loss, bilateral documented in this encounter Care Teams Field Clinical Engineer Relationship Specialty Start Date End Date Sampson Yang MD [address] [place] [address] PCP - General 04/19/13 11/08/16 documented as of this encounter
[2024-10-22 08:59] VITALS: BP 128/85; PULSE 96; RESP 18; TEMP 36.6; O2SAT 99
--- NOTE | 2024-10-22 09:06 | W.ED.GENAD ---
Discharge Plan Disposition Patient Disposition: Home Condition: Stable Discharge Details Clinical Impression: Anterior chest wall pain Primary Care Provider: Unknown,Unknown ED Provider: Sasha Stoner Home Meds and New Rx's Prescriptions: No Action No Known Home Meds Discharge Instructions Instructions: Costochondritis Additional Instructions: Negative for COVID flu RSV. Chest x-ray is also within normal limits. i do suspect a inflammation of the connective tissues between you ribs. Please take Tylenol or Ibuprofen with food every 4-6 hours as needed for pain and swelling. Follow up with primary care provider in 3-5 days. Return to ED sooner if any worsening or concerns. Referrals: Primary Care Provider [Outside] - 1 week Discharge Data Discharge Date/Time-TO BE ENTERED AT DEPARTURE: 10/22/24 10:30 HPI General Mode of arrival: ambulatory. Date/Time Provider Initiated Documentation: 10/22/24 09:00. Limitations to Documentation: no limitations. Information obtained by: patient, RN notes reviewed and old records reviewed. HPI Narrative: 24-year-old female presents to the ER with a chief complaint of midsternal chest discomfort when she takes a deep breath since last night. She reports cough. Denies any fever or chills. Having increased work of breathing on exam. Lungs are clear to auscultation bilaterally. Related Data Home Medications ?Medication ?Instructions ?Recorded ?Confirmed Unknown [No Known Home Meds] 10/22/24 10/22/24 Allergies Allergy/AdvReac Type Severity Reaction Status Date / Time No Known Allergies Allergy Unverified 10/22/24 08:59 General Stated Complaint: GenMedical BRENDON: 3 Review of Systems All systems reviewed & are unremarkable except as noted in HPI and below Cardiovascular Cardiovascular: Reports as per HPI and Reports chest pain Respiratory Respiratory: Reports cough Exam Narrative Exam Narrative: Constitutional: Alert and oriented x3. Appears stated age. Normal body habitus. Head: Normocephalic, no trauma. Eyes: Pupils PERRL, Red reflex noted, EOM's intact. Eyelids symmetrical without lesions, discharge, or swelling. ENT: Bilateral TM's WNL, External ear normal to inspection, no mastoid TTP, swelling, or erythema, Nasal turbinates WNL, no nasal discharge. Normal dentition, Posterior pharynx WNL, no exudate. Chest: RRR, Normal S1, S2, distal pulses intact. Resp: Lungs clear to auscultation bilaterally, no wheezes, rales, or rhonchi. Abdomen: Soft, non-distended, Normoactive bowel sounds all 4 quads. Musculoskeletal: Normal gait, Moves all 4 extremities without difficulty. Skin: No suspicious rashes or lesions. Capillary refill less than 2 sec. Neurologic: Cranial nerves II-XII intact. Alert and oriented x 3. Motor: No deficits noted. Sensory: Intact bilaterally all 4 extremities. Hematologic/Lymphatic: No ecchymosis, no lymphadenopathy. Course Vital Signs Vital signs: Vital Signs Temperature 36.6 C 10/22/24 08:55 Pulse 96 H 10/22/24 08:55 Respiratory Rate 18 10/22/24 08:55 Blood Pressure 128/85 10/22/24 08:55 Pulse Oximetry 99 10/22/24 08:55 Temperature 36.6 C 10/22/24 08:59 Temperature Source Oral 10/22/24 08:59 Pulse 96 H 10/22/24 08:59 Respiratory Rate 18 10/22/24 08:59 Blood Pressure 128/85 10/22/24 08:59 Pulse Oximetry 99 10/22/24 08:59 Medical Decision Making 24-year-old female presents to the ER with a chief complaint of midsternal chest discomfort when she takes a deep breath since last night. She reports cough. Denies any fever or chills. Having increased work of breathing on exam. Lungs are clear to auscultation bilaterally. Fluid swab ordered, urine and chest x-ray. At this time patient has little to no risk factors for cardiac abnormality. She is not a smoker. She is not tachycardic. EKG and labs will be deferred at this time. Chest x-ray within normal limits, COVID flu RSV are negative. Will give ibuprofen instructed on alternating ice and heat. Taking Tylenol and ibuprofen at home. I do suspect chest wall strain. Patient discharged in hemodynamically stable condition. Instructed on home care follow-up care and return instructions. This text was generated using [employer] system, please disregard any oddities of phrase or misspellings. Lab Data Lab results reviewed: Yes I reviewed the patient's lab results. Labs: Laboratory Tests Range/Units 10/22/24 09:10 COVID-19 Source Nasopharynx SARS-CoV-2 (PCR) (Negative) Negative Influenza Type A (PCR) (Negative) Negative Influenza Type B (PCR) (Negative) Negative RSV (PCR) (Negative) Negative Quality:SDOH Health Related Social Needs: No Data to Display PFSH All Active Problems (Updated 10/22/24 @ 10:02 by Sasha Stoner NP) Anterior chest wall pain (Acute) Surgical History ear tubes Tonsillectomy Social History Smoking/Tobacco Use Status: Current every day Tobacco Type: e-cigarettes Smoking risk assessment performed?: Yes Alcohol Intake: current Alcohol Intake frequency: a few times a week Alcohol type: beer Drug use: Never Substance use type: does not use Housing: apartment Do you feel safe at home: Yes Do you feel safe in your relationship?: Yes
[2024-10-22 09:26] VITALS: RESP 18
--- NOTE | 2024-10-22 09:28 | DI.RAD_ITS ---
Exam(s) XR CHEST 2V PA LATERAL EXAM: XR CHEST 2V PA LATERAL CLINICAL HISTORY: Cough, Chest tenderness TECHNIQUE: 2D digital imaging was performed of the chest. Two images were obtained. PA and lateral views were obtained. COMPARISON: CR CHEST 2 VIEWS PA,LAT from 09/04/2015 FINDINGS: MEDIASTINUM: Normal. HEART: Normal. PULMONARY VASCULATURE: Normal. LUNGS: Clear. PLEURAL SPACE: No pleural effusion or pneumothorax. BONE:Within normal limits for the patient's age. OTHER FINDINGS:Normal. IMPRESSION: No acute pulmonary findings. DATA REPOSITORY: RADIATION DOSE DELIVERED:
[2024-10-22 09:58] LABS: COVID-19 PCR Negative (Negative); Influenza A PCR Negative (Negative); Influenza B PCR Negative (Negative); RSV PCR Negative (Negative)
[2024-10-22 09:59] LABS: Source Nasopharynx
[2024-10-22] MEDS: Ibuprofen 600 MG TAB PO (10:01)
[2024-10-22 10:30] VITALS: BP 123/71; PULSE 80; RESP 16; TEMP 36.6; O2SAT 97
== END 2024-10-22 10:30 | disposition home or self-care (01) ==
PROVIDERS: Emergency Provider Registered Nurse Emergency
DX: R07.89 Other chest pain (principal); R05.9 Cough, unspecified; F17.290 Nicotine dependence, other tobacco product, uncomplicated
CPT/HCPCS: 81025; 87637; 99284; 71046